=== PATIENT | male | born 1980 | race Caucasian/White ===

== ENCOUNTER 2019-07-07 17:37 | Emergency (ER) | payer MEDICARE, SELFPAY ==
[2019-07-07 17:45] VITALS: BP 155/102; PULSE 125; RESP 14; TEMP 37; O2SAT 95; BMI 23.0
--- NOTE | 2019-07-07 17:56 | W.ED.GENADLT ---
HPI - General Adult General: Chief complaint: General Medical Stated complaint: tastes pepper/thinks he has hepatitis Time Seen by Provider: 07/07/19 17:53 Source: patient Mode of arrival: ambulatory Limitations: no limitations History of Present Illness: HPI narrative: 39-year-old male states he is concerned he has hepatitis because his brother had hepatitis roughly a month ago. He states he has been drinking heavily as well and is obviously intoxicated. His main complaint is he states that he smells pepper and just does not feel right. Associated symptoms: Deny chest pain, dyspnea, headache(s), nausea, rash or vomiting Review of Systems Const: Denies: fever(s), chills, body aches or change in appetite Eyes: Denies: blurry vision or eye discomfort ENMT: Denies: throat pain or dental pain Card: Denies: chest pain Resp: Denies: dyspnea GI: Denies: abdominal pain, nausea, vomiting or diarrhea : Denies: dysuria Musc: Denies: neck pain or back pain Skin/Breast: Denies: rash Neuro: Denies: headache(s) Psych: Denies: depression Yury/Lymph: Denies: easy bruising All/Imm: Denies: urticaria PFSH ED PFSH: Social History Smoking and tobacco status: current every day smoker Physical Exam Const: COMMON NORMALS: no acute distress, patient oriented x3 and healthy appearing HENMT: COMMON NORMALS: normocephalic and atraumatic HEAD & SCALP: normocephalic and atraumatic Eye: COMMON NORMALS: Equal, round and reactive pupils present and EOMs intact bilaterally PUPIL: Yes Equal, round and reactive pupils present Neck/C-Spine: COMMON NORMALS: full ROM and supple Chest: COMMONS NORMALS: normal inspection of the chest and normal palpation of entire chest wall Resp: COMMON NORMALS: normal respiratory effort, No retractions, No use of accessory muscles and clear to auscultation bilaterally AUSCULTATION: clear to auscultation bilaterally Cardio: COMMON NORMALS: regular rate, regular rhythm and No murmurs present (Cardio) RATE: regular rate and tachycardic RHYTHM: regular rhythm GI: COMMON NORMALS: Normal to inspection, nondistended, normoactive bowel sounds present, Soft to palpation, non-tender and no masses PALPATION: Yes Soft to palpation Extremity: COMMON NORMALS: normal to inspection and full ROM Neuro: COMMON NORMALS: patient oriented x3, moves all extremities and no focal motor deficits Psych: COMMON NORMALS: mental status grossly normal, Normal thought process present and cooperative THOUGHT PROCESS: Normal thought process present OTHER: Intoxicated Skin: COMMON NORMALS: no rashes or lesions noted and no wounds GENERAL SKIN EXAM: no rashes or lesions noted Course Vital Signs: Vital signs: Vital Signs Temperature 98.6 F 07/07/19 17:45 Pulse Rate 125 H 07/07/19 17:45 Respiratory Rate 14 07/07/19 17:45 Blood Pressure 155/102 07/07/19 17:45 Pulse Oximetry 95 07/07/19 17:45 MDM - General Adult MDM Narrative: Medical decision making narrative: Patient presents here with alcohol intoxication. He is concerned that he had hepatitis hepatitis panel here is negative. Patient is well-appearing here and will discharge with his sister. Patient is to follow-up with primary care doctor in 3 to 5 days return if worsening. Lab Data: Labs: Lab Results 07/07/19 07/07/19 07/07/19 Range/Units 17:52 17:52 17:52 WBC 7.8 (4.0-10.0) 10^3/ uL RBC 4.82 (4.1-5.3) 10^6/u L Hgb 15.5 (11.7-16.6) g/dL Hct 46.5 (42.0-52.0) % MCV 96.5 H (80-94) fL MCH 32.2 (28.0-34.0) pg MCHC 33.3 (30.0-36.0) g/dL RDW 14.1 (12.1-15.1) % Plt Count 231 (130-400) 10^3/c mm MPV 8.8 (7.4-10.4) fL Neut % (Auto) 50.8 % Lymph % (Auto) 38.9 % [place] % (Auto) 9.0 % Eos % (Auto) 0.6 % Baso % (Auto) 0.4 % Neut # (Auto) 4.0 (1.8-7.7) 10^3/u L Lymph # (Auto) 3.0 (0.8-4.8) 10^3/u L [place] # (Auto) 0.7 (0.2-0.9) 10^3/u L Eos # (Auto) 0.1 (0.0-0.8) 10^3/u L Baso # (Auto) 0.0 (0.0-0.1) 10^3/u L Nucleated RBC % (a uto) 0 % Nucleated RBCs # 0.0 /100WBC Sodium 142 (136-145) mmol/L Potassium 3.8 (3.5-5.1) mmol/L Chloride 101 (98-107) mmol/L Carbon Dioxide 27 (22-29) mmol/L Anion Gap 17.8 (5-19) BUN 9 (6-20) mg/dL Creatinine 1.0 (0.7-1.2) mg/dL GFR Calculation 82.8 L (90-130) mL/min Glucose 114 (65-115) mg/dL Calculated Osmolal ity 291 (285-295) mOsm/k g Calcium 9.1 (8.5-10.5) mg/dL Total Bilirubin 0.2 (0.15-1.2) mg/dL AST 46 H (0-40) U/L ALT 28 (0-41) U/L Alkaline Phosphata se 77 (40-130) IU/L Total Protein 8.0 (6.6-8.7) g/dL Albumin 4.3 (3.5-5.2) g/dL Globulin 3.7 (1.3-4.6) g/dL Lipase 60 (13-60) U/L Ethyl Alcohol 396 H* (0-10) mg/dL Hepatitis A IgM Ab Non-reactive (Nonreactive) Hep Bs Antigen Non-reactive (Nonreactive) Hep Bs Antibody 3.5 (0-8.5) Hep B Core Total A b Non-reactive (Nonreactive) Discharge Plan Discharge Patient Disposition: Home, Self-Care Clinical Impression: Alcoholic intoxication Qualifiers: Complication of substance-induced condition: uncomplicated Qualified Code(s): F10.920 - Alcohol use, unspecified with intoxication, uncomplicated Condition: Stable Prescriptions: No Action No Known Home Medications RF: 0 Discharge Orders: Discharge Order (Routine); Ordered 07/07/19 Ordered By: Chel Berry Discharge Diet: Advance as tolerated Discharge Activity: Resume usual activity Patient Instructions: Alcohol Intoxication (ED) Coding Level of Care Code ED Prosthetic Lab Technician for Chg Fwd Exam Comprehensive
[2019-07-07 18:09] LABS: Basophils % 0.4 %; Eosinophils # 0.1 10^3/uL (0.0-0.8); Eosinophils % 0.6 %; Hematocrit 46.5 % (42.0-52.0); Hemoglobin 15.5 g/dL (11.7-16.6); Lymphocytes % 38.9 %; Mean Corpuscular HGB Conc 33.3 g/dL (30.0-36.0); Mean Corpuscular Hemoglobin 32.2 pg (28.0-34.0); Mean Corpuscular Volume 96.5 fL (80-94); Mean Platelet Volume 8.8 fL (7.4-10.4); Monocytes # 0.7 10^3/uL (0.2-0.9); Neutrophils % 50.8 %; Nucleated Red Blood Cells % 0 %; Platelet Count 231 10^3/cmm (130-400); Red Blood Count 4.82 10^6/uL (4.1-5.3); Red Cell Distribution Width 14.1 % (12.1-15.1); White Blood Count 7.8 10^3/uL (4.0-10.0)
[2019-07-07 18:25] LABS: Alanine Aminotransferase 28 U/L (0-41); Albumin Level 4.3 g/dL (3.5-5.2); Alkaline Phosphatase 77 IU/L (40-130); Anion Gap 17.8 (5-19); Aspartate Amino Transferase 46 U/L (0-40); Blood Urea Nitrogen 9 mg/dL (6-20); Calcium 9.1 mg/dL (8.5-10.5); Carbon Dioxide 27 mmol/L (22-29); Chloride 101 mmol/L (98-107); Globulin 3.7 g/dL (1.3-4.6); Glomerular Filtration Rate 82.8 mL/min (90-130); Glucose 114 mg/dL (65-115); Lipase 60 U/L (13-60); Osmolality Calculated 291 mOsm/kg (285-295); Potassium 3.8 mmol/L (3.5-5.1); Sodium 142 mmol/L (136-145); Total Bilirubin 0.2 mg/dL (0.15-1.2)
[2019-07-07] MEDS: sodium chloride 0.9% 1,000 ML 999 ML IV (18:28)
[2019-07-07 18:33] LABS: Alcohol Level 396 mg/dL (0-10)
[2019-07-07 18:57] LABS: Hepatitis A Antibody IgM Non-Reactive (Nonreactive); Hepatitis B Core AB, Total Non-Reactive (Nonreactive); Hepatitis B Surface AB 3.5 (0-8.5); Hepatitis B Surface Antigen Non-Reactive (Nonreactive); Hepatitis C Virus Antibody Reactive (Nonreactive)
[2019-07-07 19:25] VITALS: PULSE 110; RESP 16; O2SAT 95
== END 2019-07-07 19:26 | disposition home or self-care (01) ==
PROVIDERS: Emergency Provider Emergency Medicine
DX: F10.120 Alcohol abuse with intoxication, uncomplicated (principal); Y90.9 Presence of alcohol in blood, level not specified; F17.210 Nicotine dependence, cigarettes, uncomplicated
CPT/HCPCS: 12345; 80053; 80307; 83690; 85025; 86705; 86706; 86709; 86803; 87340; 96360; 99282; 99283; J7030

== ENCOUNTER 2020-08-20 18:38 | Inpatient (IN) | payer MEDICARE, SELFPAY ==
[2020-08-20 19:05] VITALS: BP 133/92; PULSE 132; RESP 17; TEMP 36.7; O2SAT 95; BMI 17.4
--- NOTE | 2020-08-20 19:23 | ED_ITS ---
HPI - Psych General: Chief Complaint: Psychiatric Symptoms Stated Complaint: Statements of Harming Himself Time Seen by Provider: 08/20/20 19:17 Source: patient Mode of arrival: ambulatory Limitations: no limitations History of Present Illness: HPI Narrative: 40-year-old male who is brought here by police for suicidal homicidal ideations. Patient has been drinking heavily today and he states that him and his girlfriend recently split up. States they have been arguing over her dog and that she had taken his dog vomiting. He had called the police because he had been having thoughts of killing himself or harming his girlfriend. He told me that he has had suicidal thoughts as well. He is quite intoxicated at this point. Associated symptoms: Reports depression, homicidal ideation and suicidal ideation Review of Systems Const: Denies: fever(s), chills, body aches or change in appetite Eyes: Denies: blurry vision or eye discomfort ENMT: Denies: throat pain or dental pain Card: Denies: chest pain Resp: Denies: dyspnea GI: Denies: abdominal pain, nausea, vomiting or diarrhea : Denies: dysuria Musc: Denies: neck pain or back pain Skin/Breast: Denies: rash Neuro: Denies: headache(s) Psych: Reports: depression, suicidal ideation and homicidal ideation Yury/Lymph: Denies: easy bruising All/Imm: Denies: urticaria PFSH ED PFSH: Social History Smoking and tobacco status: current every day smoker Physical Exam Const: COMMON NORMALS: patient oriented x3 GENERAL APPEARANCE: disheveled and odor of alcohol detected HENMT: COMMON NORMALS: normocephalic and atraumatic HEAD & SCALP: normocephalic and atraumatic Eye: COMMON NORMALS: Equal, round and reactive pupils present and EOMs intact bilaterally PUPIL: Yes Equal, round and reactive pupils present Neck/C-Spine: COMMON NORMALS: full ROM and supple Chest: COMMONS NORMALS: normal inspection of the chest and normal palpation of entire chest wall Resp: COMMON NORMALS: normal respiratory effort, No retractions, No use of accessory muscles and clear to auscultation bilaterally AUSCULTATION: clear to auscultation bilaterally Cardio: COMMON NORMALS: regular rate, regular rhythm and No murmurs present (Cardio) RATE: regular rate RHYTHM: regular rhythm GI: COMMON NORMALS: Normal to inspection, nondistended, normoactive bowel sounds present, Soft to palpation, non-tender and no masses PALPATION: Yes Soft to palpation Extremity: COMMON NORMALS: normal to inspection and full ROM Neuro: COMMON NORMALS: patient oriented x3, moves all extremities and no focal motor deficits Psych: COMMON NORMALS: mental status grossly normal and cooperative THOUGHT CONTENT: Yes Suicidality present and Yes Homicidality present Skin: COMMON NORMALS: no rashes or lesions noted and no wounds GENERAL SKIN EXAM: no rashes or lesions noted Course Vital Signs: Vital signs: Vital Signs Temperature 98.1 F 08/20/20 19:05 Pulse Rate 118 H 08/20/20 23:35 Respiratory Rate 18 08/20/20 23:35 Blood Pressure 131/90 08/20/20 23:35 Pulse Oximetry 96 08/20/20 23:35 MDM - Psych MDM Narrative: Medical decision making narrative: Patient presents here with alcohol tox [place] along with suicidal ideation. Patient was placed under 96- hour hold. Patient did have a slightly elevated BNP and he is complained of some dyspnea. I spoke to hospitalist will admit to be cleared medically under observation. Also spoke to the psychiatrist who is consulted. Lab Data: Labs: Lab Results 08/20/20 08/20/20 08/20/20 Range/Units 19:15 19:15 19:15 WBC 7.3 (4.0-10.0) 10^3/ uL RBC 5.17 (4.1-5.3) 10^6/u L Hgb 16.6 (11.7-16.6) g/dL Hct 49.7 (42.0-52.0) % MCV 96.1 H (80-94) fL MCH 32.1 (28.0-34.0) pg MCHC 33.4 (30.0-36.0) g/dL RDW 13.5 (12.1-15.1) % Plt Count 242 (130-400) 10^3/c mm MPV 9.3 (7.4-10.4) fL Neut % (Auto) 52.6 % Lymph % (Auto) 40.2 % [place] % (Auto) 6.3 % Eos % (Auto) 0.4 % Baso % (Auto) 0.4 % Neut # (Auto) 3.82 (1.8-7.7) 10^3/u L Lymph # (Auto) 2.9 (0.8-4.8) 10^3/u L [place] # (Auto) 0.5 (0.2-0.9) 10^3/u L Eos # (Auto) 0.0 (0.0-0.8) 10^3/u L Baso # (Auto) 0.0 (0.0-0.1) 10^3/u L Nucleated RBC % (a uto) 0 % Nucleated RBCs # 0.0 /100WBC D-Dimer (0-0.59) ug/mIFE U Sodium 144 (136-145) mmol/L Potassium 4.0 (3.5-5.1) mmol/L Chloride 106 (98-107) mmol/L Carbon Dioxide 24 (22-29) mmol/L Anion Gap 18.0 (5-19) BUN 7 (6-20) mg/dL Creatinine 0.9 (0.7-1.2) mg/dL GFR Calculation 93.0 (90-130) mL/min Glucose 147 H (65-115) mg/dL Calculated Osmolal ity 299 H (285-295) mOsm/k g Calcium 8.3 L (8.5-10.5) mg/dL Total Bilirubin 0.3 (0.15-1.2) mg/dL AST 33 (0-40) U/L ALT 20 (0-41) U/L Alkaline Phosphata se 99 (40-130) IU/L Troponin T Baselin e 40 H (0-15) ng/L Troponin T 120 Min sav (0-15) ng/L Delta Troponin T (0-10) ABS# NT-Pro-B Natriuret Pep (0-125) pg/mL Total Protein 7.2 (6.6-8.7) g/dL Albumin 3.7 (3.5-5.2) g/dL Globulin 3.5 (1.3-4.6) g/dL Urine Color (Yellow) Urine Appearance (CLEAR) Urine pH (5-7) Ur Specific Gravit y (1.005-1.030) Urine Protein (Negative) Urine Glucose (UA) (Normal) Urine Ketones (Negative) Urine Blood (Negative) Urine Nitrate (Negative) Urine Bilirubin (Negative) Urine Urobilinogen (Negative) mg/dL Ur Leukocyte Felicia ase (Negative) Salicylates < 0.3 L (3-10) mg/dL Urine Opiates Scre en (Negative) ng/mL Acetaminophen < 5.0 L (10-30) ug/mL Ur Barbiturates Sc reen (Negative) ng/mL Ur Phencyclidine S crn (Negative) ng/mL Ur Amphetamines Sc reen (Negative) ng/mL U Benzodiazepines Scrn (Negative) ng/mL Urine Cocaine Scre en (Negative) ng/mL U Marijuana (THC) Screen (Negative) ng/mL Ethyl Alcohol 426 H* (0-10) mg/dL SARS-CoV-2 Ag (Rap id) (Negative) 08/20/20 08/20/20 08/20/20 Range/Units 19:15 20:24 20:24 WBC (4.0-10.0) 10^3/ uL RBC (4.1-5.3) 10^6/u L Hgb (11.7-16.6) g/dL Hct (42.0-52.0) % MCV (80-94) fL MCH (28.0-34.0) pg MCHC (30.0-36.0) g/dL RDW (12.1-15.1) % Plt Count (130-400) 10^3/c mm MPV (7.4-10.4) fL Neut % (Auto) % Lymph % (Auto) % [place] % (Auto) % Eos % (Auto) % Baso % (Auto) % Neut # (Auto) (1.8-7.7) 10^3/u L Lymph # (Auto) (0.8-4.8) 10^3/u L [place] # (Auto) (0.2-0.9) 10^3/u L Eos # (Auto) (0.0-0.8) 10^3/u L Baso # (Auto) (0.0-0.1) 10^3/u L Nucleated RBC % (a uto) % Nucleated RBCs # /100WBC D-Dimer (0-0.59) ug/mIFE U Sodium (136-145) mmol/L Potassium (3.5-5.1) mmol/L Chloride (98-107) mmol/L Carbon Dioxide (22-29) mmol/L Anion Gap (5-19) BUN (6-20) mg/dL Creatinine (0.7-1.2) mg/dL GFR Calculation (90-130) mL/min Glucose (65-115) mg/dL Calculated Osmolal ity (285-295) mOsm/k g Calcium (8.5-10.5) mg/dL Total Bilirubin (0.15-1.2) mg/dL AST (0-40) U/L ALT (0-41) U/L Alkaline Phosphata se (40-130) IU/L Troponin T Baselin e (0-15) ng/L Troponin T 120 Min sav (0-15) ng/L Delta Troponin T (0-10) ABS# NT-Pro-B Natriuret Pep 1323 H (0-125) pg/mL Total Protein (6.6-8.7) g/dL Albumin (3.5-5.2) g/dL Globulin (1.3-4.6) g/dL Urine Color Yellow (Yellow) Urine Appearance Clear (CLEAR) Urine pH 5 (5-7) Ur Specific Gravit y 1.010 (1.005-1.030) Urine Protein Neg (Negative) Urine Glucose (UA) Norm (Normal) Urine Ketones Negative (Negative) Urine Blood Neg (Negative) Urine Nitrate Negative (Negative) Urine Bilirubin Neg (Negative) Urine Urobilinogen Norm (Negative) mg/dL Ur Leukocyte Felicia ase Negative (Negative) Salicylates (3-10) mg/dL Urine Opiates Scre en Negative (Negative) ng/mL Acetaminophen (10-30) ug/mL Ur Barbiturates Sc reen Negative (Negative) ng/mL Ur Phencyclidine S crn Negative (Negative) ng/mL Ur Amphetamines Sc reen Positive H (Negative) ng/mL U Benzodiazepines Scrn Negative (Negative) ng/mL Urine Cocaine Scre en Negative (Negative) ng/mL U Marijuana (THC) Screen Negative (Negative) ng/mL Ethyl Alcohol (0-10) mg/dL SARS-CoV-2 Ag (Rap id) (Negative) 08/20/20 08/20/20 08/20/20 Range/Units 20:40 21:03 21:08 WBC (4.0-10.0) 10^3/ uL RBC (4.1-5.3) 10^6/u L Hgb (11.7-16.6) g/dL Hct (42.0-52.0) % MCV (80-94) fL MCH (28.0-34.0) pg MCHC (30.0-36.0) g/dL RDW (12.1-15.1) % Plt Count (130-400) 10^3/c mm MPV (7.4-10.4) fL Neut % (Auto) % Lymph % (Auto) % [place] % (Auto) % Eos % (Auto) % Baso % (Auto) % Neut # (Auto) (1.8-7.7) 10^3/u L Lymph # (Auto) (0.8-4.8) 10^3/u L [place] # (Auto) (0.2-0.9) 10^3/u L Eos # (Auto) (0.0-0.8) 10^3/u L Baso # (Auto) (0.0-0.1) 10^3/u L Nucleated RBC % (a uto) % Nucleated RBCs # /100WBC D-Dimer 2.85 H (0-0.59) ug/mIFE U Sodium (136-145) mmol/L Potassium (3.5-5.1) mmol/L Chloride (98-107) mmol/L Carbon Dioxide (22-29) mmol/L Anion Gap (5-19) BUN (6-20) mg/dL Creatinine (0.7-1.2) mg/dL GFR Calculation (90-130) mL/min Glucose (65-115) mg/dL Calculated Osmolal ity (285-295) mOsm/k g Calcium (8.5-10.5) mg/dL Total Bilirubin (0.15-1.2) mg/dL AST (0-40) U/L ALT (0-41) U/L Alkaline Phosphata se (40-130) IU/L Troponin T Baselin e (0-15) ng/L Troponin T 120 Min sav 38.68 H (0-15) ng/L Delta Troponin T -1.32 L (0-10) ABS# NT-Pro-B Natriuret Pep (0-125) pg/mL Total Protein (6.6-8.7) g/dL Albumin (3.5-5.2) g/dL Globulin (1.3-4.6) g/dL Urine Color (Yellow) Urine Appearance (CLEAR) Urine pH (5-7) Ur Specific Gravit y (1.005-1.030) Urine Protein (Negative) Urine Glucose (UA) (Normal) Urine Ketones (Negative) Urine Blood (Negative) Urine Nitrate (Negative) Urine Bilirubin (Negative) Urine Urobilinogen (Negative) mg/dL Ur Leukocyte Felicia ase (Negative) Salicylates (3-10) mg/dL Urine Opiates Scre en (Negative) ng/mL Acetaminophen (10-30) ug/mL Ur Barbiturates Sc reen (Negative) ng/mL Ur Phencyclidine S crn (Negative) ng/mL Ur Amphetamines Sc reen (Negative) ng/mL U Benzodiazepines Scrn (Negative) ng/mL Urine Cocaine Scre en (Negative) ng/mL U Marijuana (THC) Screen (Negative) ng/mL Ethyl Alcohol (0-10) mg/dL SARS-CoV-2 Ag (Rap id) Negative (Negative) Imaging Data^: CT Chest: Attestation: I personally reviewed and interpreted this imaging study as follows: Radiologist's impression: [address] [address] [address] Scan Report Signed Patient: Edwin Cuevas Unit #: [id number] : 1980 Age/Sex: 40 / M ADM Date: 08/20/20 Loc: ER Room/Bed: Attending Dr: Ordering Provider/Ordering MD: Chel Berry MD Date of Service: 08/20/20 Procedure(s): CT angio chest PE protcl [id number] Accession Number(s): [id number] Report Number: [id number] PROCEDURE INFORMATION: Exam: CTA Chest With Contrast Exam date and time: 08/20/2020 9:06 PM Age: 40 years old Clinical indication: Shortness of breath; Additional info: SOB TECHNIQUE: Imaging protocol: Computed tomographic angiography of the chest with contrast. 3D rendering (Not supervised by radiologist): MIP and/or 3D reconstructed images were created by the technologist. Radiation optimization: All CT scans at this facility use at least one of these dose optimization techniques: automated exposure control; mA and/or kV adjustment per patient size (includes targeted exams where dose is matched to clinical indication); or iterative reconstruction. Contrast material: OMNI 350; Contrast volume: 75 ml; Contrast route: INTRAVENOUS (IV); COMPARISON: CR (CHEST, ) 08/20/2020 7:55 PM RADIATION DOSE METRICS: Total DLP (mGy-cm): 595.97 FINDINGS: Pulmonary arteries: Evaluation of peripheral pulmonary arteries is limited secondary to the phase of contrast enhancement. No filling defects in the central pulmonary arteries to suggest a large pulmonary embolism. Aorta: No evidence for aortic aneurysm. Evaluation for aortic dissection is limited due to the phase of contrast-enhancement. Mild atherosclerotic changes in the visualized arteries. Lungs: Mild parabronchial cuffing. Mild cephalization of vessels and smooth interlobular septal thickening, findings suggest mild pulmonary edema. Multiple calcified granulomas in both lungs. Pleural spaces: Small right pleural effusion. No pneumothorax. Heart: Marked enlargement of the heart. Mediastinal space: No mediastinal hematoma. No pneumomediastinum. Lymph nodes: Calcified mediastinal and hilar lymph nodes. No lymphadenopathy. Liver: The visualized liver is unremarkable. Gallbladder and bile ducts: The visualized gallbladder is unremarkable. Pancreas: The visualized pancreas is unremarkable. No pancreatic ductal dilatation. Spleen: Multiple calcified granulomas in the spleen. Adrenal glands: The right and left adrenal glands are unremarkable. Kidneys and ureters: The visualized right and left kidneys are unremarkable. 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 Multilevel degenerative changes of varying severity in the visualized spine. Soft tissues: No acute abnormality in the extrathoracic soft tissues. Large sebaceous cyst in the right anterior chest wall measuring 2.5 x 4.2 cm (series 2, image 197). No acute abnormality in the extrathoracic soft tissues. CT/CT angio chest PE protcl [id number] IMPRESSION: 1. Mild interstitial pulmonary edema. 2. Evaluation of peripheral pulmonary arteries is limited secondary to the phase of contrast enhancement. No filling defects in the central pulmonary arteries to suggest a large pulmonary embolism. 3. Small right pleural effusion. 4. Severe cardiomegaly. 5. Incidental/nonacute findings are listed in the report. Radiation Dose CTDIVOL = (mGy): DLP = 595.97 (mGy-cm) EKG Data^: EKG 1: Attestation: I personally reviewed and interpreted this EKG as follows: EKG interpretation date: 08/20/20 EKG interpretation time: 19:59 Interpretation: sinus tach hr [address] or t wave abnormalities qrs 96 qtc 391 Discharge Plan Discharge Patient Disposition: Admitted As Inpatient Admit Provider: Jia Marin Clinical Impression: Suicidal ideation, Dyspnea, Alcohol intoxication Condition: Stable Coding Level of Care Code ED Instrument And Electrical Technician for Chg Fwd Exam Comprehensive
--- NOTE | 2020-08-20 19:37 | XRR_ITS ---
PROCEDURE INFORMATION: Exam: XR Chest Exam date and time: 08/20/2020 7:37 PM Age: 40 years old Clinical indication: Chest wall pain; Patient HX: AMS; Additional info: Cp TECHNIQUE: Imaging protocol: XR of the chest. Views: 1 view. COMPARISON: CR Ribs Bilateral w PA CXR [id number] 04/04/2015 1:25 PM FINDINGS: Lungs: Interval development of mild interstitial pulmonary edema. Pleural spaces: No pleural effusion. No pneumothorax. Heart/Mediastinum: Cardiac silhouette is moderately enlarged. Size of the cardiac silhouette has increased. Mediastinal contours are unremarkable. Vasculature: Vascular calcifications in the aorta. Bones/joints: Unremarkable for age. XR/XR chest 1V portable [id number] IMPRESSION: 1. Interval development of mild interstitial pulmonary edema. 2. Cardiac silhouette is moderately enlarged. Size of the cardiac silhouette has increased.
--- NOTE | 2020-08-20 19:37 | ECG_ITS ---
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 Measurements Intervals [place] Rate: 122 P: -4 MD: 141 QRS: 87 QRSD: 96 T: 24 QT: 319 QTc: 455 Interpretive Statements SINUS TACHYCARDIA INDETERMINATE AXIS NONSPECIFIC T-WAVE ABNORMALITY ABNORMAL RHYTHM ECG No previous ECG available for comparison Electronically Signed On 08-20-2020 21:34:18 CDT by Keke Benítez M.D. [id number]
[2020-08-20 19:40] LABS: Basophils % 0.4 %; Eosinophils % 0.4 %; Hematocrit 49.7 % (42.0-52.0); Hemoglobin 16.6 g/dL (11.7-16.6); Lymphocytes # 2.9 10^3/uL (0.8-4.8); Lymphocytes % 40.2 %; Mean Corpuscular HGB Conc 33.4 g/dL (30.0-36.0); Mean Corpuscular Hemoglobin 32.1 pg (28.0-34.0); Mean Corpuscular Volume 96.1 fL (80-94); Mean Platelet Volume 9.3 fL (7.4-10.4); Monocytes # 0.5 10^3/uL (0.2-0.9); Monocytes % 6.3 %; Neutrophils # 3.82 10^3/uL (1.8-7.7); Neutrophils % 52.6 %; Nucleated Red Blood Cells % 0 %; Platelet Count 242 10^3/cmm (130-400); Red Blood Count 5.17 10^6/uL (4.1-5.3); Red Cell Distribution Width 13.5 % (12.1-15.1); White Blood Count 7.3 10^3/uL (4.0-10.0)
[2020-08-20 20:10] LABS: Alanine Aminotransferase 20 U/L (0-41); Albumin Level 3.7 g/dL (3.5-5.2); Alkaline Phosphatase 99 IU/L (40-130); Aspartate Amino Transferase 33 U/L (0-40); Blood Urea Nitrogen 7 mg/dL (6-20); Calcium 8.3 mg/dL (8.5-10.5); Carbon Dioxide 24 mmol/L (22-29); Chloride 106 mmol/L (98-107); Globulin 3.5 g/dL (1.3-4.6); Glucose 147 mg/dL (65-115); Osmolality Calculated 299 mOsm/kg (285-295); Sodium 144 mmol/L (136-145); Total Bilirubin 0.3 mg/dL (0.15-1.2); Total Protein 7.2 g/dL (6.6-8.7)
[2020-08-20 20:17] LABS: Acetaminophen < 5.0 ug/mL (10-30); Salicylate < 0.3 mg/dL (3-10)
[2020-08-20 20:19] LABS: Alcohol Level 426 mg/dL (0-10)
[2020-08-20 20:31] LABS: Add Urine Microscopic? NO; Bilirubin Urine Neg (Negative); Blood Urine Neg (Negative); Glucose Urine UA Norm (Normal); Ketones Urine Negative (Negative); Leukocyte Esterase Urine Negative (Negative); Nitrate Urine Negative (Negative); Protein Urine Neg (Negative); Urine Appearance Clear (CLEAR); Urine Color Yellow (Yellow); Urobilinogen Urine Norm (Negative); pH Urine 5 (5-7)
[2020-08-20 20:33] LABS: Charge for UA Resulting for Rev
[2020-08-20 20:41] LABS: Amphetamines Screen Urine Positive (Negative); Barbiturates Screen Urine Negative (Negative); Benzodiazepines Screen Urine Negative (Negative); Cocaine Screen Urine Negative (Negative); Opiate Screen Urine Negative (Negative); PCP Screen Urine Negative (Negative); THC Screen Urine Negative (Negative)
[2020-08-20 21:04] LABS: D Dimer 2.85 ug/mIFEU (0-0.59)
--- NOTE | 2020-08-20 21:06 | CTR_ITS ---
PROCEDURE INFORMATION: Exam: CTA Chest With Contrast Exam date and time: 08/20/2020 9:06 PM Age: 40 years old Clinical indication: Shortness of breath; Additional info: SOB TECHNIQUE: Imaging protocol: Computed tomographic angiography of the chest with contrast. 3D rendering (Not supervised by radiologist): MIP and/or 3D reconstructed images were created by the technologist. Radiation optimization: All CT scans at this facility use at least one of these dose optimization techniques: automated exposure control; mA and/or kV adjustment per patient size (includes targeted exams where dose is matched to clinical indication); or iterative reconstruction. Contrast material: OMNI 350; Contrast volume: 75 ml; Contrast route: INTRAVENOUS (IV); COMPARISON: CR (CHEST, ) 08/20/2020 7:55 PM RADIATION DOSE METRICS: Total DLP (mGy-cm): 595.97 FINDINGS: Pulmonary arteries: Evaluation of peripheral pulmonary arteries is limited secondary to the phase of contrast enhancement. No filling defects in the central pulmonary arteries to suggest a large pulmonary embolism. Aorta: No evidence for aortic aneurysm. Evaluation for aortic dissection is limited due to the phase of contrast-enhancement. Mild atherosclerotic changes in the visualized arteries. Lungs: Mild parabronchial cuffing. Mild cephalization of vessels and smooth interlobular septal thickening, findings suggest mild pulmonary edema. Multiple calcified granulomas in both lungs. Pleural spaces: Small right pleural effusion. No pneumothorax. Heart: Marked enlargement of the heart. Mediastinal space: No mediastinal hematoma. No pneumomediastinum. Lymph nodes: Calcified mediastinal and hilar lymph nodes. No lymphadenopathy. Liver: The visualized liver is unremarkable. Gallbladder and bile ducts: The visualized gallbladder is unremarkable. Pancreas: The visualized pancreas is unremarkable. No pancreatic ductal dilatation. Spleen: Multiple calcified granulomas in the spleen. Adrenal glands: The right and left adrenal glands are unremarkable. Kidneys and ureters: The visualized right and left kidneys are unremarkable. 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 Multilevel degenerative changes of varying severity in the visualized spine. Soft tissues: No acute abnormality in the extrathoracic soft tissues. Large sebaceous cyst in the right anterior chest wall measuring 2.5 x 4.2 cm (series 2, image 197). No acute abnormality in the extrathoracic soft tissues. CT/CT angio chest PE protcl [id number] IMPRESSION: 1. Mild interstitial pulmonary edema. 2. Evaluation of peripheral pulmonary arteries is limited secondary to the phase of contrast enhancement. No filling defects in the central pulmonary arteries to suggest a large pulmonary embolism. 3. Small right pleural effusion. 4. Severe cardiomegaly. 5. Incidental/nonacute findings are listed in the report. Radiation Dose CTDIVOL = (mGy): DLP = 595.97 (mGy-cm)
[2020-08-20] MEDS: iohexol 350 mg/mL 100 mL Btl IV (21:23)
[2020-08-20 21:31] LABS: NT Pro B Type Natriuretic Pept 1323 pg/mL (0-125)
[2020-08-20 21:36] LABS: Troponin(5th) Baseline 40 ng/L (0-15)
[2020-08-20 21:37] LABS: Troponin 5 2HR 38.68 ng/L (0-15); Troponin 5 2HR Delta -1.32 ABS# (0-10)
[2020-08-20 21:57] LABS: SARS Covid-2 Antigen Negative (Negative)
--- NOTE | 2020-08-20 22:00 | ECG_ITS ---
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 Measurements Intervals [place] Rate: 122 P: 71 NE: 145 QRS: -46 QRSD: 90 T: 63 QT: 310 QTc: 443 Interpretive Statements SINUS TACHYCARDIA INDETERMINATE AXIS LEFT VENTRICULAR HYPERTROPHY AND ST-T CHANGE [VOLTAGE CRITERIA PLUS ST/T ABNORMALITY] Compared to ECG 08/20/2020 19:59:17 Left ventricular hypertrophy now present ST (T wave) deviation now present T-wave abnormality no longer present Electronically Signed On 08-20-2020 21:52:33 CDT by Keke Benítez M.D. [id number]
[2020-08-20] MEDS: FUROsemide 10 mg/mL SDV 4mL 40 MG IVP (23:19)
--- NOTE | 2020-08-20 23:27 | PC.NURSE ---
Pt calm and cooperative, sitter outside room.
[2020-08-20 23:35] VITALS: BP 131/90; PULSE 118; RESP 18; O2SAT 96
--- NOTE | 2020-08-20 23:37 | PC.NURSE ---
Hospitalist in room
[2020-08-21] VITALS (7 sets, daily range): BP systolic 121–141; BP diastolic 81–97; PULSE 98–122; RESP 16–20; TEMP 36.8–37; O2SAT 95–97
--- NOTE | 2020-08-21 00:33 | P.HP_ITS ---
Providers/Chief Complaint Admitting Physician: Jia Marin MD Chief Complaint: Statements of Harming Himself History of Present Illness Edwin Cuevas is a 40 year old male who has been brought to the ER today after he called the police for reported suicidal ideation. States he also had thoughts of hurting his girlfriend who he had a fight with earlier today. States he is quite depressed because he broke up with his girlfriend today and they had an argument about who gets the dog. He has been drinking excessively since last night. Alcohol level is greater than 400. On review of systems he reported shortness of breath which has been progressing over the last 3 to 4 weeks. His D-dimer was noted to be elevated at 2.85, CTA of the chest was obtained which did not show any PE.Mild interstitial pulmonary edema was noted a s well as a small right pleural effusion. There was severe cardiomegaly, patient states he does not have any history of cardiac disease except broken heart but I am not certain if he is referring to Takotsubo cardiomyopathy or if he is referring to his recent break-up. EKG shows sinus tachycardia. He is saturating 96% on room air. Rapid COVID Ag test is negative, he is unable to tell me if he recently had COVID or if he is vaccinated. incidental note made of hep C Screen +. He is currently on a 96 hr hold. Review of Systems General: Reports: ROS unobtainable due to medical condition Medications/Allergies Home Medications Medication Instructions Recorded Confirmed Last Taken Type No Known Home Medications 07/07/19 08/20/20 Unknown History Allergies Allergy/AdvReac Type Severity Reaction Status Date / Time No Known Allergies Allergy Verified 08/20/20 19:11 PFSH Acute PFSH: Social History Smoking and tobacco status: current every day smoker Vitals/I&O/Wt Last Vital Signs Temp 98.1 F 08/20/20 19:05 Pulse 118 H 08/20/20 23:35 Resp 18 08/20/20 23:35 BP 131/90 08/20/20 23:35 Pulse Ox 96 08/20/20 23:35 Weight last 48 hrs Weight 56.699 kg Physical Exam Narrative: EXAM NARRATIVE: General: No acute distress, AO x1 HEENT: PERRLA, pupils bilaterally equal and reactive, pallors not present Chest: Normal vesicular breath sounds, no added sounds, equal good air entry bilaterally CVS: S1-S2 regular, no murmurs, no tachycardia, no gallops, no rubs Abdomen: Soft, nontender, no organomegaly, bowel sounds present Neuro: No focal deficits, no facial deformity, AO x3, power 5/5 in all limbs Extremities: Healthy surgical dressing present on the right hip, mild tenderness, soft no erythema. Data : 08/20/20 19:15 08/20/20 19:15 A&P Assessment and plan (1) Alcohol intoxication: Alcohol level >400 Amphetamine + on drug screen Monitor for signs of withdrawal CINY protocol Status: Acute Qualifiers: Complication of substance-induced condition: with unspecified complic ation Qualified Code(s): F10.929 - Alcohol use, unspecified with intoxication, unspecified (2) Cardiomegaly: Incidentally noted on CTA chest Elevated BNP, mild interstitial edema, reported SOB over past few weeks check 2 d echo denies h/o IVDU but utox + Check blood cx to r/o endocarditis check COVID PCR Status: Acute (3) Suicidal ideation: Psych consult placed from ER currently on a 96 hr hold 1:1 sitter at all times Status: Acute (4) Hepatitis C antibody positive in blood: LFT within range check HCV PCR , HIV screen F/up outpatient Status: Acute (5) Dyspnea: Cause under evaluation, may have underlying CHF Status: Acute Qualifiers: Dyspnea type: shortness of breath Qualified Code(s): R06.02 - Shortness of breath (6) CHF (congestive heart failure): This is a possible diagnosis currently 2D echo s/p Lasix 40mg iv daily Status: Acute Qualifiers: Heart failure type: unspecified Heart failure chronicity: unspecified Qualified Code(s): I50.9 - Heart failure, unspecified Additional A&P Information DVT ppx: lovenox Full code 96 hr hold Attestations Medical Necessity Statement*: anticipate >2midnight admission for above defined care Coding Level of Care Code Acute Compliance Administrator for [facility] Fwd Diagnoses Alcohol intoxication F10.929 Complication of substance-induced condition: with unspecified complication Cardiomegaly I51.7 Suicidal ideation R45.851 Hepatitis C antibody positive in blood R76.8 Dyspnea R06.02 Dyspnea type: shortness of breath CHF (congestive heart failure) I50.9 Heart failure type: unspecified Heart failure chronicity: unspecified
--- NOTE | 2020-08-21 01:15 | USCV_ITS ---
Edwin Cuevas Age: 40 Gender: M : 1980 Exam Date: 08/21/2020 13:37 Ordering Phys: Jia Marin MD Technologist: Exam Location: [facility] [place] Indication: CARDIOMEGALY BP: 135 / 74 HR: 103 Rhythm: Sinus Technical Quality: Good MEASUREMENTS (Male / Female) Normal Values 2D ECHO LV Diastolic Diameter PLAX 6.1 cm 4.2 - 5.9 / 3.9 - 5.3 cm LV Systolic Diameter PLAX 5.8 cm IVS Diastolic Thickness 1.1 cm 0.6 - 1.0 / 0.6 - 0.9 cm IVS Systolic Thickness 1.4 cm LVPW Diastolic Thickness 1.1 cm 0.6 - 1.0 / 0.6 - 0.9 cm LVPW Systolic Thickness 1.1 cm LVOT Diameter 2.0 cm LV Ejection Fraction 2D Teich 12.9 % LV Ejection Fraction MOD 2C 19.7 % LV Ejection Fraction 2C AL 20.2 % LA Diameter 4.0 cm LA Width 4.2 cm LA Height 5.0 cm RA Width 4.4 cm RA Height 5.1 cm Aorta at Sinotubular Diameter 3.6 cm DOPPLER AV Peak Velocity 80.0 cm/s LVOT Peak Velocity 81.0 cm/s AV Area Cont Eq vti 2.9 cm squared AV Area Cont Eq pk 3.2 cm squared MV Area PHT 5.0 cm squared Mitral E to A Ratio 1.3 MV E' Velocity 36.0 cm/s Mitral E to MV E' Ratio 18.1 Mitral E to LV E' Lateral Ratio 25.5 Mitral E to LV E' Septal Ratio 14.1 TR Peak Velocity 241.3 cm/s TR Peak Gradient 23.3 mmHg TV Peak E Velocity 87.0 cm/s Right Atrial Pressure 3.0 mmHg Pulmonary Artery Systolic Pressu 26.3 mmHg PV Peak Velocity 46.0 cm/s FINDINGS Left Ventricle Severe diffuse hypokinesia of the left ventricle with an ejection fraction of 15%. Mildly dilated left ventricle Right Ventricle Normal RV size with a slightly diminished ejection fraction. Right Atrium Mildly increased right atrial size. Left Atrium Mildly increased left atrial size. Mitral Valve Thickened mitral valve. Mild mitral valve regurgitation. Aortic Valve Tricuspid valve with no significant stenosis Tricuspid Valve Mild tricuspid valve regurgitation. Pulmonic Valve Structurally normal pulmonic valve without significant stenosis. There is no pulmonic regurgitation. Pericardium Normal pericardium without effusion. Aorta Normal ascending aorta dimension. CONCLUSIONS Severe diffuse hypokinesia of the left ventricle with an ejection fraction of 15%. Mildly dilated left ventricle. Mild biatrial enlargement. Normal RV size with a slightly diminished ejection fraction. Thickened mitral valve. Mild mitral valve regurgitation. Mild tricuspid valve regurgitation. Estimated pulmonary artery peak systolic pressure 26 mmHg There is no pericardial effusion. There are no intracardiac masses. No previous study is available for comparison. Dr Emelyn Mcbride MD [facility] (Electronically Signed) Final Date: 22 August 2020 18:18 S
[2020-08-21 01:51] LABS: HIV 1 & 2 Antibody Non-Reactive (Non-Reactiv); HIV 1 & 2 Antigen Non-Reactive (Non-Reactiv)
--- NOTE | 2020-08-21 02:00 | ECG_ITS ---
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 Measurements Intervals [place] Rate: 117 P: 72 WV: 129 QRS: 10 QRSD: 94 T: 56 QT: 322 QTc: 450 Interpretive Statements SINUS TACHYCARDIA POSSIBLE RIGHT ATRIAL ENLARGEMENT [0.25mV P WAVE] LEFT ATRIAL ENLARGEMENT [-0.15mV P WAVE IN V1/V2] INDETERMINATE AXIS POSSIBLE LEFT VENTRICULAR HYPERTROPHY [VOLTAGE CRITERIA PLUS LAE OR QRS WIDENING] MODERATE T-WAVE ABNORMALITY, CONSIDER LATERAL ISCHEMIA [-0.1+ mV T WAVE IN I/aVL/V5/V6] Compared to ECG 08/20/2020 21:34:33 Atrial abnormality now present T-wave abnormality now present Possible ischemia now present ST (T wave) deviation no longer present Electronically Signed On 08-26-2020 16:52:49 CDT by Keke Benítez M.D. [id number]
[2020-08-21] MEDS: enoxaparin 40 mg/0.4 mL Syringe SUBCUT (02:55)
[2020-08-21 03:46] LABS: Troponin 5 6HR 40.95 ng/L (0-15); Troponin 5 6HR Delta 0.95 ng/L (0-12)
[2020-08-21] MEDS: folic acid 1 mg Tablet PO (09:13)
[2020-08-21] MEDS: pantoprazole DR 40 mg Tablet PO (09:13)
[2020-08-21] MEDS: multivitamin therapeutic Tablet 1 TAB PO (09:13)
[2020-08-21] MEDS: thiamine 100 mg Tablet PO (09:13)
--- NOTE | 2020-08-21 11:10 | PC.CHAP ---
Pastoral Care Encounter/Spiritual Assessment Type of Contact [] Declined developing machine tender visit [] Patient/Family/Request visit [] Outpatient visit [] Follow-up visit [] Physician referral [] Code/Alert [] Routine visit [] Staff referral [] Actively dying [] Patient sleeping [] Family support [] [] Out of room [] Palliative care [] [] Receiving care in room [] Pre-surgical visit [] Trauma [] Long length of stay [] ICU visit [X] Other: nursesais aid with him confused about his health Relational/Emotional Strength [] Patient feels connected with others/family/visitors/staff [] Distress [] Loneliness/isolation [] Abandonment Spirituality of Patient [] Person of [] Attends Orthodoxy of their [] Believes in Prayer [] Reads Bible or Caodaism materials [] There are Spiritual issues to be addressed Steamship Agent Interventions [] Prayer [] Active listening [] Non-anxious presence [] Spiritual/emotional support [] Crisis/trauma care [] Spiritual counseling [] Bereavement support [] Provided bereavement packet [] Provided Bible/devotional materials [] Provided toy/stuffed animal, coloring book to patient or family member [] Provided Communion [] Anointing/[place] [] Salvation [] Completed spiritual assessment [] Other: Impact on Illness or Injury [] Angry [] Fearful [] Anxious [] Often cries [] Exhaustion [] Unable to work [] Unable to attend scientology [] Unable to walk/stand [] Unable to read [] Unable to drive [] Unable to eat/drink [] Unable to sleep [] Unable to be with family [] Patient intubated [] Other: Summary nursesais aid with him confused about his health Time spent with patient 5 mins
[2020-08-21] MEDS: FUROsemide 20 mg Tablet PO (11:41)
[2020-08-21] MEDS: carvedilol 3.125 mg Tablet PO ×2 (11:42→17:57)
[2020-08-21] MEDS: lisinopril 5 mg Tablet PO (11:42)
--- NOTE | 2020-08-21 14:08 | PM.PN ---
Subjective Subjective: Interval history: Admitted overnight, H&P labs appreciated. On examination sitter at bedside, patient lying comfortably in bed on room air. Drowsy but a AOx3. Denies homicidal ideation at present. Does state of suicidal ideation. Denies any chest pain, nausea, vomiting, headache. Vitals/I&O/Wt Last Vital Signs Temp 98.2 F 08/21/20 11:59 Pulse 111 H 08/21/20 11:59 Resp 17 08/21/20 11:59 BP 141/97 08/21/20 11:59 Pulse Ox 97 08/21/20 11:59 08/20/20 08/21/20 08/21/20 22:59 06:59 14:59 Intake Total 840 / 840 Balance 840 / 840 Weight last 48 hrs Weight 56.699 kg Physical Exam Narrative: EXAM NARRATIVE: General: No acute distress, AO x3, drowsy, sleepy HEENT: PERRLA, pupils bilaterally equal and reactive Chest: Normal vesicular breath sounds, no added sounds, equal good air entry bilaterally CVS: S1-S2 regular, pansystolic murmur soft at apex no tachycardia, no gallops, no rubs Abdomen: Soft, nontender, no organomegaly, bowel sounds present Neuro: No focal deficits, no facial deformity, AO x3, power 5/5 in all limbs Data : 08/20/20 19:15 08/20/20 19:15 Micro: Microbiology 08/21/20 03:10 Blood Culture - Preliminary Blood SPECIMEN COLLECTED 08/21/20 03:10 Blood Culture - Preliminary Blood SPECIMEN COLLECTED A&P Assessment and plan (1) Dyspnea: Status: Acute Qualifiers: Dyspnea type: shortness of breath Qualified Code(s): R06.02 - Shortness of breath (2) CHF (congestive heart failure): Status: Acute Qualifiers: Heart failure type: unspecified Heart failure chronicity: unspecified Qualified Code(s): I50.9 - Heart failure, unspecified (3) Alcohol intoxication: Status: Acute Qualifiers: Complication of substance-induced condition: with unspecified complication Qualified Code(s): F10.929 - Alcohol use, unspecified with intoxication, unspecified (4) Cardiomegaly: Status: Acute (5) Suicidal ideation: Status: Acute (6) Hepatitis C antibody positive in blood: Status: Acute Additional A&P Information Dyspnea most likely secondary to congestive heart failure: Patient does not have any past medical history. CTA consistent with dilated cardiomyopathy. Echocardiogram results awaited. Start patient on Lasix 20 mg oral, Coreg 3.125 mg twice daily, lisinopril 5 mg daily. Will uptitrate medications as per kidney functions and blood pressures. Currently patient doing well on room air. COVID-19 PCR sent out overnight. Isolation precautions. Once ruled out can plan to do stress test to rule out ischemia as etiology. Most likely patient has nonischemic etiology given chronic alcohol abuse and amphetamine abuse. Check HbA1c, lipid panel. Strict input output charting, daily weights. Alcohol abuse/amphetamine intoxication: [facility] protocol. Sitter at bedside. LFTs are within range. Start patient on Librium 25 every 8 hourly. Suicidal ideation: Psychiatry consulted. One-to-one sitter. 96-hour hold. Hep C antibody positive: LFT in range. Check liver ultrasound. Check HCV PCR, HIV screen. Patient would need outpatient follow-up. Cardiac diet. Full code. Lovenox for DVT prophylaxis. CIWA protocol. One-to-one sitter. Attestations Medical Necessity Statement*: Requires further hospitalization for management of suicidal ideation/96-hour hold, new congestive heart failure Time Spent in Patient Care: Greater than 35 minutes (>than 50% of time spent in counselling and/or direct pt care on unit). Coding Level of Care Code Acute Senior Software Analyst for Susanna Yoder Diagnoses Dyspnea R06.02 Dyspnea type: shortness of breath CHF (congestive heart failure) I50.9 Heart failure type: unspecified Heart failure chronicity: unspecified Alcohol intoxication F10.929 Complication of substance-induced condition: with unspecified complication Cardiomegaly I51.7 Suicidal ideation R45.851 Hepatitis C antibody positive in blood R76.8
[2020-08-21 14:23] LABS: Coronavirus Test Green County Not Detected
[2020-08-21] MEDS: chlordiazePOXIDE 25 mg Capsule PO ×2 (15:15→22:29)
[2020-08-22] MEDS: enoxaparin 40 mg/0.4 mL Syringe SUBCUT (01:22)
[2020-08-22 03:37] VITALS: BP 118/77; PULSE 104; RESP 16; TEMP 36.8; O2SAT 96
[2020-08-22] MEDS: chlordiazePOXIDE 25 mg Capsule PO (05:38)
[2020-08-22 06:49] LABS: Basophils % 0.2 %; Eosinophils # 0.1 10^3/uL (0.0-0.8); Eosinophils % 1.2 %; Hematocrit 52.5 % (42.0-52.0); Hemoglobin 17.8 g/dL (11.7-16.6); Lymphocytes # 1.9 10^3/uL (0.8-4.8); Lymphocytes % 22.8 %; Mean Corpuscular HGB Conc 33.9 g/dL (30.0-36.0); Mean Corpuscular Hemoglobin 32.1 pg (28.0-34.0); Mean Corpuscular Volume 94.8 fL (80-94); Mean Platelet Volume 10.1 fL (7.4-10.4); Monocytes # 0.7 10^3/uL (0.2-0.9); Neutrophils # 5.51 10^3/uL (1.8-7.7); Neutrophils % 67.6 %; Nucleated Red Blood Cells % 0 %; Platelet Count 180 10^3/cmm (130-400); Red Blood Count 5.54 10^6/uL (4.1-5.3); Red Cell Distribution Width 12.6 % (12.1-15.1); White Blood Count 8.2 10^3/uL (4.0-10.0)
--- NOTE | 2020-08-22 07:00 | NMCV_ITS ---
NM jonatan perf SPECT r/s* [id number] Edwin Cuevas Age: 40 Gender: M : 1980 Exam Date: 08/22/2020 06:52 Ordering Phys: Matt Augustine MD Technologist: RUSTY Pineda Exam Location: [facility] Indications: CARDIOMEGALY STRESS TEST Please see separate stress test report in [facility] for full findings IMAGE PROTOCOL Rest/Stress 1 Lexiscan Day Radiopharmaceutical Dose (mCi) Administration Site Administered by Rest: Tc-99m 10.7 IV RUSTY Hinson Sestamibi Stress:Tc-99m 32.8 IV RUSTY Pineda Sestamiyannick Rest: 22-Aug-2020 60 Discovery 630 Stress: 22-Aug-2020 30 Discovery 630 0.4mg Lexiscan. Images obtained in supine and prone position. SPECT RESULTS Technical Quality: Excellent Raw Data Analysis: Normal Image Corrections: No attenuation or motion correction applied Summed Stress Score: 3 Summed Rest Score: 4 Summed Difference Score: 0 PERFUSION FINDINGS Small sized perfusion abnormality of mild severity of mid to apical inferior wall with somewhat improved tracer uptake in stress images. This is likely suggestive of attenuation artifact. FUNCTIONAL RESULTS (calculated via Gated SPECT) Stress Image LV EF (%): 11 Stress EDV (mL):247 TID: 1.05 Stress ESV (mL):220 FUNCTIONAL FINDINGS: The left ventricle is dilated. Transient Ischemia Dilatation of 1.1. There is severely reduced left ventricular global systolic function. The left ventricular ejection fraction is severely reduced with a value of 11%. There is severe global hypokinesis. Markedly increased end-diastolic and end-systolic volumes. IMPRESSIONS 1. Myocardial perfusion imaging is normal. Attenuation artifact noted in mid to inferior chavez. 2. There is severely reduced left ventricular global systolic function with severe global hypokinesis. 3. The left ventricular ejection fraction is severely reduced with a value of 11%. 4. The perfusion pattern is consistent with a non-ischemic cardiomyopathy. Keke Benítez MD (Electronically Signed) Final Date: 22 August 2020 11:27 S
[2020-08-22 07:05] VITALS: BP 124/85; PULSE 97; RESP 17; TEMP 36.9; O2SAT 98
[2020-08-22 07:10] LABS: Alanine Aminotransferase 31 U/L (0-41); Albumin Level 3.8 g/dL (3.5-5.2); Alkaline Phosphatase 167 IU/L (40-130); Anion Gap 16.8 (5-19); Aspartate Amino Transferase 65 U/L (0-40); Blood Urea Nitrogen 21 mg/dL (6-20); Calcium 9.4 mg/dL (8.5-10.5); Carbon Dioxide 29 mmol/L (22-29); Chloride 96 mmol/L (98-107); Creatinine Clr Calc Pharmacy 70.8738; Globulin 3.6 g/dL (1.3-4.6); Glomerular Filtration Rate 73.8 mL/min (90-130); Glucose 107 mg/dL (65-115); Osmolality Calculated 289 mOsm/kg (285-295); Potassium 3.8 mmol/L (3.5-5.1); Sodium 138 mmol/L (136-145); Total Bilirubin 1.4 mg/dL (0.15-1.2); Total Protein 7.4 g/dL (6.6-8.7)
--- NOTE | 2020-08-22 07:20 | PC.NURSE ---
Patient and 1:1 sitter to stress test this time.
--- NOTE | 2020-08-22 07:45 | ECG_ITS ---
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 Interpretive Statements NAME OF STUDY: LEXISCAN SESTAMIBI STRESS TEST INDICATION: Cardiomyopathy, PROCEDURE: At the baseline, the blood pressure was 95/68 mmHg with a heart rate of 101 bpm and oxygen saturation 97%. The electrocardiogram showed normal sinus rhythm, rightward axis. Left ventricular hypertrophy with ST-T wave changes in inferolateral leads. The Lexiscan was infused over a period of 20 seconds. A total of 0.4 milligrams of Lexiscan was infused. The stress phase was continued for a total of 5 minutes. Heart rate at the end of the stress phase was 94 bpm, oxygen saturation 97% with a blood pressure of 153/90 mmHg. The EKG at the peak infusion revealed no significant ST-T wave changes. The study was terminated due to protocol completion. Sestamibi was injected 20 seconds after the Lexiscan infusion. Blood pressure at the end of the recovery phase was 95/65 mmHg, oxygen saturation 98% with a heart rate of 87 beats per minute. CONCLUSION: 1. No significant EKG changes with the LexiScan infusion. 2. No LexiScan induced chest pain or cardiac arrhythmia. 3. Normal blood pressure and heart rate response. 4. Sestamibi/sestamibi perfusion scan pending; see separate report. Electronically Signed On 08-22-2020 11:21:45 CDT by Keke Benítez M.D. [id number]
[2020-08-22] MEDS: regadenoson 0.4 Mg/5 ml Syringe IVP (07:50)
[2020-08-22] MEDS: ondansetron 2 mg/ML SDV 2 mL 4 MG IVP (07:55)
[2020-08-22 08:14] VITALS: BP 95/65; PULSE 87
[2020-08-22] MEDS: FUROsemide 20 mg Tablet PO (10:32)
[2020-08-22] MEDS: pantoprazole DR 40 mg Tablet PO (10:32)
[2020-08-22] MEDS: lisinopril 5 mg Tablet PO (10:32)
[2020-08-22] MEDS: thiamine 100 mg Tablet PO (10:32)
[2020-08-22] MEDS: folic acid 1 mg Tablet PO (10:32)
[2020-08-22] MEDS: multivitamin therapeutic Tablet 1 TAB PO (10:32)
[2020-08-22] MEDS: carvedilol 3.125 mg Tablet PO (10:33)
[2020-08-22 10:50] VITALS: BP 127/89; PULSE 107; RESP 17; TEMP 36.6; O2SAT 97
--- NOTE | 2020-08-22 12:23 | PC.NURSE ---
Dr. Castro at bedside.
--- NOTE | 2020-08-22 12:37 | P.HP_ITS ---
Providers/Chief Complaint Admitting Physician: Jia Marin MD Chief Complaint: Statements of Harming Himself HPI NPU History of Present Illness Edwin Cuevas is a 40 year old male who presented to the emergency department with the following report: Chief Complaint: Psychiatric Symptoms Stated Complaint: Statements of Harming Himself Time Seen by Provider: 08/20/20 19:17 Source: patient Mode of arrival: ambulatory Limitations: no limitations History of Present Illness: HPI Narrative: 40-year-old male who is brought here by police for suicidal homicidal ideations. Patient has been drinking heavily today and he states that him and his girlfriend recently split up. States they have been arguing over her dog and that she had taken his dog vomiting. He had called the police because he had been having thoughts of killing himself or harming his girlfriend. He told me that he has had suicidal thoughts as well. He is quite intoxicated at this point. Associated symptoms: Reports depression, homicidal ideation and suicidal ideation. He was admitted to [facility] department for definitive treatment of those issues. A psychiatric consult was requested to identify what should happen after he is medically cleared and he was placed on a 96-hour hold. He presents today reporting that things have been tough recently. He reports that he and his mother have been split up and trying to manage that reality. He reports that she called him and asked him to come over and he came over and brought his dog as well and he spent time together the next day some drama was started and he had to leave but next he knew he was in a situation where his dog of 10 years but now with his ex and she was saying she was not going to let him have a dog. This he reports goes against the backdrop of her causing him to reportedly lose custody of his children or lives not be able to see them. He reports that that along with drinking and a recent relapse on methamphetamine led to an untenable situation. He ultimately made some comments that led to him being put on a 96- hour hold. We discussed the possibility of him starting medication however at this time he reported that he feels most of this has to do with his poor choices with drug use and the trauma around the conflict with his significant other or X. We also discussed him coming to the neuropsychiatric unit likely later today to continue to evaluate his safety/lethality and continue to consider appropriate interventions and he understood and agreed proceed as documented in this note. He denies history of suicide attempt in the past. Psychiatric history: He denies any recent inpatient or outpatient care but reports he may have been in a inpatient setting once in the past. Substance abuse history: Endorses smoking cigarettes, drinking alcohol heavily, but denies marijuana use. He reports methamphetamine use that has been an issue in the past but does endorse a recent relapse. He does endorse having at least 1 drug treatment stent before. His UDS was positive for methamphetamine and his blood alcohol was 426. Family history: He denies significant mental health issues around the family but does report there has been some other people to struggle with drinking. Developmental history: There were no problems with the , or delivery, learned to walk and talk and met developmental milestones on time, and denies need for speech therapy, learning support, emotional support or special education classes. Psychosocial history: Reports he is 1 time and has 2 children. He denies any major financial issues. Endorses being a heterosexual with a long relationship being about 10 years. He denies major trauma or issues in his childhood. Meds NPU Home Medications Medication Instructions Recorded Confirmed Last Taken Type carvedilol 6.25 mg PO BID@0900,2100 30 Days 08/23/20 Unknown Rx #60 tab furosemide 20 mg PO DAILY@0800 30 Days #30 tab 08/23/20 Unknown Rx losartan 25 mg PO DAILY 30 Days #30 tab 08/23/20 Unknown Rx hjqnujat-wnci-NU-calcium-mins 1 tab PO DAILY #30 tab 08/23/20 Unknown Rx [Thera-M] pantoprazole 40 mg PO DAILY 14 Days #14 tab 08/23/20 Unknown Rx spironolactone 25 mg PO DAILY 30 Days #30 tab 08/23/20 Unknown Rx Allergies Allergy/AdvReac Type Severity Reaction Status Date / Time No Known Allergies Allergy Verified 08/20/20 19:11 PFSH NPU PFSH: Social History Smoking and tobacco status: current every day smoker Mental Status Exam MSE Comments: This is a slender white male in hospital gown with limited grooming but adequate eye contact. No abnormal movements except for mild psychomotor retardation. Cooperative with exam in no acute distress. Speech was slightly decreased rate and volume. Mood described as okay, affect slightly frustrated. Thought process organized. Thought content: Patient denied suicidal or homicidal ideations, there are no delusions reported noted, he denied any auditory visualizations. Attention and concentration appear intact and memory appeared reliable but none were formally tested. Alert and oriented x3. Insight and judgment appear fair, impulse control is limited. Vitals/I&O/Wt Last Vital Signs Temp 97.8 F 08/22/20 10:50 Pulse 107 H 08/22/20 10:50 Resp 17 08/22/20 10:50 BP 127/89 08/22/20 10:50 Pulse Ox 97 08/22/20 10:50 08/21/20 08/22/20 08/22/20 22:59 06:59 14:59 Intake Total 480 / 1320 600 / 1920 0 / 0 Balance 480 / 1320 600 / 1920 0 / 0 Weight last 48 hrs Weight 56.699 kg Data NPU : 08/22/20 05:24 08/23/20 06:19 Micro: Microbiology 08/21/20 03:10 Blood Culture - Preliminary Blood NEGATIVE TO DATE 08/21/20 03:10 Blood Culture - Preliminary Blood NEGATIVE TO DATE Microbiology 08/21/20 03:10 Blood Blood Culture - Preliminary NEGATIVE TO DATE 08/21/20 03:10 Blood Blood Culture - Preliminary NEGATIVE TO DATE A&P Assessment and plan (1) Chronic kidney disease: Status: Acute (2) Benign essential hypertension with target blood pressure below 140/90: Status: Acute (3) Non-ischemic cardiomyopathy: Status: Acute (4) CHF (congestive heart failure): Status: Acute Qualifiers: Heart failure type: unspecified Heart failure chronicity: unspecified Qualified Code(s): I50.9 - Heart failure, unspecified (5) Cardiomegaly: Status: Acute (6) Hepatitis C antibody positive in blood: Status: Acute (7) Suicidal ideation: Status: Acute (8) Dyspnea: Status: Acute Qualifiers: Dyspnea type: shortness of breath Qualified Code(s): R06.02 - Shortness of breath (9) Alcohol intoxication: Status: Acute Qualifiers: Complication of substance-induced condition: with unspecified complication Qualified Code(s): F10.929 - Alcohol use, unspecified with intoxication, unspecified (10) Partner relationship problem: Status: Acute (11) Adjustment disorder with mixed disturbance of emotions and conduct: Status: Acute Additional A&P Information This is a 40-year-old white male with a reported long history of addiction issues most recently alcohol and partner relational problems who presents reporting that he made some comments that he did not mean which ended up with esperanza alicia on his 96-hour hold. 1. Continue current medication. 2. Continue every 15 minute checks for safety. 3. Encourage individual, group and milieu therapies. 4. Encourage sober living treatment after discharge at the highest level of care to which he is willing to commit. 5. Transfer down to MPU when medically clear Attestations NPU Medical Necessity Statement*: Inpatient hospitalization is medically necessary and the clinically appropriate intervention at this time. We will monitor medications and make changes as indicated. Patient will be in the hospital for over two midnights. Likely length of stay 2-3 days. Coding Level of Care Code Acute Cad Librarian for Susanna Yoder Diagnoses Chronic kidney disease N18.9 Benign essential hypertension with target blood pressure below 140/90 I10 Non-ischemic cardiomyopathy I42.8 CHF (congestive heart failure) I50.9 Heart failure type: unspecified Heart failure chronicity: unspecified Cardiomegaly I51.7 Hepatitis C antibody positive in blood R76.8 Suicidal ideation R45.851 Dyspnea R06.02 Dyspnea type: shortness of breath Alcohol intoxication F10.929 Complication of substance-induced condition: with unspecified complication Partner relationship problem Z63.0 Adjustment disorder with mixed disturbance of emotions and conduct F43.25
[2020-08-22 13:47] LABS: HEP C RNA Viral Load Quant 6.97 Log IU/mL (NOT DETECTED)
--- NOTE | 2020-08-22 14:20 | PC.NURSE ---
Patient is refusing to wear telemetry
--- NOTE | 2020-08-22 14:36 | P.PN_ITS ---
Subjective Subjective: Interval history: Admitted overnight, H&P labs appreciated. On examination sitter at bedside, patient lying comfortably in bed on room air. Drowsy but a AOx3. Denies homicidal ideation at present. Does state of suicidal ideation. Denies any chest pain, nausea, vomiting, headache. Vitals/I&O/Wt Last Vital Signs Temp 97.8 F 08/22/20 10:50 Pulse 107 H 08/22/20 10:50 Resp 17 08/22/20 10:50 BP 127/89 08/22/20 10:50 Pulse Ox 97 08/22/20 10:50 08/21/20 08/22/20 08/22/20 22:59 06:59 14:59 Intake Total 480 / 1320 600 / 1920 440 / 440 Balance 480 / 1320 600 / 1920 440 / 440 Weight last 48 hrs Weight 56.699 kg Physical Exam Narrative: EXAM NARRATIVE: General: No acute distress, AO x3, drowsy, sleepy HEENT: PERRLA, pupils bilaterally equal and reactive Chest: Normal vesicular breath sounds, no added sounds, equal good air entry b ilaterally CVS: S1-S2 regular, pansystolic murmur soft at apex no tachycardia, no gallops, no rubs Abdomen: Soft, nontender, no organomegaly, bowel sounds present Neuro: No focal deficits, no facial deformity, AO x3, power 5/5 in all limbs Data : 08/22/20 05:24 08/22/20 05:24 Other Labs: Laboratory Results WBC 8.2 10^3/uL (4.0-10.0) 08/22/20 05:24 RBC 5.54 10^6/uL (4.1-5.3) H 08/22/20 05:24 Hgb 17.8 g/dL (11.7-16.6) H 08/22/20 05:24 Hct 52.5 % (42.0-52.0) H 08/22/20 05:24 MCV 94.8 fL (80-94) H 08/22/20 05:24 MCH 32.1 pg (28.0-34.0) 08/22/20 05:24 MCHC 33.9 g/dL (30.0-36.0) 08/22/20 05:24 RDW 12.6 % (12.1-15.1) 08/22/20 05:24 Plt Count 180 10^3/cmm (130-400) 08/22/20 05:24 MPV 10.1 fL (7.4-10.4) 08/22/20 05:24 Neut % (Auto) 67.6 % 08/22/20 05:24 Lymph % (Auto) 22.8 % 08/22/20 05:24 Graham % (Auto) 8.0 % 08/22/20 05:24 Eos % (Auto) 1.2 % 08/22/20 05:24 Baso % (Auto) 0.2 % 08/22/20 05:24 Neut # (Auto) 5.51 10^3/uL (1.8-7.7) 08/22/20 05:24 Lymph # (Auto) 1.9 10^3/uL (0.8-4.8) 08/22/20 05:24 Graham # (Auto) 0.7 10^3/uL (0.2-0.9) 08/22/20 05:24 Eos # (Auto) 0.1 10^3/uL (0.0-0.8) 08/22/20 05:24 Baso # (Auto) 0.0 10^3/uL (0.0-0.1) 08/22/20 05:24 Nucleated RBC % (auto) 0 % 08/22/20 05:24 Nucleated RBCs # 0.0 /100WBC 08/22/20 05:24 D-Dimer 2.85 ug/mIFEU (0-0.59) H 08/20/20 20:40 Sodium 138 mmol/L (136-145) 08/22/20 05:24 Potassium 3.8 mmol/L (3.5-5.1) 08/22/20 05:24 Chloride 96 mmol/L (98-107) L 08/22/20 05:24 Carbon Dioxide 29 mmol/L (22-29) 08/22/20 05:24 Anion Gap 16.8 (5-19) 08/22/20 05:24 BUN 21 mg/dL (6-20) H 08/22/20 05:24 Creatinine 1.1 mg/dL (0.7-1.2) 08/22/20 05:24 GFR Calculation 73.8 mL/min (90-130) L 08/22/20 05:24 Glucose 107 mg/dL (65-115) 08/22/20 05:24 Calculated Osmolality 289 mOsm/kg (285-295) 08/22/20 05:24 Calcium 9.4 mg/dL (8.5-10.5) 08/22/20 05:24 Total Bilirubin 1.4 mg/dL (0.15-1.2) H 08/22/20 05:24 AST 65 U/L (0-40) H 08/22/20 05:24 ALT 31 U/L (0-41) 08/22/20 05:24 Alkaline Phosphatase 167 IU/L (40-130) H 08/22/20 05:24 Troponin T Baseline 40 ng/L (0-15) H 08/20/20 19:15 Troponin T 120 Minute 38.68 ng/L (0-15) H 08/20/20 21:03 Delta Troponin T -1.32 ABS# (0-10) L 08/20/20 21:03 Troponin T Hi Sens 6Hr 40.95 ng/L (0-15) H 08/21/20 03:10 Troponin T Hi Sens 6Hr Delta 0.95 ng/L (0-12) 08/21/20 03:10 NT-Pro-B Natriuret Pep 1323 pg/mL (0-125) H 08/20/20 19:15 Total Protein 7.4 g/dL (6.6-8.7) 08/22/20 05:24 Albumin 3.8 g/dL (3.5-5.2) 08/22/20 05:24 Globulin 3.6 g/dL (1.3-4.6) 08/22/20 05:24 Urine Color Yellow (Yellow) 08/20/20 20:24 Urine Appearance Clear (CLEAR) 08/20/20 20:24 Urine pH 5 (5-7) 08/20/20 20:24 Ur Specific [place] 1.010 (1.005-1.030) 08/20/20 20:24 Urine Protein Neg (Negative) 08/20/20 20:24 Urine Glucose (UA) Norm (Normal) 08/20/20 20:24 Urine Ketones Negative (Negative) 08/20/20 20:24 Urine Blood Neg (Negative) 08/20/20 20:24 Urine Nitrate Negative (Negative) 08/20/20 20:24 Urine Bilirubin Neg (Negative) 08/20/20 20:24 Urine Urobilinogen Norm mg/dL (Negative) 08/20/20 20:24 Ur Leukocyte Esterase Negative (Negative) 08/20/20 20:24 Salicylates < 0.3 mg/dL (3-10) L 08/20/20 19:15 Urine Opiates Screen Negative ng/mL (Negative) 08/20/20 20:24 Acetaminophen < 5.0 ug/mL (10-30) L 08/20/20 19:15 Ur Barbiturates Screen Negative ng/mL (Negative) 08/20/20 20:24 Ur Phencyclidine Scrn Negative ng/mL (Negative) 08/20/20 20:24 Ur Amphetamines Screen Positive ng/mL (Negative) H 08/20/20 20:24 U Benzodiazepines Scrn Negative ng/mL (Negative) 08/20/20 20:24 Urine Cocaine Screen Negative ng/mL (Negative) 08/20/20 20:24 U Marijuana (THC) Screen Negative ng/mL (Negative) 08/20/20 20:24 Ethyl Alcohol 426 mg/dL (0-10) H* 08/20/20 19:15 Nasal/Oral COVID-19 PCR Not detected 08/21/20 03:10 HCV RNA (PCR) IUs/ml 6.97 Log IU/mL (NOT DETECTED) H 08/21/20 03:10 HCV RNA (PCR) IU log10 [id number] IU/mL (NOT DETECTED) H 08/21/20 03:10 HIV 1&2 Ab & HIV 1 Ag Non-reactive (Non-Reactiv) 08/20/20 19:15 HIV 1&2 Antibody Non-reactive (Non-Reactiv) 08/20/20 19:15 SARS-CoV-2 Ag (Rapid) Negative (Negative) 08/20/20 21:08 Impressions Chest X-Ray 08/20/20 19:37 IMPRESSION: 1. Interval development of mild interstitial pulmonary edema. 2. Cardiac silhouette is moderately enlarged. Size of the cardiac silhouette has increased. Chest CTA 08/20/20 21:06 IMPRESSION: 1. Mild interstitial pulmonary edema. 2. Evaluation of peripheral pulmonary arteries is limited secondary to the phase of contrast enhancement. No filling defects in the central pulmonary arteries to suggest a large pulmonary embolism. 3. Small right pleural effusion. 4. Severe cardiomegaly. 5. Incidental/nonacute findings are listed in the report. Radiation Dose CTDIVOL = (mGy): DLP = 595.97 (mGy-cm) Lexiscan July 23, 2020: The left ventricle is dilated. Transient Ischemia Dilatation of 1.1. There is severely reduced left ventricular global systolic function. The left ventricular ejection fraction is severely reduced with a value of 11%. There is severe global hypokinesis. Markedly increased end-diastolic and end-systolic volumes. IMPRESSIONS 1. Myocardial perfusion imaging is normal. Attenuation artifact noted in mid to inferior chavez. 2. There is severely reduced left ventricular global systolic function with severe global hypokinesis. 3. The left ventricular ejection fraction is severely reduced with a value of 11%. 4. The perfusion pattern is consistent with a non-ischemic cardiomyopathy. Keke Benítez MD (Electronically Signed) Final Date: 22 August 2020 11:27 Micro: Microbiology 08/21/20 03:10 Blood Culture - Preliminary Blood NEGATIVE TO DATE 08/21/20 03:10 Blood Culture - Preliminary Blood NEGATIVE TO DATE A&P Assessment and plan (1) Non-ischemic cardiomyopathy: Status: Acute (2) Dyspnea: Status: Acute Qualifiers: Dyspnea type: shortness of breath Qualified Code(s): R06.02 - Shortness of breath (3) CHF (congestive heart failure): Status: Acute Qualifiers: Heart failure type: unspecified Heart failure chronicity: unspecified Qualified Code(s): I50.9 - Heart failure, unspecified (4) Suicidal ideation: Status: Acute (5) Hepatitis C antibody positive in blood: LFT within range check HCV PCR , HIV screen F/up outpatient Status: Acute (6) Cardiomegaly: Status: Acute (7) Alcohol intoxication: Alcohol level >400 Amphetamine + on drug screen Monitor for signs of withdrawal [facility] protocol Status: Acute Qualifiers: Complication of substance-induced condition: with unspecified complication Qualified Code(s): F10.929 - Alcohol use, unspecified with intoxication, unspecified Additional A&P Information Dyspnea most likely secondary to congestive heart failure: Patient does not have any past medical history. CTA consistent with dilated cardiomyopathy. Echocardiogram consistent with dilated cardiomyopathy. Lexiscan done today shows no ischemia. Consistent with severe nonischemic cardi omyopathy: Continue with Lasix 20 mg oral daily, Coreg 6.25 mg twice daily, lisinopril 5 mg daily. Will uptitrate medications as per blood pressure and kidney functions. Will consult cardiology for further work-up and possible LifeVest prior to discharge. Patient is agreeable for LifeVest. Check HbA1c, lipid panel, TSH. Strict input output charting, daily weights. Alcohol abuse/amphetamine intoxication: [facility] protocol. Sitter at bedside. Librium 25 daily. Monitor LFTs. Suicidal ideation: Appreciate psychiatry recommendations.. One-to-one sitter. 96-hour hold. Hep C antibody positive: LFT in range. Check liver ultrasound. Check HCV PCR, HIV screen. Patient would need outpatient follow-up. Cardiac diet. Full code. Lovenox for DVT prophylaxis. [facility] protocol. One-to-one sitter. Patient is medically stable to be transferred to neuro [facility] [place]. Patient should continue Lasix, Coreg 6.25 twice daily, lisinopril. Patient to have CMP daily for monitoring of renal functions. Patient to have liver ultrasound. Patient to be seen by cardiology for further management and possible LifeVest on discharge. We will continue to follow. Attestations Medical Necessity Statement*: Requires further hospitalization for management suicidal ideation, 96 hours old, severe nonischemic cardiomyopathy. Time Spent in Patient Care: Greater than 35 minutes (>than 50% of time spent in counselling and/or direct pt care on unit) . Coding Level of Care Code Acute Manager Of Software Development for [facility] Danie Diagnoses Non-ischemic cardiomyopathy I42.8 Dyspnea R06.02 Dyspnea type: shortness of breath CHF (congestive heart failure) I50.9 Heart failure type: unspecified Heart failure chronicity: unspecified Suicidal ideation R45.851 Hepatitis C antibody positive in blood R76.8 Cardiomegaly I51.7 Alcohol intoxication F10.929 Complication of substance-induced condition: with unspecified complication
--- NOTE | 2020-08-22 14:48 | PC.NURSE ---
Received a call from [place] with Ultrasound requesting patient be made NPO after midnight for an abdomen scan in the morning. Spoke with Dr. Augustine and obtained verbal order for NPO at midnight. Informed Luciana Oneil RN to pass along in report to NPU after transfer.
--- NOTE | 2020-08-22 14:55 | PC.NURSE ---
Attempted to call report 3 times and I am unable to get anyone to answer.
--- NOTE | 2020-08-22 15:50 | PC.NUTR ---
Nutrition assessment triggered due to low BMI. Recommend to encourage po intakes of meals/fluids to optimize nutrition, and to obtain current weight when possible as pt seemed surprised by wt in EMR of 125 lbs. Pt would benefit from limited or discontinued alcohol intake to prioritize intake of healthy diet and promote healthy weight maintenance. See RD assessment for further details.
[2020-08-22 16:00] VITALS: BP 106/69; PULSE 93; RESP 16; TEMP 36.8; O2SAT 97
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
--- NOTE | 2020-08-22 17:20 | PC.NURSE ---
PT ARRIVED TO UNIT WITH [facility] NURSE AT 1657. DR. BOBBY ON UNIT TO SEE PT SHORTLY AFTER ARRIVAL. PT CHANGED INTO NPU SCRUBS AT 1720, CYST NOTED TO R CHEST, MULTIPLE TATTOOS, NO CONTRABAND OBTAINED.
--- NOTE | 2020-08-22 18:51 | PC.NURSE ---
DR. RENE SPOKE WITH DR. BOBBY, AND DR. BERNAL AND DECISION WAS MADE FOR PT TO BE TRANSFERRED BACK TO [facility]. [facility] INFORMED TO TRANSFER PT AT 1930 PER ANTONIO DAILEYSECURITY BUSINESS ANALYST. PT HAS BEEN CALM AND COOPERATIVE WHILE ON UNIT.
[2020-08-22 19:00] LABS: Folate Level 6.2 ng/mL (4.5-32.2)
[2020-08-22 19:01] LABS: Vitamin B12 247 pg/mL (232-1245)
[2020-08-22 20:26] VITALS: BP 107/70; PULSE 83; RESP 16; TEMP 36.5; O2SAT 97
[2020-08-22] MEDS: carvedilol 6.25 mg Tablet PO (22:15)
[2020-08-23] VITALS (7 sets, daily range): BP systolic 82–107; BP diastolic 60–73; PULSE 83–92; RESP 16–18; TEMP 36.3–37; O2SAT 94–99
[2020-08-23] MEDS: enoxaparin 40 mg/0.4 mL Syringe SUBCUT (02:11)
--- NOTE | 2020-08-23 05:00 | USR_ITS ---
PROCEDURE INFORMATION: Exam: US Abdomen, Limited; Right Upper Quadrant Exam date and time: 08/23/2020 5:00 AM Age: 40 years old Clinical indication: Condition or disease; Other: Hepatitis c; Additional info: Hepatitis c, spoke with nurse, will keep PT npo after midnight 08/23/20 TECHNIQUE: Imaging protocol: US abdomen. Real time ultrasound with image documentation. Limited exam focused on the right upper quadrant. COMPARISON: CT angio chest PE protcl [id number] 08/20/2020 9:20 PM FINDINGS: Liver: Normal. No masses. Gallbladder: The gallbladder is contracted. There is mild thickening of the gallbladder wall. Apparently the patient has been NPO for several hours. This could indicate a chronic cholecystitis. No gallstones are seen. There is no pericholecystic fluid. Common bile duct: The bile ducts are normal. The common duct measures 4 mm in diameter. Pancreas: Visualized pancreas is unremarkable. Right kidney: Normal. No mass. No hydronephrosis. US/US liver [id number] IMPRESSION: 1. The gallbladder is contracted with mild thickening of the gallbladder wall. No gallstones are seen. This could be due to incomplete fasting but chronic cholecystitis cannot be excluded. 2. Normal bile ducts. 3. The liver is unremarkable.
[2020-08-23 08:10] LABS: Alanine Aminotransferase 28 U/L (0-41); Albumin Level 3.5 g/dL (3.5-5.2); Alkaline Phosphatase 130 IU/L (40-130); Aspartate Amino Transferase 49 U/L (0-40); Blood Urea Nitrogen 34 mg/dL (6-20); Calcium 8.8 mg/dL (8.5-10.5); Carbon Dioxide 29 mmol/L (22-29); Chloride 96 mmol/L (98-107); Chol HDL Ratio 3.35 mg/dL (1.0-5.00); Cholesterol 181 mg/dL (0-200); Globulin 3.2 g/dL (1.3-4.6); Glomerular Filtration Rate 60.8 mL/min (90-130); Glucose 91 mg/dL (65-115); HDL Cholesterol 54 mg/dL (60-100); LDL Cholesterol Calculated 112 mg/dL (50-129); Osmolality Calculated 283 mOsm/kg (285-295); Sodium 133 mmol/L (136-145); Thyroid Stimulating Hormone 5.92 uIU/mL (0.27-4.20); Total Bilirubin 0.8 mg/dL (0.15-1.2); Total Protein 6.7 g/dL (6.6-8.7); Triglycerides 76 mg/dL (0-150); VLDL Cholestrol Calculation 15 mg/dL (0-30)
--- NOTE | 2020-08-23 08:33 | PC.SOCIAL ---
IMM updated Pg 2 of IMM updated and reviewed with pt. He verbalized an understanding. No questions, copy provided.
[2020-08-23 08:37] LABS: Estmated Average Glucose 111; Hemoglobin A1C 5.5 % (4.0-6.0)
[2020-08-23] MEDS: carvedilol 6.25 mg Tablet PO (09:39)
[2020-08-23] MEDS: pantoprazole DR 40 mg Tablet PO (09:39)
[2020-08-23] MEDS: thiamine 100 mg Tablet PO (09:39)
[2020-08-23] MEDS: losartan 50 mg Tablet 25 MG PO (09:39)
[2020-08-23] MEDS: FUROsemide 20 mg Tablet PO (09:39)
[2020-08-23] MEDS: multivitamin therapeutic Tablet 1 TAB PO (09:39)
[2020-08-23] MEDS: folic acid 1 mg Tablet PO (09:39)
[2020-08-23] MEDS: chlordiazePOXIDE 25 mg Capsule PO (09:55)
[2020-08-23] MEDS: nicotine 21 mg Patch 1 PATCH TRANSDERMA (09:56)
[2020-08-23 11:49] LABS: Free T4 Free Thyroxine 0.93 ng/dL (0.82-1.77); T3 Free 2.8 PG/ML (2.0-4.4)
--- NOTE | 2020-08-23 12:03 | P.PN_ITS ---
Subjective Subjective: Interval history: Patient has not had any chest pain or unusual shortness of breath. He is tolerating medication so far well. Denies any fever or chills. No cough. Has not gotten the LifeVest yet. Medications: Reviewed: Yes Medication Review Details: Current Medications Acetaminophen (Acetaminophen 325 Mg Tablet) 650 mg PO Q6H PRN PRN Reason: Mild/Mod Pain Or Temp >/= 101 Carvedilol (Carvedilol 6.25 Mg Tablet) 6.25 mg PO BID@0900,2100 [facility] Last Admin: 08/23/20 09:39 Dose: 6.25 mg Documented by: Chlordiazepoxide (Chlordiazepoxide 25 Mg Capsule) 25 mg PO DAILY [facility] Last Admin: 08/23/20 09:55 Dose: 25 mg Documented by: Enoxaparin Sodium (Enoxaparin 40 Mg/0.4 Ml Syringe) 40 mg SUBCUT Q24H [facility] Last Admin: 08/23/20 02:11 Dose: 40 mg Documented by: Folic Acid (Folic Acid 1 Mg Tablet) 1 mg PO DAILY [facility] Last Admin: 08/23/20 09:39 Dose: 1 mg Documented by: Furosemide (Furosemide 20 Mg Tablet) 20 mg PO DAILY@0800 [facility] Last Admin: 08/23/20 09:39 Dose: 20 mg Documented by: Lorazepam (Lorazepam 2 Mg/Ml Inj 1 Ml) 2 mg IM Q4H PRN; Protocol PRN Reason: ALCOWD Lorazepam (Lorazepam 2 Mg Tablet) 2 mg PO Q4H PRN; Protocol PRN Reason: WITHDRAWAL Losartan Potassium (Losartan 50 Mg Tablet) 25 mg PO DAILY [facility] Last Admin: 08/23/20 09:39 Dose: 25 mg Documented by: Multivitamins Therapeutic (Multivitamin Therapeutic Tablet) 1 tab PO DAILY [facility] Last Admin: 08/23/20 09:39 Dose: 1 tab Documented by: Nicotine (Nicotine 21 Mg Patch) 1 patch TRANSDERMA DAILY [facility] Last Admin: 08/23/20 09:56 Dose: 1 patch Documented by: Ondansetron HCl (Ondansetron 2 Mg/Ml Sdv 2 Ml) 4 mg IVP Q8H PRN PRN Reason: vomiting, or N/V if npo Ondansetron HCl (Ondansetron 2 Mg/Ml Sdv 2 Ml) 4 mg IVP Q2M PRN PRN Reason: NAUSEA Last Admin: 08/22/20 07:55 Dose: 4 mg Documented by: Pantoprazole Sodium (Pantoprazole Dr 40 Mg Tablet) 40 mg PO DAILY [facility] Last Admin: 08/23/20 09:39 Dose: 40 mg Documented by: Thiamine Mononitrate (Thiamine 100 Mg Tablet) 100 mg PO DAILY [facility] Last Admin: 08/23/20 09:39 Dose: 100 mg Documented by: Vitals/I&O/Wt Last Vital Signs Temp 97.5 F L 08/23/20 11:19 Pulse 92 08/23/20 11:19 Resp 17 08/23/20 11:19 BP 98/71 08/23/20 11:19 Pulse Ox 98 08/23/20 11:19 Weight last 48 hrs Weight 144 lb 0.8 oz Physical Exam Narrative: EXAM NARRATIVE: GENERAL: The patient somewhat drowsy. Not in any acute distress. HEENT: No significant pallor, icterus or lymphadenopathy. The pupils are reactant to light. Oral cavity: There are no mucous membrane lesions. NECK: Trachea appears to be central. No masses noted. No JVD or thyromegaly ruchi reciated. No carotid bruit. RESPIRATORY: Chest is symmetrical. No intercostals muscle retraction or any accessory muscle activation. There is no chest wall tenderness. Breath sounds are heard bilaterally. No rales or rhonchi heard. No evidence of any consolidation. BREASTS: Deferred. HEART: The PMI is in the 5th left intercostals space just outside the midclavicular line. No palpable precordial events. S1 and S2 are normal. No S3 or S4 heard. No pericardial rub or any click heard. Short systolic murmur in the left sternal border. No diastolic murmurs. ABDOMEN: No vessel pulsations or distention. No tenderness. No organomegaly appreciated. No abdominal bruit. Bowel sounds are normally heard. : Deferred. RECTAL: Deferred. LYMPHATIC: No lymphadenopathy noted in the neck or groin. EXTREMITIES: No edema or cyanosis. No clubbing. Peripheral pulses are palpable but weak bilaterally MUSCULOSKELETAL: No acute joint deformities or swelling SKIN: There are no significant scars or skin rash noted. NEUROPSYCHIATRIC: The patient is somewhat drowsy .The higher functions are grossly within normal limits. No tremors or rigidity noted. Data : 08/22/20 05:24 08/23/20 06:19 Other Labs: Laboratory Last Values WBC 8.2 10^3/uL (4.0-10.0) 08/22/20 05:24 RBC 5.54 10^6/uL (4.1-5.3) H 08/22/20 05:24 Hgb 17.8 g/dL (11.7-16.6) H 08/22/20 05:24 Hct 52.5 % (42.0-52.0) H 08/22/20 05:24 MCV 94.8 fL (80-94) H 08/22/20 05:24 MCH 32.1 pg (28.0-34.0) 08/22/20 05:24 MCHC 33.9 g/dL (30.0-36.0) 08/22/20 05:24 RDW 12.6 % (12.1-15.1) 08/22/20 05:24 Plt Count 180 10^3/cmm (130-400) 08/22/20 05:24 MPV 10.1 fL (7.4-10.4) 08/22/20 05:24 Neut % (Auto) 67.6 % 08/22/20 05:24 Lymph % (Auto) 22.8 % 08/22/20 05:24 Josephine % (Auto) 8.0 % 08/22/20 05:24 Eos % (Auto) 1.2 % 08/22/20 05:24 Baso % (Auto) 0.2 % 08/22/20 05:24 Neut # (Auto) 5.51 10^3/uL (1.8-7.7) 08/22/20 05:24 Lymph # (Auto) 1.9 10^3/uL (0.8-4.8) 08/22/20 05:24 Josephine # (Auto) 0.7 10^3/uL (0.2-0.9) 08/22/20 05:24 Eos # (Auto) 0.1 10^3/uL (0.0-0.8) 08/22/20 05:24 Baso # (Auto) 0.0 10^3/uL (0.0-0.1) 08/22/20 05:24 Nucleated RBC % (auto) 0 % 08/22/20 05:24 Nucleated RBCs # 0.0 /100WBC 08/22/20 05:24 D-Dimer 2.85 ug/mIFEU (0-0.59) H 08/20/20 20:40 Sodium 133 mmol/L (136-145) L 08/23/20 06:19 Potassium 4.0 mmol/L (3.5-5.1) 08/23/20 06:19 Chloride 96 mmol/L (98-107) L 08/23/20 06:19 Carbon Dioxide 29 mmol/L (22-29) 08/23/20 06:19 Anion Gap 12.0 (5-19) 08/23/20 06:19 BUN 34 mg/dL (6-20) H 08/23/20 06:19 Creatinine 1.3 mg/dL (0.7-1.2) H 08/23/20 06:19 GFR Calculation 60.8 mL/min (90-130) L 08/23/20 06:19 Glucose 91 mg/dL (65-115) 08/23/20 06:19 Estimat Average Glucose 111 08/23/20 06:19 Hemoglobin A1c 5.5 % (4.0-6.0) 08/23/20 06:19 Calculated Osmolality 283 mOsm/kg (285-295) L 08/23/20 06:19 Calcium 8.8 mg/dL (8.5-10.5) 08/23/20 06:19 Total Bilirubin 0.8 mg/dL (0.15-1.2) 08/23/20 06:19 AST 49 U/L (0-40) H 08/23/20 06:19 ALT 28 U/L (0-41) 08/23/20 06:19 Alkaline Phosphatase 130 IU/L (40-130) 08/23/20 06:19 Troponin T Baseline 40 ng/L (0-15) H 08/20/20 19:15 Troponin T 120 Minute 38.68 ng/L (0-15) H 08/20/20 21:03 Delta Troponin T -1.32 ABS# (0-10) L 08/20/20 21:03 Troponin T Hi Sens 6Hr 40.95 ng/L (0-15) H 08/21/20 03:10 Troponin T Hi Sens 6Hr Delta 0.95 ng/L (0-12) 08/21/20 03:10 NT-Pro-B Natriuret Pep 1323 pg/mL (0-125) H 08/20/20 19:15 Total Protein 6.7 g/dL (6.6-8.7) 08/23/20 06:19 Albumin 3.5 g/dL (3.5-5.2) 08/23/20 06:19 Globulin 3.2 g/dL (1.3-4.6) 08/23/20 06:19 Triglycerides 76 mg/dL (0-150) 08/23/20 06:19 Cholesterol 181 mg/dL (0-200) 08/23/20 06:19 LDL Cholesterol, Calc 112 mg/dL (50-129) 08/23/20 06:19 Total VLDL Cholesterol 15 mg/dL (0-30) 08/23/20 06:19 HDL Cholesterol 54 mg/dL (60-100) L 08/23/20 06:19 Cholesterol/HDL Ratio 3.35 mg/dL (1.0-5.00) 08/23/20 06:19 Vitamin B12 247 pg/mL (232-1245) 08/22/20 05:24 Folate 6.2 ng/mL (4.5-32.2) 08/22/20 05:24 TSH 5.92 uIU/mL (0.27-4.20) H 08/23/20 06:19 Free T4 0.93 ng/dL (0.82-1.77) 08/23/20 06:19 Free T3 2.8 PG/ML (2.0-4.4) 08/23/20 06:19 Urine Color Yellow (Yellow) 08/20/20 20:24 Urine Appearance Clear (CLEAR) 08/20/20 20:24 Urine pH 5 (5-7) 08/20/20 20:24 Ur Specific [place] 1.010 (1.005-1.030) 08/20/20 20:24 Urine Protein Neg (Negative) 08/20/20 20:24 Urine Glucose (UA) Norm (Normal) 08/20/20 20:24 Urine Ketones Negative (Negative) 08/20/20 20:24 Urine Blood Neg (Negative) 08/20/20 20:24 Urine Nitrate Negative (Negative) 08/20/20 20:24 Urine Bilirubin Neg (Negative) 08/20/20 20:24 Urine Urobilinogen Norm mg/dL (Negative) 08/20/20 20:24 Ur Leukocyte Esterase Negative (Negative) 08/20/20 20:24 Salicylates < 0.3 mg/dL (3-10) L 08/20/20 19:15 Urine Opiates Screen Negative ng/mL (Negative) 08/20/20 20:24 Acetaminophen < 5.0 ug/mL (10-30) L 08/20/20 19:15 Ur Barbiturates Screen Negative ng/mL (Negative) 08/20/20 20:24 Ur Phencyclidine Scrn Negative ng/mL (Negative) 08/20/20 20:24 Ur Amphetamines Screen Positive ng/mL (Negative) H 08/20/20 20:24 U Benzodiazepines Scrn Negative ng/mL (Negative) 08/20/20 20:24 Urine Cocaine Screen Negative ng/mL (Negative) 08/20/20 20:24 U Marijuana (THC) Screen Negative ng/mL (Negative) 08/20/20 20:24 Ethyl Alcohol 426 mg/dL (0-10) H* 08/20/20 19:15 Nasal/Oral COVID-19 PCR Not detected 08/21/20 03:10 HCV RNA (PCR) IUs/ml 6.97 Log IU/mL (NOT DETECTED) H 08/21/20 03:10 HCV RNA (PCR) IU log10 [id number] IU/mL (NOT DETECTED) H 08/21/20 03:10 HIV 1&2 Ab & HIV 1 Ag Non-reactive (Non-Reactiv) 08/20/20 19:15 HIV 1&2 Antibody Non-reactive (Non-Reactiv) 08/20/20 19:15 SARS-CoV-2 Ag (Rapid) Negative (Negative) 08/20/20 21:08 A&P Assessment and plan (1) Non-ischemic cardiomyopathy: Most likely this patient has nonischemic cardiomyopathy. His LV ejection fraction around 15%. Patient carries a high risk for malignant ventricular arrhythmia. He may benefit from a prophylactic external cardiac defibrillator. Discussed with the patient detail which is understood well and consented to proceed. We ordered for the LifeVest. It is still pending. Status: Acute (2) CHF (congestive heart failure): The patient was started on losartan, spironolactone and diuretic in addition to the other medications. Seems to be tolerating medication so far well Status: Acute Qualifiers: Heart failure type: unspecified Heart failure chronicity: unspecified Qualified Code(s): I50.9 - Heart failure, unspecified (3) Benign essential hypertension with target blood pressure below 140/90: Patient has a history of essential benign hypertension. Currently is normotensive. Status: Acute (4) Suicidal ideation: Management as per the psych service Status: Acute (5) Chronic kidney disease: Is a kidney function needs to be closely monitored. Status: Acute Additional A&P Information The problems are Hepatitis C antibody present Heavy smoking abuse Alcohol abuse Chronic kidney disease. Mild hyponatremia Elevated white cell count, could be multifactorial Cardiac status seems to be stable. If he continues remain stable, may be discharged home from a cardiac standpoint. The LifeVest as ordered yesterday a nd is still pending. Is make an appointment to see [facility], to be s een by a nurse practitioner. May be continue on the current medications. Appoint with me in the office in 1 month. Attestations Medical Necessity Statement*: Patient continues remain stable, he may be discharged home on a LifeVest. Coding Level of Care Code Acute Diving Supervisor for Susanna Fwd Diagnoses Non-ischemic cardiomyopathy I42.8 CHF (congestive heart failure) I50.9 Heart failure type: unspecified Heart failure chronicity: unspecified Benign essential hypertension with target blood pressure below 140/90 I10 Suicidal ideation R45.851 Chronic kidney disease N18.9
--- NOTE | 2020-08-23 13:18 | PC.NURSE ---
opened chart to help WINSTON Torres find an order for lifevest. Could find any order for Lifevest. Informed Med surg Charge nurse.
--- NOTE | 2020-08-23 13:37 | PC.NURSE ---
Opened up chart again, I thought of another place to look for lifevest order, there was still none there either
--- NOTE | 2020-08-23 14:14 | P.DS_ITS ---
Discharge Providers Date of Admission: 08/20/20 22:38 Date of Discharge: August 23, 2020 Attending Provider at Admission: Jia Marin MD Attending Provider at Discharge: Matt Augustine MD Consults: Psychiatric: Dr. Castro Cardiology: Dr. Mcbride Diagnoses at Discharge Discharge Diagnosis (1) Chronic kidney disease: Status: Acute (2) Benign essential hypertension with target blood pressure below 140/90: Status: Acute (3) Non-ischemic cardiomyopathy: Status: Acute (4) CHF (congestive heart failure): Status: Acute Qualifiers: Heart failure type: unspecified Heart failure chronicity: unspecified Qualified Code(s): I50.9 - Heart failure, unspecified (5) Cardiomegaly: Status: Acute (6) Hepatitis C antibody positive in blood: Status: Acute (7) Suicidal ideation: Status: Acute (8) Dyspnea: Status: Acute Qualifiers: Dyspnea type: shortness of breath Qualified Code(s): R06.02 - Shortness of breath (9) Alcohol intoxication: Status: Acute Qualifiers: Complication of substance-induced condition: with unspecified complication Qualified Code(s): F10.929 - Alcohol use, unspecified with intoxication, unspecified (10) Partner relationship problem: Status: Acute (11) Adjustment disorder with mixed disturbance of emotions and conduct: Status: Acute Reason for Visit Reason for Visit: Statements of Harming Himself Hospital Course Hospital Course Edwin Cuevas is a 40 year old male who has been brought to the ER today after he called the police for reported suicidal ideation. States he also had thoughts of hurting his girlfriend who he had a fight with earlier today. States he is quite depressed because he broke up with his girlfriend today and they had an argument about who gets the dog. He has been drinking excessively since last night. Alcohol level is greater than 400. On review of systems he reported shortness of breath which has been progressing over the last 3 to 4 weeks. His D-dimer was noted to be elevated at 2.85, CTA of the chest was obtained which did not show any PE.Mild interstitial pulmonary edema was noted as well as a small right pleural effusion. There was severe cardiomegaly, patient states he does not have any history of cardiac disease except broken heart but I am not certain if he is referring to Takotsubo cardiomyopathy or if he is referring to his recent break-up. EKG shows sinus tachycardia. He is saturating 96% on room air. Rapid COVID Ag test is negative, he is unable to tell me if he recently had COVID or if he is vaccinated. incidental note made of hep C Screen +. Patient to the hospital for further management of suicidal ideation, possible mild heart failure. He underwent echocardiogram which showed severe diffuse hypokinesia of left ventricle with ejection fraction 15%, mildly dilated LV, biatrial enlargement, normal RV size with slightly diminished ejection fraction, mild MR, mild TR, PASP of 26. Patient underwent Lexiscan on August 22 which was consistent with severe nonischemic cardiomyopathy. Cardiology was consulted. Patient was started on oral heart failure therapy which will be further optimized on follow-up with cardiology. Patient was also found to be hepatitis C positive for which she was counseled to follow-up with his primary care provider. For suicidal ideation patient was placed on 96-hour hold which was later receded as per psychiatry. Patient is been discharged in hemodynamic stable condition after clearance from psychiatry with advised to follow-up with neuropsych as an outpatient, cardiology as an outpatient. Patient verbalized understanding. Patient is to follow-up with his primary care provider within next 1 week for further treatment of hepatitis C. Patient verbalized understanding. Prior to discharge LifeVest was arranged for patient. Physical Exam Narrative: EXAM NARRATIVE: General: No acute distress, AO x3, drowsy, sleepy HEENT: PERRLA, pupils bilaterally equal and reactive Chest: Normal vesicular breath sounds, no added sounds, equal good air entry bilaterally CVS: S1-S2 regular, pansystolic murmur soft at apex no tachycardia, no gallops, no rubs Abdomen: Soft, nontender, no organomegaly, bowel sounds present Neuro: No focal deficits, no facial deformity, AO x3, power 5/5 in all limbs Discharge Data Data Completed and Pending: Completed Studies During Hospitalization Category Date Time Status CT angio chest PE protcl [id number] Urge nt Cat Scan 08/20/20 21:06 Completed Sestamibi Stress Test Request Routi ne Exams 08/22/20 07:45 Completed XR chest 1V marek ble [id number] Stat Exams 08/20/20 19:37 Completed NM jonatan perf SPECT r/s* [id number] Routin e Nuc Med 08/22/20 07:00 Completed CV. echo complete * [id number] Routine Ultrasound 08/21/20 01:15 Completed US liver [id number] Ro utine Ultrasound 08/23/20 05:00 Completed Pending at discharge Category Date Time Status Sestamibi Stress Test Request Anne ne Exams 08/21/20 10:32 Stop Req Blood Culture Sta t Lab 08/21/20 03:10 Results Comprehensive Met abolic Panel AM LA BS Lab 08/24/20 04:00 Ordered Comprehensive Met abolic Panel AM LA BS Lab 08/25/20 04:00 Ordered Labs from last 24 hours 08/23/20 08/23/20 08/23/20 06:19 06:19 06:19 Sodium 133 L Potassium 4.0 Chloride 96 L Carbon Dioxide 29 Anion Gap 12.0 BUN 34 H Creatinine 1.3 H GFR Calculation 60.8 L Glucose 91 Estimat Average Gl ucose 111 Hemoglobin A1c 5.5 Calculated Osmolal ity 283 L Calcium 8.8 Total Bilirubin 0.8 AST 49 H ALT 28 Alkaline Phosphata se 130 Total Protein 6.7 Albumin 3.5 Globulin 3.2 Triglycerides 76 Cholesterol 181 LDL Cholesterol, C alc 112 Total VLDL Cholest alfredo 15 HDL Cholesterol 54 L Cholesterol/HDL Ra dmitry 3.35 Vitamin B12 Folate TSH 5.92 H Free T4 0.93 Free T3 2.8 08/22/20 08/22/20 05:24 05:24 Sodium Potassium Chloride Carbon Dioxide Anion Gap BUN Creatinine GFR Calculation Glucose Estimat Average Gl ucose Hemoglobin A1c Calculated Osmolal ity Calcium Total Bilirubin AST ALT Alkaline Phosphata se Total Protein Albumin Globulin Triglycerides Cholesterol LDL Cholesterol, C alc Total VLDL Cholest alfredo HDL Cholesterol Cholesterol/HDL Ra dmitry Vitamin B12 247 Folate 6.2 TSH Free T4 Free T3 Addt'l Data from Hospital Stay: Laboratory Results WBC 8.2 10^3/uL (4.0- 10.0) 08/22/20 05:24 RBC 5.54 10^6/uL (4.1 -5.3) H 08/22/20 05:24 Hgb 17.8 g/dL (11.7-1 6.6) H 08/22/20 05:24 Hct 52.5 % (42.0-52.0 ) H 08/22/20 05:24 MCV 94.8 fL (80-94) H 08/22/20 05:24 MCH 32.1 pg (28.0-34. 0) 08/22/20 05:24 MCHC 33.9 g/dL (30.0-3 6.0) 08/22/20 05:24 RDW 12.6 % (12.1-15.1 ) 08/22/20 05:24 Plt Count 180 10^3/cmm (130 -400) 08/22/20 05:24 MPV 10.1 fL (7.4-10.4 ) 08/22/20 05:24 Neut % (Auto) 67.6 % 08/22/20 05:24 Lymph % (Auto) 22.8 % 08/22/20 05:24 Dickenson % (Auto) 8.0 % 08/22/20 05:24 Eos % (Auto) 1.2 % 08/22/20 05:24 Baso % (Auto) 0.2 % 08/22/20 05:24 Neut # (Auto) 5.51 10^3/uL (1.8 -7.7) 08/22/20 05:24 Lymph # (Auto) 1.9 10^3/uL (0.8- 4.8) 08/22/20 05:24 Dickenson # (Auto) 0.7 10^3/uL (0.2- 0.9) 08/22/20 05:24 Eos # (Auto) 0.1 10^3/uL (0.0- 0.8) 08/22/20 05:24 Baso # (Auto) 0.0 10^3/uL (0.0- 0.1) 08/22/20 05:24 Nucleated RBC % (a uto) 0 % 08/22/20 05:24 Nucleated RBCs # 0.0 /100WBC 08/22/20 05:24 D-Dimer 2.85 ug/mIFEU (0- 0.59) H 08/20/20 20:40 Sodium 133 mmol/L (136-1 45) L 08/23/20 06:19 Potassium 4.0 mmol/L (3.5-5 .1) 08/23/20 06:19 Chloride 96 mmol/L (98-107 ) L 08/23/20 06:19 Carbon Dioxide 29 mmol/L (22-29) 08/23/20 06:19 Anion Gap 12.0 (5-19) 08/23/20 06:19 BUN 34 mg/dL (6-20) H 08/23/20 06:19 Creatinine 1.3 mg/dL (0.7-1. 2) H 08/23/20 06:19 GFR Calculation 60.8 mL/min (90-1 30) L 08/23/20 06:19 Glucose 91 mg/dL (65-115) 08/23/20 06:19 Estimat Average Gl ucose 111 08/23/20 06:19 Hemoglobin A1c 5.5 % (4.0-6.0) 08/23/20 06:19 Calculated Osmolal ity 283 mOsm/kg (285- 295) L 08/23/20 06:19 Calcium 8.8 mg/dL (8.5-10 .5) 08/23/20 06:19 Total Bilirubin 0.8 mg/dL (0.15-1 .2) 08/23/20 06:19 AST 49 U/L (0-40) H 08/23/20 06:19 ALT 28 U/L (0-41) 08/23/20 06:19 Alkaline Phosphata se 130 IU/L (40-130) 08/23/20 06:19 Troponin T Baselin e 40 ng/L (0-15) H 08/20/20 19:15 Troponin T 120 Min sav 38.68 ng/L (0-15) H 08/20/20 21:03 Delta Troponin T -1.32 ABS# (0-10) L 08/20/20 21:03 Troponin T Hi Sens 6Hr 40.95 ng/L (0-15) H 08/21/20 03:10 Troponin T Hi Sens 6Hr Delta 0.95 ng/L (0-12) 08/21/20 03:10 NT-Pro-B Natriuret Pep 1323 pg/mL (0-125 ) H 08/20/20 19:15 Total Protein 6.7 g/dL (6.6-8.7 ) 08/23/20 06:19 Albumin 3.5 g/dL (3.5-5.2 ) 08/23/20 06:19 Globulin 3.2 g/dL (1.3-4.6 ) 08/23/20 06:19 Triglycerides 76 mg/dL (0-150) 08/23/20 06:19 Cholesterol 181 mg/dL (0-200) 08/23/20 06:19 LDL Cholesterol, C alc 112 mg/dL (50-129 ) 08/23/20 06:19 Total VLDL Cholest alfredo 15 mg/dL (0-30) 08/23/20 06:19 HDL Cholesterol 54 mg/dL (60-100) L 08/23/20 06:19 Cholesterol/HDL Ra dmitry 3.35 mg/dL (1.0-5 .00) 08/23/20 06:19 Vitamin B12 247 pg/mL (232-12 45) 08/22/20 05:24 Folate 6.2 ng/mL (4.5-32 .2) 08/22/20 05:24 TSH 5.92 uIU/mL (0.27 -4.20) H 08/23/20 06:19 Free T4 0.93 ng/dL (0.82- 1.77) 08/23/20 06:19 Free T3 2.8 PG/ML (2.0-4. 4) 08/23/20 06:19 Urine Color Yellow (Yellow) 08/20/20 20:24 Urine Appearance Clear (CLEAR) 08/20/20 20:24 Urine pH 5 (5-7) 08/20/20 20:24 Ur Specific Gravit y 1.010 (1.005-1.0 30) 08/20/20 20:24 Urine Protein Neg (Negative) 08/20/20 20:24 Urine Glucose (UA) Norm (Normal) 08/20/20 20:24 Urine Ketones Negative (Negati ve) 08/20/20 20:24 Urine Blood Neg (Negative) 08/20/20 20:24 Urine Nitrate Negative (Negati ve) 08/20/20 20:24 Urine Bilirubin Neg (Negative) 08/20/20 20:24 Urine Urobilinogen Norm mg/dL (Negat antoine) 08/20/20 20:24 Ur Leukocyte Felicia ase Negative (Negati ve) 08/20/20 20:24 Salicylates < 0.3 mg/dL (3-10 ) L 08/20/20 19:15 Urine Opiates Scre en Negative ng/mL (N egative) 08/20/20 20:24 Acetaminophen < 5.0 ug/mL (10-3 0) L 08/20/20 19:15 Ur Barbiturates Sc reen Negative ng/mL (N egative) 08/20/20 20:24 Ur Phencyclidine S crn Negative ng/mL (N egative) 08/20/20 20:24 Ur Amphetamines Sc reen Positive ng/mL (N egative) H 08/20/20 20:24 U Benzodiazepines Scrn Negative ng/mL (N egative) 08/20/20 20:24 Urine Cocaine Scre en Negative ng/mL (N egative) 08/20/20 20:24 U Marijuana (THC) Screen Negative ng/mL (N egative) 08/20/20 20:24 Ethyl Alcohol 426 mg/dL (0-10) H* 08/20/20 19:15 Nasal/Oral COVID-1 9 PCR Not detected 08/21/20 03:10 HCV RNA (PCR) IUs/ ml 6.97 Log IU/mL (N OT DETECTED) H 08/21/20 03:10 HCV RNA (PCR) IU l og10 [id number] IU/mL (NO T DETECTED) H 08/21/20 03:10 HIV 1&2 Ab & HIV 1 Ag Non-reactive (No n-Reactiv) 08/20/20 19:15 HIV 1&2 Antibody Non-reactive (No n-Reactiv) 08/20/20 19:15 SARS-CoV-2 Ag (Rap id) Negative (Negati ve) 08/20/20 21:08 Impressions Chest X-Ray 08/20/20 19:37 IMPRESSION: 1. Interval development of mild interstitial pulmonary edema. 2. Cardiac silhouette is moderately enlarged. Size of the cardiac silhouette has increased. Chest CTA 08/20/20 21:06 IMPRESSION: 1. Mild interstitial pulmonary edema. 2. Evaluation of peripheral pulmonary arteries is limited secondary to the phase of contrast enhancement. No filling defects in the central pulmonary arteries to suggest a large pulmonary embolism. 3. Small right pleural effusion. 4. Severe cardiomegaly. 5. Incidental/nonacute findings are listed in the report. Radiation Dose CTDIVOL = (mGy): DLP = 595.97 (mGy-cm) Liver Ultrasound 08/23/20 05:00 IMPRESSION: 1. The gallbladder is contracted with mild thickening of the gallbladder wall. No gallstones are seen. This could be due to incomplete fasting but chronic cholecystitis cannot be excluded. 2. Normal bile ducts. 3. The liver is unremarkable. Echocardiogram: CONCLUSIONS Severe diffuse hypokinesia of the left ventricle with an ejection fraction of 15%. Mildly dilated left ventricle. Mild biatrial enlargement. Normal RV size with a slightly diminished ejection fraction. Thickened mitral valve. Mild mitral valve regurgitation. Mild tricuspid valve regurgitation. Estimated pulmonary artery peak systolic pressure 26 mmHg There is no pericardial effusion. There are no intracardiac masses. No previous study is available for comparison. Lexiscan August 22: The left ventricle is dilated. Transient Ischemia Dilatation of 1.1. There is severely reduced left ventricular global systolic function. The left ventricular ejection fraction is severely reduced with a value of 11%. There is severe global hypokinesis. Markedly increased end-diastolic and end-systolic volumes. IMPRESSIONS 1. Myocardial perfusion imaging is normal. Attenuation artifact noted in mid to inferior chavez. 2. There is severely reduced left ventricular global systolic function with severe global hypokinesis. 3. The left ventricular ejection fraction is severely reduced with a value of 11%. 4. The perfusion pattern is consistent with a non-ischemic cardiomyopathy. Vitals: Last Vital Signs Temp 97.5 F L 08/23/20 11:19 Pulse 92 08/23/20 11:19 Resp 17 08/23/20 11:19 BP 98/71 08/23/20 11:19 Pulse Ox 98 08/23/20 11:19 Discharge Plan Discharge Patient Disposition: Home Condition: Stable Prescriptions: New losartan 50 mg Tablet 25 mg PO DAILY 30 Days Qty: 30 RF: 0 carvedilol 6.25 mg Tablet 6.25 mg PO BID@0900,2100 30 Days Qty: 60 RF: 0 pantoprazole 40 mg Tablet,Delayed Release (Dr/Ec) 40 mg PO DAILY 14 Days Qty: 14 RF: 0 furosemide 20 mg Tablet 20 mg PO DAILY@0800 30 Days Qty: 30 RF: 0 Thera-M 9 mg iron-400 mcg tablet 1 tab PO DAILY Qty: 30 RF: 0 spironolactone 25 mg tablet 25 mg PO DAILY 30 Days Qty: 30 RF: 0 Discharge Orders: Discharge Order (Routine); Ordered 08/23/20 Ordered By: Matt Augustine Referrals: [facility], [Staff Physician] - 7-10 days Arron Miller MD [Referring] - 1 week (Please set up new pasha appointment. Called and left a message for [facility] to call back on next .) Emelyn Mcbride MD [Physician] - 1 month Rosy Aragon FNP [Nurse Practitioner] - 7-10 days Discharge Diet: Cardiac Discharge Activity: Resume usual activity Patient Instructions: Opioid Safety Activity Restrictions/Additional Instructions: Appointment at the [facility] to be seen by the nurse practitioner in 1 week. Appointment with me in the office in 1 month BMP in the office next week at the time of his appointment with the nurse practitioner. Please follow-up with your primary care provider within 1 week for further treatment of hepatitis C. Please follow-up with behavioral health clinic. Please continue take your medications as prescribed to in detail. Discharge Attestations Time Spent in Discharge Care*: greater than 30 min Specific Discharge Activities: educating patient, discussing with pcp/other providers, discussing with adult protective caseworker/social workers/dc planners, do cumenting/other paperwork and evaluating patient/reviewing data Status at Discharge: Cognitive status at discharge: cognitively intact , Behavioral status at discharge: cooperative , Functional status at discharge: independent ambulation Overall status at discharge: patient is back to baseline Quality Metrics Clinical Quality Measures During this hospital stay, did patient experience: None Coding Level of Care Code Acute [facility] note Diagnoses Chronic kidney disease N18.9 Benign essential hypertension with target blood pressure below 140/90 I10 Non-ischemic cardiomyopathy I42.8 CHF (congestive heart failure) I50.9 Heart failure type: unspecified Heart failure chronicity: unspecified Cardiomegaly I51.7 Hepatitis C antibody positive in blood R76.8 Suicidal ideation R45.851 Dyspnea R06.02 Dyspnea type: shortness of breath Alcohol intoxication F10.929 Complication of substance-induced condition: with unspecified complication Partner relationship problem Z63.0 Adjustment disorder with mixed disturbance of emotions and conduct F43.25
--- NOTE | 2020-08-23 14:23 | PM.NPN ---
Mental Status Exam MSE Comments: This is a slender white male in hospital gown with limited grooming but adequate eye contact. No abnormal movements except for resolving mild psychomotor retardation. Cooperative with exam in no acute distress. Speech was slightly decreased rate and volume. Mood described as better, affect congruent. Thought process organized. Thought content: Patient denied suicidal or homicidal ideations, there are no delusions reported noted, he denied any auditory visualizations. Attention and concentration appear intact and memory appeared reliable but none were formally tested. Alert and oriented x3. Insight and judgment appear fair, impulse control is limited. Vitals/I&O/Wt Last Vital Signs Temp 97.5 F L 08/23/20 11:19 Pulse 92 08/23/20 11:19 Resp 17 08/23/20 11:19 BP 98/71 08/23/20 11:19 Pulse Ox 98 08/23/20 11:19 08/22/20 08/23/20 08/23/20 22:59 06:59 14:59 Intake Total 360 / 360 Balance 360 / 360 Weight last 48 hrs Weight 65.34 kg Data NPU : 08/22/20 05:24 08/23/20 06:19 A&P Additional A&P Information (1) Chronic kidney disease: (2) Benign essential hypertension with target blood pressure below 140/90: (3) Non-ischemic cardiomyopathy: (4) CHF (congestive heart failure): (5) Cardiomegaly: (6) Hepatitis C antibody positive in blood: (7) Suicidal ideation: (8) Dyspnea: (9) Alcohol intoxication: (10) Partner relationship problem: (11) Adjustment disorder with mixed disturbance of emotions and conduct: Additional A&P Information This is a 40-year-old white male with a reported long history of addiction issues most recently alcohol and partner relational problems who presents reporting that he made some comments that he did not mean which ended up with him on his 96-hour hold. 1. Continue current medication. 2. Encourage sober living treatment after discharge at the highest level of care to which he is willing to commit. He will continue at [facility] he reports. 3. Discontinue Hold. Ok for discharge to home when medically cleared. Attestations NPU Medical Necessity Statement*: N/A. Please see primary team note for medical necessity. However, no need for inpatient acute psychiatric services. Will refer to [facility] and back to [facility] for the intensive addiction services. Coding Level of Care Code Acute Polysty[facility] [employer] for Susanna Yoder
--- NOTE | 2020-08-23 14:48 | PC.NURSE ---
Received telephone order from Dr. Mcbride to sign printed DME Life Vest order. NIMISHA
--- NOTE | 2020-08-23 17:22 | PC.NURSE ---
Pt refused to wait for lifevest to be fitted, this nurse informed Dr Augustine and Dr Mcbride. Both were ok with pt being fitted at home since he refused to stay and wait for lifevest to be fitted here despite informing of risks. This nurse has called Minna with [facility] and left a message as the pt is no longer here and was discharged, awaiting a call back at this time. pt stated he was ok with them fitting him and applying lifevest at home.
--- NOTE | 2020-08-25 18:51 | PC.RESP ---
SMOKING CESSATION INFORMATION SENT TO PATIENT.
== END 2020-08-23 17:19 | disposition home or self-care (01) | DRG 897 ==
LOC: ER 22:43 → MEDSURG 23:10 → NP 08-22 17:06 → MEDSURG 08-22 19:57
PROVIDERS: Admitting Provider Student in an Organized Health Care Education/Training Program; Emergency Provider Emergency Medicine; Visit Provider Student in an Organized Health Care Education/Training Program
DX: F10.229 Alcohol dependence with intoxication, unspecified (principal); I42.6 Alcoholic cardiomyopathy; R45.851 Suicidal ideations; I13.0 Hypertensive heart and chronic kidney disease with heart failure and stage 1 through stage 4 chronic kidney disease, or unspecified chronic kidney disease; I50.20 Unspecified systolic (congestive) heart failure; E87.1 Hypo-osmolality and hyponatremia; K70.10 Alcoholic hepatitis without ascites; F15.129 Other stimulant abuse with intoxication, unspecified; Y90.8 Blood alcohol level of 240 mg/100 ml or more; F32.9 Major depressive disorder, single episode, unspecified; F10.24 Alcohol dependence with alcohol-induced mood disorder; R45.850 Homicidal ideations; F17.210 Nicotine dependence, cigarettes, uncomplicated; N18.9 Chronic kidney disease, unspecified; Z63.9 Problem related to primary support group, unspecified; F43.25 Adjustment disorder with mixed disturbance of emotions and conduct
CPT/HCPCS: 36415; 71045; 71275; 76705; 78452; 80053; 80061; 80306; 80307; 81003; 82607; 82746; 83036; 83880; 84439; 84443; 84481; 84484; 85025; 85378; 87040; 87426; 87522; 87635; 87806; 93005; 93017; 93306; 96372; 96374; 99285; A9500; J1650; J1940; J2405; J2785; J3411; Q9967

== ENCOUNTER 2020-12-12 10:07 | Observation (INO) | payer MEDICARE, SELFPAY ==
[2020-12-12] VITALS (20 sets, daily range): BP systolic 130–154; BP diastolic 79–104; PULSE 87–114; RESP 9–30; TEMP 36.8–37.7; O2SAT 96–99; BMI 20.9
--- NOTE | 2020-12-12 10:15 | ECG_ITS ---
[facility] Test Date: 2020-12-12 Pat Name: Edwin Cuevas Department: Room: Gender: Male Floors Buffer: : 1980 Requested By: Luciano Lopez Order Number: [id number] Reading MD: LATOYA WEEKS Measurements Intervals [place] Rate: 109 P: 65 PA: 128 QRS: 77 QRSD: 95 T: 45 QT: 328 QTc: 442 Interpretive Statements SINUS TACHYCARDIA POSSIBLE LEFT ATRIAL ENLARGEMENT [-0.1mV P-WAVE IN V1/V2] ST DEVIATION AND MODERATE T-WAVE ABNORMALITY, CONSIDER LATERAL ISCHEMIA [-0.1+ mV T-WAVE IN I/aVL/V5/V6] Compared to ECG 08/21/2020 02:07:37 Indeterminate axis no longer present T-wave abnormality still present Possible ischemia still present Electronically Signed On 12-13-2020 0:01:05 CDT by LATOYA WEEKS [id number]
--- NOTE | 2020-12-12 10:15 | XR_ITS ---
WS: [id number] Portable AP upright chest, 12/12/2020 Clinical Data: dyspnea/cough Comparison: Portable chest, 08/20/2020. Findings: No nodules, masses or effusions are seen. The heart is enlarged. The pulmonary vascularity is not increased. No pneumonia or pneumothorax is seen. The patient has had a posterior cervical fusi on. There are monitor leads on the chest wall. XR/XR chest 1V portable [id number] Impression: Cardiomegaly.
[2020-12-12] MEDS: aspirin 81 mg Chew Tablet 324 MG PO (10:36)
--- NOTE | 2020-12-12 10:37 | ED_ITS ---
HPI - Chest Pain General: Chief Complaint: Shortness of Breath/Dyspnea Stated Complaint: CHEST PAIN Time Seen by Provider: 12/12/20 10:09 History of Present Illness: HPI narrative: 40-year-old male presented to the emergency room with complaint of cough shortness of breath chest pains worse with inspiration present for the last couple of days. He said a temp of 101 yesterday took Tylenol. He is feeling worse today patient does have a known cardiac history and has a recent echo done August 21, 2020 that showed an ejection fraction of 15%. MD complaint: chest pain Pertinent past history: other (Cardiomyopathy) Onset (ago): hour(s) Timing of current episode: constant Prior episodes: No Onset: during rest Pain location: left chest Pain radiation: none Severity: moderate Quality: tightness and heaviness Relieving factors: nitroglycerin and rest Exacerbating factors: nothing Associated symptoms: Reports dyspnea; Deny abdominal pain, diaphoresis, fever(s), leg edema, nausea, palpitations, sense of impending doom, syncope or vomiting Treatment prior to arrival: none Review of Systems Const: Denies: fever(s) or diaphoresis ENMT: Denies: throat pain, ear or mastoid pain, nasal discharge or nasal congestion Card: Denies: palpitations or syncope Resp: Reports: dyspnea GI: Denies: abdominal pain, nausea or vomiting : Denies: flank pain, dysuria, urinary frequency or urinary urgency Skin/Breast: Denies: rash or pruritus [facility] PFSH: Medical History Alcohol intoxication Benign essential hypertension with target blood pressure below 140/90 Cardiomegaly CHF (congestive heart failure) Chronic kidney disease Dyspnea Hepatitis C antibody positive in blood Partner relationship problem Social History Smoking and tobacco status: current every day smoker Physical Exam Const: COMMON NORMALS: no acute distress GENERAL APPEARANCE: cooperative and comfortable ORIENTATION/CONSCIOUSNESS: Yes awake, Yes oriented to person, Yes oriented to place and Yes oriented to time HENMT: COMMON NORMALS: normocephalic, atraumatic and hearing grossly normal bilaterally HEAD & SCALP: normocephalic and atraumatic Neck/C-Spine: COMMON NORMALS: no JVD Resp: COMMON NORMALS: normal respiratory effort, No retractions and No use of accessory muscles AUSCULTATION: rales and wheezes Cardio: COMMON NORMALS: no JVD, regular rate, regular rhythm and No murmurs present (Cardio) RATE: regular rate RHYTHM: regular rhythm GI: COMMON NORMALS: Soft to palpation and No hepatosplenomegaly present AUSCULTATION: Yes normoactive bowel sounds PALPATION: Yes Soft to palpation, No Tenderness to palpation present (GI), No Guarding due to palpation present (GI) and Yes No hepatosplenomegaly present Extremity: COMMON NORMALS: normal to inspection, capillary refill normal, no clubbing, cyanosis or edema, no calf tenderness and no pedal edema Neuro: SENSORIUM/ORIENTATION: Yes oriented to person, Yes oriented to place and Yes oriented to time Skin: COMMON NORMALS: no rashes or lesions noted GENERAL SKIN EXAM: no rashes or lesions noted Course Vital Signs: Vital signs: Vital Signs Temperature 98.3 F 12/12/20 10:43 Pulse Rate 107 H 12/12/20 10:43 Respiratory Rate 30 H 12/12/20 11:13 Blood Pressure 154/104 12/12/20 10:43 Pulse Oximetry 97 12/12/20 11:13 MDM - Chest Pain MDM Narrative: Medical decision making narrative: Patient continues have chest discomfort troponins negative EKG is unremarkable does not have any significant pulmonary edema at this time does have a significant cardiomyopathy. Also concerned with elevated blood pressure. Otilio go ahead and place patient on admission discussed with Dr. Solares. Orders written. Lab Data: Labs: Lab Results 12/12/20 12/12/20 12/12/20 10:40 10:40 10:40 WBC 13.7 10^3/uL H 10 ^3/uL (4.0-10.0) RBC 4.61 10^6/uL 10^6 /uL (4.1-5.3) Hgb 14.7 g/dL g/dL (11.7-16.6) Hct 44.0 % % (42.0-52.0) MCV 95.4 fl H fl (80-94) MCH 31.9 pg pg (28.0-34.0) MCHC 33.4 g/dL g/dL (30.0-36.0) RDW 12.8 % % (12.1-15.1) Plt Count 278 10^3/cmm 10^3 /cmm (130-400) MPV 9.8 fL fL (7.4-10.4) Neut % (Auto) 76.4 % % Lymph % (Auto) 13.5 % % [place] % (Auto) 9.5 % % Eos % (Auto) 0.1 % % Baso % (Auto) 0.2 % % Neut # (Auto) 10.49 10^3/uL H 1 0^3/uL (1.8-7.7) Lymph # (Auto) 1.9 10^3/uL 10^3/ uL (0.8-4.8) [place] # (Auto) 1.3 10^3/uL H 10^ 3/uL (0.2-0.9) Eos # (Auto) 0.0 10^3/uL 10^3/ uL (0.0-0.8) Baso # (Auto) 0.0 10^3/uL 10^3/ uL (0.0-0.1) Nucleated RBC % (a uto) 0 % % Nucleated RBCs # 0.0 /100WBC /100W BC Sodium 134 mmol/L L mmol /L (136-145) Potassium 4.1 mmol/L mmol/L (3.5-5.1) Chloride 96 mmol/L L mmol/ L (98-107) Carbon Dioxide 27 mmol/L mmol/L (22-29) Anion Gap 15.1 (5-19) BUN 8 mg/dL mg/dL (6-20) Creatinine 0.7 mg/dL mg/dL (0.7-1.2) GFR Calculation 124.3 mL/min mL/m in (90-130) Glucose 106 mg/dL mg/dL (65-115) Calculated Osmolal ity 277 mOsm/kg L mOs m/kg (285-295) Calcium 9.1 mg/dL mg/dL (8.5-10.5) Total Bilirubin 0.5 mg/dL mg/dL (0.15-1.2) AST 12 U/L U/L (0-40) ALT 10 U/L U/L (0-41) Alkaline Phosphata se 82 IU/L IU/L (40-130) Creatine Kinase 72 U/L U/L (39-308) Troponin T Baselin e 14 ng/L ng/L (0-15) Troponin T 120 Min [place] Delta Troponin T NT-Pro-B Natriuret Pep 757 pg/mL H pg/mL (0-125) Total Protein 7.2 g/dL g/dL (6.6-8.7) Albumin 3.9 g/dL g/dL (3.5-5.2) Globulin 3.3 g/dL g/dL (1.3-4.6) Urine Color Urine Appearance Urine pH Ur Specific Gravit y Urine Protein Urine Glucose (UA) Urine Ketones Urine Blood Urine Nitrate Urine Bilirubin Urine Urobilinogen Ur Leukocyte Felicia ase Nasal/Oral COVID-1 9 PCR SARS-CoV-2 Ag (Rap id) 12/12/20 12/12/20 12/12/20 10:45 11:15 11:15 WBC RBC Hgb Hct MCV MCH MCHC RDW Plt Count MPV Neut % (Auto) Lymph % (Auto) [place] % (Auto) Eos % (Auto) Baso % (Auto) Neut # (Auto) Lymph # (Auto) [place] # (Auto) Eos # (Auto) Baso # (Auto) Nucleated RBC % (a uto) Nucleated RBCs # Sodium Potassium Chloride Carbon Dioxide Anion Gap BUN Creatinine GFR Calculation Glucose Calculated Osmolal ity Calcium Total Bilirubin AST ALT Alkaline Phosphata se Creatine Kinase Troponin T Baselin e Troponin T 120 Min [place] Troponin T NT-Pro-B Natriuret Pep Total Protein Albumin Globulin Urine Color Straw (Yellow) Urine Appearance Clear (CLEAR) Urine pH 6.5 (5-7) Ur Specific Gravit y 1.010 (1.005-1.030) Urine Protein Neg (Negative) Urine Glucose (UA) Norm (Normal) Urine Ketones Negative (Negative) Urine Blood Neg (Negative) Urine Nitrate Negative (Negative) Urine Bilirubin Neg (Negative) Urine Urobilinogen 1 mg/dL H mg/dL (Negative) Ur Leukocyte Felicia ase Negative (Negative) Nasal/Oral COVID-1 9 PCR Cancelled SARS-CoV-2 Ag (Rap id) Negative (Negative) 12/12/20 13:07 WBC RBC Hgb Hct MCV MCH MCHC RDW Plt Count MPV Neut % (Auto) Lymph % (Auto) [place] % (Auto) Eos % (Auto) Baso % (Auto) Neut # (Auto) Lymph # (Auto) [place] # (Auto) Eos # (Auto) Baso # (Auto) Nucleated RBC % (a uto) Nucleated RBCs # Sodium Potassium Chloride Carbon Dioxide Anion Gap BUN Creatinine GFR Calculation Glucose Calculated Osmolal ity Calcium Total Bilirubin AST ALT Alkaline Phosphata se Creatine Kinase Troponin T Baselin e Troponin T 120 Min [place] 15.16 ng/L H ng/L (0-15) Delta Troponin T 1.16 ABS# ABS# (0-10) NT-Pro-B Natriuret Pep Total Protein Albumin Globulin Urine Color Urine Appearance Urine pH Ur Specific Gravit y Urine Protein Urine Glucose (UA) Urine Ketones Urine Blood Urine Nitrate Urine Bilirubin Urine Urobilinogen Ur Leukocyte Felicia ase Nasal/Oral COVID-1 9 PCR SARS-CoV-2 Ag (Rap id) Discharge Plan Discharge Patient Disposition: Admitted As Inpatient Clinical Impression: Chest pain, Non-ischemic cardiomyopathy, Hypertension Condition: Stable Prescriptions: No Action carvedilol 6.25 mg tablet 6.25 mg PO BID RF: 0 Tylenol Ex Str Rapid Release 500 mg Tablet 1,000 mg PO Q4H PRN (Reason: Pain) RF: 0 losartan 25 mg tablet 25 mg PO DAILY RF: 0 Coding Level of Care Code ED [place] 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
[2020-12-12] MEDS: nitroglycerin 1 gm/inch oint Pkt 1 INCH TOPICAL (10:42)
[2020-12-12 11:01] LABS: Basophils % 0.2 %; Eosinophils % 0.1 %; Hemoglobin 14.7 g/dL (11.7-16.6); Lymphocytes # 1.9 10^3/uL (0.8-4.8); Lymphocytes % 13.5 %; Mean Corpuscular HGB Conc 33.4 g/dL (30.0-36.0); Mean Corpuscular Hemoglobin 31.9 pg (28.0-34.0); Mean Corpuscular Volume 95.4 fl (80-94); Mean Platelet Volume 9.8 fL (7.4-10.4); Monocytes # 1.3 10^3/uL (0.2-0.9); Monocytes % 9.5 %; Neutrophils # 10.49 10^3/uL (1.8-7.7); Neutrophils % 76.4 %; Nucleated Red Blood Cells % 0 %; Platelet Count 278 10^3/cmm (130-400); Red Blood Count 4.61 10^6/uL (4.1-5.3); Red Cell Distribution Width 12.8 % (12.1-15.1); White Blood Count 13.7 10^3/uL (4.0-10.0)
[2020-12-12 11:05] LABS: Add Urine Microscopic? NO; Bilirubin Urine Neg (Negative); Blood Urine Neg (Negative); Charge for UA Resulting for Rev; Glucose Urine UA Norm (Normal); Ketones Urine Negative (Negative); Leukocyte Esterase Urine Negative (Negative); Nitrate Urine Negative (Negative); Protein Urine Neg (Negative); Urine Appearance Clear (CLEAR); Urine Color Straw (Yellow); Urobilinogen Urine 1 mg/dL (Negative); pH Urine 6.5 (5-7)
[2020-12-12] MEDS: morphine 4 mg/mL SDV 1 mL IVP (11:13)
[2020-12-12 11:29] LABS: Troponin(5th) Baseline 14 ng/L (0-15)
[2020-12-12 11:39] LABS: Alanine Aminotransferase 10 U/L (0-41); Albumin Level 3.9 g/dL (3.5-5.2); Alkaline Phosphatase 82 IU/L (40-130); Anion Gap 15.1 (5-19); Aspartate Amino Transferase 12 U/L (0-40); Blood Urea Nitrogen 8 mg/dL (6-20); Calcium 9.1 mg/dL (8.5-10.5); Carbon Dioxide 27 mmol/L (22-29); Chloride 96 mmol/L (98-107); Creatine Phosphokinase 72 U/L (39-308); Globulin 3.3 g/dL (1.3-4.6); Glomerular Filtration Rate 124.3 mL/min (90-130); Glucose 106 mg/dL (65-115); NT Pro B Type Natriuretic Pept 757 pg/mL (0-125); Osmolality Calculated 277 mOsm/kg (285-295); Potassium 4.1 mmol/L (3.5-5.1); Sodium 134 mmol/L (136-145); Total Bilirubin 0.5 mg/dL (0.15-1.2); Total Protein 7.2 g/dL (6.6-8.7)
--- NOTE | 2020-12-12 11:46 | PC.PHAR ---
Addendum entered by Leonor Bradley 12/12/20 11:51: EXT MED HISTORY SHOWS CARVEDILOL 6.25MG BID,PANTOPRAZOLE 40MG DAILY X14 DAYS,LOSARTAN 25MG DAILY,LASIX 20MG DAILY, AND TAB A YEN DAILY ALL FILLED ON 08/23/20 Original Note: PT STATES HE TAKES CARE OF HIS OWN MEDICATIONS-PT STATES HE WAS TAKING LOSARTAN AND CARVEDILOL RX LAST FILLED 08/23/20 30D/S-PT STATES HE JUST RAN OUT 2-3 WEEKS AGO-NOTES ARE MADE IN THE PHARMACY COMMENTS
[2020-12-12 12:14] LABS: SARS Covid-2 Antigen Negative (Negative)
--- NOTE | 2020-12-12 12:15 | ECG_ITS ---
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1980 Requested By: Luciano Lopez Order Number: [id number] Reading MD: LATOYA WEEKS Measurements Intervals [place] Rate: 97 P: 62 LA: 150 QRS: 66 QRSD: 85 T: 62 QT: 337 QTc: 430 Interpretive Statements SINUS RHYTHM WITH SINUS ARRHYTHMIA POSSIBLE LEFT ATRIAL ENLARGEMENT [-0.1mV P-WAVE IN V1/V2] POSSIBLE LEFT VENTRICULAR HYPERTROPHY [VOLTAGE CRITERIA PLUS LAE OR QRS WIDENING] ST DEVIATION AND MODERATE T-WAVE ABNORMALITY, CONSIDER LATERAL ISCHEMIA [-0.1+ mV T-WAVE IN I/aVL/V5/V6] Compared to ECG 12/12/2020 12:12:28 Sinus tachycardia no longer present T-wave abnormality still present Possible ischemia still present Electronically Signed On 12-13-2020 0:02:17 CDT by LATOYA WEEKS [id number]
--- NOTE | 2020-12-12 12:21 | PC.NURSE ---
pt reports no improvement with the pain medication
[2020-12-12 13:30] LABS: Troponin 5 2HR 15.16 ng/L (0-15); Troponin 5 2HR Delta 1.16 ABS# (0-10)
--- NOTE | 2020-12-12 15:02 | USCV_ITS ---
Edwin Cuevas Age: 40 Gender: M : 1980 Exam Date: 12/12/2020 15:15 Ordering Phys: Luciano Adams DO Technologist: Alycia Romo Exam Location: [facility] [place] Indication: cardiomyopathy BP: 130 / 82 HR: 98 Rhythm: Sinus Technical Quality: Good MEASUREMENTS (Male / Female) Normal Values 2D ECHO LV Diastolic Diameter PLAX 5.9 cm 4.2 - 5.9 / 3.9 - 5.3 cm LV Systolic Diameter PLAX 5.5 cm IVS Diastolic Thickness 1.1 cm 0.6 - 1.0 / 0.6 - 0.9 cm IVS Systolic Thickness 1.3 cm LVPW Diastolic Thickness 1.4 cm 0.6 - 1.0 / 0.6 - 0.9 cm LVPW Systolic Thickness 1.4 cm LVOT Diameter 2.1 cm LV Ejection Fraction 2D Teich 17.3 % LV Ejection Fraction MOD 2C 37.1 % LV Ejection Fraction 2C AL 37.3 % LA Diameter 3.7 cm LA Width 4.5 cm LA Height 5.5 cm RA Width 3.9 cm RA Height 4.6 cm Aorta at Sinotubular Diameter 2.8 cm FINDINGS Left Ventricle LV is mildly dilated. LV systolic function is severely reduced with EF of 15 to 20%. Severe global hypokinesis is seen. Right Ventricle Grossly RV function is severely reduced Right Atrium Dilated Left Atrium Severely dilated Mitral Valve Grossly normal. Has mild mitral regurgitation Aortic Valve Normal Tricuspid Valve Grossly normal Pulmonic Valve Not well visualized Pericardium Normal Aorta Normal CONCLUSIONS This is limited echocardiogram performed to assess LV systolic function. LV systolic function is severely reduced with EF of 15 to 20%. Severe global hypokinesis is noted. Grossly LV function is severely reduced. Biatrial enlargement. Mild mitral regurgitation is seen. Compared to prior echocardiogram from 08/21/2020, no significant changes are seen. Joe Byrnes MD (Electronically Signed) Final Date: 13 December 2020 19:30 S
--- NOTE | 2020-12-12 16:15 | ECG_ITS ---
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1980 Requested By: Luciano Lopez Order Number: [id number] Carlene MD: LATOYA EWEKS Measurements Intervals [place] Rate: 100 P: -10 TX: 150 QRS: -15 QRSD: 86 T: -12 QT: 338 QTc: 438 Interpretive Statements SINUS TACHYCARDIA POSSIBLE LEFT ATRIAL ENLARGEMENT [-0.1mV P-WAVE IN V1/V2] POSSIBLE LEFT VENTRICULAR HYPERTROPHY [VOLTAGE CRITERIA PLUS LAE OR QRS WIDENING] ST DEVIATION AND MODERATE T-WAVE ABNORMALITY, CONSIDER LATERAL ISCHEMIA [-0.1+ mV T-WAVE IN I/aVL/V5/V6] Compared to ECG 12/12/2020 10:20:45 No significant changes Electronically Signed On 12-13-2020 0:03:27 CDT by LATOYA WEEKS [id number]
--- NOTE | 2020-12-12 17:12 | P.HP_ITS ---
Providers/Chief Complaint Admitting Physician: Wilfredo Dumont MD Chief Complaint: CHEST PAIN History of Present Illness Edwin Cuevas is a 40 year old male with a past medical history of nonischemic cardiomyopathy, EF of 15%, history of alcohol abuse, history of suicidal ideation, history of hypertension, CKD, hypertension, cardiomegaly, hepatitis C, who presents [facility] due to chest pain shortness of breath. Patient was recently discharged back in August for nonischemic cardiomyopathy, had a negative stress test, was supposed to follow-up with cardiology, was supposed to get a LifeVest, however patient failed to follow-up, he tells me that his medications ran out. Is progressively becoming more short of breath, he developed chest pain starting today, substernal, pressure-like pain, lasting few minutes, nonradiating, associate with shortness of breath, no lightheadedness, no dizziness, no nausea, no vomiting. He does report fatigue and malaise since yesterday, had a temp of 101.4 yesterday, has not received Covid vaccination, no known Covid exposure, denies any cough, is a smoker, denies any wheezing. In the emergency room he continues to complain of chest pain, substernal, has a nitro patch in place, has received 325 mg of aspirin, his initial troponin is 14, 120-minute 15.16, delta 1.16, EKG does show T wave inversions in anterior chest leads, and lateral chest leads, BNP 757, chest x-ray shows cardiomegaly, no focal pneumonia, white blood cell count 13.7, inflammatory markers pending, UA no evidence of UTI, chest x-ray no focal evidence of pneumonia, rapid Covid negative. Does report his last alcohol drink was a few days ago, does not remember how much, does report a history of alcohol withdrawal, no ICU admission for alcohol withdrawal, no history of delirium tremens Review of Systems Const: Reports: fever(s), fatigue and malaise Eyes: Denies: change in vision or blurry vision ENMT: Denies: throat pain or nasal congestion Card: Reports: chest pain and orthopnea; Denies: palpitations, irregular heart rhythm, edema, lightheadedness, syncope or leg pain with exertion Resp: Reports: dyspnea and non-productive cough; Denies: productive cough or wheezing GI: Denies: abdominal pain, nausea, vomiting, hematemesis, diarrhea, constipation, hematochezia or melena : Denies: flank pain, difficulty urinating, dysuria or urinary frequency Musc: Denies: neck pain or back pain Skin/Breast: Denies: rash Neuro: Denies: headache(s), numbness in extremities, dizziness or vertigo Psych: Denies: anxiety, depression, visual hallucinations, auditory hallucinations, tactile hallucinations, suicidal ideation or homicidal ideation Endo: Denies: polyuria or polydipsia Medications/Allergies Home Medications Medication Instructions Recorded Confirmed Last Taken Type acetaminophen [Tylenol Ex Str 1,000 mg PO Q4H PRN 12/12/20 12/12/20 Unknown History Rapid Release] carvedilol 6.25 mg PO BID 12/12/20 12/12/20 Unknown History losartan 25 mg PO DAILY 12/12/20 12/12/20 Unknown History Allergies Allergy/AdvReac Type Severity Reaction Status Date / Time No Known Allergies Allergy Verified 12/12/20 11:49 PFSH Acute PFSH: Medical History Alcohol intoxication Benign essential hypertension with target blood pressure below 140/90 Cardiomegaly CHF (congestive heart failure) Chronic kidney disease Dyspnea Hepatitis C antibody positive in blood Partner relationship problem Surgical History (Updated 12/12/20 @ 17:39 by Wilfredo Dumont MD) No pertinent past surgical history Social History (Updated 12/12/20 @ 17:38 by Wilfredo Dumont MD) Smoking and tobacco status: current every day smoker Alcohol intake: current Alcohol intake frequency: 3 or more drinks per day Substance/Drug Use: former Vitals/I&O/Wt Last Vital Signs Temp 98.3 F 12/12/20 10:43 Pulse 90 12/12/20 15:43 Resp 19 H 12/12/20 15:43 BP 139/87 12/12/20 15:43 Pulse Ox 96 12/12/20 15:43 Weight last 48 hrs Weight 68.039 kg Physical Exam Const: COMMON NORMALS: no acute distress and patient oriented x3 HENMT: COMMON NORMALS: normocephalic HEAD & SCALP: normocephalic Eye: COMMON NORMALS: Equal, round and reactive pupils present and EOMs intact bilaterally GENERAL EYE: appearance normal, both eyes and all related structures PUPIL: Yes Equal, round and reactive pupils present Neck/C-Spine: COMMON NORMALS: full ROM and no lymphadenopathy THYROID: Thyroid normal Lymph: LYMPHATIC: no lymphadenopathy noted Resp: COMMON NORMALS: normal respiratory effort, No retractions and No use of accessory muscles AUSCULTATION: crackles Cardio: COMMON NORMALS: regular rate, regular rhythm, S1 normal heart sound present, S2 normal heart sound present, No gallops present (Cardio), No clicks present (Cardio) and No murmurs present (Cardio) RATE: regular rate RHYTHM: regular rhythm HEART SOUNDS: S1 normal heart sound present and S2 normal heart sound present GI: COMMON NORMALS: Normal to inspection, nondistended, normoactive bowel sounds present, Soft to palpation and non-tender PALPATION: Yes Soft to palpation Extremity: COMMON NORMALS: normal to inspection, full ROM and no pedal edema Neuro: COMMON NORMALS: patient oriented x3, CN's II-XII intact bilaterally, moves all extremities and no focal motor deficits Psych: COMMON NORMALS: mental status grossly normal, Normal thought process present and cooperative THOUGHT PROCESS: Normal thought process present Data : 12/12/20 10:40 12/12/20 10:40 A&P Assessment and plan (1) Chest pain: -Continues to have chest pain in the ER, nitro patch in place -Baseline troponin 14, 120-minute 19, no significant delta troponin -EKG does show T wave inversions in in anterior and lateral chest leads -BNP 757 -CT angiogram of last admission showed severe cardiomegaly -Nuclear stress test August 22, 2020 1. Myocardial perfusion imaging is normal. Attenuation artifact noted in mid to inferior chavez. 2. There is severely reduced left ventricular global systolic function with severe global hypokinesis. 3. The left ventricular ejection fraction is severely reduced with a value of 11%. 4. The perfusion pattern is consistent with a non-ischemic cardiomyopathy. -Cardiac echocardiogram August 2020 Severe diffuse hypokinesia of the left ventricle with an ejection fraction of 15%. Mildly dilated left ventricle. Mild biatrial enlargement. Normal RV size with a slightly diminished ejection fraction. Thickened mitral valve. Mild mitral valve regurgitation. Mild tricuspid valve regurgitation. Estimated pulmonary artery peak systolic pressure 26 mmHg There is no pericardial effusion. There are no intracardiac masses. -Has a history of alcoholism, has a history of methamphetamine abuse, stress- induced cardiomyopathy -History of nonischemic cardiomyopathy, noncompliant with medical therapy, not compliant with LifeVest Plan: -Admit to cardiac stepdown unit -Aspirin, statin, Coreg -We will start a nitroglycerin drip -Serial EKGs, serial troponins, TSH, mag, telemetry monitoring -Monitor for chest pain -Start therapeutic Lovenox -Cardiac echocardiogram ordered -Cardiology consulted for the need for possible coronary angiogram -Full code -Lovenox for DVT prophylaxis History of fevers, cough, WBC 13.7 -UA unremarkable -Rapid Covid negative -Covid PCR ordered -No focal pneumonia on chest x-ray -Pro-Rian, CRP, rapid flu ordered -We will continue to monitor History of alcoholism -Blood alcohol level pending -[facility] protocol History of methamphetamine abuse, urine toxicology screen pending History of suicidal ideation, denies any suicidal ideation, no homicidal ideation, denying feeling down depressed or sad Hypertension as above Status: Acute (2) Hypertension: Status: Acute (3) Non-ischemic cardiomyopathy: Status: Acute Attestations Medical Necessity Statement*: Patient requires hospitalization, inpatient, greater than 2 midnights, for chest pain Coding Level of Care Code 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
[2020-12-12 17:38] LABS: Troponin 5 6HR 17.66 ng/L (0-15); Troponin 5 6HR Delta 3.66 ng/L (0-12)
--- NOTE | 2020-12-12 17:41 | PC.NURSE ---
Attempted to call report to foor, no answer
--- NOTE | 2020-12-12 17:42 | PC.NURSE ---
Report called to floor, given to WINSTON Armstrong
[2020-12-12 18:04] LABS: Lactic Sepsis W/Reflex 1.3 mmol/L (0.5-2.2)
[2020-12-12 18:08] LABS: Procalcitonin 0.11 ng/mL (0-0.5)
--- NOTE | 2020-12-12 18:53 | P.CONIM_ITS ---
Providers/Reason For Consult Consulting Physician/Specialty*: Joe Byrnes MD/Cardiology Reason for Consult*: Chest pain Requesting Physician: Dr Dumont Attending Physician: Wilfredo Dumont MD History of Present Illness History of Present Illness Edwin Cuevas is a 40 year old male with past medical history of HFrEF with EF of 15%, history of alcohol abuse, hypertension, hepatitis C who presented to the hospital with complaints of chest pain and shortness of breath. He had negative stress test in the past. He describes chest pain as substernal, pressure-like and lasts a few minutes. On and off. No radiation. He had a recent temperature as well. His troponins are negative. EKG shows T wave inversions in lateral leads. proBNP is elevated. Review of Systems Const: Reports: fever(s), fatigue and malaise Eyes: Denies: change in vision or blurry vision ENMT: Denies: throat pain or nasal congestion Card: Reports: chest pain and orthopnea; Denies: palpitations, irregular heart rhythm, edema, lightheadedness, syncope or leg pain with exertion Resp: Reports: dyspnea and non-productive cough; Denies: productive cough or wheezing GI: Denies: abdominal pain, nausea, vomiting, hematemesis, diarrhea, constipation, hematochezia or melena : Denies: flank pain, difficulty urinating, dysuria or urinary frequency Musc: Denies: neck pain or back pain Skin/Breast: Denies: rash Neuro: Denies: headache(s), numbness in extremities, dizziness or vertigo Psych: Denies: anxiety, depression, visual hallucinations, auditory hallucinations, tactile hallucinations, suicidal ideation or homicidal ideation Endo: Denies: polyuria or polydipsia Meds/Allergies Home Medications and Allergies Home Medications Medication Instructions Recorded Confirmed Last Taken Type acetaminophen [Tylenol Ex Str 1,000 mg PO Q4H PRN 12/12/20 12/12/20 Unknown History Rapid Release] carvedilol 6.25 mg PO BID 12/12/20 12/12/20 Unknown History losartan 25 mg PO DAILY 12/12/20 12/12/20 Unknown History Allergies Allergy/AdvReac Type Severity Reaction Status Date / Time No Known Allergies Allergy Verified 12/12/20 11:49 PFSH Acute PFSH: Medical History Alcohol intoxication Benign essential hypertension with target blood pressure below 140/90 Cardiomegaly CHF (congestive heart failure) Chronic kidney disease Dyspnea Hepatitis C antibody positive in blood Partner relationship problem Surgical History No pertinent past surgical history Social History Smoking and tobacco status: current every day smoker Alcohol intake: current Alcohol intake frequency: 3 or more drinks per day Substance/Drug Use: former Vitals/I&O/Wt Last Vital Signs Temp 98.3 F 12/12/20 10:43 Pulse 114 H 12/12/20 18:24 Resp 18 12/12/20 18:24 BP 143/97 12/12/20 18:22 Pulse Ox 97 12/12/20 18:25 Weight last 48 hrs Weight 150 lb Physical Exam Narrative: EXAM NARRATIVE: GENERAL: Patient is alert, awake and oriented x3. [] NECK: No jugular vein distension. [] HEENT: No cyanosis. No icterus. No pallor. [] HEART: Regular S1 and S2. No murmur, rub or gallop. [] LUNGS: Clear to auscultate bilaterally. [] ABDOMEN: Soft, nontender and nondistended. Positive bowel sounds. No guarding, rebound or tenderness. [] CENTRAL NERVOUS SYSTEM: Grossly nonfocal. [] EXTREMITIES: Lower extremities with 1+ edema bilaterally. Pulses palpable in the lower extremities, both dorsalis pedis and posterior tibial. [] A&P Assessment and plan (1) Chest pain: Status: Acute (2) Hypertension: Status: Acute (3) HFrEF (heart failure with reduced ejection fraction): Status: Acute Patient has been describing chest pain with both typical and atypical symptoms. He has heart failure with reduced ejection fraction. Stress test in the past had not shown ischemia. However given his chest pain symptoms and recent onset heart failure, he will benefit from right and left heart cath. Can try nitro drip. Telemetry monitoring. N.p.o. past midnight. Thank you for involving us of the care of this patient. We will continue to follow. Please call with questions. Coding Level of Care Code Acute Civil Cad Designer for Chg [facility] Diagnoses Chest pain R07.9 Hypertension I10 HFrEF (heart failure with reduced ejection fraction) I50.20
[2020-12-12] MEDS: famotidine 20 mg Tablet PO (18:55)
[2020-12-12] MEDS: FUROsemide 10 mg/mL SDV 4mL 40 MG IVP (18:55)
[2020-12-12] MEDS: enoxaparin 80 mg/0.8 mL Syringe 70 MG SUBCUT (18:55)
[2020-12-12] MEDS: aspirin 81 mg EC Tablet PO (18:56)
[2020-12-12] MEDS: carvedilol 6.25 mg Tablet PO (18:56)
[2020-12-12 19:03] LABS: D Dimer 1.71 ug/mIFEU (0-0.59)
[2020-12-12 19:09] LABS: Chol HDL Ratio 2.25 mg/dL (1.0-5.00); Cholesterol 153 mg/dL (0-200); HDL Cholesterol 68 mg/dL (60-100); LDL Cholesterol Calculated 76 mg/dL (50-129); LDL HDL Ratio 1.12 RATIO (0.00-3.22); Triglycerides 46 mg/dL (0-150)
[2020-12-12 19:11] LABS: Alcohol Level < 10 mg/dL (0-10)
[2020-12-12 19:13] LABS: Estmated Average Glucose 108; Hemoglobin A1C 5.4 % (4.0-6.0)
[2020-12-12] MEDS: nitroglycerin drip 50 MG/250 ML PREMIX IV (20:57)
[2020-12-12] MEDS: atorvastatin 40 mg Tablet PO (20:57)
--- NOTE | 2020-12-12 21:07 | PC.NURSE ---
Received report from WINSTON Garcia. Patient c/o chest pain 11/16. Patient opens eyes responds appropriately however goes right back to sleep with snoring noted. Nitro drip started as ordered. Discussed nitro and lipitor with patient. Patient verbailzed understanding however will need reinforcement. No other distresses observed.
[2020-12-13] VITALS (18 sets, daily range): BP systolic 104–155; BP diastolic 74–108; PULSE 84–104; RESP 14–28; TEMP 36.5–37.2; O2SAT 95–99
--- NOTE | 2020-12-13 02:37 | PC.NURSE ---
Patient has been resting with eyes closed. Opens eyes spontaneously and responds appropriately when asked to. No pain per flacc. No other distress observed. Patient has urinal and collection device at bedside for urine collection. Patient has not had urine output at this time.
[2020-12-13] MEDS: enoxaparin 80 mg/0.8 mL Syringe 70 MG SUBCUT ×2 (05:48→18:03)
--- NOTE | 2020-12-13 05:51 | PC.NURSE ---
Shift Note Frequent safety and comfort rounds continue. Orders and/or nursing care completed as indicated. Patient monitored for response to intervention and treatment(s). Education provided includes Lovenox. Patient verbalized complete understanding. Patient continues to c/o mild pain to chest. Nitro drip at 1.5ml/hr. VS WNL throught night. Patient slept. Arouses easily and responds appropriately. Patient forgot to use urinal. Unable to collect needed urine sample. Reminded patient that this was needed and patient stated, he will use urinal next time. Speciman cup remains in window pending sample. No other distresses observed. Will continue to monitor.
[2020-12-13 06:20] LABS: Basophils % 0.3 %; Eosinophils # 0.1 10^3/uL (0.0-0.8); Eosinophils % 0.6 %; Hematocrit 45.7 % (42.0-52.0); Hemoglobin 15.6 g/dL (11.7-16.6); Lymphocytes # 2.5 10^3/uL (0.8-4.8); Lymphocytes % 22.5 %; Mean Corpuscular HGB Conc 34.1 g/dL (30.0-36.0); Mean Corpuscular Hemoglobin 32.2 pg (28.0-34.0); Mean Corpuscular Volume 94.4 fl (80-94); Mean Platelet Volume 10.2 fL (7.4-10.4); Monocytes % 8.8 %; Neutrophils # 7.56 10^3/uL (1.8-7.7); Neutrophils % 67.5 %; Nucleated Red Blood Cells % 0 %; Platelet Count 325 10^3/cmm (130-400); Red Blood Count 4.84 10^6/uL (4.1-5.3); Red Cell Distribution Width 12.7 % (12.1-15.1); White Blood Count 11.2 10^3/uL (4.0-10.0)
[2020-12-13 06:44] LABS: Influenza A by IFA Negative (Negative); Influenza B by IFA Negative (Negative)
[2020-12-13 06:52] LABS: INR 1.03 (0.8-1.2)
[2020-12-13 06:54] LABS: Alanine Aminotransferase 8 U/L (0-41); Albumin Level 3.5 g/dL (3.5-5.2); Alkaline Phosphatase 95 IU/L (40-130); Anion Gap 16.9 (5-19); Aspartate Amino Transferase 14 U/L (0-40); Blood Urea Nitrogen 12 mg/dL (6-20); Calcium 9.7 mg/dL (8.5-10.5); Carbon Dioxide 27 mmol/L (22-29); Chloride 94 mmol/L (98-107); Globulin 4.1 g/dL (1.3-4.6); Glomerular Filtration Rate 106.5 mL/min (90-130); Glucose 103 mg/dL (65-115); NT Pro B Type Natriuretic Pept 1711 pg/mL (0-125); Osmolality Calculated 278 mOsm/kg (285-295); Phosphorus 3.4 mg/dL (2.5-4.5); Potassium 3.9 mmol/L (3.5-5.1); Sodium 134 mmol/L (136-145); Total Bilirubin 0.6 mg/dL (0.15-1.2); Total Protein 7.6 g/dL (6.6-8.7)
[2020-12-13] MEDS: multivitamin therapeutic Tablet 1 TAB PO (08:12)
[2020-12-13] MEDS: folic acid 1 mg Tablet PO (08:12)
[2020-12-13] MEDS: carvedilol 6.25 mg Tablet PO ×2 (08:12→18:03)
[2020-12-13] MEDS: famotidine 20 mg Tablet PO ×2 (08:12→18:04)
[2020-12-13] MEDS: thiamine 100 mg Tablet PO (08:12)
[2020-12-13 09:37] LABS: Amphetamines Screen Urine Positive (Negative); Barbiturates Screen Urine Negative (Negative); Benzodiazepines Screen Urine Negative (Negative); Cocaine Screen Urine Negative (Negative); Opiate Screen Urine Positive (Negative); PCP Screen Urine Negative (Negative); THC Screen Urine Negative (Negative)
[2020-12-13] MEDS: FUROsemide 10 mg/mL SDV 4mL 40 MG IVP (10:30)
--- NOTE | 2020-12-13 12:08 | PM.PN ---
Subjective Subjective: Interval history: Patient is doing better. Started on nitro drip yesterday, chest pain is improved but still there. Troponins have not trended up. He had breakfast this a.m., will plan right and left heart catheter tomorrow. Vitals/I&O/Wt Last Vital Signs Temp 97.7 F 12/13/20 08:00 Pulse 97 12/13/20 08:03 Resp 18 12/13/20 08:03 BP 123/91 12/13/20 08:00 Pulse Ox 97 12/13/20 08:03 12/12/20 12/13/20 12/13/20 22:59 06:59 14:59 Intake Total 360 / 360 9.8 / 369.8 472 / 472 Output Total 900 / 900 Balance 360 / 360 9.8 / 369.8 -428 / -428 Weight last 48 hrs Weight 150 lb Physical Exam Narrative: EXAM NARRATIVE: GENERAL: Patient is alert, awake and oriented x3. [] NECK: No jugular vein distension. [] HEENT: No cyanosis. No icterus. No pallor. [] HEART: Regular S1 and S2. No murmur, rub or gallop. [] LUNGS: Clear to auscultate bilaterally. [] ABDOMEN: Soft, nontender and nondistended. Positive bowel sounds. No guarding, rebound or tenderness. [] CENTRAL NERVOUS SYSTEM: Grossly nonfocal. [] EXTREMITIES: Lower extremities with 1+ edema bilaterally. Pulses palpable in the lower extremities, both dorsalis pedis and posterior tibial. [] Data : 12/13/20 05:18 12/13/20 05:18 Micro: Microbiology 12/12/20 19:30 Blood Culture - Preliminary Blood SPECIMEN COLLECTED 12/12/20 19:27 Blood Culture - Preliminary Blood SPECIMEN COLLECTED A&P Assessment and plan (1) Chest pain: Status: Acute (2) Hypertension: Status: Acute (3) HFrEF (heart failure with reduced ejection fraction): Status: Acute Patient has been describing chest pain that is improving with nitro drip. He does not have troponin elevation. He has heart failure with reduced ejection fraction. Stress test in the past had not shown ischemia. However given his chest pain symptoms and recent onset heart failure, he will benefit from right and left heart cath. He was not n.p.o. past midnight today, will make him n.p.o. tomorrow and will perform cardiac catheterization in the morning. Continue nitro drip. Telemetry monitoring. Thank you for involving us of the care of this patient. We will continue to follow. Please call with questions. Attestations Medical Necessity Statement*: Care expected to cross 2 midnights. Coding Level of Care Code Acute Mower Sharpener for Susanna Fwd Diagnoses Chest pain R07.9 Hypertension I10 HFrEF (heart failure with reduced ejection fraction) I50.20
--- NOTE | 2020-12-13 12:52 | PM.PN ---
Subjective Subjective: Interval history: Patient was seen this morning, he tells me he has had mild chest pain overnight, improving with a nitro drip, no nausea, no vomiting, no lightheadedness, dizziness, still feels a bit short of breath, his urine toxicology screen was positive for methamphetamines, he denies any methamphetamine use, was using medication for his cough Vitals/I&O/Wt Last Vital Signs Temp 97.7 F 12/13/20 08:00 Pulse 97 12/13/20 08:03 Resp 18 12/13/20 08:03 BP 123/91 12/13/20 08:00 Pulse Ox 97 12/13/20 08:03 12/12/20 12/13/20 12/13/20 22:59 06:59 14:59 Intake Total 360 / 360 9.8 / 369.8 472 / 472 Output Total 900 / 900 Balance 360 / 360 9.8 / 369.8 -428 / -428 Weight last 48 hrs Weight 68.039 kg Physical Exam Const: COMMON NORMALS: no acute distress and patient oriented x3 Resp: COMMON NORMALS: normal respiratory effort, No retractions, No use of accessory muscles and clear to auscultation bilaterally AUSCULTATION: clear to auscultation bilaterally Cardio: COMMON NORMALS: regular rate, regular rhythm, S1 normal heart sound present and S2 normal heart sound present RATE: regular rate RHYTHM: regular rhythm HEART SOUNDS: S1 normal heart sound present and S2 normal heart sound present GI: COMMON NORMALS: Normal to inspection, nondistended, normoactive bowel sounds present, Soft to palpation and non-tender PALPATION: Yes Soft to palpation Extremity: COMMON NORMALS: no pedal edema Neuro: COMMON NORMALS: patient oriented x3 Psych: COMMON NORMALS: mental status grossly normal Data : 12/13/20 05:18 12/13/20 05:18 Micro: Microbiology 12/12/20 19:30 Blood Culture - Preliminary Blood SPECIMEN COLLECTED 12/12/20 19:27 Blood Culture - Preliminary Blood SPECIMEN COLLECTED A&P Assessment and plan (1) Chest pain: -Currently minimal chest pain on nitro drip -Baseline troponin 14, 120-minute 19, no significant delta troponin, 6-hour troponin 17.6, delta 3.6 -EKG does show T wave inversions in in anterior and lateral chest leads -BNP 757 -CT angiogram of last admission showed severe cardiomegaly -Nuclear stress test August 22, 2020 1. Myocardial perfusion imaging is normal. Attenuation artifact noted in mid to inferior chavez. 2. There is severely reduced left ventricular global systolic function with severe global hypokinesis. 3. The left ventricular ejection fraction is severely reduced with a value of 11%. 4. The perfusion pattern is consistent with a non-ischemic cardiomyopathy. -Cardiac echocardiogram August 2020 Severe diffuse hypokinesia of the left ventricle with an ejection fraction of 15%. Mildly dilated left ventricle. Mild biatrial enlargement. Normal RV size with a slightly diminished ejection fraction. Thickened mitral valve. Mild mitral valve regurgitation. Mild tricuspid valve regurgitation. Estimated pulmonary artery peak systolic pressure 26 mmHg There is no pericardial effusion. There are no intracardiac masses. -Has a history of alcoholism, has a history of methamphetamine abuse, stress-induced cardiomyopathy -History of nonischemic cardiomyopathy, noncompliant with medical therapy, not compliant with LifeVest Plan: -Admit to cardiac stepdown unit -Aspirin, statin, Coreg -On nitroglycerin drip -Serial EKGs, serial troponins, telemetry monitoring -Monitor for chest pain -On therapeutic Lovenox -Cardiac echocardiogram ordered -Cardiology consulted for the need for possible coronary angiogram -Lasix 40 mg IV push once daily -Full code -Lovenox for DVT prophylaxis History of fevers, cough, WBC 13.7 -UA unremarkable -Rapid Covid negative -Covid PCR ordered -No focal pneumonia on chest x-ray -Pro-Rian negative -We will continue to monitor History of alcoholism -Blood alcohol level pending -[facility] protocol History of methamphetamine abuse, urine toxicology positive, denies use History of suicidal ideation, denies any suicidal ideation, no homicidal ideation, denying feeling down depressed or sad Hypertension as above Status: Acute (2) Hypertension: Status: Acute (3) Non-ischemic cardiomyopathy: Status: Acute Attestations Medical Necessity Statement*: Patient requires hospitalization for chest pain, inpatient, greater than 2 midnights Coding Level of Care Code Acute Lead Ramp Service Man for [facility] Diagnoses Chest pain R07.9 Hypertension I10 Non-ischemic cardiomyopathy I42.8
[2020-12-13 13:23] LABS: Quest SARS-CoV-2 RNA NOT DETECTED (NOT DETECTED)
[2020-12-13] MEDS: aspirin 81 mg EC Tablet PO (18:03)
--- NOTE | 2020-12-13 19:43 | PC.NURSE ---
Shift Note Frequent safety and comfort rounds continue. Orders and/or nursing care completed as indicated. Patient monitored for response to intervention and treatment(s). Education provided includes angiogram and npo after midnight. Patient and/or sales representative printing supplies verbalizes understanding. Will continue to monitor.
[2020-12-13] MEDS: atorvastatin 40 mg Tablet PO (22:29)
[2020-12-14] VITALS (109 sets, daily range): BP systolic 88–147; BP diastolic 61–102; PULSE 70–111; RESP 10–29; TEMP 36.9–37.1; O2SAT 94–100
[2020-12-14 04:50] LABS: Basophils % 0.3 %; Eosinophils # 0.2 10^3/uL (0.0-0.8); Hematocrit 48.9 % (42.0-52.0); Hemoglobin 16.3 g/dL (11.7-16.6); Lymphocytes # 2.8 10^3/uL (0.8-4.8); Lymphocytes % 28.1 %; Mean Corpuscular HGB Conc 33.3 g/dL (30.0-36.0); Mean Corpuscular Hemoglobin 31.7 pg (28.0-34.0); Mean Platelet Volume 9.8 fL (7.4-10.4); Monocytes # 0.8 10^3/uL (0.2-0.9); Monocytes % 8.3 %; Neutrophils # 6.18 10^3/uL (1.8-7.7); Nucleated Red Blood Cells % 0 %; Platelet Count 340 10^3/cmm (130-400); Red Blood Count 5.15 10^6/uL (4.1-5.3); Red Cell Distribution Width 12.7 % (12.1-15.1); White Blood Count 10.1 10^3/uL (4.0-10.0)
[2020-12-14 05:24] LABS: INR 0.96 (0.8-1.2)
[2020-12-14 05:34] LABS: Alanine Aminotransferase 9 U/L (0-41); Albumin Level 3.4 g/dL (3.5-5.2); Alkaline Phosphatase 82 IU/L (40-130); Anion Gap 16.1 (5-19); Aspartate Amino Transferase 17 U/L (0-40); Blood Urea Nitrogen 17 mg/dL (6-20); Calcium 9.6 mg/dL (8.5-10.5); Carbon Dioxide 26 mmol/L (22-29); Chloride 97 mmol/L (98-107); Globulin 4.5 g/dL (1.3-4.6); Glomerular Filtration Rate 106.5 mL/min (90-130); Glucose 95 mg/dL (65-115); Magnesium 1.9 mg/dL (1.7-2.3); NT Pro B Type Natriuretic Pept 1074 pg/mL (0-125); Osmolality Calculated 281 mOsm/kg (285-295); Phosphorus 4.3 mg/dL (2.5-4.5); Potassium 4.1 mmol/L (3.5-5.1); Sodium 135 mmol/L (136-145); Total Bilirubin 0.4 mg/dL (0.15-1.2); Total Protein 7.9 g/dL (6.6-8.7)
[2020-12-14] MEDS: diphenhydrAMINE 50 mg Capsule PO (08:53)
[2020-12-14] MEDS: sodium chloride 0.9% 1,000 ML 50 ML IV (08:53)
[2020-12-14] MEDS: folic acid 1 mg Tablet PO (08:54)
[2020-12-14] MEDS: multivitamin therapeutic Tablet 1 TAB PO (08:54)
[2020-12-14] MEDS: carvedilol 6.25 mg Tablet PO ×2 (08:54→17:32)
[2020-12-14] MEDS: famotidine 20 mg Tablet PO (08:54)
[2020-12-14] MEDS: thiamine 100 mg Tablet PO (08:54)
--- NOTE | 2020-12-14 09:53 | XACV_ITS ---
Exam Room: [facility] Ht: 180 cm Wt: 68 kg BSA: 1.84 m2 Gender: Male : 1980 Any Known Allergies: No known allergies Exam Priority: Routine Procedure(s): Procedure Description: Diagnostic procedure Procedure Description: Left Heart Catheterization Procedure Description: Right Heart Catheterization Procedure Description: O2 saturation Procedure Description: Coronary Angiography Diagnostic Cath Status: Urgent Diagnostic Findings * Right heart cath: RA pressure: . RV: 33 PA: 33/ PCW: 01/17/10 AO saturation 94% PA saturation: 57% Cardiac output: 3.9 Cardiac index: 2.1. * No disease noted in the Left Main, Left Anterior Descending, Right, or Circumflex coronary arteries. * Coronary angiography shows right dominance. Conclusions 1. Nonischemic cardiomyopathy. 2. Normal right and left-sided cardiac pressures. 3. No disease noted in the Left Main, Left Anterior Descending, Right, or Circumflex coronary arteries. Recommendations * Guideline directed heart failure therapy. * Outpatient cardiology follow-up. * Beta-catherine and lisinopril therapy. Interventional RX Recommendation: medical therapy and/or counseling Diagnostic RX Recommendation: medical therapy and/or counseling Anticoagulation: Heparin Pressures Phase:Rest AO : 133 / 65 ( 82 ) @ 9:00:00 AM 88 / 70 ( 72 ) @ 9:04:00 AM 94 / 54 ( 68 ) @ 9:04:00 AM LV : 95 / -6 / 2 @ 9:04:00 AM 141 / 3 / 14 @ 9:04:00 AM RV : 33 / 1 / 8 @ 8:53:00 AM PA : 33 / 13 ( 21 ) @ 8:52:00 AM RA : a wave = 11 v wave = 8 mean = 8 @ 8:54:00 AM PCW : a wave = 12 v wave = 11 mean = 10 @ 8:50:00 AM O2 Content Phase:Rest PA : O2 Content O2: 56.8 @ 9:04:00 AM Saturations Phase:Rest AO : 84 @ 9:00:00 AM PA : 57 @ 9:04:00 AM Cardiac Output Phase:Rest Ronit : 4 @ 11:11:19 AM Ronit Cardiac Index: 2 @ 11:11:19 AM Flow Phase:Rest Qp : 4 @ 11:11:19 AM Qs : 4 @ 11:11:19 AM Valves Phase:DefaultPhase AV : 21.0 @ 11:11:18 AM 21.0 @ 11:11:19 AM AV Mean Gradient: 18.0 @ 11:11:18 AM 18.0 @ 11:11:19 AM AV Flow: 204 @ 11::19 AM AV Area: 1.1 @ 11:11:19 AM AV Area Index: 0.58 @ 11:11:19 AM Clinical Evaluation EBL: 5mL-10mL Procedural Details Procedure Consent Obtained. Admit Source: In Patient. Pre-Procedure Time Out. Identified patient by full name and date of as verbalized by the patient/guarantor. Does the consent match the physician's order: Yes. Accurate & Complete Informed Consent: Yes. Inpatient/Outpatient History & Physical on Chart: Yes. Visualize and Verify Site with Patient/Guarantor: N/A. Relevant Radiology Images available: N/A. Pre-op teaching completed and patient verbalized understanding. The risks, benefits, and alternatives of sedation and/or procedure were discussed by physician. The patient agrees to continue. Procedure started. [facility] Clinical Fraility Score: 3: Managing Well. Net Technical Architect Indications: Cardiomyopathy. Chest Pain Symptom Assessment: Atypical Angina. Correct patient, site and procedure confirmed by cath team. Current diagnosis: Chest Pain. PERRLA. Strong, equal hand clearance rep bilaterally. Lungs clear x 5 lobes. IV Site on Arrival: 20 gauge in the right anticubital. A 20 gauge IV was started in the left forearm using aseptic technique. IV Fluids: 0.9% NaCl at KVO. 100 mL infused prior to powerhouse laborer. Pre Procedural Pulses: bilateral dorsalis pedis was 3+. Pre Procedural Pulses: bilateral radial was 3+. right radial was prepped with chloroprep then draped in the usual sterile fashion. right brachial was prepped with chloroprep then draped in the usual sterile fashion. Physician notified. Baseline sample Acquired. HR: 77 BPM. Physician arrived. Physician scrubbed in. Immediate Pre-Procedure Time Out. Correct Patient: Yes; Correct Procedure: Yes; Correct Site: Yes; Correct Patient Position: Yes; Correct Supplies: YesDried Flammable Prep: Yes; Blood Products Available:N/a. Wire inserted into 20 gauge IV in R brachial vein. 20 g IV catheter removed. Lidocaine 1% infiltrated to the right brachial. Golden-Kady MON catheter inserted. Golden wire inserted. Golden wire removed. Golden-Kady out. Lidocaine 1% infiltrated to the right radial. Arterial access obtained. A 5 mohawk TIG catheter in over wire. Multiple views taken of left coronary artery. Catheter redirected to the RCA. Multiple views taken of right coronary artery. EDP Sample taken: LV 95/-6,2; HR: 85 BPM; SpO2: 91%. Pullback taken: LV 141/3,14; AO 88/70(72); Mean: 18mmHg, Peak to Peak: 21mmHg, SEP: 19sec/min; HR: 78 BPM; SpO2: 91%. A TR Band was successful obtaining hemostatsis at the Right Radial artery insertion site. A Manual Compression was successful obtaining hemostatsis at the Right Brachial Vein insertion site. Post-op diagnosis: non ischemic cardiomyopathy, normal R and L sided cardiac pressures. PERRLA. Strong, equal hand clearance rep bilaterally. No VTE prophylaxis required. Medication's Wasted: Lidocaine 1% = 14 mL. Medication's Wasted: Nitro = 49.8 mg. Medication's Wasted: Heparin = 2000u. Total IV fluids: 43 mL. Complications: none. Estimated blood loss: 5mL-10mL. Procedure completed. Patient transferred by wheelchair to 1st floor. Vital chart was stopped. Access Site Site: Right Brachial Vein Sheath Size: 6 Fr Hemostasis Method: Manual Compression Hemostasis Success: Successful Site: Right Radial artery Sheath Size: 6 Fr Hemostasis Method: TR Band Hemostasis Success: Successful Procedure Medications Start: 10:41 AM Stop: 10:41 AM Medication: Versed Amount: 1 mg Route: I.V. Start: 10:41 AM Stop: 10:41 AM Medication: Fentanyl Amount: 25 mcg Route: I.V. Start: 10:42 AM Stop: 10:42 AM Medication: Versed Amount: 1 mg Route: I.V. Start: 10:42 AM Stop: 10:42 AM Medication: Fentanyl Amount: 25 mcg Route: I.V. Start: 10:44 AM Stop: 10:44 AM Medication: Versed Amount: 1 mg Route: I.V. Start: 11:00 AM Stop: 11:00 AM Medication: Heparin Amount: 4000 units Route: I.V. Start: 10:58 AM Stop: 10:58 AM Medication: Nitrogylcerin Amount: 200 mcg Route: I.A. I, the attending physician, have reviewed and verified all procedure medications. Yes, all medications given per verbal order History/Risk Factors Hypertension: Yes Dyslipidemia: No Peripheral Arterial Disease (PAD): No Myocardial Infarction (AR): No Obesity: No Renal Disease: No Tobacco Use: Current/Recent(w/in 1 year) Prior Interventions PCI: No CABG: No Valve Surgery: No Report Signatures Finalized by Joe Byrnes MD on 12/17/2020 12:17 PM
--- NOTE | 2020-12-14 10:36 | PC.NURSE ---
off unit to culture media laboratory assistant
--- NOTE | 2020-12-14 10:38 | W.PM.OPSUD ---
Surgery/Procedure H&P Update DATE OF PROCEDURE: December 14, 2020 DATE H&P PERFORMED: 12/12/20 H&P UPDATE INFORMATION: I have reviewed H&P completed within last 30 days, I have examined patient prior to procedure and No changes to prior documentation PREOP DIAGNOSIS: Heart failure with reduced ejection fraction/ worsening chest pain PRIMARY INDICATION FOR PROCEDURE: Heart failure with reduced ejection fraction/ worsening chest pain PLANNED PROCEDURE: Operation Date: 12/14/20 09:15 Proposed Procedures p Cardiac Catheterization(Left) - Joe Byrnes M.D Right heart cath Possible percutaneous coronary intervention PATIENT REASSESSED PRIOR TO SEDATION, WITH NO CHANGE NOTED: Yes PHYSICAL EXAM: alert, oriented x 3 and clear to auscultation bilaterally AIRWAY EVAL/ANESTHESIA PLAN: ASA III, Monitored Anesthesia, Local Anesthesia, Risks, benefits & alternatives of sedation and/or procedure discussed and Patient agrees to continue as planned
[2020-12-14 11:05] LABS: Arterial Blood Gas Hematocrit 50.1 % (42-52); Blood Gas Operator Identificat PULM ARTERY; Blood Gas Sample Type Not specified; Carboxyhemoglobin 1.1 %THgb (0.4-20.1); HGB O2 Sat 55.7 % (95-100); Methemoglobin 0.8 % (0.4-1.5); Total Hemoglobin 16.4 g/dL (14-18)
--- NOTE | 2020-12-14 11:21 | P.PN_ITS ---
Subjective Subjective: Interval history: Patient is doing well. He underwent a right and left heart catheter today that showed normal obstructive coronary artery disease. His right and left-sided cardiac pressures were normal. Vitals/I&O/Wt Last Vital Signs Temp 98.8 F 12/14/20 04:25 Pulse 90 12/14/20 07:59 Resp 16 12/14/20 07:59 BP 126/96 12/14/20 07:35 Pulse Ox 97 12/14/20 07:59 12/13/20 12/14/20 12/14/20 23:59 06:59 14:59 Intake Total Output Total Balance Physical Exam Narrative: EXAM NARRATIVE: GENERAL: Patient is alert, awake and oriented x3. [] NECK: No jugular vein distension. [] HEENT: No cyanosis. No icterus. No pallor. [] HEART: Regular S1 and S2. No murmur, rub or gallop. [] LUNGS: Clear to auscultate bilaterally. [] ABDOMEN: Soft, nontender and nondistended. Positive bowel sounds. No guarding, rebound or tenderness. [] CENTRAL NERVOUS SYSTEM: Grossly nonfocal. [] EXTREMITIES: Lower extremities with 1+ edema bilaterally. Pulses palpable in the lower extremities, both dorsalis pedis and posterior tibial. [] Data : 12/14/20 04:28 12/14/20 04:28 Micro: Microbiology 12/12/20 19:30 Blood Culture - Preliminary Blood NEGATIVE TO DATE 12/12/20 19:27 Blood Culture - Preliminary Blood NEGATIVE TO DATE 12/13/20 08:18 Bacterial Antigens - Final Urine,Voided A&P Assessment and plan (1) Chest pain: Status: Acute (2) Hypertension: Status: Acute (3) HFrEF (heart failure with reduced ejection fraction): Status: Acute Patient underwent coronary angiogram today that showed no obstructive co ronary artery disease. Chest pain is noncardiac in nature. He has nonischemic cardiomyopathy Uptitrate carvedilol and losartan as blood pressure tolerates. Low-sodium diet and fluid restriction advised. Can be switched to p.o. Lasix. Thank you for involving us of the care of this patient. Patient is stable to be discharged from cardiology standpoint. Please call with questions. Attestations Medical Necessity Statement*: Care expected to cross 2 midnights. Coding Level of Care Code Acute Recreation Counselor for Susanna Yoder Diagnoses Chest pain R07.9 Hypertension I10 HFrEF (heart failure with reduced ejection fraction) I50.20
[2020-12-14 13:16] LABS: Blood Gas Sample Site PULM ARTERY
--- NOTE | 2020-12-14 13:19 | PM.DCS ---
Discharge Providers Date of Admission: 12/12/20 14:58 Date of Discharge: December 14, 2020 Attending Provider at Admission: Wilfredo Dumont MD Attending Provider at Discharge: Wilfredo Dumont MD Diagnoses at Discharge Discharge Diagnosis (1) Chest pain: Status: Acute (2) Hypertension: Status: Acute (3) HFrEF (heart failure with reduced ejection fraction): Status: Acute Reason for Visit Reason for Visit: CHEST PAIN Hospital Course Hospital Course Edwin Cuevas is a 40 year old male with a past medical history of nonischemic cardiomyopathy, EF of 15%, history of alcohol abuse, history of suicidal ideation, history of hypertension, CKD, hypertension, cardiomegaly, hepatitis C, who presents [facility] due to chest pain shortness of breath. Chest pain: -Currently minimal chest pain on nitro drip -Baseline troponin 14, 120-minute 19, no significant delta troponin, 6-hour troponin 17.6, delta 3.6 -EKG does show T wave inversions in in anterior and lateral chest leads -BNP 757 -CT angiogram of last admission showed severe cardiomegaly -Nuclear stress test August 22, 2020 1. Myocardial perfusion imaging is normal. Attenuation artifact noted in mid to inferior chavez. 2. There is severely reduced left ventricular global systolic function with severe global hypokinesis. 3. The left ventricular ejection fraction is severely reduced with a value of 11%. 4. The perfusion pattern is consistent with a non-ischemic cardiomyopathy. -Cardiac echocardiogram August 2020 Severe diffuse hypokinesia of the left ventricle with an ejection fraction of 15%. Mildly dilated left ventricle. Mild biatrial enlargement. Normal RV size with a slightly diminished ejection fraction. Thickened mitral valve. Mild mitral valve regurgitation. Mild tricuspid valve regurgitation. Estimated pulmonary artery peak systolic pressure 26 mmHg There is no pericardial effusion. There are no intracardiac masses. -Has a history of alcoholism, has a history of methamphetamine abuse, stress-induced cardiomyopathy -History of nonischemic cardiomyopathy, noncompliant with medical therapy, not compliant with LifeVest -Cardiac echocardiogram showed This is limited echocardiogram performed to assess LV systolic function. LV systolic function is severely reduced with EF of 15 to 20%. Severe global hypokinesis is noted. Grossly LV function is severely reduced. Biatrial enlargement. Mild mitral regurgitation is seen. Compared to prior echocardiogram from 08/21/2020, no significant changes are seen. -Patient received inpatient diuresis, clinically improved, shortness of breath improved, chest pain improved -Underwent a cardiac catheterization, found to have nonobstructive CAD -Likely nonischemic cardiomyopathy, nonobstructive CAD, secondary to alcoholism, methamphetamine use, noncompliance, hypertension, -Needs to follow-up with primary care provider for sleep study -Will be discharged on aspirin, statin, Coreg, lisinopril -Lasix 20 mg daily with potassium placement -Follow-up with primary care provider in 1 week -If you are to have recurrent chest pain go to the emergency room -Patient was hepatitis C positive, high viral load during his last hospitalization, advised to follow-up with Dr. Anaya for treatment for hepatitis C Physical Exam Const: COMMON NORMALS: no acute distress and patient oriented x3 Resp: COMMON NORMALS: normal respiratory effort, No retractions, No use of accessory muscles and clear to auscultation bilaterally AUSCULTATION: clear to auscultation bilaterally Cardio: COMMON NORMALS: regular rate, regular rhythm, S1 normal heart sound present and S2 normal heart sound present RATE: regular rate RHYTHM: regular rhythm HEART SOUNDS: S1 normal heart sound present and S2 normal heart sound present GI: COMMON NORMALS: Normal to inspection, nondistended, normoactive bowel sounds present, Soft to palpation and non-tender PALPATION: Yes Soft to palpation Extremity: COMMON NORMALS: no pedal edema Neuro: COMMON NORMALS: patient oriented x3 Psych: COMMON NORMALS: mental status grossly normal Discharge Data Data Completed and Pending: Completed Studies During Hospitalization Category Date Time Status XR chest 1V marek ble [id number] Stat Exams 12/12/20 10:15 Completed CV. echo limited [id number] Routine Ultrasound 12/12/20 15:02 Completed Pending at discharge Category Date Time Status CARE ASSOCIATE request for service Routin e Exams 12/14/20 09:53 Ordered Blood Culture Sta t Lab 12/12/20 19:30 Results Complete Blood Co unt w/Auto AM LABS Lab 12/15/20 04:00 Ordered Complete Blood Co unt w/Auto AM LABS Lab 12/16/20 04:00 Ordered Comprehensive Met abolic Panel AM LA BS Lab 12/15/20 04:00 Ordered Comprehensive Met abolic Panel AM LA BS Lab 12/16/20 04:00 Ordered Magnesium AM LABS Lab 12/15/20 04:00 Ordered NT Pro B Type Maida riuretic Pept QAM Lab 12/15/20 06:00 Ordered NT Pro B Type Maida riuretic Pept QAM Lab 12/16/20 06:00 Ordered Phosphorus AM LAB S Lab 12/15/20 04:00 Ordered Prothrombin Time INR AM LABS Lab 12/15/20 04:00 Ordered Sputum Culture an d Gram Stain Stat Lab 12/12/20 17:15 Uncollected Labs from last 24 hours 12/14/20 12/14/20 12/14/20 10:55 04:28 04:28 WBC RBC Hgb Hct MCV MCH MCHC RDW Plt Count MPV Neut % (Auto) Lymph % (Auto) [place] % (Auto) Eos % (Auto) Baso % (Auto) Neut # (Auto) Lymph # (Auto) [place] # (Auto) Eos # (Auto) Baso # (Auto) Nucleated RBC % (a uto) Nucleated RBCs # PT 13.10 INR 0.96 Specimen Type Not specified Sample Site Pulm artery Marcus Test N/a A-a O2 Gradient Not Reportable Hematocrit 50.1 Hgb O2 Saturation 55.7 L Carboxyhemoglobin 1.1 Methemoglobin 0.8 Total Hemoglobin 16.4 O2 Delivery Device n/food and beverage service manager ID Pulm artery Sodium 135 L Potassium 4.1 Chloride 97 L Carbon Dioxide 26 Anion Gap 16.1 BUN 17 Creatinine 0.8 GFR Calculation 106.5 Glucose 95 Calculated Osmolal ity 281 L Calcium 9.6 Phosphorus 4.3 Magnesium 1.9 Total Bilirubin 0.4 AST 17 ALT 9 Alkaline Phosphata se 82 NT-Pro-B Natriuret Pep 1074 H Total Protein 7.9 Albumin 3.4 L Globulin 4.5 12/14/20 04:28 WBC 10.1 H RBC 5.15 Hgb 16.3 Hct 48.9 MCV 95.0 H MCH 31.7 MCHC 33.3 RDW 12.7 Plt Count 340 MPV 9.8 Neut % (Auto) 61.0 Lymph % (Auto) 28.1 [place] % (Auto) 8.3 Eos % (Auto) 2.0 Baso % (Auto) 0.3 Neut # (Auto) 6.18 Lymph # (Auto) 2.8 [place] # (Auto) 0.8 Eos # (Auto) 0.2 Baso # (Auto) 0.0 Nucleated RBC % (a uto) 0 Nucleated RBCs # 0.0 PT INR Specimen Type Sample Site Marcus Test A-a O2 Gradient Hematocrit Hgb O2 Saturation Carboxyhemoglobin Methemoglobin Total Hemoglobin O2 Delivery Device Fishing Rod Trimmer ID Sodium Potassium Chloride Carbon Dioxide Anion Gap BUN Creatinine GFR Calculation Glucose Calculated Osmolal ity Calcium Phosphorus Magnesium Total Bilirubin AST ALT Alkaline Phosphata se NT-Pro-B Natriuret Pep Total Protein Albumin Globulin Vitals: Last Vital Signs Temp 98.8 F 12/14/20 04:25 Pulse 90 12/14/20 07:59 Resp 16 12/14/20 07:59 BP 126/96 12/14/20 07:35 Pulse Ox 97 12/14/20 07:59 Discharge Plan Discharge Patient Disposition: Home Condition: Stable Prescriptions: New aspirin 81 mg Tablet,Delayed Release (Dr/Ec) 81 mg PO DAILY@1800 30 Days Qty: 30 RF: 0 thiamine mononitrate (vit B1) [Vitamin B-1 (mononitrate)] 100 mg Tablet 100 mg PO DAILY 30 Days Qty: 30 RF: 0 potassium chloride [Klor-Con 10] 10 mEq tablet extended release 10 meq PO DAILY 30 Days Qty: 30 RF: 0 atorvastatin 40 mg Tablet 40 mg PO BEDTIME 30 Days Qty: 30 RF: 0 carvedilol 6.25 mg Tablet 6.25 mg PO BID 30 Days Qty: 60 RF: 0 folic acid 1 mg Tablet 1 mg PO DAILY 30 Days Qty: 30 RF: 0 multivitamin with folic acid [Thera] 400 mcg Tablet 1 tab PO DAILY 30 Days Qty: 30 RF: 0 furosemide [Lasix] 20 mg tablet 20 mg PO DAILY 30 Days Qty: 30 RF: 0 lisinopril 20 mg tablet 10 mg PO DAILY 30 Days Qty: 30 RF: 0 Discontinued carvedilol 6.25 mg tablet 6.25 mg PO BID RF: 0 Tylenol Ex Str Rapid Release 500 mg Tablet 1,000 mg PO Q4H PRN (Reason: Pain) RF: 0 losartan 25 mg tablet 25 mg PO DAILY RF: 0 Discharge Orders: Discharge Order (Routine); Ordered 12/14/20 Ordered By: Wilfredo Dumont Referrals: Jose Maria Plata DO [Physician] - 1-3 days Ananth Anaya MD [Physician] - 1 week (hep c) Joe Byrnes M.D [Physician] - 1 month Discharge Diet: Cardiac Discharge Activity: Resume usual activity Patient Instructions: Lisinopril (By mouth), Furosemide (By mouth), Potassium Chloride (By mouth), Aspirin (By mouth), Thiamine (By mouth), Folic Acid (By mouth), Multivitamins with Minerals (By mouth), Atorvastatin (By mouth), Carvedilol (By mouth), Opioid Safety Activity Restrictions/Additional Instructions: -Please take medications as prescribed -Please follow-up with primary care provider in 1 to 3 days for blood pressure check, blood work -Follow-up with Dr. Anaya in 1 to 2 weeks for hepatitis C -Follow-up with cardiology in 2 to 4 weeks -Please abstain from alcohol, please abstain from drug use, please abstain from smoking -If you have recurrent chest pain please go to the emergency room Discharge Attestations Time Spent in Discharge Care*: less than 30 min Status at Discharge: Cognitive status at discharge: cognitively intact, Behavioral status at discharge: cooperative, Quality Metrics Clinical Quality Measures During this hospital stay, did patient experience: None Coding Level of Care Code Acute [facility] note Diagnoses Chest pain R07.9 Hypertension I10 HFrEF (heart failure with reduced ejection fraction) I50.20
--- NOTE | 2020-12-14 14:46 | P.PN_ITS ---
Subjective Subjective: Interval history: This morning patient was seen before his cardiac catheterization procedure, no chest pain overnight, is feeling better Patient underwent his cardiac catheterization procedure, no significant obstructive CAD, patient wanted to go home, I discussed the discharge process, discussed my concerns for his ejection fraction and his noncompliance as outpatient, I advised that we need to set up a LifeVest, the last time he was discharged, he failed to follow-up, patient tells me that he did receive a call back from the LifeVest company so he was unable to follow through Patient was quite upset about staying here in the hospital for his LifeVest, I advised that he has a significant risk of morbidity and mortality and arrhythmias if he were to leave the hospital with a LifeVest, he voiced understanding, all questions answered, agreed to for continued hospitalization until he can get his LifeVest set up for a safe discharge Vitals/I&O/Wt Last Vital Signs Temp 98.8 F 12/14/20 04:25 Pulse 90 12/14/20 07:59 Resp 16 12/14/20 07:59 BP 126/96 12/14/20 07:35 Pulse Ox 97 12/14/20 07:59 12/13/20 12/14/20 12/14/20 23:59 06:59 14:59 Intake Total 360 / 360 Output Total Balance 360 / 360 Physical Exam Const: COMMON NORMALS: no acute distress and patient oriented x3 Resp: COMMON NORMALS: normal respiratory effort, No retractions, No use of accessory muscles and clear to auscultation bilaterally AUSCULTATION: clear t o auscultation bilaterally Cardio: COMMON NORMALS: regular rate, regular rhythm, S1 normal heart sound present and S2 normal heart sound present RATE: regular rate RHYTHM: regular rhythm HEART SOUNDS: S1 normal heart sound present and S2 normal heart sound present GI: COMMON NORMALS: Normal to inspection, nondistended, normoactive bowel sounds present, Soft to palpation and non-tender PALPATION: Yes Soft to palpation Extremity: COMMON NORMALS: no pedal edema Neuro: COMMON NORMALS: patient oriented x3 Psych: COMMON NORMALS: mental status grossly normal Data : 12/14/20 04:28 12/14/20 04:28 Micro: Microbiology 12/12/20 19:30 Blood Culture - Preliminary Blood NEGATIVE TO DATE 12/12/20 19:27 Blood Culture - Preliminary Blood NEGATIVE TO DATE 12/13/20 08:18 Bacterial Antigens - Final Urine,Voided A&P Assessment and plan (1) Chest pain: -Currently minimal chest pain on nitro drip -Baseline troponin 14, 120-minute 19, no significant delta troponin, 6-hour troponin 17.6, delta 3.6 -EKG does show T wave inversions in in anterior and lateral chest leads -BNP 757 -CT angiogram of last admission showed severe cardiomegaly -Nuclear stress test August 22, 2020 1. Myocardial perfusion imaging is normal. Attenuation artifact noted in mid to inferior chavez. 2. There is severely reduced left ventricular global systolic function with severe global hypokinesis. 3. The left ventricular ejection fraction is severely reduced with a value of 11%. 4. The perfusion pattern is consistent with a non-ischemic cardiomyopathy. -Cardiac echocardiogram August 2020 Severe diffuse hypokinesia of the left ventricle with an ejection fraction of 15%. Mildly dilated left ventricle. Mild biatrial enlargement. Normal RV size with a slightly diminished ejection fraction. Thickened mitral valve. Mild mitral valve regurgitation. Mild tricuspid valve regurgitation. Estimated pulmonary artery peak systolic pressure 26 mmHg There is no pericardial effusion. There are no intracardiac masses. -Has a history of alcoholism, has a history of methamphetamine abuse, stress- induced cardiomyopathy -History of nonischemic cardiomyopathy, noncompliant with medical therapy, not compliant with LifeVest -Underwent coronary angiogram, no significant obstructive CAD -Cardiac echocardiogram shows -This is limited echocardiogram performed to assess LV systolic function. LV systolic function is severely reduced with EF of 15 to 20%. Severe global hypokinesis is noted. Grossly LV function is severely reduced. Biatrial enlargement. Mild mitral regurgitation is seen. Compared to prior echocardiogram from 08/21/2020, no significant changes are seen. -Likely nonischemic cardiomyopathy related to amphetamine use, alcoholism, noncompliance with hypertensive medication -Shortness of breath likely secondary to acute CHF exacerbation Plan: -Admit to cardiac stepdown unit -Aspirin, statin, Coreg -Lasix 20 mg daily -Full code -Lovenox for DVT prophylaxis -LifeVest ordered Acute CHF exacerbation, systolic, improved with diuresis, hold diuresis for today History of fevers, cough, WBC 13.7 -UA unremarkable -Rapid Covid negative -Covid PCR ordered -No focal pneumonia on chest x-ray -Pro-Rian negative -We will continue to monitor History of alcoholism -Blood alcohol level pending -[facility] protocol History of methamphetamine abuse, urine toxicology positive, denies use History of suicidal ideation, denies any suicidal ideation, no homicidal ideation, denying feeling down depressed or sad Hypertension as above Status: Acute (2) Hypertension: Status: Acute (3) HFrEF (heart failure with reduced ejection fraction): Status: Acute (4) Acute exacerbation of CHF (congestive heart failure): Status: Acute (5) Systolic and diastolic CHF w/reduced LV function, NYHA class 4: Status: Acute Attestations Medical Necessity Statement*: Patient requires hospitalization for chest pain, acute systolic CHF, Coding Level of Care Code Acute [employer] [facility] Diagnoses Chest pain R07.9 Hypertension I10 HFrEF (heart failure with reduced ejection fraction) I50.20 Acute exacerbation of CHF (congestive heart failure) I50.9 Systolic and diastolic CHF w/reduced LV function, NYHA class 4 I50.40
--- NOTE | 2020-12-14 15:22 | PC.NURSE ---
Discharge on hold/Discussion regarding Life Vest Pt mentioned to me if he needs to get fitted w/ life vest. He stated he was suppose to get one last August when he was hospitalized but he has not heard from anyone so he stated he stopped following through due to no answers. Explained to the pt and with Dr. Dumont at bedside if he wants to stay to get the life vest ordered. Explained to pt the benefit of it as protection for sudden abnormal rhythm or cardiac arrest while pt is on chf medication optimization as discussed with Dr. Dumont and Dr. Byrnes. Explained to pt that we have to wait for the company and his insurance to get answers if he will get the life vest. There is no guarantee if he will get it. Educated pt regarding the importance of adherence and compliance to medications as prescribed,to quit smoking and do lifestyle changes such as stopping substance abuse use since these are the preventative measures for chf exacerbation and rehospitalization. Pt verbalizes w/ understanding and said, since i have been here long enough, i might as well stay and get answers if i will get the life vest approved by the company insurance.
[2020-12-14] MEDS: aspirin 81 mg EC Tablet PO (17:32)
--- NOTE | 2020-12-14 17:44 | PC.NURSE ---
Pt signed AMA for his life vest Pt stated he does not want to stay to wait for life vest. notified about his decision.
[2020-12-14] MEDS: atorvastatin 40 mg Tablet PO (18:25)
--- NOTE | 2020-12-14 19:36 | PC.NURSE ---
Verified pt contact # His phone # is [phone] per patient. notified racing secretary Gwen to update his contact for his ff-up appointments.
--- NOTE | 2020-12-17 14:05 | PC.SOCIAL ---
pt didn't wait to have life vest placed at discharge. journalists and other writers will try to get life vest placed.
== END 2020-12-14 18:00 | disposition left against medical advice (07) ==
LOC: ER 15:43 → CSU 17:47 → MEDSURG 12-16 13:47
PROVIDERS: Internal Medicine; Admitting Provider Family Medicine; Emergency Provider Family Medicine; PCP Family Medicine; Visit Provider Family Medicine
DX: R07.9 Chest pain, unspecified (principal); I42.8 Other cardiomyopathies; I11.0 Hypertensive heart disease with heart failure; I50.40 Unspecified combined systolic (congestive) and diastolic (congestive) heart failure; B19.20 Unspecified viral hepatitis C without hepatic coma; F17.200 Nicotine dependence, unspecified, uncomplicated; Z79.82 Long term (current) use of aspirin; Z79.899 Other long term (current) drug therapy
CPT/HCPCS: 36415; 71045; 80053; 80061; 80306; 80307; 81003; 82550; 82810; 83036; 83605; 83735; 83880; 84100; 84145; 84443; 84484; 85025; 85378; 85610; 86403; 87040; 87426; 87635; 87804; 93005; 93308; 93453; 94664; 96372; 96374; 96375; 99291; C1751; C1769; C1887; C1894; G0378; J1644; J1650; J1940; J2250; J2270; J3010; J3411; J3490; J7030; Q0163; Q9967

== ENCOUNTER → 2020-12-22 15:39 | Outpatient (BNVA) | payer MEDICARE, SELFPAY | PROVIDERS: PCP Family Medicine; Visit Provider Internal Medicine | DX: I10 Essential (primary) hypertension (principal); B18.2 Chronic viral hepatitis C | CPT/HCPCS: 82105; 87902 ==

== ENCOUNTER 2021-05-05 07:49 | Outpatient (CLI) | payer MEDICARE, SELFPAY ==
--- NOTE | 2021-05-05 08:00 | USCV_ITS ---
Edwin Cuevas Age: 41 Gender: M : 1980 Exam Date: 05/05/2021 08:19 Ordering Phys: Joe Byrnes M.D ([email or web address]) Technologist: Jack Banda Exam Location: [facility] [place] Indication: chf with unknown lvef BP: 108 / 64 HR: 67 Rhythm: Sinus Technical Quality: Adequate MEASUREMENTS (Male / Female) Normal Values 2D ECHO LV Diastolic Diameter PLAX 5.2 cm 4.2 - 5.9 / 3.9 - 5.3 cm LV Systolic Diameter PLAX 4.0 cm IVS Diastolic Thickness 1.1 cm 0.6 - 1.0 / 0.6 - 0.9 cm IVS Systolic Thickness 1.2 cm LVPW Diastolic Thickness 1.1 cm 0.6 - 1.0 / 0.6 - 0.9 cm LVPW Systolic Thickness 1.1 cm LVOT Diameter 2.0 cm LV Ejection Fraction 2D Teich 43.9 % LV Ejection Fraction MOD 2C 35.2 % LV Ejection Fraction 2C AL 38.7 % LA Diameter 3.1 cm LA Width 3.9 cm LA Height 4.6 cm RA Width 3.7 cm RA Height 4.4 cm Aorta at Sinotubular Diameter 2.0 cm M-MODE Aortic Annulus Diameter 3.2 cm LA Ao Ratio MM 1.0 MV E Point Septal Separation 0.6 cm DOPPLER Right Atrial Pressure 3.0 mmHg FINDINGS Left Ventricle Right Ventricle Right Atrium Left Atrium Mitral Valve Aortic Valve Tricuspid Valve Pulmonic Valve Pericardium Aorta CONCLUSIONS This is limited echocardiogram performed to assess LV systolic function. LV systolic function is mildly reduced with EF of 45 to 50%. Mild global hypokinesis. Compared to prior echocardiogram from 12/12/2020, LV systolic function is significantly improved and is 45 to 50% now. Joe Byrnes MD (Electronically Signed) Final Date: 08 May 2021 14:27 S
== END 2021-05-05 07:50 | disposition home or self-care (01) ==
LOC: RAD 07:52
PROVIDERS: PCP Family Medicine; Visit Provider Internal Medicine
DX: I50.9 Heart failure, unspecified (principal)
CPT/HCPCS: 93308

== ENCOUNTER 2021-08-12 02:38 | Emergency (ER) | payer MEDICARE, SELFPAY ==
[2021-08-12 02:43] VITALS: BP 130/79; PULSE 126; RESP 18; TEMP 36.3; O2SAT 97; BMI 18.1
--- NOTE | 2021-08-12 02:51 | ED_ITS ---
HPI - Back Pain/Injury General: Chief Complaint: Back Pain/Injury Stated Complaint: Lower Back Pain Down his Leg Time Seen by Provider: 08/12/21 02:40 Source: patient Mode of arrival: ambulatory Limitations: no limitations History of Present Illness: 41-year-old male states that he had a history of neck and back pain chronically. He states that he has been having pain in the left lower back over the last month with some pain shooting down his leg. He states that sharp in nature rates an 8 out of 10 worse with movement. He denies any fever denies any IV drug use denies any bowel or bladder incontinence. Associated symptoms: Deny abdominal pain, chills, dysuria, fever(s), nausea or vomiting Review of Systems Const: Denies: fever(s), chills, body aches or change in appetite Eyes: Denies: blurry vision or eye discomfort ENMT: Denies: throat pain or dental pain Card: Denies: chest pain Resp: Denies: dyspnea GI: Denies: abdominal pain, nausea, vomiting or diarrhea : Denies: dysuria Musc: Reports: back pain Skin/Breast: Denies: rash Neuro: Denies: headache(s) Psych: Denies: depression Yury/Lymph: Denies: easy bruising All/Imm: Denies: urticaria PFSH ED PFSH: Medical History Alcohol intoxication Benign essential hypertension with target blood pressure below 140/90 Cardiomegaly CHF (congestive heart failure) Chronic kidney disease Dyspnea Hepatitis C antibody positive in blood Partner relationship problem Surgical History No pertinent past surgical history Social History Smoking and tobacco status: current every day smoker Alcohol intake: current Alcohol intake frequency: few times a week Physical Exam Const: COMMON NORMALS: no acute distress, patient oriented x3 and healthy appearing HENMT: COMMON NORMALS: normocephalic and atraumatic HEAD & SCALP: normocephalic and atraumatic Eye: COMMON NORMALS: Equal, round and reactive pupils present and EOMs intact bilaterally PUPIL: Yes Equal, round and reactive pupils present Neck/C-Spine: COMMON NORMALS: full ROM and supple Chest: COMMONS NORMALS: normal inspection of the chest and normal palpation of entire chest wall Resp: COMMON NORMALS: normal respiratory effort, No retractions, No use of accessory muscles and clear to auscultation bilaterally AUSCULTATION: clear to auscultation bilaterally Cardio: COMMON NORMALS: regular rate, regular rhythm and No murmurs present (Cardio) RATE: regular rate RHYTHM: regular rhythm GI: COMMON NORMALS: Normal to inspection, nondistended, normoactive bowel sounds present, Soft to palpation, non-tender and no masses PALPATION: Yes Soft to palpation Back/Pelvis: OTHER: Tenderness to left lower back no saddle anesthesia patient is able ambulate Extremity: COMMON NORMALS: normal to inspection and full ROM Neuro: COMMON NORMALS: patient oriented x3, moves all extremities and no focal motor deficits Psych: COMMON NORMALS: mental status grossly normal, Normal thought process present and cooperative THOUGHT PROCESS: Normal thought process present Skin: COMMON NORMALS: no rashes or lesions noted and no wounds GENERAL SKIN EXAM: no rashes or lesions noted Course Vital Signs: Vital signs: Vital Signs Temperature 97.3 F L 08/12/21 02:43 Pulse Rate 126 H 08/12/21 02:43 Respiratory Rate 18 08/12/21 02:43 Blood Pressure 130/79 08/12/21 02:43 Pulse Oximetry 97 08/12/21 02:43 MDM - Back Pain/Injury Medical Decision Making Patient presents here with low back pain with sciatica he has no signs of cord compression or epidural abscess. Patient given morphine along with Decadron and he is to follow-up with his PCP and return if worsening will prescribe a muscle relaxants and Naprosyn for home. Discharge Plan Discharge Patient Disposition: Home Clinical Impression: Low back pain Qualifiers: Chronicity: chronic Back pain laterality: left Sciatica presence: with sciatica Sciatica laterality: sciatica of left side Qualified Code(s): M54.42 - Lumbago with sciatica, left side Condition: Stable Prescriptions: New methocarbamol 750 mg tablet 750 mg PO Q6H PRN (Reason: spasms) Qty: 20 0RF naproxen [Naprosyn] 500 mg tablet 500 mg PO BID PRN (Reason: pain) Qty: 20 0RF No Action aspirin [Adult Low Dose Aspirin] 81 mg tablet,delayed release (DR/EC) 81 mg PO DAILY Qty: 90 2RF atorvastatin 40 mg tablet 40 mg PO DAILY Qty: 90 2RF carvedilol 6.25 mg tablet 6.25 mg PO BID Qty: 180 2RF Rx Instructions: must administer with a meal/food furosemide [Lasix] 20 mg tablet 20 mg PO DAILY Qty: 90 2RF lisinopril 20 mg tablet 20 mg PO DAILY Qty: 90 2RF potassium chloride 10 mEq capsule, extended release 10 meq PO DAILY Qty: 90 2RF Discharge Orders: Discharge ED (Routine); Ordered 08/12/21 Ordered By: Chel Berry Referrals: Jose Maria Plata DO [Primary Care Provider] - 1-3 days Discharge Diet: Advance as tolerated Discharge Activity: Resume usual activity Patient Instructions: Sciatica (ED), Lower Back Exercises (ED) Coding Level of Care Code ED [employer] for [facility]
[2021-08-12 03:01] VITALS: RESP 18
[2021-08-12] MEDS: dexamethasone 10 mg/mL INJ IM (03:01)
[2021-08-12] MEDS: morphine 4 mg/mL SDV 1 mL IM (03:01)
[2021-08-12 03:19] VITALS: BP 108/71; PULSE 109; RESP 20; O2SAT 95
--- NOTE | 2021-08-12 15:56 | DCPLANNER ---
Addendum entered by Desirae Carey 08/31/21 09:55: Patient had a follow up appointment scheduled with ortho - patient did not attend appointment. Original Note: manager interventional had message to schedule a follow up appointment for patient with ortho. manager interventional sent patients information to the front office staff at ortho. Patients information will be printed and reviewed. Clinic will call patient with appointment information.
== END 2021-08-12 03:21 | disposition home or self-care (01) ==
LOC: ER 02:56
PROVIDERS: Emergency Provider Emergency Medicine; PCP Family Medicine
DX: M54.42 Lumbago with sciatica, left side (principal)
CPT/HCPCS: 96372; 99284; J1100; J2270

== ENCOUNTER 2022-04-10 07:13 | Emergency (ER) | payer MEDICARE, MEDICAID, SELFPAY ==
[2022-04-10 07:14] VITALS: BP 165/107; PULSE 80; RESP 27; TEMP 36.6; O2SAT 97; BMI 20.9
--- NOTE | 2022-04-10 07:15 | W.ED.CHESTPA ---
HPI - Chest Pain General: Chief Complaint: Chest Pain Stated Complaint: CHEST PAIN Time Seen by Provider: 04/10/22 07:15 History of Present Illness: Mr. Cuevas is a 42-year-old gentleman with complex past medical history including hypertension, nonischemic cardiomyopathy, heart failure with reduced ejection fraction, chronic hepatitis C presenting to the emergency department for chest pain. He reports onset of symptoms last night subacutely at rest, sharp left anterior pain associated with nausea. The pain is worse with inspiration and movement. Intensity symptoms is moderate to severe. Patient endorses compliance with medication regimen. No other specific changes in health, exacerbating, or alleviating factors identified. EMS administered aspirin Onset (ago): hour(s) Timing of current episode: constant Prior episodes: Yes Onset: during rest Pain location: left chest Severity: severe Quality: sharp Relieving factors: nothing Exacerbating factors: inspiration and movement Associated symptoms: Reports nausea Review of Systems General: Reports: 10 or more systems reviewed and unremarkable except in HPI and below GI: Reports: nausea PFSH ED PFSH: Medical History Acute exacerbation of CHF (congestive heart failure) Alcohol intoxication Amphetamine abuse Benign essential hypertension with target blood pressure below 140/90 Cardiomegaly CHF (congestive heart failure) Chronic hepatitis C Chronic kidney disease Chronic lumbar pain Chronic neck pain Dyspnea Hepatitis C antibody positive in blood Nicotine dependence, cigarettes, with other nicotine-induced disorders Partner relationship problem Suicidal ideation Systolic and diastolic CHF w/reduced LV function, NYHA class 4 Surgical History No pertinent past surgical history Social History Smoking and tobacco status: current every day smoker Alcohol intake: current Alcohol intake frequency: few times a week Physical Exam Const: COMMON NORMALS: alert GENERAL APPEARANCE: cooperative and well developed HENMT: COMMON NORMALS: normocephalic and atraumatic HEAD & SCALP: normocephalic and atraumatic Eye: COMMON NORMALS: conjunctivae normal CONJUNCTIVA: Yes conjunctivae normal SCLERA: sclerae normal Neck/C-Spine: COMMON NORMALS: supple GENERAL: Yes trachea midline Chest: OTHER: Right anterior chest wall mass approximately 4 x 3 cm, soft, no evidence of cellulitis Resp: COMMON NORMALS: normal respiratory effort and clear to auscultation bilaterally EFFORT & INSPECTION: Yes able to speak in complete sentences and Yes tachypneic AUSCULTATION: clear to auscultation bilaterally Cardio: COMMON NORMALS: regular rate and regular rhythm RATE: regular rate RHYTHM: regular rhythm GI: COMMON NORMALS: Soft to palpation PALPATION: Yes Soft to palpation and No Tenderness to palpation present (GI) Extremity: GENERAL: Yes normal exam except as noted and No edema Neuro: COMMON NORMALS: moves all extremities SENSORIUM/ORIENTATION: Yes alert and No Orientation impaired Psych: COMMON NORMALS: mental status grossly normal and Normal thought process present THOUGHT PROCESS: Normal thought process present Course Vital Signs: Vital signs: Vital Signs Temperature 97.8 F 04/10/22 07:14 Pulse Rate 83 04/10/22 07:32 Respiratory Rate 27 H 04/10/22 07:14 Blood Pressure 127/86 04/10/22 11:40 Pulse Oximetry 98 04/10/22 09:31 Oxygen Delivery Me thod 04/10/22 09:31 MDM - Chest Pain Medical Decision Making Mr. Jimenez is a 42-year-old gentleman with history of substance abuse and nonischemic cardiomyopathy presenting to the emergency department for chest pain. Exam as above. Prior records reviewed and reveal limited echo 05/05/2021 EF is improved to 45 to 50% compared to 12/12/2020 when EF is 15 to 20%. Cardiac cath 12/14/2020 reveals no significant coronary artery disease. Per pharmacy delivery driver review and contacting patient's pharmacy he has not filled his meds since September. EKG demonstrates sinus rhythm with ST segment abnormalities, normal axis and intervals, no STEMI. This appears generally similar to prior though LVH criteria is perhaps worsened. Labs notable for mild leukocytosis, normal hemoglobin and platelet count. Metabolic panel with evidence of intravascular dehydration with hyponatremia. Negative range 2-hour delta troponin. BNP is only minimally elevated. UDS positive for amphetamines and opioids. Viral panel is negative. I had ordered a D-dimer however our analyzer is apparently down with unknown return to service time, given pleuritic nature of pain and severity as well as tachypnea we will proceed with CTA. Chest x-ray with no lobar consolidation or pneumothorax. Given alteration in mental status CT obtained and negative for acute pathology. Clinical suspicion is not high enough for further advanced imaging. CTA demonstrates no acute pathology. Patient treated with antiemetic, analgesia, GI cocktail with resolution of pain. Most likely etiology of overall symptoms is multifactorial including substance abuse, I believe that mental status is secondary to coming down from methamphetamine use. Case was discussed with cardiology. Given [employer] procedure on 12/14/2020 with findings of nonischemic disease and likely etiology of patient's symptoms being related to noncardiac causes patient is satisfactory for outpatient management at this time. Strict return precautions given. He may require further inpatient evaluation if symptoms return. I reviewed will refill his medications as he has not been taking them. The results of ED evaluation were discussed with the patient including prescriptions and/or symptomatic cares (if applicable) including appropriate and responsible use, followup plan, and return precautions. The patient verbalized understanding and felt safe for discharge. Medical Records I reviewed the patient's medical records. Lab Data I reviewed the patient's lab results. 04/10/22 07:25 04/10/22 07:25 Radiology Impressions Chest X-Ray 04/10/22 07:22 IMPRESSION: No acute cardiopulmonary abnormality. Chest CTA 04/10/22 08:53 IMPRESSION: No pulmonary emboli or other acute cardiopulmonary pathology identified. Head CT 04/10/22 08:53 IMPRESSION: No acute intracranial abnormality. Please note that MRI is more sensitive for early changes of acute ischemia. Laboratory Results WBC 12.9 10^3/uL (4.0-10.0) H 04/10/22 07:25 RBC 4.82 10^6/uL (4.1-5.3) 04/10/22 07:25 Hgb 14.8 g/dL (11.7-16.6) 04/10/22 07:25 Hct 45.9 % (42.0-52.0) 04/10/22 07:25 MCV 95.2 fl (80-94) H 04/10/22 07:25 MCH 30.7 pg (28.0-34.0) 04/10/22 07:25 MCHC 32.2 g/dL (30.0-36.0) 04/10/22 07:25 RDW 12.9 % (12.1-15.1) 04/10/22 07:25 Plt Count 249 10^3/cmm (130-400) 04/10/22 07:25 MPV 10.2 fL (7.4-10.4) 04/10/22 07:25 Neut % (Auto) 79.5 % 04/10/22 07:25 Lymph % (Auto) 11.2 % 04/10/22 07:25 Navarro % (Auto) 8.5 % 04/10/22 07:25 Eos % (Auto) 0.3 % 04/10/22 07:25 Baso % (Auto) 0.2 % 04/10/22 07:25 Neut # (Auto) 10.25 10^3/uL (1.8-7.7) H 04/10/22 07:25 Lymph # (Auto) 1.5 10^3/uL (0.8-4.8) 04/10/22 07:25 [place]arro # (Auto) 1.1 10^3/uL (0.2-0.9) H 04/10/22 07:25 Eos # (Auto) 0.0 10^3/uL (0.0-0.8) 04/10/22 07:25 Baso # (Auto) 0.0 10^3/uL (0.0-0.1) 04/10/22 07:25 Nucleated RBC % (auto) 0 % 04/10/22 07:25 Nucleated RBCs # 0.0 /100WBC 04/10/22 07:25 PT 12.80 SECONDS (12.1-14.9) 04/10/22 07:25 INR 0.93 (0.8-1.2) 04/10/22 07:25 APTT 22.5 SECONDS (23.9-36.7) L 04/10/22 07:25 D-Dimer > 20.00 ug/mIFEU (0-0.59) H 04/10/22 07:25 Sodium 131 mmol/L (136-145) L 04/10/22 07:25 Potassium 4.4 mmol/L (3.5-5.1) 04/10/22 07:25 Chloride 93 mmol/L (98-107) L 04/10/22 07:25 Carbon Dioxide 27 mmol/L (22-29) 04/10/22 07:25 Anion Gap 15.4 (5-19) 04/10/22 07:25 BUN 7 mg/dL (6-20) 04/10/22 07:25 Creatinine 1.0 mg/dL (0.7-1.2) 04/10/22 07:25 GFR Calculation 81.6 mL/min (90-130) L 04/10/22 07:25 Glucose 128 mg/dL (65-115) H 04/10/22 07:25 Calculated Osmolality 272 mOsm/kg (285-295) L 04/10/22 07:25 Calcium 9.3 mg/dL (8.5-10.5) 04/10/22 07:25 Total Bilirubin 0.5 mg/dL (0.15-1.2) 04/10/22 07:25 AST 19 U/L (0-40) 04/10/22 07:25 ALT 12 U/L (0-41) 04/10/22 07:25 Alkaline Phosphatase 102 U/L (40-130) 04/10/22 07:25 Troponin T Baseline 13 ng/L (0-15) 04/10/22 07:25 Troponin T 120 Minute 11.28 ng/L (0-15) 04/10/22 09:18 Delta Troponin T -1.72 ABS# (0-10) L 04/10/22 09:18 NT-Pro-B Natriuret Pep 725 pg/mL (0-125) H 04/10/22 07:25 Total Protein 7.4 g/dL (6.6-8.7) 04/10/22 07:25 Albumin 4.2 g/dL (3.5-5.2) 04/10/22 07:25 Globulin 3.2 g/dL (1.3-4.6) 04/10/22 07:25 Lipase 30 U/L (13-60) 04/10/22 07:25 Urine Opiates Screen Positive ng/mL (Negative) H 04/10/22 10:30 Ur Barbiturates Screen Negative ng/mL (Negative) 04/10/22 10:30 Ur Phencyclidine Scrn Negative ng/mL (Negative) 04/10/22 10:30 Ur Amphetamines Screen Positive ng/mL (Negative) H 04/10/22 10:30 U Benzodiazepines Scrn Negative ng/mL (Negative) 04/10/22 10:30 Urine Cocaine Screen Negative ng/mL (Negative) 04/10/22 10:30 U Marijuana (THC) Screen Negative ng/mL (Negative) 04/10/22 10:30 Ethyl Alcohol < 10 mg/dL (0-10) 04/10/22 07:25 Coronavirus 229E (PCR) Not detected (NOT DETECT) 04/10/22 07:45 SARS-CoV-2 (PCR) Not detected (NOT DETECT) 04/10/22 07:45 Discharge Plan Discharge Patient Disposition: Home Clinical Impression: Chest pain Condition: Stable Prescriptions: Continued atorvastatin 40 mg tablet 40 mg PO DAILY Qty: 90 2RF potassium chloride 10 mEq capsule, extended release 10 meq PO DAILY Qty: 90 2RF furosemide [Lasix] 20 mg tablet 20 mg PO DAILY Qty: 90 2RF Discontinued aspirin [Adult Low Dose Aspirin] 81 mg tablet,delayed release (DR/EC) 81 mg PO DAILY Qty: 90 2RF lisinopril 20 mg tablet 20 mg PO DAILY Qty: 90 2RF No Action methocarbamol 750 mg tablet 750 mg PO Q6H PRN (Reason: spasms) Qty: 20 0RF aspirin 325 mg Tablet 650 mg PO TID 30 Days Qty: 180 0RF pantoprazole 40 mg Tablet,Delayed Release (Dr/Ec) 40 mg PO BID Qty: 60 0RF colchicine 0.6 mg Tablet 0.6 mg PO DAILY Qty: 30 0RF lisinopril 5 mg tablet 5 mg PO DAILY Qty: 30 0RF metoprolol succinate 25 mg tablet extended release 24 hr 12.5 mg PO Q12H Qty: 30 0RF Discharge Orders: Discharge ED (Routine); Ordered 04/10/22 Ordered By: Marbin Escamilla Referrals: Jose Maria Plata DO [Primary Care Provider] - Discharge Diet: Usual diet Discharge Activity: Resume usual activity Patient Instructions: Chest Pain (ED), Methamphetamine Use Disorder (ED), Opioid Safety Activity Restrictions/Additional Instructions: Thank you for visiting the emergency department. You were seen and evaluated for chest pain. The exact cause of your symptoms is unclear though does not appear to need hospitalization at this time. I will message case management for cardiology follow-up. Please take your medications as prescribed. Please do not abuse drugs, failure to stop abusing drugs will likely lead to or worse. Return to the emergency department for anything that you are concerned about and feel needs emergency department evaluation. Coding Level of Care Code ED Respiratory Care Program Director for Susanna Yoder
--- NOTE | 2022-04-10 07:19 | ECG_ITS ---
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 Measurements Intervals [place] Rate: 88 P: 41 [place]: 141 QRS: 65 QRSD: 98 T: 51 QT: 380 QTc: 462 Interpretive Statements SINUS RHYTHM POSSIBLE LEFT VENTRICULAR HYPERTROPHY [VOLTAGE CRITERIA PLUS LAE OR QRS WIDENING] NONSPECIFIC ST & T-WAVE ABNORMALITY Compared to ECG 12/12/2020 17:51:14 Sinus arrhythmia no longer present Possible ischemia no longer present T-wave abnormality still present Electronically Signed On 04-10-2022 16:08:13 CAPACITY PLANNING MANAGER by Joe Byrnes M.D. [id number]
--- NOTE | 2022-04-10 07:22 | XRR_ITS ---
PROCEDURE INFORMATION: Exam: XR Chest Exam date and time: 04/10/2022 7:46 AM Age: 42 years old Clinical indication: Pain; Angina pectoris; Additional info: Cp TECHNIQUE: Imaging protocol: Radiologic exam of the chest. Views: 1 view. COMPARISON: CR XR chest 1V portable [id number] 12/12/2020 10:23 AM FINDINGS: Lungs: Tiny calcified granulomas in the lungs bilaterally. No focal airspace consolidation. Pleural spaces: Unremarkable. No pleural effusion. No pneumothorax. Heart/Mediastinum: Cardiomegaly. Bones/joints: Partially imaged hardware in the cervical spine. XR/XR chest 1V portable [id number] IMPRESSION: No acute cardiopulmonary abnormality.
[2022-04-10 07:32] VITALS: BP 165/107; PULSE 83; O2SAT 96
[2022-04-10] MEDS: ondansetron 2 mg/ML SDV 2 mL 4 MG IVP (07:40)
[2022-04-10] MEDS: morphine 4 mg/mL SDV 1 mL IVP (07:41)
[2022-04-10 07:50] LABS: Basophils % 0.2 %; Eosinophils % 0.3 %; Hematocrit 45.9 % (42.0-52.0); Hemoglobin 14.8 g/dL (11.7-16.6); Lymphocytes # 1.5 10^3/uL (0.8-4.8); Lymphocytes % 11.2 %; Mean Corpuscular HGB Conc 32.2 g/dL (30.0-36.0); Mean Corpuscular Hemoglobin 30.7 pg (28.0-34.0); Mean Corpuscular Volume 95.2 fl (80-94); Mean Platelet Volume 10.2 fL (7.4-10.4); Monocytes # 1.1 10^3/uL (0.2-0.9); Monocytes % 8.5 %; Neutrophils # 10.25 10^3/uL (1.8-7.7); Neutrophils % 79.5 %; Nucleated Red Blood Cells % 0 %; Platelet Count 249 10^3/cmm (130-400); Red Blood Count 4.82 10^6/uL (4.1-5.3); Red Cell Distribution Width 12.9 % (12.1-15.1); White Blood Count 12.9 10^3/uL (4.0-10.0)
[2022-04-10 08:06] LABS: INR 0.93 (0.8-1.2); Troponin(5th) Baseline 13 ng/L (0-15)
[2022-04-10 08:07] LABS: Partial Thromboplastin Time 22.5 SECONDS (23.9-36.7)
[2022-04-10 08:13] LABS: Alanine Aminotransferase 12 U/L (0-41); Albumin Level 4.2 g/dL (3.5-5.2); Alkaline Phosphatase 102 U/L (40-130); Aspartate Amino Transferase 19 U/L (0-40); Blood Urea Nitrogen 7 mg/dL (6-20); Calcium 9.3 mg/dL (8.5-10.5); Carbon Dioxide 27 mmol/L (22-29); Chloride 93 mmol/L (98-107); Globulin 3.2 g/dL (1.3-4.6); Glomerular Filtration Rate 81.6 mL/min (90-130); Glucose 128 mg/dL (65-115); Lipase 30 U/L (13-60); NT Pro B Type Natriuretic Pept 725 pg/mL (0-125); Osmolality Calculated 272 mOsm/kg (285-295); Sodium 131 mmol/L (136-145); Total Bilirubin 0.5 mg/dL (0.15-1.2); Total Protein 7.4 g/dL (6.6-8.7)
[2022-04-10 08:23] LABS: Anion Gap 15.4 (5-19); Potassium 4.4 mmol/L (3.5-5.1)
--- NOTE | 2022-04-10 08:53 | CTR_ITS ---
PROCEDURE INFORMATION: Exam: CT Head Without Contrast Exam date and time: 04/10/2022 9:30 AM Age: 42 years old Clinical indication: Altered mental status/memory loss; Additional info: AMS TECHNIQUE: Imaging protocol: Computed tomography of the head without contrast. Radiation optimization: All CT scans at this facility use at least one of these dose optimization techniques: automated exposure control; mA and/or kV adjustment per patient size (includes targeted exams where dose is matched to clinical indication); or iterative reconstruction. REPORTING DATA: Count of CT and Cardiac NM exams in prior 12 months: This patient has received [address] and 0 known cardiac nuclear medicine studies in the 12 months prior to the current study. COMPARISON: CT head wo con* [id number] 05/10/2018 7:12 PM RADIATION DOSE METRICS: Total DLP (mGy-cm): 1124.98 FINDINGS: Tubes, catheters and devices: Glaucoma treatment device is seen about the left globe. Brain: Patchy hypoattenuation in the periventricular and subcortical white matter, consistent with chronic small vessel ischemia. No CT evidence of acute ischemia. No acute hemorrhage. No mass effect. Cerebral ventricles: No ventriculomegaly. Paranasal sinuses: Visualized sinuses are unremarkable. No fluid levels. Mastoid air cells: Visualized mastoid air cells are well aerated. Bones/joints: Unremarkable. No acute fracture. Soft tissues: Unremarkable. CT/CT head wo con* [id number] IMPRESSION: No acute intracranial abnormality. Please note that MRI is more sensitive for early changes of acute ischemia.
--- NOTE | 2022-04-10 08:53 | CTR_ITS ---
PROCEDURE INFORMATION: Exam: CTA Chest With Contrast Exam date and time: 04/10/2022 9:34 AM Age: 42 years old Clinical indication: Pain; Chest pressure; Additional info: Chest pain, tachypnea TECHNIQUE: Imaging protocol: Computed tomographic angiography of the chest with contrast. 3D rendering (Not supervised by radiologist): MIP and/or 3D reconstructed images were created by the technologist. Radiation optimization: All CT scans at this facility use at least one of these dose optimization techniques: automated exposure control; mA and/or kV adjustment per patient size (includes targeted exams where dose is matched to clinical indication); or iterative reconstruction. Contrast material: OMNI 350; Contrast volume: 83 ml; Contrast route: INTRAVENOUS (IV); REPORTING DATA: Count of CT and Cardiac NM exams in prior 12 months: This patient has received [address] and 0 known cardiac nuclear medicine studies in the 12 months prior to the current study. COMPARISON: CT angio chest PE prot [id number] 08/20/2020 9:20 PM RADIATION DOSE METRICS: Total DLP (mGy-cm): 404.51 FINDINGS: Pulmonary arteries: Normal. No pulmonary emboli. Aorta: Unremarkable. No aortic aneurysm. No aortic dissection. Trachea: There is some debris within the trachea. Lungs: Numerous calcified granulomas are seen in the lungs bilaterally. No focal airspace consolidation. Pleural spaces: Unremarkable. No pneumothorax. No pleural effusion. Heart: Cardiomegaly. Small pericardial effusion. Lymph nodes: Calcified mediastinal and hilar lymph nodes. Spleen: Calcified splenic granulomas. Bones/joints: Unremarkable. No acute fracture. Soft tissues: Large sebaceous cyst within the right anterior chest wall, similar to 08/20/2020. CT/CT angio chest PE protcl [id number] IMPRESSION: No pulmonary emboli or other acute cardiopulmonary pathology identified.
[2022-04-10] MEDS: aluminum-mag hydrox-simethicon 30 ML, sucralfate oral liq 1 GM PO (08:54)
[2022-04-10] MEDS: ketorolac 60 mg/2 mL INJ 15 MG IVP (08:54)
--- NOTE | 2022-04-10 08:54 | PC.PHAR ---
PT HAS NOT FILLED ANY OF HIS MEDICATIONS SINCE 09/2021 MOST WERE 90 DS
[2022-04-10 09:07] LABS: Alcohol Level < 10 mg/dL (0-10)
--- NOTE | 2022-04-10 09:22 | ECG_ITS ---
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 Measurements Intervals [place] Rate: 94 P: 74 [place]: 145 QRS: 78 QRSD: 98 T: -6 QT: 389 QTc: 487 Interpretive Statements SINUS RHYTHM LEFT VENTRICULAR HYPERTROPHY AND ST-T CHANGE [VOLTAGE CRITERIA PLUS ST/T ABNORMALITY] INFERIOR MYOCARDIAL INFARCTION ,AGE INDETERMINATE Compared to ECG 04/10/2022 07:19:55 ST (T wave) deviation now present Myocardial infarct finding now present T-wave abnormality no longer present Electronically Signed On 04-10-2022 16:09:29 TECHNICAL PLANNER by Joe Byrnes M.D. [id number]
[2022-04-10 09:31] VITALS: O2SAT 98
[2022-04-10 09:44] LABS: Troponin 5 2HR 11.28 ng/L (0-15)
[2022-04-10 10:12] LABS: Troponin 5 2HR Delta -1.72 ABS# (0-10)
[2022-04-10 10:17] LABS: Adenovirus Not Detected (NOT DETECT); Chlamydia Pneumoniae Not Detected (NOT DETECT); Coronavirus 229E,HKU1,NL63,OC4 Not Detected (NOT DETECT); Human Metapneumovirus Not Detected (NOT DETECT); Human Rhinovirus/Enterovirus Not Detected (NOT DETECT); Influenza A Not Detected (NOT DETECT); Influenza A H1 Not Detected (NOT DETECT); Influenza A H1-2009 Not Detected (NOT DETECT); Influenza A H3 Not Detected (NOT DETECT); Influenza B Not Detected (NOT DETECT); Mycoplasma Pneumoniae Not Detected (NOT DETECT); Parainfluenza Virus Type 1 Not Detected (NOT DETECT); Parainfluenza Virus Type 2 Not Detected (NOT DETECT); Parainfluenza Virus Type 3 Not Detected (NOT DETECT); Parainfluenza Virus Type 4 Not Detected (NOT DETECT); Respiratory Syncytial Virus A Not Detected (NOT DETECT); Respiratory Syncytial Virus B Not Detected (NOT DETECT); SARS-COV-2 Not Detected (NOT DETECT)
[2022-04-10 11:00] LABS: Amphetamines Screen Urine Positive (Negative); Barbiturates Screen Urine Negative (Negative); Benzodiazepines Screen Urine Negative (Negative); Cocaine Screen Urine Negative (Negative); Opiate Screen Urine Positive (Negative); PCP Screen Urine Negative (Negative); THC Screen Urine Negative (Negative)
[2022-04-10 11:40] VITALS: BP 127/86
[2022-04-10 12:08] LABS: D Dimer > 20.00 ug/mIFEU (0-0.59)
== END 2022-04-10 12:30 | disposition home or self-care (01) ==
PROVIDERS: Emergency Provider Emergency Medicine; PCP Family Medicine
DX: R07.9 Chest pain, unspecified (principal); I10 Essential (primary) hypertension
CPT/HCPCS: 36415; 70450; 71045; 71275; 80053; 80306; 80307; 83690; 83880; 84484; 85025; 85378; 85610; 85730; 87635; 93005; 96374; 96375; 99285; J1885; J2270; J2405

== ENCOUNTER 2022-04-11 08:00 | Observation (INO) | payer MEDICARE, MEDICAID, SELFPAY ==
[2022-04-11] VITALS (23 sets, daily range): BP systolic 87–131; BP diastolic 51–92; PULSE 91–109; RESP 16–29; TEMP 36.8–37.2; O2SAT 93–98; BMI 20.9
--- NOTE | 2022-04-11 08:09 | ED_ITS ---
HPI - Chest Pain General: Chief Complaint: Chest Pain Stated Complaint: CHEST PAIN Time Seen by Provider: 04/11/22 08:09 History of Present Illness: Mr. Cuevas is a 42-year-old gentleman with history of hypertension, nonischemic cardiomyopathy, heart failure with reduced ejection fraction, chronic hepatitis presenting due to chest pain. He was seen and evaluated yesterday and improved upon discharge however symptoms returned around 10 PM. Sharp left substernal chest pain with moderation of the neck. Worse with lying flat and slightly better when leaning forward. Intensity symptoms is moderate to severe. Course has persisted since returned. No other specific changes in health, exacerbating, or alleviating factors identified. Onset (ago): hour(s) Timing of current episode: constant Prior episodes: Yes Pain location: substernal Severity: severe Quality: aching, heaviness and sharp Relieving factors: leaning forward Exacerbating factors: supine Associated symptoms: Reports other Review of Systems General: Reports: 10 or more systems reviewed and unremarkable except in HPI and below PFSH ED PFSH: Medical History Acute exacerbation of CHF (congestive heart failure) Alcohol intoxication Amphetamine abuse Benign essential hypertension with target blood pressure below 140/90 Cardiomegaly CHF (congestive heart failure) Chronic hepatitis C Chronic kidney disease Chronic lumbar pain Chronic neck pain Dyspnea Hepatitis C antibody positive in blood Nicotine dependence, cigarettes, with other nicotine-induced disorders Partner relationship problem Suicidal ideation Systolic and diastolic CHF w/reduced LV function, NYHA class 4 Surgical History No pertinent past surgical history Social History Smoking and tobacco status: current every day smoker Alcohol intake: current Alcohol intake frequency: few times a week Physical Exam Const: COMMON NORMALS: alert GENERAL APPEARANCE: cooperative and well developed HENMT: COMMON NORMALS: normocephalic and atraumatic HEAD & SCALP: normocephalic and atraumatic THROAT: posterior oropharynx normal Eye: COMMON NORMALS: conjunctivae normal CONJUNCTIVA: Yes conjunctivae normal SCLERA: sclerae normal Neck/C-Spine: COMMON NORMALS: supple GENERAL: Yes trachea midline Resp: COMMON NORMALS: normal respiratory effort EFFORT & INSPECTION: Yes able to speak in complete sentences Cardio: COMMON NORMALS: regular rate and regular rhythm RATE: regular rate RHYTHM: regular rhythm GI: COMMON NORMALS: Soft to palpation PALPATION: Yes Soft to palpation and No Tenderness to palpation present (GI) PERCUSSION: normal to percussion Extremity: GENERAL: Yes normal exam except as noted and No edema Neuro: COMMON NORMALS: moves all extremities SENSORIUM/ORIENTATION: Yes alert and No Orientation impaired Psych: COMMON NORMALS: mental status grossly normal and Normal thought process present THOUGHT PROCESS: Normal thought process present Course Vital Signs: Vital signs: Vital Signs Temperature 97.7 F 04/12/22 12:00 Pulse Rate 98 04/12/22 12:00 Respiratory Rate 16 04/12/22 12:00 Blood Pressure 109/73 04/12/22 12:00 Pulse Oximetry 95 04/12/22 12:00 Oxygen Delivery Me thod 04/12/22 12:00 MDM - Chest Pain Medical Decision Making 42-year-old gentleman with complex history presenting to the emergency department for continued/recurrent episodes of chest pain. Clinical history at this point and is more specific and symptoms may be related to conditions such as pericarditis. EKG demonstrates sinus rhythm with generalized ST segment abnormalities, normal axis and intervals, no STEMI. Labs notable for leukocytosis, normal hemoglobin. Metabolic panel with mild evidence of dehydration and elevated creatinine compared to prior. Negative range 2-hour delta troponin. CRP and ESR are pending. Negative viral panel. Chest x-ray reviewed, no lobar consolidation or pneumothorax. Patient treated with aspirin, Toradol, GI cocktail, small fluid bolus. He is only mildly improved. Clinical history and description of symptoms concerning for pericarditis. Patient is not low risk for other cardiac etiologies given extensive history. The results of ED evaluation were discussed with the patient including plan for admission due to requirement for level of care not available if discharged to prevent significant worsening/deterioration. Patient agreeable with plan. Discussed with hospitalist service who was agreeable to admit patient. Medical Records I reviewed the patient's medical records. Lab Data I reviewed the patient's lab results. 04/11/22 08:26 04/11/22 08:26 Radiology Impressions Chest X-Ray 04/11/22 08:10 IMPRESSION: Left medial basilar partial/subsegmental atelectasis. Chest CTA 04/11/22 13:48 IMPRESSION: 1. No pulmonary artery embolism identified. 2. Nonspecific, subcutaneous possibly cystic mass right upper pectoral region. 3. Coronary atherosclerosis. 4. Moderate-large pericardial effusion. Laboratory Results WBC 16.6 10^3/uL (4.0-10.0) H 04/11/22 08:26 RBC 4.99 10^6/uL (4.1-5.3) 04/11/22 08:26 Hgb 15.5 g/dL (11.7-16.6) 04/11/22 08:26 Hct 48.0 % (42.0-52.0) 04/11/22 08:26 MCV 96.2 fl (80-94) H 04/11/22 08:26 MCH 31.1 pg (28.0-34.0) 04/11/22 08: MCHC 32.3 g/dL (30.0-36.0) 04/11/22 08: RDW 13.2 % (12.1-15.1) 04/11/22 08:26 Plt Count 316 10^3/cmm (130-400) 04/11/22 08:26 MPV 10.8 fL (7.4-10.4) H 04/11/22 08:26 Neut % (Auto) 82.2 % 04/11/22 08:26 Lymph % (Auto) 7.5 % 04/11/22 08:26 [place] % (Auto) 8.7 % 04/11/22 08:26 Eos % (Auto) 1.0 % 04/11/22 08:26 Baso % (Auto) 0.2 % 04/11/22 08:26 Neut # (Auto) 13.66 10^3/uL (1.8-7.7) H 04/11/22 08:26 Lymph # (Auto) 1.3 10^3/uL (0.8-4.8) 04/11/22 08:26 [place] # (Auto) 1.5 10^3/uL (0.2-0.9) H 04/11/22 08:26 Eos # (Auto) 0.2 10^3/uL (0.0-0.8) 04/11/22 08:26 Baso # (Auto) 0.0 10^3/uL (0.0-0.1) 04/11/22 08:26 Nucleated RBC % (auto) 0 % 04/11/22 08:26 Nucleated RBCs # 0.0 /100WBC 04/11/22 08:26 ESR 18 mm/hr (0-10) H 04/11/22 08:20 Sodium 135 mmol/L (136-145) L 04/11/22 08:26 Potassium 3.8 mmol/L (3.5-5.1) 04/11/22 08:26 Chloride 95 mmol/L (98-107) L 04/11/22 08:26 Carbon Dioxide 27 mmol/L (22-29) 04/11/22 08:26 Anion Gap 16.8 (5-19) 04/11/22 08:26 BUN 15 mg/dL (6-20) 04/11/22 08:26 Creatinine 1.3 mg/dL (0.7-1.2) H 04/11/22 08:26 GFR Calculation 60.2 mL/min (90-130) L 04/11/22 08:26 Glucose 109 mg/dL (65-115) 04/11/22 08:26 Calculated Osmolality 281 mOsm/kg (285-295) L 04/11/22 08:26 Calcium 9.3 mg/dL (8.5-10.5) 04/11/22 08:26 Total Bilirubin 0.2 mg/dL (0.15-1.2) 04/11/22 08:26 AST 33 U/L (0-40) 04/11/22 08:26 ALT 16 U/L (0-41) 04/11/22 08:26 Alkaline Phosphatase 104 U/L (40-130) 04/11/22 08:26 Troponin T Baseline 17 ng/L (0-15) H 04/11/22 08:26 Troponin T 120 Minute 16.00 ng/L (0-15) H 04/11/22 10:20 Delta Troponin T -1.00 ABS# (0-10) L 04/11/22 10:20 Troponin T Hi Sens 6Hr 14.75 ng/L (0-15) 04/11/22 14:35 Troponin T Hi Sens 6Hr Delta -2.25 ng/L (0-12) L 04/11/22 14:35 C-Reactive Protein 201.8 mg/L (0.0-4.9) H 04/11/22 14:35 Total Protein 7.5 g/dL (6.6-8.7) 04/11/22 08:26 Albumin 3.7 g/dL (3.5-5.2) 04/11/22 08:26 Globulin 3.8 g/dL (1.3-4.6) 04/11/22 08:26 TSH 1.15 uIU/mL (0.27-4.20) 04/11/22 14:35 HIV 1&2 Ab & HIV 1 Ag Non-reactive (Non-Reactiv) 04/11/22 08:20 HIV 1&2 Antibody Non-reactive (Non-Reactiv) 04/11/22 08:20 Discharge Plan Discharge Patient Disposition: Placed in Observation Admit Provider: Jia Marin Clinical Impression: Chest pain Discharge Diet: Cardiac Discharge Activity: Resume usual activity and Increase activity as tolerated Coding Level of Care Code ED Software Team Leader for Bongg Beba
--- NOTE | 2022-04-11 08:10 | ECG_ITS ---
[facility] Test Date: 2022-04-11 Pat Name: Edwin Cuevas Department: Room: Gender: Male Neon Pumper: : 1980 Requested By: Marbin Escamilla Order Number: [id number] Concepcion MD: Joe Byrnes M.D. Measurements Intervals [place] Rate: 106 P: 13 [place]: 128 QRS: 55 QRSD: 83 T: -12 QT: 329 QTc: 437 Interpretive Statements SINUS TACHYCARDIA ST ELEVATION CONSISTENT WITH INJURY, PERICARDITIS, OR EARLY REPOLARIZATION [ST ELEVATION W/O NORMALLY INFLECTED T-WAVE] ST DEVIATION AND MODERATE T-WAVE ABNORMALITY, CONSIDER LATERAL ISCHEMIA [-0.1+ mV T-WAVE IN I/aVL/V5/V6] Compared to ECG 04/10/2022 09:46:35 Early repolarization now present T-wave abnormality now present Possible ischemia now present Sinus rhythm no longer present Left ventricular hypertrophy no longer present Myocardial infarct finding no longer present ST (T wave) deviation still present Electronically Signed On 04-11-2022 11:38:20 PIPE BOWL PAINT TRIMMER by Joe Byrnes M.D. [id number]
--- NOTE | 2022-04-11 08:10 | XRR_ITS ---
PROCEDURE INFORMATION: Exam: XR Chest Exam date and time: 04/11/2022 8:39 AM Age: 42 years old Clinical indication: Pain; Angina pectoris; Additional info: Chest pain TECHNIQUE: Imaging protocol: Radiologic exam of the chest. Views: 1 view. Other technique: Frontal portable upright view of the chest. COMPARISON: CR (CHEST, ) 04/10/2022 7:46 AM FINDINGS: Tubes, catheters and devices: EKG leads are present overlying the chest. EKG leads are present overlying the chest. Lungs: Interval left medial basilar partial/subsegmental atelectasis. The lungs are otherwise peripherally clear bilaterally. The pulmonary vasculature is stable. Pleural spaces: No pleural effusion. No pneumothorax. Heart/Mediastinum: Stable mild cardiomegaly. Mediastinum: Stable. Bones/joints: Stable. XR/XR chest 1V portable [id number] IMPRESSION: Left medial basilar partial/subsegmental atelectasis.
--- NOTE | 2022-04-11 08:32 | PC.NURSE ---
PT IS ON CONTINUOUS SPO2, NIBP, AND CM.
[2022-04-11 08:50] LABS: Basophils % 0.2 %; Eosinophils # 0.2 10^3/uL (0.0-0.8); Hemoglobin 15.5 g/dL (11.7-16.6); Lymphocytes # 1.3 10^3/uL (0.8-4.8); Lymphocytes % 7.5 %; Mean Corpuscular HGB Conc 32.3 g/dL (30.0-36.0); Mean Corpuscular Hemoglobin 31.1 pg (28.0-34.0); Mean Corpuscular Volume 96.2 fl (80-94); Mean Platelet Volume 10.8 fL (7.4-10.4); Monocytes # 1.5 10^3/uL (0.2-0.9); Monocytes % 8.7 %; Neutrophils # 13.66 10^3/uL (1.8-7.7); Neutrophils % 82.2 %; Nucleated Red Blood Cells % 0 %; Platelet Count 316 10^3/cmm (130-400); Red Blood Count 4.99 10^6/uL (4.1-5.3); Red Cell Distribution Width 13.2 % (12.1-15.1); White Blood Count 16.6 10^3/uL (4.0-10.0)
[2022-04-11 09:17] LABS: Alanine Aminotransferase 16 U/L (0-41); Albumin Level 3.7 g/dL (3.5-5.2); Alkaline Phosphatase 104 U/L (40-130); Anion Gap 16.8 (5-19); Aspartate Amino Transferase 33 U/L (0-40); Blood Urea Nitrogen 15 mg/dL (6-20); Calcium 9.3 mg/dL (8.5-10.5); Carbon Dioxide 27 mmol/L (22-29); Chloride 95 mmol/L (98-107); Globulin 3.8 g/dL (1.3-4.6); Glomerular Filtration Rate 60.2 mL/min (90-130); Glucose 109 mg/dL (65-115); Osmolality Calculated 281 mOsm/kg (285-295); Potassium 3.8 mmol/L (3.5-5.1); Sodium 135 mmol/L (136-145); Total Bilirubin 0.2 mg/dL (0.15-1.2); Total Protein 7.5 g/dL (6.6-8.7)
[2022-04-11 09:18] LABS: Troponin(5th) Baseline 17 ng/L (0-15)
[2022-04-11] MEDS: lidocaine 2% viscous 15 ML, aluminum-mag hydrox-simethicon 30 ML, sucralfate oral liq 1 GM PO (09:35)
[2022-04-11] MEDS: ketorolac 30 mg/mL INJ 15 MG IVP (09:35)
--- NOTE | 2022-04-11 10:22 | ECG_ITS ---
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 Measurements Intervals [place] Rate: 101 P: 56 OR: 132 QRS: 55 QRSD: 90 T: 30 QT: 343 QTc: 446 Interpretive Statements SINUS TACHYCARDIA ST ELEVATION CONSISTENT WITH INJURY, PERICARDITIS, OR EARLY REPOLARIZATION [ST ELEVATION W/O NORMALLY INFLECTED T-WAVE] NONSPECIFIC ST & T-WAVE ABNORMALITY Compared to ECG 04/11/2022 08:17:10 Possible ischemia no longer present ST (T wave) deviation still present T-wave abnormality still present Electronically Signed On 04-11-2022 11:39:13 WAXER TENDER by Joe Byrnes M.D. [id number]
--- NOTE | 2022-04-11 13:48 | CTR_ITS ---
PROCEDURE INFORMATION: Exam: CTA Chest With Contrast Exam date and time: 04/11/2022 2:02 PM Age: 42 years old Clinical indication: Sternal or substernal pain; Additional info: D dimer > 20, chest pain, evauate for pe TECHNIQUE: Imaging protocol: Computed tomographic angiography of the chest with contrast. 3D rendering (Not supervised by radiologist): MIP reconstructed images were created by the technologist. Radiation optimization: All CT scans at this facility use at least one of these dose optimization techniques: automated exposure control; mA and/or kV adjustment per patient size (includes targeted exams where dose is matched to clinical indication); or iterative reconstruction. Contrast material: OMNI 350; Contrast volume: 75 ml; Contrast route: INTRAVENOUS (IV); REPORTING DATA: Count of CT and Cardiac NM exams in prior 12 months: This patient has received 2 known CTs and 0 known cardiac nuclear medicine studies in the 12 months prior to the current study. COMPARISON: CT angio chest PE protcl [id number] 04/10/2022 9:34 AM RADIATION DOSE METRICS: Total DLP (mGy-cm): 345.5 FINDINGS: Pulmonary arteries: No pulmonary artery embolism identified. Aorta: Mild aortic arch atherosclerotic calcification without ectasia. Thyroid: The partially imaged bilateral thyroid lobes are unremarkable. Lungs: Multiple bilateral calcified pulmonary parenchymal granulomas. Lingular and bilateral lower lobe pulmonary subsegmental atelectasis. Pleural spaces: No pneumothorax. No pleural effusion. Heart: Moderate-large pericardial effusion. Coronary arteries: Mild proximal LAD coronary artery calcifications. Lymph nodes: Bilateral hilar, right paratracheal, aorticopulmonary window and subcarinal granulomatous abbie calcifications are present. Spleen: A small anterior splenule is present. Bones/joints: Mild midthoracic spine spondylosis. Lower thoracic spine chronic vertebral body endplate herniations. Soft tissues: Well-circumscribed right upper pectoral subcutaneous ovoid well-defined lesion measuring 4.8 x 5.3 x 2.7 cm (28 Houn[address] units). CT/CT angio chest PE protcl [id number] IMPRESSION: 1. No pulmonary artery embolism identified. 2. Nonspecific, subcutaneous possibly cystic mass right upper pectoral region. 3. Coronary atherosclerosis. 4. Moderate-large pericardial effusion.
[2022-04-11] MEDS: morphine 4 mg/mL SDV 1 mL 2 MG IVP ×2 (13:54→21:08)
[2022-04-11] MEDS: iohexol 350 mg/mL 500 mL Btl (per mL) IV (14:03)
--- NOTE | 2022-04-11 14:10 | ECG_ITS ---
[facility] Test Date: 2022-04-11 Pat Name: Edwin Cuevas Department: Room: 250 Gender: Male Floorman: : 1980 Requested By: Marbin Escamilla Order Number: [id number] Carlene MD: Joe Byrnes M.D. Measurements Intervals [place] Rate: 97 P: 18 [place]: 130 QRS: 48 QRSD: 93 T: 33 QT: 345 QTc: 439 Interpretive Statements SINUS RHYTHM ST ELEVATION CONSISTENT WITH INJURY, PERICARDITIS, OR EARLY REPOLARIZATION [ST ELEVATION W/O NORMALLY INFLECTED T-WAVE] NONSPECIFIC ST & T-WAVE ABNORMALITY Compared to ECG 04/11/2022 10:22:01 Sinus tachycardia no longer present ST (T wave) deviation still present T-wave abnormality still present Electronically Signed On 04-11-2022 21:24:31 BACK FILLER OPERATOR by Joe Byrnes M.D. [id number]
[2022-04-11 15:15] LABS: Troponin 5 6HR 14.75 ng/L (0-15)
--- NOTE | 2022-04-11 15:20 | USCV_ITS ---
Edwin Cuveas Age: 42 Gender: M : 1980 Exam Date: 04/11/2022 15:45 Ordering Phys: Jia Marin MD Technologist: MERRY Exam Location: [facility] [place] Indication: tampanod BP: / HR: 94 Rhythm: Sinus Technical Quality: Adequate MEASUREMENTS (Male / Female) Normal Values 2D ECHO LV Diastolic Diameter PLAX 5.1 cm 4.2 - 5.9 / 3.9 - 5.3 cm LV Systolic Diameter PLAX 4.7 cm IVS Diastolic Thickness 1.0 cm 0.6 - 1.0 / 0.6 - 0.9 cm IVS Systolic Thickness 1.2 cm LVPW Diastolic Thickness 0.9 cm 0.6 - 1.0 / 0.6 - 0.9 cm LVPW Systolic Thickness 1.3 cm LV Ejection Fraction 2D Teich 17.9 % FINDINGS Left Ventricle Right Ventricle Right Atrium Left Atrium Mitral Valve Aortic Valve Tricuspid Valve Pulmonic Valve Pericardium Aorta IVC CONCLUSIONS Left ventricle is normal in size. LV systolic function is severely reduced with EF of 20 to 25%. Severe global hypokinesis. Small sized pericardial effusion is seen. No echo features of cardiac tamponade. Compared to prior echocardiogram from 03/2021, LV systolic function has decreased further and has small sized pericardial effusion. Joe Byrnes MD (Electronically Signed) Final Date: 11 April 2022 17:39 S
[2022-04-11 15:24] LABS: Troponin 5 6HR Delta -2.25 ng/L (0-12)
--- NOTE | 2022-04-11 15:43 | PM.HP ---
Providers/Chief Complaint Admitting Physician: Jia Marin MD Primary Care Provider: Jose Maria Plata DO Chief Complaint: CHEST PAIN History of Present Illness Edwin Cuevas is a 42 year old male with a past medical history of nonischemic cardiomyopathy, EF of 15%, history of alcohol abuse, history of hypertension, last known EF improved from 10% to 45% by 04/2021. He is presenting to the emergency room today due to chief complaints of chest pain. States that his pain started first about 3 weeks ago, is sharp stabbing in nature, located in the center of his chest and radiating into the left side. Deep breathing makes it worse. He is unable to lie in bed as the pain becomes worse. At the time of my examination patient does not want to sit in bed, he is sitting upright in a chair stating that this is the best way pain is controlled. He does not recall any trauma to the chest wall. Denies lifting any heavy weights. No recent history of prolonged immobilization. Blood pressure initially upon admission at 87/56 with a heart rate of 104. EKG today shows mild ST elevation, baseline troponin at 17, 2-hour at 16, negative delta at 2 hours. D-dimer noted to be greater than 20, CTA obtained today is negative for PE. No recent history of URI or respiratory tract infection that patient can recall. No other sick contacts. COVID PCR is negative. Has a past history of treated hepatitis C Review of Systems General: Reports: 10 or more systems reviewed and unremarkable except in HPI and below Const: Denies: fever(s), chills or body aches Eyes: Denies: change in vision, blurry vision or photophobia ENMT: Reports: hoarseness; Denies: throat pain, enlarged tonsils, odynophagia or nasal congestion Card: Denies: chest pain, palpitations, irregular heart rhythm, edema, swelling of feet/ankles, lightheadedness, pre-syncope, dyspnea on exertion or orthopnea Resp: Denies: dyspnea, productive cough, non-productive cough, wheezing, stridor, pain on inspiration, change in phlegm color, hemoptysis or chest congestion GI: Denies: abdominal pain, nausea, vomiting, hematemesis, coffee ground emesis, dysphagia, heartburn, diarrhea, constipation, GI cramping, change in stool character, hematochezia or melena : Denies: flank pain, dysuria, urinary frequency, urinary urgency, urinary hesitancy or hematuria Musc: Denies: neck pain, back pain, extremity pain, joint swelling, joint warmth or deformity Neuro: Denies: headache(s), numbness in extremities, weakness in extremities, sensory changes, difficulty walking, frequent falls, dizziness, vertigo, behavioral changes, Slurred speech present or seizure-like activity Psych: Denies: anxiety, depression, suicidal ideation or homicidal ideation Endo: Denies: polyuria, polydipsia, tired all the time, cold intolerance or hot flashes Yury/Lymph: Denies: easy bruising or easy bleeding Medications/Allergies Home Medications Medication Instructions Recorded Confirmed Last Taken Type carvedilol 6.25 mg tablet 6.25 mg PO BID #180 tabs 01/26/21 04/11/22 04/10/22 Rx methocarbamol 750 mg tablet 750 mg PO Q6H PRN spasms #20 tabs 08/12/21 04/11/22 Unknown Rx naproxen 500 mg tablet (Naprosyn) 500 mg PO BID PRN pain #20 tabs 08/12/21 04/11/22 Unknown Rx aspirin 81 mg tablet,delayed 81 mg PO DAILY #90 tabs 04/10/22 04/11/22 04/10/22 Rx release (Adult Low Dose Aspirin) atorvastatin 40 mg tablet 40 mg PO DAILY #90 tabs 04/10/22 04/11/22 04/10/22 Rx furosemide 20 mg tablet (Lasix) 20 mg PO DAILY #90 tabs 04/10/22 04/11/22 04/10/22 Rx lisinopril 20 mg tablet 20 mg PO DAILY #90 tabs 04/10/22 04/11/22 04/10/22 Rx potassium chloride 10 mEq 10 meq PO DAILY #90 caps 04/10/22 04/11/22 04/10/22 Rx capsule,extended release Allergies Allergy/AdvReac Type Severity Reaction Status Date / Time No Known Allergies Allergy Verified 04/10/22 08:54 PFSH Acute PFSH: Medical History Alcohol intoxication Benign essential hypertension with target blood pressure below 140/90 Cardiomegaly CHF (congestive heart failure) Chronic kidney disease Dyspnea Hepatitis C antibody positive in blood Partner relationship problem Surgical History No pertinent past surgical history Social History Smoking and tobacco status: current every day smoker Alcohol intake: current Alcohol intake frequency: few times a week Vitals/I&O/Wt Last Vital Signs Temp 98.3 F 04/11/22 12:00 Pulse 92 04/11/22 12:00 Resp 18 04/11/22 13:54 BP 108/72 04/11/22 12:00 Pulse Ox 97 04/11/22 12:00 O2 Del Method 04/11/22 11:56 Weight last 48 hrs Weight 65.091 kg Weight 68.039 kg Physical Exam Narrative: General: Mild distress secondary to pain, sitting up in chair, refuses to lie back in bed HEENT: PERRLA, pupils bilaterally equal and reactive, pallors not present Chest: Normal vesicular breath sounds, no added sounds, equal good air entry bilaterally CVS: S1-S2 distant Abdomen: Soft, nontender, no organomegaly, bowel sounds present Neuro: No focal deficits, no facial deformity, AO x3, power 5/5 in all limbs Extremities: Cystic swelling present over right upper chest wall below the clavicle, patient states this has been present for years, currently unchanged Data 04/11/22 08:26 04/11/22 08:26 Micro: Microbiology 04/11/22 09:40 Blood Culture - Preliminary Blood SPECIMEN COLLECTED 04/11/22 09:37 Blood Culture - Preliminary Blood SPECIMEN COLLECTED Other data: Radiology Impressions Chest X-Ray 04/11/22 08:10 IMPRESSION: Left medial basilar partial/subsegmental atelectasis. Chest CTA 04/11/22 13:48 IMPRESSION: 1. No pulmonary artery embolism identified. 2. Nonspecific, subcutaneous possibly cystic mass right upper pectoral region. 3. Coronary atherosclerosis. 4. Moderate-large pericardial effusion. Laboratory Results WBC 16.6 10^3/uL (4.0-10.0) H 04/11/22 08:26 RBC 4.99 10^6/uL (4.1-5.3) 04/11/22 08:26 Hgb 15.5 g/dL (11.7-16.6) 04/11/22 08:26 Hct 48.0 % (42.0-52.0) 04/11/22 08: MCV 96.2 fl (80-94) H 04/11/22 08:26 MCH 31.1 pg (28.0-34.0) 04/11/22 08: MCHC 32.3 g/dL (30.0-36.0) 04/11/22 08: RDW 13.2 % (12.1-15.1) 04/11/22 08:26 Plt Count 316 10^3/cmm (130-400) 04/11/22 08:26 MPV 10.8 fL (7.4-10.4) H 04/11/22 08:26 Neut % (Auto) 82.2 % 04/11/22 08:26 Lymph % (Auto) 7.5 % 04/11/22 08:26 [place] % (Auto) 8.7 % 04/11/22 08:26 Eos % (Auto) 1.0 % 04/11/22 08:26 Baso % (Auto) 0.2 % 04/11/22 08:26 Neut # (Auto) 13.66 10^3/uL (1.8-7.7) H 04/11/22 08:26 Lymph # (Auto) 1.3 10^3/uL (0.8-4.8) 04/11/22 08:26 [place] # (Auto) 1.5 10^3/uL (0.2-0.9) H 04/11/22 08:26 Eos # (Auto) 0.2 10^3/uL (0.0-0.8) 04/11/22 08:26 Baso # (Auto) 0.0 10^3/uL (0.0-0.1) 04/11/22 08:26 Nucleated RBC % (auto) 0 % 04/11/22 08: Nucleated RBCs # 0.0 /100WBC 04/11/22 08:26 Sodium 135 mmol/L (136-145) L 04/11/22 08:26 Potassium 3.8 mmol/L (3.5-5.1) 04/11/22 08:26 Chloride 95 mmol/L (98-107) L 04/11/22 08:26 Carbon Dioxide 27 mmol/L (22-29) 04/11/22 08:26 Anion Gap 16.8 (5-19) 04/11/22 08:26 BUN 15 mg/dL (6-20) 04/11/22 08:26 Creatinine 1.3 mg/dL (0.7-1.2) H 04/11/22 08:26 GFR Calculation 60.2 mL/min (90-130) L 04/11/22 08:26 Glucose 109 mg/dL (65-115) 04/11/22 08:26 Calculated Osmolality 281 mOsm/kg (285-295) L 04/11/22 08:26 Calcium 9.3 mg/dL (8.5-10.5) 04/11/22 08:26 Total Bilirubin 0.2 mg/dL (0.15-1.2) 04/11/22 08:26 AST 33 U/L (0-40) 04/11/22 08:26 ALT 16 U/L (0-41) 04/11/22 08:26 Alkaline Phosphatase 104 U/L (40-130) 04/11/22 08:26 Troponin T Baseline 17 ng/L (0-15) H 04/11/22 08:26 Troponin T 120 Minute 16.00 ng/L (0-15) H 04/11/22 10:20 Delta Troponin T -1.00 ABS# (0-10) L 04/11/22 10:20 Troponin T Hi Sens 6Hr 14.75 ng/L (0-15) 04/11/22 14:35 Troponin T Hi Sens 6Hr Delta -2.25 ng/L (0-12) L 04/11/22 14:35 Total Protein 7.5 g/dL (6.6-8.7) 04/11/22 08:26 Albumin 3.7 g/dL (3.5-5.2) 04/11/22 08:26 Globulin 3.8 g/dL (1.3-4.6) 04/11/22 08:26 A&P Assessment and plan (1) Acute pericarditis: 42-year-old male with a past medical history of nonischemic cardiomyopathy, last known EF at 45%, presenting to the hospital today with around 3 weeks of chest pain, found to have signs and symptoms concerning for acute pericarditis with evidence of moderate to large pericardial effusion on CTA. EKG showing non speicific St elevation lead II, trop series less concerning for ACS with baseline 17, trending down at 2 hrs , pending 6 hr results Initial blood pressure upon admission 87/56 with tachycardia heart rate 104. Urgent echocardiogram has been ordered to evaluate for any underlying cardiac tamponade. He did receive a fluid bolus in the emergency room after which his blood pressure is currently improved at 108/72, heart rate of 96. Start treatment with colchicine 0.6 mg daily and aspirin 650 mg 3 times daily. Choosing aspirin over ibuprofen due to history of CKD and creatinine currently at 1.3. Check CRP, ESR, TSH, QuantiFERON screen, hepatitis C quant PCR, HIV 1/2 antigen-antibody, NOE panel cardiology consult (2) Pericardial effusion: echocardiogram ordered as above (3) Alcohol dependence: Monitor for alcohol withdrawal CIWA monitoring prn ativan per CIWA scores Attestations Medical Necessity Statement*: Greater than 2 midnight admission is anticipated for evaluation and management of acute pericarditis. Coding Level of Care Code Acute Code for Chg Fwd High MDM includes number and complexity of problems actively addressed during encounter, amount and/or complexity of data reviewed/ordered and described risk of complication, morbidity or mortality of management as documented Diagnoses Acute pericarditis I30.9 Pericardial effusion I31.39 Alcohol dependence F10.20
--- NOTE | 2022-04-11 15:46 | PC.NURSE ---
Verbal order from Dr. Marin the send out labs can be drawn with the am labs in the morning. Lab Notified
--- NOTE | 2022-04-11 16:00 | PC.NURSE ---
Verbal order per Dr. Marin that the patient does not have to be on quarantine as the Quantiferon Gold Plus is just a newer TB test and more reliable the old TB skin test.
[2022-04-11 16:14] LABS: Erythrocyte Sedimentation Rate 18 mm/hr (0-10)
[2022-04-11] MEDS: enoxaparin 40 mg/0.4 mL Syringe SUBCUT (16:24)
[2022-04-11] MEDS: aspirin 325 mg Tablet 650 MG PO ×2 (16:24→20:18)
[2022-04-11 16:25] LABS: C Reactive Protein 201.8 mg/L (0.0-4.9); Thyroid Stimulating Hormone 1.15 uIU/mL (0.27-4.20)
[2022-04-11 16:26] LABS: HIV 1 & 2 Antibody Non-Reactive (Non-Reactiv); HIV 1 & 2 Antigen Non-Reactive (Non-Reactiv)
[2022-04-11] MEDS: colchicine 0.6 mg Tablet PO (16:41)
[2022-04-11] MEDS: pantoprazole DR 40 mg Tablet PO (17:18)
--- NOTE | 2022-04-11 17:33 | PM.CONSULT ---
Providers/Reason For Consult Consulting Physician/Specialty*: Joe Byrnes MD/ Cardiology Reason for Consult*: Chest pain Requesting Physician: Dr Marin Attending Physician: Jia Marin MD Primary Care Provider: Jose Maria Plata DO History of Present Illness History of Present Illness Edwin Cuevas is a 42 year old male with past medical history of nonischemic cardiomyopathy, alcohol abuse presented to hospital with chest pain. It is pleuritic. He breathing worsens it. It is sharp and substernal. Laying down flat makes it worse. EKG shows borderline diffuse ST elevations. Echocardiogram performed shows small sized pericardial effusion. EF is 20-25 %. CT is negative for PE. Review of Systems General: Reports: 10 or more systems reviewed and unremarkable except in HPI and below Const: Denies: fever(s), chills or body aches Eyes: Denies: change in vision, blurry vision or photophobia ENMT: Reports: hoarseness; Denies: throat pain, enlarged tonsils, odynophagia or nasal congestion Card: Reports: chest pain; Denies: palpitations, irregular heart rhythm, edema, swelling of feet/ankles, lightheadedness, pre-syncope, dyspnea on exertion or orthopnea Resp: Denies: dyspnea, productive cough, non-productive cough, wheezing, stridor, pain on inspiration, change in phlegm color, hemoptysis or chest congestion GI: Denies: abdominal pain, nausea, vomiting, hematemesis, coffee ground emesis, dysphagia, heartburn, diarrhea, constipation, GI cramping, change in stool character, hematochezia or melena : Denies: flank pain, dysuria, urinary frequency, urinary urgency, urinary hesitancy or hematuria Musc: Denies: neck pain, back pain, extremity pain, joint swelling, joint warmth or deformity Neuro: Denies: headache(s), numbness in extremities, weakness in extremities, sensory changes, difficulty walking, frequent falls, dizziness, vertigo, behavioral changes, Slurred speech present or seizure-like activity Psych: Denies: anxiety, depression, suicidal ideation or homicidal ideation Endo: Denies: polyuria, polydipsia, tired all the time, cold intolerance or hot flashes Yury/Lymph: Denies: easy bruising or easy bleeding Medications/Allergies Home Medications Medication Instructions Recorded Confirmed Last Taken Type carvedilol 6.25 mg tablet 6.25 mg PO BID #180 tabs 01/26/21 04/11/22 04/10/22 Rx methocarbamol 750 mg tablet 750 mg PO Q6H PRN spasms #20 tabs 08/12/21 04/11/22 Unknown Rx naproxen 500 mg tablet (Naprosyn) 500 mg PO BID PRN pain #20 tabs 08/12/21 04/11/22 Unknown Rx aspirin 81 mg tablet,delayed 81 mg PO DAILY #90 tabs 04/10/22 04/11/22 04/10/22 Rx release (Adult Low Dose Aspirin) atorvastatin 40 mg tablet 40 mg PO DAILY #90 tabs 04/10/22 04/11/22 04/10/22 Rx furosemide 20 mg tablet (Lasix) 20 mg PO DAILY #90 tabs 04/10/22 04/11/22 04/10/22 Rx lisinopril 20 mg tablet 20 mg PO DAILY #90 tabs 04/10/22 04/11/22 04/10/22 Rx potassium chloride 10 mEq 10 meq PO DAILY #90 caps 04/10/22 04/11/22 04/10/22 Rx capsule,extended release Allergies Allergy/AdvReac Type Severity Reaction Status Date / Time No Known Allergies Allergy Verified 04/10/22 08:54 Current Medications Generic Name Dose Route Start Last Admin Trade Name Freq PRN Reason Stop Dose Admin Aspirin 650 mg 04/11/22 16:15 04/11/22 16:24 Aspirin 325 Mg Tablet PO 650 mg TID SUSHMA Administration Colchicine 0.6 mg 04/11/22 16:00 04/11/22 16:41 Colchicine 0.6 Mg Tablet PO 0.6 mg DAILY SUSHMA Administration Enoxaparin Sodium 40 mg 04/11/22 15:30 04/11/22 16:24 Enoxaparin 40 Mg/0.4 Ml Syringe SUBCUT 40 mg Q24H SUSHMA Administration Morphine Sulfate 2 mg 04/11/22 13:48 04/11/22 13:54 Morphine 4 Mg/Ml Sdv 1 Ml IVP 2 mg Q4H PRN Administration SEVERE PAIN Pantoprazole Sodium 40 mg 04/11/22 18:00 04/11/22 17:[address] 40 Mg Tablet PO 40 mg BID SUSHMA Administration PFSH Acute PFSH: Medical History Alcohol intoxication Benign essential hypertension with target blood pressure below 140/90 Cardiomegaly CHF (congestive heart failure) Chronic kidney disease Dyspnea Hepatitis C antibody positive in blood Partner relationship problem Surgical History No pertinent past surgical history Social History Smoking and tobacco status: current every day smoker Alcohol intake: current Alcohol intake frequency: few times a week Vitals/I&O/Wt Last Vital Signs Temp 98.3 F 04/11/22 12:00 Pulse 96 04/11/22 15:51 Resp 18 04/11/22 13:54 BP 108/72 04/11/22 12:00 Pulse Ox 97 04/11/22 15:51 O2 Del Method 04/11/22 15:51 04/11/22 04/11/22 04/11/22 06:59 14:59 22:59 Intake Total 100 / 100 Output Total 950 / 950 Balance -850 / -850 Weight last 48 hrs Weight 143 lb 8 oz Weight 150 lb Physical Exam Narrative: GENERAL: Patient is alert, awake and oriented x3. [] NECK: No jugular vein distension. [] HEENT: No cyanosis. No icterus. No pallor. [] HEART: Regular S1 and S2. No murmur, rub or gallop. [] LUNGS: Clear to auscultate bilaterally. [] CENTRAL NERVOUS SYSTEM: Grossly nonfocal. [] EXTREMITIES: Lower extremities with no edema bilaterally. Data 04/11/22 08:26 04/11/22 08:26 Micro: Microbiology 04/11/22 09:40 Blood Culture - Preliminary Blood SPECIMEN COLLECTED 04/11/22 09:37 Blood Culture - Preliminary Blood SPECIMEN COLLECTED A&P Assessment and plan (1) Pericardial effusion: (2) Acute pericarditis: (3) Chest pain: (4) HFrEF (heart failure with reduced ejection fraction): (5) Hypertension: Plan Patient's symptoms are consistent with myopericarditis. LV systolic function is decreased and has small sized pericardial effusion Start the high-dose aspirin 650 mg 3 times daily. This will continue for 2 weeks. Colchicine 0.6 mg daily for 3 months. We can reassess in office in 2 weeks. Continue aspirin and Coreg. Low-dose Lasix No heavy exertion advised Thank you for involving us with care of this patient. We will continue to follow. Please call with questions. Consult Attestations Medical Necessity Statement: Care expected to cross 2 midnights Coding Level of Care Code Acute Code for Chg Fwd Diagnoses Pericardial effusion I31.39 Acute pericarditis I30.9 Chest pain R07.9 HFrEF (heart failure with reduced ejection fraction) I50.20 Hypertension I10
[2022-04-11 17:52] LABS: Amphetamines Screen Urine Positive (Negative); Barbiturates Screen Urine Negative (Negative); Benzodiazepines Screen Urine Negative (Negative); Cocaine Screen Urine Negative (Negative); Opiate Screen Urine Positive (Negative); PCP Screen Urine Negative (Negative); THC Screen Urine Negative (Negative)
[2022-04-11 18:47] LABS: Adenovirus Not Detected (NOT DETECT); Chlamydia Pneumoniae Not Detected (NOT DETECT); Coronavirus 229E,HKU1,NL63,OC4 Not Detected (NOT DETECT); Human Metapneumovirus Not Detected (NOT DETECT); Human Rhinovirus/Enterovirus Not Detected (NOT DETECT); Influenza A Not Detected (NOT DETECT); Influenza A H1 Not Detected (NOT DETECT); Influenza A H1-2009 Not Detected (NOT DETECT); Influenza A H3 Not Detected (NOT DETECT); Influenza B Not Detected (NOT DETECT); Mycoplasma Pneumoniae Not Detected (NOT DETECT); Parainfluenza Virus Type 1 Not Detected (NOT DETECT); Parainfluenza Virus Type 2 Not Detected (NOT DETECT); Parainfluenza Virus Type 3 Not Detected (NOT DETECT); Parainfluenza Virus Type 4 Not Detected (NOT DETECT); Respiratory Syncytial Virus A Not Detected (NOT DETECT); Respiratory Syncytial Virus B Not Detected (NOT DETECT); SARS-COV-2 Not Detected (NOT DETECT)
[2022-04-12] VITALS: BP 119/81; PULSE 110; RESP 16; TEMP 37.4; O2SAT 96
[2022-04-12 04:00] VITALS: BP 121/81; PULSE 98; RESP 16; TEMP 37.6; O2SAT 94
[2022-04-12 05:31] VITALS: PULSE 99
[2022-04-12 06:04] LABS: Basophils % 0.1 %; Eosinophils # 0.2 10^3/uL (0.0-0.8); Eosinophils % 1.1 %; Hematocrit 42.2 % (42.0-52.0); Hemoglobin 13.4 g/dL (11.7-16.6); Lymphocytes # 1.9 10^3/uL (0.8-4.8); Lymphocytes % 11.8 %; Mean Corpuscular HGB Conc 31.8 g/dL (30.0-36.0); Mean Corpuscular Hemoglobin 30.4 pg (28.0-34.0); Mean Corpuscular Volume 95.7 fl (80-94); Mean Platelet Volume 10.7 fL (7.4-10.4); Monocytes # 1.5 10^3/uL (0.2-0.9); Monocytes % 9.6 %; Neutrophils # 12.23 10^3/uL (1.8-7.7); Neutrophils % 76.9 %; Nucleated Red Blood Cells % 0 %; Platelet Count 245 10^3/cmm (130-400); Red Blood Count 4.41 10^6/uL (4.1-5.3); Red Cell Distribution Width 13.2 % (12.1-15.1); White Blood Count 15.9 10^3/uL (4.0-10.0)
[2022-04-12 06:19] LABS: Alanine Aminotransferase 45 U/L (0-41); Albumin Level 3.1 g/dL (3.5-5.2); Alkaline Phosphatase 119 U/L (40-130); Anion Gap 14.6 (5-19); Aspartate Amino Transferase 54 U/L (0-40); Blood Urea Nitrogen 16 mg/dL (6-20); Calcium 9.1 mg/dL (8.5-10.5); Carbon Dioxide 28 mmol/L (22-29); Chloride 93 mmol/L (98-107); Globulin 3.4 g/dL (1.3-4.6); Glomerular Filtration Rate 73.1 mL/min (90-130); Glucose 97 mg/dL (65-115); Osmolality Calculated 273 mOsm/kg (285-295); Potassium 4.6 mmol/L (3.5-5.1); Sodium 131 mmol/L (136-145); Total Bilirubin 0.4 mg/dL (0.15-1.2); Total Protein 6.5 g/dL (6.6-8.7)
[2022-04-12 07:39] VITALS: BP 125/90; PULSE 104; RESP 16; TEMP 36.5; O2SAT 93
--- NOTE | 2022-04-12 09:38 | PM.PN ---
Subjective Subjective: Patient is stable.Chest pain has improved. Vitals/I&O/Wt Last Vital Signs Temp 97.7 F 04/12/22 07:39 Pulse 104 H 04/12/22 07:39 Resp 16 04/12/22 07:39 BP 125/90 04/12/22 07:39 Pulse Ox 93 04/12/22 07:39 O2 Del Method 04/12/22 07:39 04/11/22 04/12/22 04/12/22 22:59 06:59 14:59 Intake Total 340 / 340 120 / 120 Output Total 950 / 950 Balance -610 / -610 120 / 120 Weight last 48 hrs Weight 143 lb 8 oz Weight 150 lb Physical Exam Narrative: GENERAL: Patient is alert, awake and oriented x3. [] NECK: No jugular vein distension. [] HEENT: No cyanosis. No icterus. No pallor. [] HEART: Regular S1 and S2. No murmur, rub or gallop. [] LUNGS: Clear to auscultate bilaterally. [] CENTRAL NERVOUS SYSTEM: Grossly nonfocal. [] EXTREMITIES: Lower extremities with no edema bilaterally. Data 04/12/22 05:03 04/12/22 05:03 Micro: Microbiology 04/11/22 09:40 Blood Culture - Preliminary Blood SPECIMEN COLLECTED 04/11/22 09:37 Blood Culture - Preliminary Blood SPECIMEN COLLECTED A&P Assessment and plan (1) Pericardial effusion: (2) Acute pericarditis: (3) Chest pain: (4) HFrEF (heart failure with reduced ejection fraction): (5) Hypertension: Plan Symptoms have improved today Patient's symptoms are consistent with myopericarditis. LV systolic function is decreased and has small sized pericardial effusion Continue high dose aspirin for 2 weeks and colchicine for 3 months. Duration of aspirin will be determined at outpatient visit. Continue aspirin and Coreg. Low-dose Lasix No heavy exertion advised Thank you for involving us with care of this patient. Please call with questions. Attestations Medical Necessity Statement*: Care expected to cross 2 midnights. Coding Level of Care Code Acute Code for Chg Fwd Diagnoses Pericardial effusion I31.39 Acute pericarditis I30.9 Chest pain R07.9 HFrEF (heart failure with reduced ejection fraction) I50.20 Hypertension I10
[2022-04-12] MEDS: folic acid 1 mg Tablet PO (10:36)
[2022-04-12] MEDS: pantoprazole DR 40 mg Tablet PO (10:36)
[2022-04-12] MEDS: aspirin 325 mg Tablet 650 MG PO (10:36)
[2022-04-12] MEDS: multivitamin therapeutic Tablet 1 TAB PO (10:36)
[2022-04-12] MEDS: thiamine 100 mg Tablet PO (10:37)
[2022-04-12] MEDS: colchicine 0.6 mg Tablet PO (10:38)
--- NOTE | 2022-04-12 11:55 | P.DS_ITS ---
Discharge Providers Date of Admission: 04/11/22 15:20 Date of Discharge: April 12, 2022 Attending Provider at Admission: Jia Marin MD Attending Provider at Discharge: Matt Augustine MD Consults: Cardiology: Dr. Morgan Primary Care Provider: Jose Maria Plata DO Diagnoses at Discharge Discharge Diagnosis (1) Pericardial effusion: Status: Acute (2) Acute pericarditis: Status: Acute (3) Chest pain: Status: Acute (4) HFrEF (heart failure with reduced ejection fraction): Status: Acute (5) Hypertension: Status: Acute (6) Amphetamine abuse: Status: Acute Reason for Visit Reason for Visit: CHEST PAIN Brief History: History as per HPI: Edwin Cuevas is a 42 year old male with a past medical history of nonischemic cardiomyopathy, EF of 15%, history of alcohol abuse, history of hypertension, last known EF improved from 10% to 45% by 04/2021.? He is presenting to the emergency room today due to chief complaints of chest pain.? States that his pain started first about 3 weeks ago, is sharp stabbing in nature, located in the center of his chest and radiating into the left side.? Deep breathing makes it worse.? He is unable to lie in bed as the pain becomes worse.? At the time of my examination patient does not want to sit in bed, he is sitting upright in a chair stating that this is the best way pain is controlled.? He does not recall any trauma to the chest wall.? Denies lifting any heavy weights.? No recent history of prolonged immobilization.? Blood pressure initially upon admission at 87/56 with a heart rate of 104. EKG today shows mild ST elevation, baseline troponin at 17, 2-hour at 16, negative delta at 2 hours.? D-dimer noted to be greater than 20, CTA obtained today is negative for PE. No recent history of URI or respiratory tract infection that patient can recall.? No other sick contacts.? COVID PCR is negative.? Has a past history of treated hepatitis C Hospital Course Hospital Course Patient was admitted to hospital further evaluation and management of chest pain. Which on first was thought to be secondary to acute pericarditis. His troponin cycles remain at baseline. Cardiology was consulted. He underwent echocardiogram which showed a new EF of 20-25% with global LV hypokinesia, small pericardial effusion without any features of cardiac tamponade. He was started on treatment for pericarditis with aspirin and colchicine. Multiple blood work for pericarditis has been sent out. Patient responded well to the treatment and pain has subsided. Patient had borderline soft blood pressures otherwise his hospitalization has been unremarkable. He has been discharged in hemodynamically stable condition on oral aspirin and colchicine. He is to take aspirin for next 2 weeks and colchicine for the next 3 months. His dose of lisinopril has been changed to 5 mg oral daily and Coreg has been switched to metoprolol 25 mg twice daily. He has been discharged with advised to follow-up with cardiology within next 1 to 2 weeks and his primary care provider within next 1 week. Physical Exam Narrative: General:No acute distress, AAOx3 HEENT: PERRLA, pupils bilaterally equal and reactive, pallors not present Chest: Normal vesicular breath sounds, no added sounds, equal good air entry bilaterally CVS: S1-S2 distant Abdomen: Soft, nontender, no organomegaly, bowel sounds present Neuro: No focal deficits, no facial deformity, AO x3, power 5/5 in all limbs Extremities: Cystic swelling present over right upper chest wall below the clavicle, patient states this has been present for years, currently unchanged Discharge Data Studies Completed and Pending Completed Studies During Hospitalization Category Date Time Status CTA PE [CT angio chest PE protcl [id number]] Urgent Cat Scan 04/11/22 13:48 Completed XR chest 1V portable [id number] Stat Exams 04/11/22 08:10 Completed CV. echo limited [id number] Urgent Ultrasound 04/11/22 15:20 Completed Pending at discharge Category Date Time Status NOE Profile Rheumatology Routine Lab 04/11/22 15:25 Received Blood Culture Stat Lab 04/11/22 09:40 Results HEP C RNA Viral Load Qnt [Hepatitis C RNA Viral Load Lab 04/11/22 15:25 Received Qnt] Routine Nykfgxyqmlk-AI-[id number] Plus Routine Lab 04/11/22 15:20 Received Tick Panel AM LABS Lab 04/12/22 05:03 Received Radiology Impressions Chest X-Ray 04/11/22 08:10 IMPRESSION: Left medial basilar partial/subsegmental atelectasis. Chest CTA 04/11/22 13:48 IMPRESSION: 1. No pulmonary artery embolism identified. 2. Nonspecific, subcutaneous possibly cystic mass right upper pectoral region. 3. Coronary atherosclerosis. 4. Moderate-large pericardial effusion. Echocardiogram: CONCLUSIONS ?Left ventricle is normal in size.? LV systolic function is ?severely reduced with EF of 20 to 25%.? Severe global ?hypokinesis. ?Small sized pericardial effusion is seen.? No echo features of ?cardiac tamponade. ?Compared to prior echocardiogram from 03/2021, LV systolic ?function has decreased further and has small sized pericardial ?effusion. ?Joe Byrnes MD ?(Electronically Signed) ?Final Date:? ? ? April Laboratory Results WBC 15.9 10^3/uL (4.0-10.0) H 04/12/22 05:03 RBC 4.41 10^6/uL (4.1-5.3) 04/12/22 05:03 Hgb 13.4 g/dL (11.7-16.6) 04/12/22 05:03 Hct 42.2 % (42.0-52.0) 04/12/22 05:03 MCV 95.7 fl (80-94) H 04/12/22 05:03 MCH 30.4 pg (28.0-34.0) 04/12/22 05:03 MCHC 31.8 g/dL (30.0-36.0) 04/12/22 05:03 RDW 13.2 % (12.1-15.1) 04/12/22 05:03 Plt Count 245 10^3/cmm (130-400) 04/12/22 05:03 MPV 10.7 fL (7.4-10.4) H 04/12/22 05:03 Neut % (Auto) 76.9 % 04/12/22 05:03 Lymph % (Auto) 11.8 % 04/12/22 05:03 [place] % (Auto) 9.6 % 04/12/22 05:03 Eos % (Auto) 1.1 % 04/12/22 05:03 Baso % (Auto) 0.1 % 04/12/22 05:03 Neut # (Auto) 12.23 10^3/uL (1.8-7.7) H 04/12/22 05:03 Lymph # (Auto) 1.9 10^3/uL (0.8-4.8) 04/12/22 05:03 [place] # (Auto) 1.5 10^3/uL (0.2-0.9) H 04/12/22 05:03 Eos # (Auto) 0.2 10^3/uL (0.0-0.8) 04/12/22 05:03 Baso # (Auto) 0.0 10^3/uL (0.0-0.1) 04/12/22 05:03 Nucleated RBC % (auto) 0 % 04/12/22 05:03 Nucleated RBCs # 0.0 /100WBC 04/12/22 05:03 ESR 18 mm/hr (0-10) H 04/11/22 08:20 Sodium 131 mmol/L (136-145) L 04/12/22 05:03 Potassium 4.6 mmol/L (3.5-5.1) 04/12/22 05:03 Chloride 93 mmol/L (98-107) L 04/12/22 05:03 Carbon Dioxide 28 mmol/L (22-29) 04/12/22 05:03 Anion Gap 14.6 (5-19) 04/12/22 05:03 BUN 16 mg/dL (6-20) 04/12/22 05:03 Creatinine 1.1 mg/dL (0.7-1.2) 04/12/22 05:03 GFR Calculation 73.1 mL/min (90-130) L 04/12/22 05:03 Glucose 97 mg/dL (65-115) 04/12/22 05:03 Calculated Osmolality 273 mOsm/kg (285-295) L 04/12/22 05:03 Calcium 9.1 mg/dL (8.5-10.5) 04/12/22 05:03 Total Bilirubin 0.4 mg/dL (0.15-1.2) 04/12/22 05:03 AST 54 U/L (0-40) H 04/12/22 05:03 ALT 45 U/L (0-41) H 04/12/22 05:03 Alkaline Phosphatase 119 U/L (40-130) 04/12/22 05:03 Troponin T Baseline 17 ng/L (0-15) H 04/11/22 08:26 Troponin T 120 Minute 16.00 ng/L (0-15) H 04/11/22 10:20 Delta Troponin T -1.00 ABS# (0-10) L 04/11/22 10:20 Troponin T Hi Sens 6Hr 14.75 ng/L (0-15) 04/11/22 14:35 Troponin T Hi Sens 6Hr Delta -2.25 ng/L (0-12) L 04/11/22 14:35 C-Reactive Protein 201.8 mg/L (0.0-4.9) H 04/11/22 14:35 Total Protein 6.5 g/dL (6.6-8.7) L 04/12/22 05:03 Albumin 3.1 g/dL (3.5-5.2) L 04/12/22 05:03 Globulin 3.4 g/dL (1.3-4.6) 04/12/22 05:03 TSH 1.15 uIU/mL (0.27-4.20) 04/11/22 14:35 Nasal Influ A H1 2008 PCR Not detected (NOT DETECT) 04/11/22 16:40 Urine Opiates Screen Positive ng/mL (Negative) H 04/11/22 16:48 Ur Barbiturates Screen Negative ng/mL (Negative) 04/11/22 16:48 Ur Phencyclidine Scrn Negative ng/mL (Negative) 04/11/22 16:48 Ur Amphetamines Screen Positive ng/mL (Negative) H 04/11/22 16:48 U Benzodiazepines Scrn Negative ng/mL (Negative) 04/11/22 16:48 Urine Cocaine Screen Negative ng/mL (Negative) 04/11/22 16:48 U Marijuana (THC) Screen Negative ng/mL (Negative) 04/11/22 16:48 Adenovirus (PCR) Not detected (NOT DETECT) 04/11/22 16:40 C. pneumoniae DNA (PCR) Not detected (NOT DETECT) 04/11/22 16:40 Coronavirus 229E (PCR) Not detected (NOT DETECT) 04/11/22 16:40 HIV 1&2 Ab & HIV 1 Ag Non-reactive (Non-Reactiv) 04/11/22 08:20 HIV 1&2 Antibody Non-reactive (Non-Reactiv) 04/11/22 08:20 Human Metapneumovir PCR Not detected (NOT DETECT) 04/11/22 16:40 Influenza A (H1) PCR Not detected (NOT DETECT) 04/11/22 16:40 Influenza A (H3) PCR Not detected (NOT DETECT) 04/11/22 16:40 Influenza Type A (PCR) Not detected (NOT DETECT) 04/11/22 16:40 Influenza Type B (PCR) Not detected (NOT DETECT) 04/11/22 16:40 M. pneumoniae (PCR) Not detected (NOT DETECT) 04/11/22 16:40 Parainfluenza 1 (PCR) Not detected (NOT DETECT) 04/11/22 16:40 Parainfluenza 2 (PCR) Not detected (NOT DETECT) 04/11/22 16:40 Parainfluenza 3 (PCR) Not detected (NOT DETECT) 04/11/22 16:40 Parainfluenza 4 (PCR) Not detected (NOT DETECT) 04/11/22 16:40 RSV Type A (PCR) Not detected (NOT DETECT) 04/11/22 16:40 RSV Type B (PCR) Not detected (NOT DETECT) 04/11/22 16:40 Entero/Rhino (PCR) Not detected (NOT DETECT) 04/11/22 16:40 SARS-CoV-2 (PCR) Not detected (NOT DETECT) 04/11/22 16:40 Vitals Last Vital Signs Temp 97.7 F 04/12/22 07:39 Pulse 104 H 04/12/22 07:39 Resp 16 04/12/22 07:39 BP 125/90 04/12/22 07:39 Pulse Ox 93 04/12/22 07:39 O2 Del Method 04/12/22 07:39 Discharge Plan Discharge Patient Disposition: Home Condition: Stable Prescriptions: New aspirin 325 mg Tablet 650 mg PO TID 30 Days Qty: 180 0RF pantoprazole 40 mg Tablet,Delayed Release (Dr/Ec) 40 mg PO BID Qty: 60 0RF colchicine 0.6 mg Tablet 0.6 mg PO DAILY Qty: 30 0RF lisinopril 5 mg tablet 5 mg PO DAILY Qty: 30 0RF metoprolol succinate 25 mg tablet extended release 24 hr 12.5 mg PO Q12H Qty: 30 0RF Continued methocarbamol 750 mg tablet 750 mg PO Q6H PRN (Reason: spasms) Qty: 20 0RF atorvastatin 40 mg tablet 40 mg PO DAILY Qty: 90 2RF potassium chloride 10 mEq capsule, extended release 10 meq PO DAILY Qty: 90 2RF furosemide [Lasix] 20 mg tablet 20 mg PO DAILY Qty: 90 2RF Discontinued carvedilol 6.25 mg tablet 6.25 mg PO BID Qty: 180 2RF Rx Instructions: must administer with a meal/food naproxen [Naprosyn] 500 mg tablet 500 mg PO BID PRN (Reason: pain) Qty: 20 0RF lisinopril 20 mg tablet 20 mg PO DAILY Qty: 90 2RF aspirin [Adult Low Dose Aspirin] 81 mg tablet,delayed release (DR/EC) 81 mg PO DAILY Qty: 90 2RF Discharge Orders: Discharge Order (Routine); Ordered 04/12/22 Ordered By: Matt Augustine Referrals: Jose Maria Plata DO [Primary Care Provider] - 04/14/22 10:30 am Rosy Aragon FNP [Nurse Practitioner] - 04/26/22 9:15 am Discharge Diet: Cardiac Discharge Activity: Resume usual activity and Increase activity as tolerated Patient Instructions: Alcohol Abuse, Metoprolol (By mouth), Lisinopril (By mouth), Aspirin (By mouth), Colchicine (By mouth), Pantoprazole (By mouth), Chest Pain (DC), Pericardial Effusion (ED), Chest Pain Stoplight, Opioid Safety Activity Restrictions/Additional Instructions: Continue taking aspirin at current dose for next 3 weeks. Continue taking colchicine for next 3 months. Follow-up with Rosy Aragon/nurse practitioner from cardiology within next 2 weeks and primary care provider within next 1 week. Take aspirin with food. You will be on Protonix due to antacid twice daily. Dose of lisinopril has been changed to 5 mg daily. Coreg has been changed to metoprolol twice daily. Please check your blood pressure daily at home and maintain a blood pressure diary and follow-up with your primary care provider within next 2 weeks for further adjustment of antihypertensives as needed. Please try to avoid using any further recreational drugs including methamphetamines Discharge Attestations Time Spent in Discharge Care*: greater than 30 min Specific Discharge Activities: educating patient, educating and/or supporting family/caregiver, discussing with pcp/other providers, discussing with pillowcase turner/social workers/dc planners, documenting/other paperwork and evaluating patient/reviewing data Time Spent in Smoking Cessation: more than 10 minutes Status at Discharge: Cognitive status at discharge: cognitively intact , Behavioral status at discharge: cooperative , Functional status at discharge: independent ambulation , Overall status at discharge: patient is back to baseline Quality Metrics Clinical Quality Measures [ No reported AMI, CVA or VTE this stay] Coding Level of Care Code 56843 Total time (in minutes) for Discharge: 45 Diagnoses Pericardial effusion I31.39 Acute pericarditis I30.9 Chest pain R07.9 HFrEF (heart failure with reduced ejection fraction) I50.20 Hypertension I10 Amphetamine abuse F15.10
[2022-04-12 12:00] VITALS: BP 109/73; PULSE 98; RESP 16; TEMP 36.5; O2SAT 95
[2022-04-13 13:34] LABS: CENTROMERE B ANTIBODY <1.0 NEG AI (<1.0 NEG); JO-1 ANTIBODY <1.0 NEG AI (<1.0 NEG); RNP ANTIBODY <1.0 NEG AI (<1.0 NEG); SCL-70 ANTIBODY <1.0 NEG AI (<1.0 NEG); SJOGREN'S ANTIBODY (SS-A) <1.0 NEG AI (<1.0 NEG); SM ANTIBODY <1.0 NEG AI (<1.0 NEG); SS-B <1.0 NEG AI (<1.0 NEG)
[2022-04-13 14:08] LABS: Lyme AB Screen <0.90 index
[2022-04-13 16:14] LABS: ANA SCREEN, IFA NEGATIVE (NEGATIVE)
[2022-04-13 16:26] LABS: THYROID PEROXIDASE ANTIBODIES 49 IU/mL (<9)
[2022-04-13 22:51] LABS: HEP C RNA Viral Load Quant <1.18 NOT DETECTED Log IU/mL (NOT DETECTED); HEP C RNA Viral Load Quant <15 NOT DETECTED IU/mL (NOT DETECTED)
[2022-04-14 12:05] LABS: COMPLEMENT, TOTAL (CH50) 53 U/mL (31-60)
[2022-04-14 15:44] LABS: COMPLEMENT COMPONENT C3C 138 mg/dL (82-185); COMPLEMENT COMPONENT C4C 34 mg/dL (15-53)
[2022-04-14 16:10] LABS: Quantiferon Mitogen 6.98 IU/mL; Quantiferon Nil 0.01 IU/mL; Quantiferon TB Gold NEGATIVE (NEGATIVE)
[2022-04-16 02:25] LABS: DNA AB (DS) CRITHIDIA,IFA NEGATIVE (NEGATIVE)
[2022-04-16 16:50] LABS: E. Chaffeensis AB IGG <1:64; E. Chaffeensis AB IGM <1:20
[2022-04-16 17:35] LABS: RMSF IGG NOT DETECTED; RMSF IGM NOT DETECTED
== END 2022-04-12 13:35 | disposition home or self-care (01) ==
LOC: ER 10:46 → MEDSURG 11:43
PROVIDERS: Admitting Provider Student in an Organized Health Care Education/Training Program; Emergency Provider Emergency Medicine; PCP Family Medicine; Visit Provider Student in an Organized Health Care Education/Training Program
DX: I31.9 Disease of pericardium, unspecified (principal); I42.8 Other cardiomyopathies; I13.0 Hypertensive heart and chronic kidney disease with heart failure and stage 1 through stage 4 chronic kidney disease, or unspecified chronic kidney disease; I50.22 Chronic systolic (congestive) heart failure; N18.9 Chronic kidney disease, unspecified; F10.10 Alcohol abuse, uncomplicated; Z86.19 Personal history of other infectious and parasitic diseases; F17.200 Nicotine dependence, unspecified, uncomplicated; F15.10 Other stimulant abuse, uncomplicated
CPT/HCPCS: 36415; 70450; 71045; 71275; 80053; 80306; 80307; 83690; 83880; 84443; 84484; 85025; 85378; 85610; 85651; 85730; 86140; 86160; 86162; 86235; 86255; 86376; 86480; 86618; 86666; 86757; 87040; 87486; 87522; 87581; 87633; 87635; 87806; 93005; 93308; 96372; 96374; 96375; 99285; G0378; J1650; J1885; J2270; J2405; Q9967

== ENCOUNTER 2023-03-02 | Emergency (ER) | payer MEDICARE, MEDICAID, SELFPAY ==
[2023-03-02 00:08] VITALS: BP 117/78; PULSE 106; RESP 16; TEMP 36.6; O2SAT 98
--- NOTE | 2023-03-02 00:16 | XRR_ITS ---
PROCEDURE INFORMATION: Exam: XR Lumbosacral Spine Exam date and time: 03/02/2023 1:24 AM Age: 43 years old Clinical indication: Low back pain and other: Down left leg; Prior surgery; Surgery date: 6+ months; Surgery type: To his neck; Patient HX: Patient has had low back pain for years ever since his neck surgery. Describes pain to left lower back that goes down leg; Additional info: Low back pain radiates down left leg, no trauma TECHNIQUE: Imaging protocol: Radiologic exam of the lumbosacral spine. Views: 2 or 3 views. COMPARISON: No relevant prior studies available. FINDINGS: Bones/joints: Normal. No acute fracture. Normal alignment. Soft tissues: Unremarkable. Vasculature: Atherosclerotic calcifications in the abdominal aorta. XR/XR lumbar spine 2-3V* [id number] IMPRESSION: No acute findings.
--- NOTE | 2023-03-02 00:50 | ED_ITS ---
HPI - Extremity Problem General: Chief complaint: Extremity Problem,Nontraumatic Stated complaint: back left side pain Time Seen by Provider: 03/02/23 00:16 History of Present Illness: Patient presents to the ER with left lower sided back pain that radiates down the left leg. Patient states this started about a month ago and is only gotten worse since then. Patient states he had the same thing approximately 1-1/2 to 2 years ago when he came in ER and was given a steroid shot and Toradol shot and it worked good. Patient denies any recent trauma or overuse. Patient said is just flared up and has gotten worse. Patient denies any fevers chills coughs colds nausea vomiting diarrhea urinary symptoms Review of Systems General: Reports: 10 or more systems reviewed and unremarkable except in HPI and below PFSH ED PFSH: Medical History Amphetamine abuse Nicotine dependence, cigarettes, with other nicotine-induced disorders Chronic hepatitis C Chronic neck pain Chronic lumbar pain Systolic and diastolic CHF w/reduced LV function, NYHA class 4 Acute exacerbation of CHF (congestive heart failure) Partner relationship problem Chronic kidney disease Benign essential hypertension with target blood pressure below 140/90 CHF (congestive heart failure) Cardiomegaly Hepatitis C antibody positive in blood Alcohol intoxication Dyspnea Suicidal ideation Surgical History No pertinent past surgical history Social History Smoking and tobacco/nicotine status: current every day tobacco/nicotine user Alcohol intake: current Alcohol intake frequency: few times a week Substance/Drug Use: former Physical Exam HENMT: COMMON NORMALS: normocephalic, atraumatic, hearing grossly normal bilaterally, external ears normal, EAC's normal, Normal external nose present, moist oral mucous membranes and oropharynx normal HEAD & SCALP: normocephalic and atraumatic NOSE: Normal external nose present EXTERNAL EAR: Yes external ears normal EXTERNAL AUDITORY CANAL: EAC's normal Neck/C-Spine: COMMON NORMALS: full ROM, no lymphadenopathy, supple, no meningeal signs, no JVD and Thyroid normal THYROID: Thyroid normal Chest: COMMONS NORMALS: normal inspection of the chest and normal palpation of entire chest wall Resp: COMMON NORMALS: normal respiratory effort, No retractions, No use of accessory muscles and clear to auscultation bilaterally AUSCULTATION: clear to auscultation bilaterally Cardio: COMMON NORMALS: no JVD, regular rate, regular rhythm, S1 normal heart sound present, S2 normal heart sound present, No gallops present (Cardio), No clicks present (Cardio), No murmurs present (Cardio) and No rub (Cardio) RATE: regular rate RHYTHM: regular rhythm HEART SOUNDS: S1 normal heart sound present and S2 normal heart sound present GI: COMMON NORMALS: Normal to inspection, nondistended, normoactive bowel sounds present, Soft to palpation, non-tender, No hepatosplenomegaly present and no masses PALPATION: Yes Soft to palpation and Yes No hepatosplenomegaly present Back/Pelvis: OTHER: Tender to palpation left lower lumbar paraspinal musculature. This reproduces the pain. No obvious crepitus deformity noted. Neuro: MENINGEAL SIGNS: Yes no meningeal signs Course Vital Signs: Vital signs: Vital Signs Temperature 97.8 F 03/02/23 00:08 Pulse Rate 106 H 03/02/23 00:08 Respiratory Rate 16 03/02/23 00:08 Blood Pressure 117/78 03/02/23 00:08 Pulse Oximetry 98 03/02/23 00:08 Oxygen Delivery Me thod Room Air 03/02/23 00:08 MDM - Extremity (Nontraumatic) Medical Decision Making Patient presents to the ER with worsening of his low back pain over the last month. Patient has left radiculopathy. Patient was given a shot of Toradol and Decadron this did not help his pain significantly. Patient was then given a dose of morphine and Norflex. Anticipate this will help. Patient be discharged on prednisone and Flexeril and should follow-up with his PCP for further evaluation and treatment. X-rays were read preliminarily as negative by myself anticipate radiology will agree. Differential Diagnosis Unlikely herpes zoster, gout, cellulitis, superficial thrombophlebitis, deep venous thrombosis of upper extremity, lower extremity edema or deep vein thrombosis of lower extremity Medical Records I reviewed the patient's medical records. Lab Data I reviewed the patient's lab results. All radiology interpretation(s) finalized by discharge Discharge Plan Discharge Patient Disposition: Home Clinical Impression: Lumbar back pain with radiculopathy affecting left lower extremity Condition: Stable Prescriptions: No Action pantoprazole 40 mg tablet,delayed release (DR/EC) See Rx Instructions .ROUTE .COMPLEX Qty: 60 0RF Dose Instruction: TAKE ONE TABLET BY MOUTH TWICE DAILY Rx Instructions: TAKE ONE TABLET BY MOUTH TWICE DAILY lisinopril 5 mg tablet See Rx Instructions .ROUTE .COMPLEX Qty: 30 0RF Dose Instruction: TAKE ONE TABLET BY MOUTH DAILY Rx Instructions: TAKE ONE TABLET BY MOUTH DAILY colchicine 0.6 mg tablet See Rx Instructions .ROUTE .COMPLEX Qty: 30 0RF Dose Instruction: TAKE ONE TABLET BY MOUTH DAILY Rx Instructions: TAKE ONE TABLET BY MOUTH DAILY metoprolol succinate 25 mg tablet extended release 24 hr See Rx Instructions .ROUTE .COMPLEX Qty: 30 0RF Dose Instruction: TAKE ONE-HALF TABLET BY MOUTH EVERY TWELVE HOURS Rx Instructions: TAKE ONE-HALF TABLET BY MOUTH EVERY TWELVE HOURS methocarbamol 750 mg tablet 750 mg PO Q6H PRN (Reason: spasms) Qty: 20 0RF atorvastatin 40 mg tablet 40 mg PO DAILY Qty: 90 2RF potassium chloride 10 mEq capsule, extended release 10 meq PO DAILY Qty: 90 2RF furosemide [Lasix] 20 mg tablet 20 mg PO DAILY Qty: 90 2RF Discharge Orders: Discharge ED (Routine); Ordered 03/02/23 Ordered By: Ac Huang Referrals: Jose Maria Plata DO [Primary Care Provider] - 1 week Patient Instructions: Opioid Safety, Pain Management, Lumbar Radiculopathy (ED) Activity Restrictions/Additional Instructions: Take all medicine as prescribed. Please follow-up with your family practice physician within next 7 to 10 days for further evaluation and treatment. Coding Level of Care Code ED Newspaper Inserter for Susanna Yoder
[2023-03-02] MEDS: dexamethasone 10 mg/mL INJ IM (01:08)
[2023-03-02] MEDS: ketorolac 60 mg/2 mL INJ IM (01:09)
[2023-03-02] MEDS: morphine 4 mg/mL SDV 1 mL IM (02:03)
[2023-03-02] MEDS: orphenadrine 30 mg/mL Inj 2 mL 60 MG IM (02:03)
[2023-03-02 02:24] VITALS: BP 117/78; PULSE 106; RESP 16; TEMP 36.6; O2SAT 98
== END 2023-03-02 02:28 | disposition home or self-care (01) ==
PROVIDERS: Emergency Provider Emergency Medicine; PCP Family Medicine
DX: M54.16 Radiculopathy, lumbar region (principal); M54.50 Low back pain, unspecified; Z72.0 Tobacco use; Z86.19 Personal history of other infectious and parasitic diseases; I13.0 Hypertensive heart and chronic kidney disease with heart failure and stage 1 through stage 4 chronic kidney disease, or unspecified chronic kidney disease; N18.9 Chronic kidney disease, unspecified; I50.9 Heart failure, unspecified
CPT/HCPCS: 72100; 96372; 99284; J1100; J1885; J2270; J2360

== ENCOUNTER 2023-06-23 01:03 | Emergency (ER) | payer MEDICARE, MEDICAID, SELFPAY ==
[2023-06-23] VITALS (7 sets, daily range): BP systolic 101–147; BP diastolic 78–106; PULSE 93–117; RESP 16–22; TEMP 36.7; O2SAT 91–100; BMI 20.2
--- NOTE | 2023-06-23 01:06 | ECG_ITS ---
[facility] Test Date: 2023-06-23 Pat Name: Edwin Cuevas Department: Room: Gender: Male [employer]: : 1980 Requested By: Chel Berry Order Number: [id number] Carlene MD: Emelyn Mcbride M.D. Measurements Intervals [place] Rate: 117 P: 76 [place]: 141 QRS: 16 QRSD: 98 T: 72 QT: 342 QTc: 477 Interpretive Statements SINUS TACHYCARDIA LEFT ATRIAL ENLARGEMENT [-0.15mV P-WAVE IN V1/V2] INDETERMINATE AXIS MODERATE T-WAVE ABNORMALITY, CONSIDER LATERAL ISCHEMIA [-0.1+ mV T-WAVE IN I/aVL/V5/V6] Compared to ECG 04/11/2022 15:31:59 Atrial abnormality now present Indeterminate axis now present Possible ischemia now present Sinus rhythm no longer present ST (T wave) deviation no longer present Early repolarization no longer present T-wave abnormality still present Electronically Signed On 06-23-2023 23:52:42 CDT by Emelyn Mcbride M.D. [email or web address]
--- NOTE | 2023-06-23 01:07 | XRR_ITS ---
PROCEDURE INFORMATION: Exam: XR Chest Exam date and time: 06/23/2023 1:26 AM Age: 43 years old Clinical indication: Shortness of breath; Additional info: SOB TECHNIQUE: Imaging protocol: Radiologic exam of the chest. Views: 1 view. COMPARISON: CT angio chest PE protcl [id number] 04/11/2022 2:02 PM FINDINGS: Lungs: No definite CHF/pulmonary edema. Mild right lower lung opacities may represent atelectasis, pneumonitis not excluded. Please correlate clinically. Visible lungs otherwise appear essentially clear. Pleural spaces: No visible pneumothorax. Moderate right pleural effusion, increased in the interval. Small left pleural effusion. Heart/Mediastinum: Moderate cardiomegaly, similar to the prior exam. Some of this appearance may be secondary to a pericardial effusion. Bones/joints: No significant acute finding. XR/XR chest 1V portable [id number] IMPRESSION: 1. Moderate right pleural effusion, increased in the interval. Small left pleural effusion. 2. Mild right lower lung opacities, see above discussion. 3. No definite CHF/pulmonary edema. 4. Moderate cardiomegaly, see above. 5. Other findings discussed above.
--- NOTE | 2023-06-23 01:13 | ED_ITS ---
HPI - Chest Pain 2 General: Chief Complaint: Chest Pain Stated Complaint: SOB\Feet Swelling Time Seen by Provider: 06/23/23 01:06 Source: patient Mode of arrival: ambulatory Limitations: no limitations History of Present Illness: 43-year-old male states that he has a hi story of heart failure he states he has been out of his meds for the last week to 2 weeks has not taken any of his Lasix states he had some increasing lower extremity along with some shortness of breath especially when laying flat pulse ox here is 96% on room air. He states he had some mild chest pains denies any cough or fever Associated symptoms: Reports dyspnea; Deny abdominal pain, fever(s), nausea or vomiting Review of Systems 2 Const: Denies: fever(s), chills, body aches or change in appetite ENMT: Denies: throat pain or dental pain Card: Reports: chest pain Resp: Reports: dyspnea GI: Denies: abdominal pain, nausea, vomiting or diarrhea : Denies: dysuria Musc: Reports: extremity swelling; Denies: neck pain or back pain Skin/Breast: Denies: rash Neuro: Denies: headache(s) PFSH ED 2 PFSH: Medical History Amphetamine abuse Nicotine dependence, cigarettes, with other nicotine-induced disorders Chronic hepatitis C Chronic neck pain Chronic lumbar pain Systolic and diastolic CHF w/reduced LV function, NYHA class 4 Acute exacerbation of CHF (congestive heart failure) Partner relationship problem Chronic kidney disease Benign essential hypertension with target blood pressure below 140/90 CHF (congestive heart failure) Cardiomegaly Hepatitis C antibody positive in blood Alcohol intoxication Dyspnea Suicidal ideation Surgical History No pertinent past surgical history Social History Smoking and tobacco/nicotine status: current every day tobacco/nicotine user Alcohol intake: current Alcohol intake frequency: few times a week Substance/Drug Use: former Physical Exam 2 Const: COMMON NORMALS: no acute distress, patient oriented x3 and healthy appearing HENMT: COMMON NORMALS: normocephalic and atraumatic HEAD & SCALP: n ormocephalic and atraumatic Neck/C-Spine: COMMON NORMALS: full ROM and supple Chest: COMMONS NORMALS: normal inspection of the chest and normal palpation of entire chest wall Resp: COMMON NORMALS: normal respiratory effort, No retractions, No use of accessory muscles and clear to auscultation bilaterally AUSCULTATION: clear to auscultation bilaterally Cardio: COMMON NORMALS: regular rhythm and No murmurs present (Cardio) R ATE: tachycardic RHYTHM: regular rhythm Extremity: COMMON NORMALS: full ROM NARRATIVE EXTREMITY EXAM: 2+ edema to le Neuro: COMMON NORMALS: patient oriented x3, moves all extremities and no focal motor deficits Psych: COMMON NORMALS: mental status grossly normal, Normal thought process present and cooperative THOUGHT PROCESS: Normal thought process present Skin: COMMON NORMALS: no rashes or lesions noted and no wounds GENERAL SKIN EXAM: no rashes or lesions noted Course 2 Vital Signs: Vital signs: Vital Signs Temperature 98.0 F 06/23/23 01:08 Pulse Rate 93 06/23/23 02:46 Respiratory Rate 19 H 06/23/23 02:46 Blood Pressure 101/78 06/23/23 02:46 Pulse Oximetry 93 06/23/23 02:46 Oxygen Delivery Me thod Room Air 06/23/23 02:46 MDM - Chest Pain Medical Decision Making Patient presents here with shortness of breath or lower extremity edema he does have congestive heart failure CT showed large right pleural fluid collection also with the possible pneumonia he had some borderline hypoxia here I strongly recommended admission he states that he is not able to be admitted he has animals he has to take care of I informed him that my recommendation that he be admitted with the effusion and the pneumonia. He has decision-making capacity as he understands the risks of signing out AGAINST MEDICAL ADVICE and did sign AGAINST MEDICAL ADVICE. I did refill his meds and will place him on antibiotics if he changes his mind he is to return. Medical Records I reviewed the patient's medical records. Lab Data I reviewed the patient's lab results. 06/23/23 01:21 06/23/23 01:21 Radiology Impressions Chest X-Ray 06/23/23 01:07 IMPRESSION: 1. Moderate right pleural effusion, increased in the interval. Small left pleural effusion. 2. Mild right lower lung opacities, see above discussion. 3. No definite CHF/pulmonary edema. 4. Moderate cardiomegaly, see above. 5. Other findings discussed above. Chest CTA 06/23/23 03:02 IMPRESSION: 1. Decreased size of small left pleural fluid collection. 2. Interval appearance of moderate to large right pleural fluid collection. 3. The left ventricle and aorta are not opacified, but previously there was moderate to large pericardial fluid collection which is probably still present, but not visualized. 4. 2.6 x 2.0 cm peripheral pleural-based wedge-shaped opacity in the lateral segment right middle lobe suggesting possible pulmonary infarct versus peripheral pneumonia/atelectasis. Mass is not excluded. Nonemergent CT chest with contrast may be helpful if the opacity persists. 5. Normal peripheral pulmonary arteries in the region of lateral segment right middle lobe lesion suggesting probable not pulmonary infarct. 6. No pulmonary embolus identified. Laboratory Results WBC 8.09 10^3/uL (3.29-11.43) 06/23/23 01:21 RBC 4.64 10^6/uL (3.85-5.65) 06/23/23 01:21 Hgb 14.60 g/dL (11.27-16.99) 06/23/23 01:21 Hct 44.0 % (37-53) 06/23/23 01:21 MCV 94.8 fl (82-101) 06/23/23 01:21 MCH 31.5 pg (27-33) 06/23/23 01:21 MCHC 33.2 g/dL (30-55) 06/23/23 01:21 RDW 13.7 % (12.1-15.1) 06/23/23 01:21 Plt Count 237 10^3/cmm (157-399) 06/23/23 01:21 MPV 10.3 fL (7.4-10.4) 06/23/23 01:21 Neut % (Auto) 65.7 % 06/23/23 01:21 Lymph % (Auto) 23.9 % 06/23/23 01:21 Morton % (Auto) 8.2 % 06/23/23 01:21 Eos % (Auto) 1.6 % 06/23/23 01:21 Baso % (Auto) 0.4 % 06/23/23 01:21 Neut # (Auto) 5.32 10^3/uL (1.8-7.7) 06/23/23 01:21 Lymph # (Auto) 1.9 10^3/uL (0.8-4.8) 06/23/23 01:21 Morton # (Auto) 0.7 10^3/uL (0.2-0.9) 06/23/23 01:21 Eos # (Auto) 0.1 10^3/uL (0.0-0.8) 06/23/23 01:21 Baso # (Auto) 0.0 10^3/uL (0.0-0.1) 06/23/23 01:21 Nucleated RBC % (auto) 0 % 06/23/23 01:21 Nucleated RBCs # 0.0 /100WBC 06/23/23 01:21 Sodium 136 mmol/L (136-145) 06/23/23 01:21 Potassium 4.0 mmol/L (3.5-5.1) 06/23/23 01:21 Chloride 99 mmol/L (98-107) 06/23/23 01:21 Carbon Dioxide 27 mmol/L (22-29) 06/23/23 01:21 Anion Gap 14.0 (5-19) 06/23/23 01:21 BUN 23 mg/dL (6-20) H 06/23/23 01:21 Creatinine 1.4 mg/dL (0.7-1.2) H 06/23/23 01:21 GFR Calculation 55.1 mL/min (90-130) L 06/23/23 01:21 Glucose 117 mg/dL (65-115) H 06/23/23 01:21 Calculated Osmolality 287 mOsm/kg (285-295) 06/23/23 01:21 Calcium 9.1 mg/dL (8.5-10.5) 06/23/23 01:21 Total Bilirubin 0.6 mg/dL (0.15-1.2) 06/23/23 01:21 AST 106 U/L (0-40) H 06/23/23 01:21 ALT 107 U/L (0-41) H 06/23/23 01:21 Alkaline Phosphatase 673 U/L (40-130) H 06/23/23 01:21 Troponin T Baseline 38 ng/L (0-15) H 06/23/23 01:21 Troponin T 120 Minute 39.11 ng/L (0-15) H 06/23/23 03:10 Delta Troponin T 1.11 ABS# (0-10) 06/23/23 03:10 NT-Pro-B Natriuret Pep 1955 pg/mL (0-125) H 06/23/23 01:21 Total Protein 5.9 g/dL (6.6-8.7) L 06/23/23 01:21 Albumin 3.2 g/dL (3.5-5.2) L 06/23/23 01:21 Globulin 2.7 g/dL (1.3-4.6) 06/23/23 01:21 Hepatitis A IgM Ab Non-reactive (Nonreactive) 06/23/23 03:10 Hep Bs Antigen Non-reactive (Nonreactive) 06/23/23 03:10 Hep B Core Total Ab Non-reactive (Nonreactive) 06/23/23 03:10 All radiology interpretation(s) finalized by discharge EKG Data EKG 1: I personally reviewed and interpreted this EKG as follows: EKG interpretation date: 06/23/23 EKG interpretation time: 01:11 Interpretation: sinus tach hr [address] elevation qrs 98 qtc 411 Discharge Plan Discharge Patient Disposition: Left Against Medical Advice Clinical Impression: Pleural effusion, Pneumonia, CHF (congestive heart failure) Condition: Stable Prescriptions: New doxycycline hyclate 100 mg tablet 100 mg PO BID 7 Days Qty: 14 0RF Continued atorvastatin 40 mg tablet 40 mg PO DAILY Qty: 90 2RF potassium chloride 10 mEq capsule, extended release 10 meq PO DAILY Qty: 90 2RF pantoprazole 40 mg tablet,delayed release (DR/EC) See Rx Instructions .ROUTE .COMPLEX Qty: 60 0RF Dose Instruction: TAKE ONE TABLET BY MOUTH TWICE DAILY Rx Instructions: TAKE ONE TABLET BY MOUTH TWICE DAILY lisinopril 5 mg tablet See Rx Instructions .ROUTE .COMPLEX Qty: 30 0RF Dose Instruction: TAKE ONE TABLET BY MOUTH DAILY Rx Instructions: TAKE ONE TABLET BY MOUTH DAILY furosemide 20 mg tablet 20 mg PO DAILY Qty: 90 2RF metoprolol succinate 25 mg tablet extended release 24 hr See Rx Instructions .ROUTE .COMPLEX Qty: 30 0RF Dose Instruction: TAKE ONE-HALF TABLET BY MOUTH EVERY TWELVE HOURS Rx Instructions: TAKE ONE-HALF TABLET BY MOUTH EVERY TWELVE HOURS No Action colchicine 0.6 mg tablet See Rx Instructions .ROUTE .COMPLEX Qty: 30 0RF Dose Instruction: TAKE ONE TABLET BY MOUTH DAILY Rx Instructions: TAKE ONE TABLET BY MOUTH DAILY prednisone 50 mg tablet 50 mg PO DAILY Qty: 5 0RF cyclobenzaprine 5 mg tablet 5 mg PO TID PRN (Reason: muscle spasm or low back pain) Qty: 14 0RF methocarbamol 750 mg tablet 750 mg PO Q6H PRN (Reason: spasms) Qty: 20 0RF Referrals: Jose Maria Plata DO [Primary Care Provider] - 4-7 days Discharge Diet: Advance as tolerated Discharge Activity: Resume usual activity Patient Instructions: Pleural Effusion (DC), Pneumonia (ED) Coding Level of Care Code ED Elevator Repairer Apprentice for Susanna Yoder
[2023-06-23] MEDS: FUROsemide 10 mg/mL SDV 4mL 40 MG IVP (01:19)
[2023-06-23 01:27] LABS: Basophils % 0.4 %; Eosinophils # 0.1 10^3/uL (0.0-0.8); Eosinophils % 1.6 %; Lymphocytes # 1.9 10^3/uL (0.8-4.8); Lymphocytes % 23.9 %; Mean Corpuscular HGB Conc 33.2 g/dL (30-55); Mean Corpuscular Hemoglobin 31.5 pg (27-33); Mean Corpuscular Volume 94.8 fl (82-101); Mean Platelet Volume 10.3 fL (7.4-10.4); Monocytes # 0.7 10^3/uL (0.2-0.9); Monocytes % 8.2 %; Neutrophils # 5.32 10^3/uL (1.8-7.7); Neutrophils % 65.7 %; Nucleated Red Blood Cells % 0 %; Platelet Count 237 10^3/cmm (157-399); Red Blood Count 4.64 10^6/uL (3.85-5.65); Red Cell Distribution Width 13.7 % (12.1-15.1); White Blood Count 8.09 10^3/uL (3.29-11.43)
[2023-06-23 01:46] LABS: Troponin(5th) Baseline 38 ng/L (0-15)
[2023-06-23 01:55] LABS: Alanine Aminotransferase 107 U/L (0-41); Albumin Level 3.2 g/dL (3.5-5.2); Alkaline Phosphatase 673 U/L (40-130); Blood Urea Nitrogen 23 mg/dL (6-20); Calcium 9.1 mg/dL (8.5-10.5); Carbon Dioxide 27 mmol/L (22-29); Chloride 99 mmol/L (98-107); Globulin 2.7 g/dL (1.3-4.6); Glomerular Filtration Rate 55.1 mL/min (90-130); Glucose 117 mg/dL (65-115); NT Pro B Type Natriuretic Pept 1955 pg/mL (0-125); Osmolality Calculated 287 mOsm/kg (285-295); Sodium 136 mmol/L (136-145); Total Bilirubin 0.6 mg/dL (0.15-1.2); Total Protein 5.9 g/dL (6.6-8.7)
[2023-06-23 01:57] LABS: Creatinine Clr Calc Pharmacy 68.0842
[2023-06-23 01:58] LABS: Aspartate Amino Transferase 106 U/L (0-40)
[2023-06-23] MEDS: labetalol 5 mg/mL SDV 20mL 10 MG IVP (02:19)
[2023-06-23 02:47] LABS: Hepatitis A Antibody IgM Non-Reactive (Nonreactive); Hepatitis B Core AB, Total Non-Reactive (Nonreactive)
--- NOTE | 2023-06-23 03:02 | CTR_ITS ---
PROCEDURE INFORMATION: Exam: CTA Chest With Contrast Exam date and time: 06/23/2023 3:21 AM Age: 43 years old Clinical indication: Shortness of breath; Additional info: SOB TECHNIQUE: Imaging protocol: Computed tomographic angiography of the chest with contrast. Exam focused on the arteries. 3D rendering (Not supervised by radiologist): MIP and/or 3D reconstructed images were created by the technologist. Radiation optimization: All CT scans at this facility use at least one of these dose optimization techniques: automated exposure control; mA and/or kV adjustment per patient size (includes targeted exams where dose is matched to clinical indication); or iterative reconstruction. Contrast material: OMNI 350; Contrast volume: 75 ml; Contrast route: INTRAVENOUS (IV); COMPARISON: CT angio chest PE protcl [id number] 04/11/2022 2:02 PM RADIATION DOSE METRICS: Total DLP (mGy-cm): 246 FINDINGS: Pulmonary arteries: Normal peripheral pulmonary arteries in the region of lateral segment right middle lobe lesion suggesting probable not pulmonary infarct. No pulmonary embolus identified. Aorta: See Heart finding. Lungs: 2.6 x 2.0 cm peripheral pleural-based wedge-shaped opacity in the lateral segment right middle lobe suggesting possible pulmonary infarct versus peripheral pneumonia/atelectasis. Pleural spaces: Decreased size of small left pleural fluid collection. Interval appearance of moderate to large right pleural fluid collection. Heart: The left ventricle and aorta are not opacified, but previously there was moderate to large pericardial fluid collection which is probably still present, but not visualized. Lymph nodes: Stable calcified bilateral hilar nodes and/or mediastinal nodes and/or lung granulomas consistent with old granulomatous disease. Bones/joints: Unremarkable. No acute fracture. Soft tissues: Unremarkable. CT/CT angio chest PE protcl [id number] IMPRESSION: 1. Decreased size of small left pleural fluid collection. 2. Interval appearance of moderate to large right pleural fluid collection. 3. The left ventricle and aorta are not opacified, but previously there was moderate to large pericardial fluid collection which is probably still present, but not visualized. 4. 2.6 x 2.0 cm peripheral pleural-based wedge-shaped opacity in the lateral segment right middle lobe suggesting possible pulmonary infarct versus peripheral pneumonia/atelectasis. Mass is not excluded. Nonemergent CT chest with contrast may be helpful if the opacity persists. 5. Normal peripheral pulmonary arteries in the region of lateral segment right middle lobe lesion suggesting probable not pulmonary infarct. 6. No pulmonary embolus identified.
[2023-06-23 03:07] LABS: Hepatitis B Surface Antigen Non-Reactive (Nonreactive)
--- NOTE | 2023-06-23 03:20 | ECG_ITS ---
[facility] Test Date: 2023-06-23 Pat Name: Edwin Cuevas Department: Room: Gender: Male Inside Wirer: : 1980 Requested By: Chel Berry Order Number: [id number] Carlene MD: Emelyn Mcbride M.D. Measurements Intervals [place] Rate: 91 P: 67 LA: 157 QRS: -19 QRSD: 106 T: -76 QT: 402 QTc: 495 Interpretive Statements SINUS RHYTHM LEFT ATRIAL ENLARGEMENT [-0.15mV P-WAVE IN V1/V2] MODERATE T-WAVE ABNORMALITY, CONSIDER LATERAL ISCHEMIA [-0.1+ mV T-WAVE IN I/aVL/V5/V6] MODERATE T-WAVE ABNORMALITY, CONSIDER INFERIOR ISCHEMIA [-0.1+ mV T-WAVE IN II/aVF] Compared to ECG 06/23/2023 01:11:57 Sinus tachycardia no longer present Indeterminate axis no longer present T-wave abnormality still present Possible ischemia still present Electronically Signed On 06-24-2023 0:21:31 CDT by Emelyn Mcbride M.D. [id number]
[2023-06-23] MEDS: iohexol 350 mg/mL 500 mL Btl (per mL) IV (03:29)
[2023-06-23 03:42] LABS: Troponin 5 2HR 39.11 ng/L (0-15); Troponin 5 2HR Delta 1.11 ABS# (0-10)
[2023-06-23] MEDS: doxycycline 100 mg Tablet PO (04:36)
[2023-06-23 04:43] LABS: Hepatitis C Virus Antibody Reactive (Nonreactive)
[2023-06-23 04:44] LABS: Hepatitis B Surface AB < 3.5 (11.5-1000)
[2023-06-25 15:39] LABS: HEP C RNA Viral Load Quant <1.18 NOT DETECTED Log IU/mL (NOT DETECTED); HEP C RNA Viral Load Quant <15 NOT DETECTED IU/mL (NOT DETECTED)
== END 2023-06-23 04:41 | disposition left against medical advice (07) ==
PROVIDERS: Emergency Provider Emergency Medicine; PCP Family Medicine
DX: J18.9 Pneumonia, unspecified organism (principal); I11.0 Hypertensive heart disease with heart failure; I50.9 Heart failure, unspecified; Z79.899 Other long term (current) drug therapy
CPT/HCPCS: 71045; 71275; 80053; 83880; 84484; 85025; 86705; 86706; 86709; 86803; 87340; 87522; 93005; 96374; 96375; 99285; J1940; J3490; Q9967

== ENCOUNTER 2024-02-08 22:39 | Emergency (ER) | payer MEDICARE, SELFPAY ==
[2024-02-08 22:49] VITALS: BP 111/74; PULSE 106; RESP 18; TEMP 36.8; O2SAT 96; BMI 20.9
--- NOTE | 2024-02-08 23:33 | W.ED.SKABFB ---
HPI - Skin/Abscess/Foreign Bdy General: Chief complaint: Skin/Abscess/Foreign Body Stated complaint: infected boil on hip Time Seen by Provider: 02/08/24 23:04 Source: patient Mode of arrival: ambulatory Limitations: no limitations History of Present Illness: Patient is a 43-year-old male who presents the emergency department with abscess to right buttock region that has been there for 4 days. Reporting significant pain, states it is not draining. Denying fever, nausea/vomiting, or other symptoms. Reporting severe 10/10 pain does not involve the gluteal cleft or perineal region. He is not diabetic. MD complaint: abscess/boil Onset (ago): day(s) Location: buttocks Severity: severe Quality: sharp Pain Consistency: constant Relieving factors: none Exacerbating factors: palpation Context: none Associated symptoms: Deny chills, fever(s), nausea or vomiting Treatments prior to arrival: none Related Data Previous Rx's Medication Instructions Recorded methocarbamol 750 mg tablet 750 mg PO Q6H PRN spasms #20 tabs 08/12/21 colchicine 0.6 mg tablet See Rx Instructions .Route 05/20/22 .COMPLEX #30 tabs cyclobenzaprine 5 mg tablet 5 mg PO TID PRN muscle spasm or 03/02/23 low back pain #14 tabs prednisone 50 mg tablet 50 mg PO DAILY #5 tabs 03/02/23 atorvastatin 40 mg tablet 40 mg PO DAILY #90 tabs 06/23/23 potassium chloride 10 mEq 10 meq PO DAILY #90 caps 06/23/23 capsule,extended release furosemide 20 mg tablet 20 mg PO DAILY #30 tabs 08/17/23 lisinopril 5 mg tablet See Rx Instructions .Route 08/17/23 .COMPLEX #30 tabs metoprolol succinate 25 mg See Rx Instructions .Route 08/22/23 tablet,extended release 24 hr .COMPLEX #30 tabs pantoprazole 40 mg tablet,delayed See Rx Instructions .Route 08/22/23 release .COMPLEX #60 tabs sulfamethoxazole 800 1 tab PO BID 10 days #20 tabs 02/09/24 mg-trimethoprim 160 mg tablet (Bactrim DS) Allergies Allergy/AdvReac Type Severity Reaction Status Date / Time No Known Allergies Allergy Verified 02/08/24 22:49 Review of Systems General: Reports: 10 or more systems reviewed and unremarkable except in HPI and below Const: Denies: fever(s) or chills Card: Denies: chest pain Resp: Denies: dyspnea GI: Denies: abdominal pain, nausea, vomiting or diarrhea Musc: Denies: extremity pain or joint pain Skin/Breast: Reports: erythema, skin pain, skin tenderness and new lesions; Denies: rash Neuro: Denies: headache(s) PFSH ED PFSH: Medical History Amphetamine abuse Nicotine dependence, cigarettes, with other nicotine-induced disorders Chronic hepatitis C Chronic neck pain Chronic lumbar pain Systolic and diastolic CHF w/reduced LV function, NYHA class 4 Acute exacerbation of CHF (congestive heart failure) Partner relationship problem Chronic kidney disease Benign essential hypertension with target blood pressure below 140/90 CHF (congestive heart failure) Cardiomegaly Hepatitis C antibody positive in blood Alcohol intoxication Dyspnea Suicidal ideation Surgical History No pertinent past surgical history Social History Smoking and tobacco/nicotine status: current every day tobacco/nicotine user Alcohol intake: current Alcohol intake frequency: few times a week Substance/Drug Use: former Physical Exam Const: COMMON NORMALS: patient oriented x3, no limitations, healthy appearing, alert and well nourished OTHER: Uncomfortable appearing secondary to pain HENMT: COMMON NORMALS: normocephalic and atraumatic HEAD & SCALP: normocephalic and atraumatic Neck/C-Spine: COMMON NORMALS: full ROM, no lymphadenopathy, supple and no meningeal signs Resp: COMMON NORMALS: normal respiratory effort, No use of accessory muscles and clear to auscultation bilaterally AUSCULTATION: clear to auscultation bilaterally Cardio: COMMON NORMALS: regular rate and regular rhythm RATE: regular rate RHYTHM: regular rhythm Extremity: COMMON NORMALS: full ROM and capillary refill normal Neuro: COMMON NORMALS: patient oriented x3 SENSORIUM/ORIENTATION: Yes alert MENINGEAL SIGNS: Yes no meningeal signs Skin: COMMON NORMALS: no wounds and turgor normal NARRATIVE SKIN EXAM: Very large erythematous, fluctuant abscess to right buttock region. Does not involve the gluteal cleft or perineal region. No active draining. Surrounding erythema and induration. GENERAL SKIN EXAM: turgor normal Procedures Abscess I/D Site: other (Buttocks) Side (if applicable): right Local Anesthetic: lidocaine 2% and with epi Amount of anesthesia used (mL): 8 Technique: incised with #11 blade Amount of fluid expressed (mL): 100 Irrigation: Yes Packing used?: iodoform Complications: pain Course Vital Signs: Vital signs: Vital Signs Temperature 98.3 F 02/08/24 22:49 Pulse Rate 106 H 02/08/24 22:49 Respiratory Rate 18 02/08/24 22:49 Blood Pressure 111/74 02/08/24 22:49 Pulse Oximetry 96 02/08/24 22:49 Oxygen Delivery Me thod Room Air 02/08/24 22:49 MDM - Skin/Abscess/Foreign Bdy Medicial Decision Making Patient presented with very large abscess to right buttock, did not involve the rectum or perineal region. I&D performed after local anesthesia, expressing upwards of 100 cc of purulent drainage. The abscess was flushed with normal saline, and 1/4 packing was used. Will dress appropriately started on Bactrim and wound is being cultured. Instructed him to return with any worsening signs of infection and follow-up with primary care/urgent care to have packing taken out within 48 hours. Patient agrees with this plan, discharged at this time. No radiology studies performed this visit Discharge Plan Discharge Patient Disposition: Home Clinical Impression: Abscess of buttock, right Condition: Stable Prescriptions: New sulfamethoxazole-trimethoprim [Bactrim DS] 800-160 mg tablet 1 tab PO BID 10 Days Qty: 20 0RF No Action colchicine 0.6 mg tablet See Rx Instructions .ROUTE .COMPLEX Qty: 30 0RF Dose Instruction: TAKE ONE TABLET BY MOUTH DAILY Rx Instructions: TAKE ONE TABLET BY MOUTH DAILY furosemide 20 mg tablet 20 mg PO DAILY Qty: 30 0RF lisinopril 5 mg tablet See Rx Instructions .ROUTE .COMPLEX Qty: 30 0RF Dose Instruction: TAKE ONE TABLET BY MOUTH DAILY Rx Instructions: TAKE ONE TABLET BY MOUTH DAILY metoprolol succinate 25 mg tablet extended release 24 hr See Rx Instructions .ROUTE .COMPLEX Qty: 30 0RF Dose Instruction: TAKE ONE-HALF TABLET BY MOUTH EVERY TWELVE HOURS Rx Instructions: TAKE ONE-HALF TABLET BY MOUTH EVERY TWELVE HOURS pantoprazole 40 mg tablet,delayed release (DR/EC) See Rx Instructions .ROUTE .COMPLEX Qty: 60 0RF Dose Instruction: TAKE ONE TABLET BY MOUTH TWICE DAILY Rx Instructions: TAKE ONE TABLET BY MOUTH TWICE DAILY prednisone 50 mg tablet 50 mg PO DAILY Qty: 5 0RF cyclobenzaprine 5 mg tablet 5 mg PO TID PRN (Reason: muscle spasm or low back pain) Qty: 14 0RF methocarbamol 750 mg tablet 750 mg PO Q6H PRN (Reason: spasms) Qty: 20 0RF atorvastatin 40 mg tablet 40 mg PO DAILY Qty: 90 2RF potassium chloride 10 mEq capsule, extended release 10 meq PO DAILY Qty: 90 2RF Discharge Orders: Discharge ED (Routine); Ordered 02/09/24 Ordered By: Nicholas Stephens Patient Instructions: Abscess (ED), Abscess Follow-up (ED) Activity Restrictions/Additional Instructions: Please see attached patient instructions for further education. Take your antibiotics as prescribed. Have your packing removed in the next 48 hours. Please do not keep packing longer than 3 days. Tylenol/ibuprofen for pain. Monitor for any worsening signs of infection and return if so. Otherwise follow-up as discussed. Your abscess has been cultured for sensitivity, pending at this time. Coding Level of Care Code ED Corporate Planning Manager for Susanna Yoder
[2024-02-09] MEDS: lidocaine-epi 2% 20 mL INJ INJECTION
[2024-02-09] MEDS: sulfamethoxazole-trimeth DS 160-800 mg Tablet 1 TAB PO
== END 2024-02-09 00:28 | disposition home or self-care (01) ==
PROVIDERS: Emergency Provider Physician Assistant
DX: L02.31 Cutaneous abscess of buttock (principal); Z72.0 Tobacco use; I13.0 Hypertensive heart and chronic kidney disease with heart failure and stage 1 through stage 4 chronic kidney disease, or unspecified chronic kidney disease; N18.9 Chronic kidney disease, unspecified; I50.30 Unspecified diastolic (congestive) heart failure
CPT/HCPCS: 10060; 87070; 99283

== ENCOUNTER 2024-04-15 22:31 | Emergency (ER) | payer OTHER, MEDICAID, SELFPAY ==
[2024-04-15 22:35] VITALS: BP 117/79; PULSE 126; RESP 22; TEMP 36.6; O2SAT 99; BMI 20.9
--- NOTE | 2024-04-15 22:40 | ECG_ITS ---
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1980 Requested By: Jim Leal Order Number: [id number] Carlene MD: LATOYA WEEKS Measurements Intervals [place] Rate: 130 P: 79 IA: 125 QRS: 108 QRSD: 97 T: 19 QT: 306 QTc: 450 Interpretive Statements SINUS TACHYCARDIA RIGHT AXIS DEVIATION [QRS AXIS > 100] MODERATE T-WAVE ABNORMALITY, CONSIDER LATERAL ISCHEMIA [-0.1+ mV T-WAVE IN I/aVL/V5/V6] Compared to ECG 06/23/2023 03:33:08 Right-axis deviation now present Sinus rhythm no longer present Atrial abnormality no longer present T-wave abnormality still present Possible ischemia still present Electronically Signed On 04-16-2024 22:14:31 CDT by LATOYA WEEKS [id number]
--- NOTE | 2024-04-15 23:19 | XRR_ITS ---
PROCEDURE INFORMATION: Exam: XR Chest Exam date and time: 04/15/2024 11:21 PM Age: 44 years old Clinical indication: Shortness of breath; C/O SOB. History of chf. TECHNIQUE: Imaging protocol: Radiologic exam of the chest. Views: 1 view. COMPARISON: CT angio chest PE protcl [id number] 06/23/2023 3:21 AM FINDINGS: Lungs: Suspected passive atelectasis bilaterally. Mild pulmonary vascular congestion. Pleural spaces: Mild right layering pleural effusion. Trace left pleural effusion. Heart/Mediastinum: Stable cardiomegaly. Bones/joints: Unremarkable. XR/XR chest 1V portable [id number] IMPRESSION: 1. Cardiomegaly with mild pulmonary vascular congestion. 2. Mild right and trace left pleural effusions likely associated with passive atelectasis.
--- NOTE | 2024-04-15 23:39 | W.ED.SOB ---
HPI - SOB/Dyspnea General: Chief Complaint: Shortness of Breath/Dyspnea Stated Complaint: SOB has CHF out of meds Time Seen by Provider: 04/15/24 23:17 History of Present Illness: HPI Narrative: 44-year-old male patient with a history of systolic CHF/cardiomyopathy. He states that he has been out of his medication for 2 months. He is having trouble breathing, especially at night. He has intermittent chest discomfort. Some cough, no sputum production. No fever. He says that his legs are swelling to some degree. He appears anxious on exam. Related Data Previous Rx's ?Medication ?Instructions ?Recorded methocarbamol 750 mg tablet 750 mg PO Q6H PRN spasms #20 tabs 08/12/21 colchicine 0.6 mg tablet See Rx Instructions .Route 05/20/22 .COMPLEX #30 tabs cyclobenzaprine 5 mg tablet 5 mg PO TID PRN muscle spasm or 03/02/23 low back pain #14 tabs prednisone 50 mg tablet 50 mg PO DAILY #5 tabs 03/02/23 atorvastatin 40 mg tablet 40 mg PO DAILY #90 tabs 04/16/24 furosemide 20 mg tablet 20 mg PO DAILY #90 tabs 04/16/24 lisinopril 5 mg tablet See Rx Instructions .Route 04/16/24 .COMPLEX #90 tabs metoprolol succinate 25 mg See Rx Instructions .Route 04/16/24 tablet,extended release 24 hr .COMPLEX #90 tabs pantoprazole 40 mg tablet,delayed See Rx Instructions .Route 04/16/24 release .COMPLEX #60 tabs potassium chloride 10 mEq 10 meq PO DAILY #90 caps 04/16/24 capsule,extended release Allergies Allergy/AdvReac Type Severity Reaction Status Date / Time No Known Allergies Allergy Verified 02/08/24 22:49 [facility] ED PFSH: Medical History Amphetamine abuse Nicotine dependence, cigarettes, with other nicotine-induced disorders Chronic hepatitis C Chronic neck pain Chronic lumbar pain Systolic and diastolic CHF w/reduced LV function, NYHA class 4 Acute exacerbation of CHF (congestive heart failure) Partner relationship problem Chronic kidney disease Benign essential hypertension with target blood pressure below 140/90 CHF (congestive heart failure) Cardiomegaly Hepatitis C antibody positive in blood Alcohol intoxication Dyspnea Suicidal ideation Surgical History No pertinent past surgical history Social History Smoking and tobacco/nicotine status: current every day tobacco/nicotine user Alcohol intake: current Alcohol intake frequency: few times a week Substance/Drug Use: former Course Vital Signs: Vital signs: Vital Signs Temperature 97.8 F 04/15/24 22:35 Pulse Rate 120 H 04/16/24 00:30 Respiratory Rate 16 04/16/24 00:30 Blood Pressure 134/111 04/16/24 00:30 Pulse Oximetry 99 04/16/24 00:30 Oxygen Delivery Me thod Room Air 04/16/24 00:30 MDM - SOB/Dyspnea Medical Decision Making Patient is somewhat anxious. He is little tachycardic. He is given his medications, including 40 mg of Lasix orally. Heart rate had come down. He is breathing room air. His creatinine is 1.7. Other laboratory in terms of CBC and BMP are not remarkable. He has mild pulmonary vascular congestion on chest x-ray. His BNP is elevated. He will be allowed discharge. His medications are filled. These include furosemide, lisinopril, metoprolol, potassium, and atorvastatin. Case management will be asked to make a follow-up appointment with a PCP for him. Lab Data 04/15/24 23:30 04/15/24 23:30 Labs/Radiology: Radiology Impressions Chest X-Ray 04/15/24 23:19 IMPRESSION: 1. Cardiomegaly with mild pulmonary vascular congestion. 2. Mild right and trace left pleural effusions likely associated with passive atelectasis. Laboratory Results WBC 7.21 10^3/uL (3.29-11.43) 04/15/24 23:30 RBC 4.73 10^6/uL (3.85-5.65) 04/15/24 23:30 Hgb 14.80 g/dL (11.27-16.99) 04/15/24 23:30 Hct 47.0 % (37-53) 04/15/24 23:30 MCV 99.4 fl (82-101) 04/15/24 23:30 MCH 31.3 pg (27-33) 04/15/24 23:30 MCHC 31.5 g/dL (30-55) 04/15/24 23: RDW 13.6 % (12.1-15.1) 04/15/24 23: Plt Count 180 10^3/cmm (157-399) 04/15/24 23: MPV 11.0 fL (7.4-10.4) H 04/15/24 23: Neut % (Auto) 58.5 % 04/15/24 23: Lymph % (Auto) 30.9 % 04/15/24 23: [place] % (Auto) 8.0 % 04/15/24 23: Eos % (Auto) 1.9 % 04/15/24 23: Baso % (Auto) 0.6 % 04/15/24: Neut # (Auto) 4.21 10^3/uL (1.8-7.7) 04/15/24: Lymph # (Auto) 2.2 10^3/uL (0.8-4.8) 04/15/24: [place] # (Auto) 0.6 10^3/uL (0.2-0.9) 04/15/24 23: Eos # (Auto) 0.1 10^3/uL (0.0-0.8) 04/15/24: Baso # (Auto) 0.0 10^3/uL (0.0-0.1) 04/15/24: Nucleated RBC % (auto) 0 % 04/15/24: Nucleated RBCs # 0.0 /100WBC 04/15/24 23: Sodium 136 mmol/L (136-145) 04/15/24 23: Potassium 4.1 mmol/L (3.5-5.1) 04/15/24: Chloride 100 mmol/L (98-107) 04/15/24: Carbon Dioxide 24 mmol/L (22-29) 04/15/24 23: Anion Gap 16.1 (5-19) 04/15/24 23:30 BUN 15 mg/dL (6-20) 04/15/24 23: Creatinine 1.7 mg/dL (0.7-1.2) H 04/15/24 23: GFR Calculation 43.8 mL/min (90-130) L 04/15/24 23:30 Glucose 76 mg/dL (65-115) 04/15/24 23:30 Calculated Osmolality 282 mOsm/kg (285-295) L 04/15/24 23:30 Lactic Acid 1.8 mmol/L (0.5-2.2) 04/15/24 23:30 Calcium 9.2 mg/dL (8.5-10.5) 04/15/24 23:30 Total Bilirubin 0.4 mg/dL (0.15-1.2) 04/15/24 23:30 AST 48 U/L (0-40) H 04/15/24 23:30 ALT 31 U/L (0-41) 04/15/24 23:30 Alkaline Phosphatase 244 U/L (40-130) H 04/15/24 23:30 NT-Pro-B Natriuret Pep 3476 pg/mL (0-125) H 04/15/24 23:30 Total Protein 6.6 g/dL (6.6-8.7) 04/15/24 23:30 Albumin 3.2 g/dL (3.5-5.2) L 04/15/24 23:30 Globulin 3.4 g/dL (1.3-4.6) 04/15/24 23:30 Influenza A (PCR) Negative (Negative) 04/15/24 23:26 Influenza Type B (PCR) Negative (Negative) 04/15/24 23:26 RSV (PCR) Negative (Negative) 04/15/24 23:26 SARS-CoV-2 (PCR) Negative (Negative) 04/15/24 23:26 All radiology interpretation(s) finalized by discharge Discharge Plan Discharge Patient Disposition: Home Clinical Impression: HFrEF (heart failure with reduced ejection fraction) Condition: Stable Prescriptions: Continued atorvastatin 40 mg tablet 40 mg PO DAILY Qty: 90 0RF potassium chloride 10 mEq capsule, extended release 10 meq PO DAILY Qty: 90 0RF pantoprazole 40 mg tablet,delayed release (DR/EC) See Rx Instructions .ROUTE .COMPLEX Qty: 60 0RF Dose Instruction: TAKE ONE TABLET BY MOUTH TWICE DAILY Rx Instructions: TAKE ONE TABLET BY MOUTH TWICE DAILY lisinopril 5 mg tablet See Rx Instructions .ROUTE .COMPLEX Qty: 90 0RF Dose Instruction: TAKE ONE TABLET BY MOUTH DAILY Rx Instructions: TAKE ONE TABLET BY MOUTH DAILY furosemide 20 mg tablet 20 mg PO DAILY Qty: 90 0RF metoprolol succinate 25 mg tablet extended release 24 hr See Rx Instructions .ROUTE .COMPLEX Qty: 90 0RF Dose Instruction: TAKE ONE-HALF TABLET BY MOUTH EVERY TWELVE HOURS Rx Instructions: TAKE ONE-HALF TABLET BY MOUTH EVERY TWELVE HOURS No Action colchicine 0.6 mg tablet See Rx Instructions .ROUTE .COMPLEX Qty: 30 0RF Dose Instruction: TAKE ONE TABLET BY MOUTH DAILY Rx Instructions: TAKE ONE TABLET BY MOUTH DAILY prednisone 50 mg tablet 50 mg PO DAILY Qty: 5 0RF cyclobenzaprine 5 mg tablet 5 mg PO TID PRN (Reason: muscle spasm or low back pain) Qty: 14 0RF methocarbamol 750 mg tablet 750 mg PO Q6H PRN (Reason: spasms) Qty: 20 0RF Discharge Orders: Discharge ED (Routine); Ordered 04/16/24 Ordered By: Jim Ferguson Patient Instructions: Heart Failure (ED), Opioid Safety, Pain Management Activity Restrictions/Additional Instructions: call your doctor this week for follow up. return for worsening symptoms despite treatment. Print Language: Maori Coding Level of Care Code ED Metal Spray Operator for Susanna Yoder
[2024-04-15 23:44] LABS: Basophils % 0.6 %; Eosinophils # 0.1 10^3/uL (0.0-0.8); Eosinophils % 1.9 %; Lymphocytes # 2.2 10^3/uL (0.8-4.8); Lymphocytes % 30.9 %; Mean Corpuscular HGB Conc 31.5 g/dL (30-55); Mean Corpuscular Hemoglobin 31.3 pg (27-33); Mean Corpuscular Volume 99.4 fl (82-101); Monocytes # 0.6 10^3/uL (0.2-0.9); Neutrophils # 4.21 10^3/uL (1.8-7.7); Neutrophils % 58.5 %; Nucleated Red Blood Cells % 0 %; Platelet Count 180 10^3/cmm (157-399); Red Blood Count 4.73 10^6/uL (3.85-5.65); Red Cell Distribution Width 13.6 % (12.1-15.1); White Blood Count 7.21 10^3/uL (3.29-11.43)
[2024-04-15 23:50] VITALS: BP 119/85; PULSE 128; RESP 16; O2SAT 96
[2024-04-15 23:59] LABS: Lactic Sepsis W/Reflex 1.8 mmol/L (0.5-2.2)
[2024-04-16 00:08] LABS: Alanine Aminotransferase 31 U/L (0-41); Albumin Level 3.2 g/dL (3.5-5.2); Alkaline Phosphatase 244 U/L (40-130); Anion Gap 16.1 (5-19); Aspartate Amino Transferase 48 U/L (0-40); Blood Urea Nitrogen 15 mg/dL (6-20); Calcium 9.2 mg/dL (8.5-10.5); Carbon Dioxide 24 mmol/L (22-29); Chloride 100 mmol/L (98-107); Creatinine Clr Calc Pharmacy 56.1894; Globulin 3.4 g/dL (1.3-4.6); Glomerular Filtration Rate 43.8 mL/min (90-130); Glucose 76 mg/dL (65-115); NT Pro B Type Natriuretic Pept 3476 pg/mL (0-125); Osmolality Calculated 282 mOsm/kg (285-295); Potassium 4.1 mmol/L (3.5-5.1); Sodium 136 mmol/L (136-145); Total Bilirubin 0.4 mg/dL (0.15-1.2); Total Protein 6.6 g/dL (6.6-8.7)
[2024-04-16] MEDS: lisinopril 5 mg Tablet PO (00:14)
[2024-04-16] MEDS: FUROsemide 40 mg Tablet PO (00:14)
[2024-04-16] MEDS: metoprolol tartrate 25 mg Tablet PO (00:14)
[2024-04-16] MEDS: potassium chloride ER 20 mEq Tablet PO (00:14)
[2024-04-16 00:23] LABS: Influenza A NEGATIVE (Negative); Influenza B NEGATIVE (Negative); Respiratory Syncytial Virus Ce NEGATIVE (Negative); SARS-CoV-2 PCR NEGATIVE (Negative)
[2024-04-16 00:30] VITALS: BP 134/111; PULSE 120; RESP 16; O2SAT 99
[2024-04-16] MEDS: morphine 4 mg/mL SDV 1 mL IM (01:10)
[2024-04-16] MEDS: ondansetron 4 MG Tablet PO (01:10)
== END 2024-04-16 01:29 | disposition home or self-care (01) ==
PROVIDERS: Emergency Provider Emergency Medicine
DX: I13.0 Hypertensive heart and chronic kidney disease with heart failure and stage 1 through stage 4 chronic kidney disease, or unspecified chronic kidney disease (principal); N18.9 Chronic kidney disease, unspecified; I50.20 Unspecified systolic (congestive) heart failure; Z11.52 Encounter for screening for COVID-19; Z72.0 Tobacco use
CPT/HCPCS: 36415; 71045; 80053; 83605; 83880; 85025; 87637; 93005; 96372; 99285; J2270; Q0162

== ENCOUNTER 2024-05-02 09:19 | Inpatient (IN) | payer OTHER, MEDICAID, SELFPAY ==
[2024-05-02] VITALS (10 sets, daily range): BP systolic 125–130; BP diastolic 86–98; PULSE 90–105; RESP 12–38; TEMP 36.6–36.8; O2SAT 94–100; BMI 20.9; BMI 21.9
--- NOTE | 2024-05-02 09:36 | XR_ITS ---
WS: [id number] Exam: XR chest 1V portable [id number] Date/Time of Exam: 05/02/2024 10:07 AM Reason For Exam: dyspnea/cough Comparison 04/15/2024. Increased RIGHT basal pleural effusion since the last exam. The heart is enlarged but unchanged in size. The lungs are clear. The mediastinum is normal in contour. Bony structures are intact. Hardware in the C-spine. XR/XR chest 1V portable [id number] IMPRESSION: 1. Increasing RIGHT basal pleural effusion since prior study. 2. Cardiac enlargement unchanged.
[2024-05-02 10:04] LABS: Basophils % 0.4 %; Eosinophils # 0.1 10^3/uL (0.0-0.8); Eosinophils % 1.5 %; Hematocrit 42.3 % (37-53); Lymphocytes # 1.5 10^3/uL (0.8-4.8); Lymphocytes % 18.5 %; Mean Corpuscular HGB Conc 31.7 g/dL (30-55); Mean Corpuscular Hemoglobin 30.5 pg (27-33); Mean Corpuscular Volume 96.4 fl (82-101); Mean Platelet Volume 10.8 fL (7.4-10.4); Monocytes # 0.7 10^3/uL (0.2-0.9); Monocytes % 8.9 %; Neutrophils # 5.68 10^3/uL (1.8-7.7); Neutrophils % 70.5 %; Nucleated Red Blood Cells % 0 %; Platelet Count 209 10^3/cmm (157-399); Red Blood Count 4.39 10^6/uL (3.85-5.65); Red Cell Distribution Width 14.6 % (12.1-15.1); White Blood Count 8.06 10^3/uL (3.29-11.43)
--- NOTE | 2024-05-02 10:08 | W.ED.GENADLT ---
HPI - General Adult General: Chief complaint: General Medical Stated complaint: retain fluids Time Seen by Provider: 05/02/24 09:29 History of Present Illness: 44-year-old male with a history of drug and alcohol induced cardiomyopathy presents emergency room complaining of shortness of breath. Worse with his lying down and worse with any activity. He has not been able to void very well. States he has been out of his medications for at least a month however he was seen [address] Ferguson gave him a 90-day supply of all of his cardiac medications. He is also very concerned about his chronic low back pain. He has noticed significant increase in fluid retention. He has an ejection fraction of 20 to 25% he has been prescribed a LifeVest in the past but he is not wearing it according to old notes he is not been wearing it regularly in the past either. Associated symptoms: Deny chest pain, dyspnea or rash Related Data Home Medications ?Medication ?Instructions ?Recorded ?Confirmed lisinopril 5 mg tablet 5 mg PO DAILY 05/02/24 05/02/24 metoprolol succinate 25 mg 12.5 mg PO Q12H 05/02/24 05/02/24 tablet,extended release 24 hr pantoprazole 40 mg tablet,delayed 40 mg PO BID 05/02/24 05/02/24 release Previous Rx's ?Medication ?Instructions ?Recorded atorvastatin 40 mg tablet 40 mg PO DAILY #90 tabs 04/16/24 furosemide 20 mg tablet 20 mg PO DAILY #90 tabs 04/16/24 potassium chloride 10 mEq 10 meq PO DAILY #90 caps 04/16/24 capsule,extended release Allergies Allergy/AdvReac Type Severity Reaction Status Date / Time No Known Allergies Allergy Verified 02/08/24 22:49 Review of Systems Const: Denies: fever(s) or chills Card: Reports: edema, swelling of feet/ankles, dyspnea on exertion and orthopnea; Denies: chest pain Resp: Denies: dyspnea GI: Denies: abdominal pain : Denies: dysuria, urinary frequency or urinary urgency Musc: Reports: back pain (Chronic); Denies: neck pain Skin/Breast: Denies: rash PFSH ED PFSH: Medical History Amphetamine abuse Nicotine dependence, cigarettes, with other nicotine-induced disorders Chronic hepatitis C Chronic neck pain Chronic lumbar pain Systolic and diastolic CHF w/reduced LV function, NYHA class 4 Acute exacerbation of CHF (congestive heart failure) Partner relationship problem Chronic kidney disease Benign essential hypertension with target blood pressure below 140/90 CHF (congestive heart failure) Cardiomegaly Hepatitis C antibody positive in blood Alcohol intoxication Dyspnea Suicidal ideation Surgical History No pertinent past surgical history Social History Smoking and tobacco/nicotine status: current every day tobacco/nicotine user Alcohol intake: current Alcohol intake frequency: few times a week Substance/Drug Use: former Physical Exam Const: GENERAL APPEARANCE: cooperative ORIENTATION/CONSCIOUSNESS: Yes awake, Yes oriented to person, Yes oriented to place and Yes oriented to time HENMT: COMMON NORMALS: normocephalic, atraumatic and hearing grossly normal bilaterally HEAD & SCALP: normocephalic and atraumatic Resp: COMMON NORMALS: normal respiratory effort, No retractions, No use of accessory muscles and clear to auscultation bilaterally AUSCULTATION: clear to auscultation bilaterally Cardio: COMMON NORMALS: regular rate, regular rhythm and No murmurs present (Cardio) RATE: regular rate RHYTHM: regular rhythm GI: COMMON NORMALS: Soft to palpation and No hepatosplenomegaly present AUSCULTATION: Yes normoactive bowel sounds PALPATION: Yes Soft to palpation, No Tenderness to palpation present (GI), No Guarding due to palpation present (GI) and Yes No hepatosplenomegaly present Extremity: COMMON NORMALS: normal to inspection, capillary refill normal, no clubbing, cyanosis or edema, no calf tenderness and no pedal edema Neuro: SENSORIUM/ORIENTATION: Yes oriented to person, Yes oriented to place and Yes oriented to time Skin: COMMON NORMALS: no rashes or lesions noted GENERAL SKIN EXAM: no rashes or lesions noted Course Vital Signs: Vital signs: Vital Signs Pulse Rate 95 05/02/24 15:53 Respiratory Rate 19 H 05/02/24 14:40 Blood Pressure 130/98 05/02/24 14:40 Pulse Oximetry 97 05/02/24 15:53 Oxygen Delivery Me thod Room Air 05/02/24 15:53 [facility] - General Adult Medical Decision Making He also complains of abdominal pain only for Jeovany he has urinary retention no hydronephrosis. Signs of fluid overload and abdominal wall in the pedal portal system on the CT. He is failing outpatient treatment at this time and has severe cardiomyopathy additionally he has acute kidney injury. Patient will need diuresis would best be accomplished as an inpatient or we can also make adjustments to his medication regimen to maximize his therapy. Patient was hesitant but ultimately agreed to admission. Discussed with hospitalist orders written Medical Records I reviewed the patient's medical records. Lab Data I reviewed the patient's lab results. 05/02/24 09:56 05/02/24 09:56 Radiology Impressions Chest X-Ray 05/02/24 09:36 IMPRESSION: 1. Increasing RIGHT basal pleural effusion since prior study. 2. Cardiac enlargement unchanged. Abdomen/Pelvis CT 05/02/24 10:18 IMPRESSION: 1. Moderate RIGHT pleural effusion. Trace LEFT pleural fluid. RIGHT basilar atelectasis. 2. Marked cardiomegaly. 3. Diffuse body wall anasarca with a small amount of abdominal and pelvic ascites. Trace perihepatic fluid. 4. Bai catheter. 5. Hepatomegaly. Laboratory Results WBC 8.06 10^3/uL (3.29-11.43) 05/02/24 09:56 RBC 4.39 10^6/uL (3.85-5.65) 05/02/24 09:56 Hgb 13.40 g/dL (11.27-16.99) 05/02/24 09:56 Hct 42.3 % (37-53) 05/02/24 09:56 MCV 96.4 fl (82-101) 05/02/24 09:56 MCH 30.5 pg (27-33) 05/02/24 09:56 MCHC 31.7 g/dL (30-55) 05/02/24 09:56 RDW 14.6 % (12.1-15.1) 05/02/24 09:56 Plt Count 209 10^3/cmm (157-399) 05/02/24 09:56 MPV 10.8 fL (7.4-10.4) H 05/02/24 09:56 Neut % (Auto) 70.5 % 05/02/24 09:56 Lymph % (Auto) 18.5 % 05/02/24 09:56 [place] % (Auto) 8.9 % 05/02/24 09:56 Eos % (Auto) 1.5 % 05/02/24 09:56 Baso % (Auto) 0.4 % 05/02/24 09:56 Neut # (Auto) 5.68 10^3/uL (1.8-7.7) 05/02/24 09:56 Lymph # (Auto) 1.5 10^3/uL (0.8-4.8) 05/02/24 09:56 [place] # (Auto) 0.7 10^3/uL (0.2-0.9) 05/02/24 09:56 Eos # (Auto) 0.1 10^3/uL (0.0-0.8) 05/02/24 09:56 Baso # (Auto) 0.0 10^3/uL (0.0-0.1) 05/02/24 09:56 Nucleated RBC % (auto) 0 % 05/02/24 09:56 Nucleated RBCs # 0.0 /100WBC 05/02/24 09:56 Sodium 137 mmol/L (136-145) 05/02/24 09:56 Potassium 4.8 mmol/L (3.5-5.1) 05/02/24 09:56 Chloride 101 mmol/L (98-107) 05/02/24 09:56 Carbon Dioxide 24 mmol/L (22-29) 05/02/24 09:56 Anion Gap 16.8 (5-19) 05/02/24 09:56 BUN 33 mg/dL (6-20) H 05/02/24 09:56 Creatinine 2.2 mg/dL (0.7-1.2) H 05/02/24 09:56 GFR Calculation 32.5 mL/min (90-130) L 05/02/24 09:56 Glucose 128 mg/dL (65-115) H 05/02/24 09:56 Calculated Osmolality 293 mOsm/kg (285-295) 05/02/24 09:56 Calcium 8.9 mg/dL (8.5-10.5) 05/02/24 09:56 Magnesium 2.1 mg/dL (1.7-2.3) 05/02/24 09:56 Total Bilirubin 0.6 mg/dL (0.15-1.2) 05/02/24 09:56 AST 58 U/L (0-40) H 05/02/24 09:56 ALT 65 U/L (0-41) H 05/02/24 09:56 Alkaline Phosphatase 519 U/L (40-130) H 05/02/24 09:56 NT-Pro-B Natriuret Pep 2328 pg/mL (0-125) H 05/02/24 09:56 Total Protein 7.0 g/dL (6.6-8.7) 05/02/24 09:56 Albumin 3.2 g/dL (3.5-5.2) L 05/02/24 09:56 Globulin 3.8 g/dL (1.3-4.6) 05/02/24 09:56 Urine Color Yellow (Yellow) 05/02/24 10:40 Urine Appearance Clear (CLEAR) 05/02/24 10:40 Urine pH 6.0 (5-7) 05/02/24 10:40 Ur Specific [place] 1.025 (1.005-1.030) 05/02/24 10:40 Urine Protein 2+ (Negative) A 05/02/24 10:40 Urine Glucose (UA) Negative (Normal) 05/02/24 10:40 Urine Ketones Trace (Negative) 05/02/24 10:40 Urine Blood Negative (Negative) 05/02/24 10:40 Urine Nitrate Negative (Negative) 05/02/24 10:40 Urine Bilirubin Negative (Negative) 05/02/24 10:40 Urine Urobilinogen 1.0 mg/dL (Negative) 05/02/24 10:40 Ur Leukocyte Esterase Negative (Negative) 05/02/24 10:40 Urine RBC 0-2 /hpf (0-2) 05/02/24 10:40 Urine WBC 0-5 /hpf (0-5) 05/02/24 10:40 Ur Squamous Epith Cells 0-5 /hpf (0-5) 05/02/24 10:40 Amorphous Sediment Not Reportable 05/02/24 10:40 Urine Bacteria None seen /hpf (NONE) 05/02/24 10:40 Hyaline Casts 2.87 /lpf 05/02/24 10:40 Ethyl Alcohol < 10 mg/dL (0-10) 05/02/24 09:56 All radiology interpretation(s) finalized by discharge Discharge Plan Discharge Patient Disposition: Admitted As Inpatient Admit Provider: Ash Garcia Clinical Impression: HFrEF (heart failure with reduced ejection fraction), Non-ischemic cardiomyopathy, Hx of substance abuse Condition: Stable Coding Level of Care Code ED Knitting Inspector for Susanna Yoder
--- NOTE | 2024-05-02 10:18 | CT_ITS ---
WS: [id number] CT ABDOMEN PELVIS TECHNIQUE: Noncontrast CT of the abdomen and pelvis with coronal and sagittal reformatted images. CLINICAL INFORMATION: Abdominal pain COMPARISON: None. DLP: 431.[address] scans at [facility] use at least one of these dose optimization techniques: automated exposure control; mA and/or kV adjustment per patient size (includes targeted exams where dose is matched to clinical indication); or iterative reconstruction. FINDINGS: Marked cardiomegaly. Moderate RIGHT pleural effusion. Trace LEFT pleural fluid. Diffuse body wall anasarca. Mild abdominal and pelvic ascites. Bai catheter. Mild hepatomegaly. Gallbladder is contracted. Splenic granulomas. Normal GE junction. Food products in the stomach. Noncontrast pancreas appears normal. Splenic artery calcifications. Normal caliber abdominal aorta. Aortic calcification. Adrenal glands are normal. No hydronephrosis in either kidney. Ti ny nonobstructing RIGHT calyceal tip calculus. Pelvic phleboliths. Normal sigmoid colon. Transverse colon constipation. Tiny fat-containing umbilical hernia. CT/CT abdomen pelvis wo con [id number] IMPRESSION: 1. Moderate RIGHT pleural effusion. Trace LEFT pleural fluid. RIGHT basilar at electasis. 2. Marked cardiomegaly. 3. Diffuse body wall anasarca with a small amount of abdominal and pelvic asci elliot. Trace perihepatic fluid. 4. Bai catheter. 5. Hepatomegaly.
--- NOTE | 2024-05-02 10:21 | ECG_ITS ---
[facility]: [facility]24[facility]02 Pat Name: Edwin Cuevas Department: Room: Gender: Male Quality Control Specialist: : 1980 Requested By: Luciano Lopez Order Number: [id number] Carlene MD: Emelyn Mcbride M.D. Measurements Intervals [place] Rate: 91 P: 97 TX: 156 QRS: 99 QRSD: 106 T: 4 QT: 382 QTc: 471 Interpretive Statements SINUS RHYTHM POSSIBLE LEFT ATRIAL ENLARGEMENT [-0.1mV P-WAVE IN V1/V2] BORDERLINE RIGHT AXIS DEVIATION [QRS AXIS > 90] Nonspecific ST-T changes Compared to ECG 04/15/2024 22:40:35 Sinus tachycardia no longer present T-wave abnormality no longer present Possible ischemia no longer present Electronically Signed On 05-02-2024 12:26:53 CDT by Emelyn Mcbride M.D. [email or web address]
[2024-05-02 10:23] LABS: Alanine Aminotransferase 65 U/L (0-41); Albumin Level 3.2 g/dL (3.5-5.2); Alkaline Phosphatase 519 U/L (40-130); Blood Urea Nitrogen 33 mg/dL (6-20); Calcium 8.9 mg/dL (8.5-10.5); Carbon Dioxide 24 mmol/L (22-29); Chloride 101 mmol/L (98-107); Globulin 3.8 g/dL (1.3-4.6); Glomerular Filtration Rate 32.5 mL/min (90-130); Glucose 128 mg/dL (65-115); Osmolality Calculated 293 mOsm/kg (285-295); Sodium 137 mmol/L (136-145); Total Bilirubin 0.6 mg/dL (0.15-1.2)
[2024-05-02 10:25] LABS: Anion Gap 16.8 (5-19); Aspartate Amino Transferase 58 U/L (0-40); Potassium 4.8 mmol/L (3.5-5.1)
[2024-05-02] MEDS: FUROsemide 10 mg/mL SDV 4mL 40 MG IVP ×2 (10:46→20:40)
[2024-05-02 10:52] LABS: Magnesium 2.1 mg/dL (1.7-2.3); NT Pro B Type Natriuretic Pept 2328 pg/mL (0-125)
[2024-05-02 11:00] LABS: Alcohol Level < 10 mg/dL (0-10)
[2024-05-02 11:45] LABS: Bilirubin Urine Negative (Negative); Blood Urine Negative (Negative); Glucose Urine UA Negative (Normal); Ketones Urine Trace (Negative); Leukocyte Esterase Urine Negative (Negative); Nitrate Urine Negative (Negative); Protein Urine 2+ (Negative); Specific Gravity, Urine 1.025 (1.005-1.030); Urine Appearance Clear (CLEAR); Urine Color Yellow (Yellow)
[2024-05-02 11:51] LABS: Add Urine Microscopic? YES; Bacteria Urine None Seen /hpf; Hyaline Casts Urine 2.87 /lpf; RBC Urine 0-2 /hpf (0-2); Squamous Epithelial Cell Urine 0-5 /hpf (0-5); WBC Urine 0-5 /hpf (0-5)
[2024-05-02 12:03] LABS: Add Urine Culture? No
--- NOTE | 2024-05-02 12:38 | PM.HP ---
Providers/Chief Complaint Chief Complaint: retain fluids History of Present Illness 44-year-old male with a past medical history significant for alcohol and methamphetamine abuse, hypertension, and nonischemic cardiomyopathy (with a last ejection fraction of 20-25% noted in 2022 during hospitalization for pericarditis) and medical noncompliance presents to the ER with shortness of breath. He reports trouble breathing, especially when lying flat, along with chest pain. The Patient was seen in the ER on 04/15/2024 with a similar complaint of shortness of breath, particularly at nighttime, and intermittent chest discomfort. At that time, he stated he had been out of his medications. He was prescribed atorvastatin 40 mg daily, lisinopril 5 mg daily, Lasix 20 mg daily, metoprolol 25 mg extended release daily, and potassium 10 mEq PO daily. Since 04/15/2024, the Patient reports he has been taking his medications. The Patient denies nausea, vomiting, fever, or chills but states he is feeling cold. He reports abdominal swelling, stating his belly is all swollen. He notes no urine output today. He reports having hemorrhoids and takes Preparation H for the pain. The Patient states his life vest was taken back seven months ago by the [employer]. The Patient admits to smoking one pack of cigarettes a day and drinking alcohol three times a day per week. He denies current drug use, stating his last use was close to a year and a half ago. He reports a history of eye surgery, knee surgery, and unspecified surgeries. Initial evaluation in the ER revealed: - Laboratory Findings: WBC 8.06, hemoglobin 13.4, hematocrit 42.3, platelets 209. Sodium 137, potassium 4.8, chloride 101, bicarbonate 24, BUN 33, creatinine 2.2 (up from 1.7 on 04/15/2024). Glucose 128. AST 58, ALT 65, alkaline phosphatase 519. ProBNP 2328. Urinalysis showed 2+ protein, otherwise negative. Alcohol level negative. - Imaging Studies: Chest x-ray showed increasing right basal pleural effusion and unchanged cardiac enlargement. CT abdomen/pelvis revealed moderate right-sided pleural effusion, trace left pleural effusion, marked cardiomegaly, diffuse body wall anasarca with small amounts of abdominal and pelvic ascites, trace perihepatic fluid, and hepatomegaly. The Patient was given one dose of Lasix 40 mg IV in the ER and states he feels better but remains symptomatic. Review of Systems General: Reports: 10 or more systems reviewed and unremarkable except in HPI and below Medications/Allergies Home Medications ?Medication ?Instructions ?Recorded ?Confirmed ?Last Taken ?Type atorvastatin 40 mg tablet 40 mg PO DAILY #90 tabs 04/16/24 05/02/24 05/01/24 Rx furosemide 20 mg tablet 20 mg PO DAILY #90 tabs 04/16/24 05/02/24 05/02/24 Rx potassium chloride 10 mEq 10 meq PO DAILY #90 caps 04/16/24 05/02/24 05/02/24 Rx capsule,extended release lisinopril 5 mg tablet 5 mg PO DAILY 05/02/24 05/02/24 05/02/24 History metoprolol succinate 25 mg 12.5 mg PO Q12H 05/02/24 05/02/24 05/02/24 History tablet,extended release 24 hr pantoprazole 40 mg tablet,delayed 40 mg PO BID 05/02/24 05/02/24 05/02/24 History release Allergies Allergy/AdvReac Type Severity Reaction Status Date / Time No Known Allergies Allergy Verified 02/08/24 22:49 PFSH Acute PFSH: Medical History Amphetamine abuse Nicotine dependence, cigarettes, with other nicotine-induced disorders Chronic hepatitis C Chronic neck pain Chronic lumbar pain Systolic and diastolic CHF w/reduced LV function, NYHA class 4 Acute exacerbation of CHF (congestive heart failure) Partner relationship problem Chronic kidney disease Benign essential hypertension with target blood pressure below 140/90 CHF (congestive heart failure) Cardiomegaly Hepatitis C antibody positive in blood Alcohol intoxication Dyspnea Suicidal ideation Surgical History No pertinent past surgical history Social History Smoking and tobacco/nicotine status: current every day tobacco/nicotine user Alcohol intake: current Alcohol intake frequency: few times a week Substance/Drug Use: former Vitals/I&O/Wt Last Vital Signs Pulse 95 05/02/24 09:42 Resp 20 H 05/02/24 09:42 BP 126/86 05/02/24 09:42 Pulse Ox 100 05/02/24 09:42 O2 Del Method Room Air 05/02/24 09:42 Weight last 48 hrs Weight 68.039 kg Physical Exam Narrative: General:No acute distress, AAOx3 HEENT: PERRLA, pupils bilaterally equal and reactive, pallors not present Chest: Normal vesicular breath sounds, no added sounds, equal good air entry bilaterally CVS: S1-S2 distant Abdomen: Soft, nontender, no organomegaly, bowel sounds present Neuro: No focal deficits, no facial deformity, AO x3, power 5/5 in all limbs Extremities: Cystic swelling present over right upper chest wall below the clavicle, patient states this has been present for years, currently unchanged Urinary Catheter Management: Bai: Cath Placed During This Visit: yes Urinary Catheter Date of Insertion: 05/02/24 Data 05/02/24 09:56 05/02/24 09:56 A&P Assessment and plan (1) HFrEF (heart failure with reduced ejection fraction): (2) Medical non-compliance: Plan Acute Decompensated Heart Failure - The Patient presents with worsening dyspnea, peripheral edema, and ascites, consistent with acute decompensation of known heart failure. - Last known ejection fraction 20-25% in 2022. - Moderate right-sided pleural effusion noted on imaging. Plan: 1. Continue IV diuresis with Lasix; monitor fluid balance and electrolytes. 2. Echocardiogram ordered to reassess ejection fraction and cardiac function. 3. Resume home cardiac medications with adjustment as needed. 4. Monitor urine output closely. 5. Consider cardiology consultation based on echocardiogram results. 6. Arrange follow-up with cardiology (Patient missed last two appointments with Dr. Rosy Aragon). Acute Kidney Injury - Creatinine elevated to 2.2 from 1.7 on 04/15/2024. Plan: 1. Nephrology consultation requested. 2. Renal dose medications as appropriate. 3. Hold CAYDEN inhibitor (lisinopril) for now. 4. Serial creatinine and electrolyte monitoring. Hypertension - Continue to monitor blood pressure with adjustment of medications as needed. Alcohol Use Disorder - The Patient reports drinking alcohol three times a day per week. Plan: 1. Assess for withdrawal symptoms. 2. Provide counseling on the risks of alcohol use, especially with heart failure. Tobacco Use Disorder - The Patient smokes one pack of cigarettes per day. Plan: 1. Provide smoking cessation counseling. 2. Offer nicotine replacement therapy if interested in quitting. Hemorrhoids - The Patient reports hemorrhoid pain. Plan: 1. Ordered Preparation H for symptomatic relief. Additional Plans: 1. Monitor liver function tests given elevated AST, ALT, and alkaline phosphatase. 2. Encourage medication compliance and follow-up with outpatient providers. 3. Discuss the importance of fluid and sodium restriction. PDMP PDMP Reviewed: Not Reviewed Attestations Medical Necessity Statement*: Anticipate > 2 midnight stay for IV dieresis Coding Level of Care Code Acute Code for Chg Fwd Diagnoses HFrEF (heart failure with reduced ejection fraction) I50.20 Medical non-compliance Z91.199
--- NOTE | 2024-05-02 12:48 | USCV_ITS ---
Edwin Cuevas Age: 44 Gender: M : 1980 Exam Date: 05/02/2024 15:10 Ordering Phys: Ash Garcia MD Technologist: Exam Location: [facility] – [place] Indication: cardiomyopathy BP: 132 / 74 HR: 95 Rhythm: Sinus Technical Quality: MEASUREMENTS (Male / Female) Normal Values 2D ECHO LV Diastolic Diameter PLAX 5.7 cm 4.2 - 5.9 / 3.9 - 5.3 cm IVS Diastolic Thickness 1.2 cm 0.6 - 1.0 / 0.6 - 0.9 cm IVS Systolic Thickness 1.7 cm LVPW Diastolic Thickness 1.2 cm 0.6 - 1.0 / 0.6 - 0.9 cm LVPW Systolic Thickness 1.4 cm LVOT Diameter 2.0 cm LV Ejection Fraction 2D Teich 10.8 % LV Ejection Fraction MOD 4C 15.1 % LV Ejection Fraction MOD 2C 11.9 % LV Ejection Fraction 2C AL 11.2 % LA Diameter 3.4 cm RA Systolic Volume 4C AL 80.6 ml RA Systolic Volume 4C MOD 77.1 ml LA Sys Volume AL 59.2 cm cubed LA Sys Volume Index AL 30.4 cm cubed/m squared Aorta at Sinotubular Diameter 2.7 cm IVC Diameter 2.4 cm M-MODE LA Ao Ratio MM 1.4 AV Cusp Separation MM 2.3 cm DOPPLER AV Peak Velocity 70.0 cm/s LVOT Peak Velocity 62.0 cm/s AV Area Cont Eq vti 2.3 cm squared AV Area Cont Eq pk 2.8 cm squared MV Peak Velocity 100.0 cm/s TV Peak Velocity 147.0 cm/s TR Peak Velocity 209.0 cm/s TR Peak Gradient 17.5 mmHg TV Peak E Velocity 153.0 cm/s PV Peak Velocity 63.0 cm/s FINDINGS Left Ventricle Severe diffuse hypokinesia left ventricular ejection fraction of 15%. Mildly dilated LV cavity. Right Ventricle Mildly dilated right ventricle with mild diffuse hypokinesiacatheter/pacemaker wire visualized in the right ventricle. Right Atrium Catheter/pacemaker wire in the right atrial cavity. Mildly increased right atrial size. Left Atrium Mildly increased left atrial size. Mitral Valve Mild mitral valve regurgitation. Aortic Valve Thickened aortic valve. Tricuspid Valve [id number] tricuspid valve regurgitation. Estimated pulmonary artery peak systolic pressure probably within normal limits Pulmonic Valve Pulmonic valve not well visualized. Pericardium No pericardial effusion. Aorta . Normal aortic annulus size. IVC Normal inferior vena cava. CONCLUSIONS Severe diffuse hypokinesia left ventricular ejection fraction of 15%. Mildly dilated LV cavity. Mildly dilated right ventricle with mild diffuse hypokinesia. Catheter/pacemaker wire visualized in the right ventricle. Catheter/pacemaker wire in the right atrial cavity. Mild biatrial enlargement Mild mitral valve regurgitation. Thickened aortic valve. [id number] tricuspid valve regurgitation. Estimated pulmonary artery peak systolic pressure probably within normal limits. There is no pericardial effusion. There are no intracardiac masses. Compared to the study from 04/11/2022, there is slight worsening of the LV systolic function. Dr Emelyn Mcbride MD [facility] (Electronically Signed) Final Date: 02 May 2024 17:00 S
--- NOTE | 2024-05-02 14:12 | PC.NURSE ---
admitted in to room 106 from er at 1400.pt is alert and oriented x4.sarah pain at preset.sr on monitor.oriented to room environment.instructed to notify staff for any sob,pain,or for any conerns at all.pt verb understanding of instructions
[2024-05-02] MEDS: heparin 5,000 unit/mL INJ 1 mL 5000 UNIT SUBCUT ×2 (14:22→20:40)
[2024-05-02] MEDS: phenyleph-mineral oil-petrolat Oint 28 gm 1 APPLIC PR (14:55)
[2024-05-02] MEDS: metoprolol succinate ER (24 HR) 25 mg Tablet 12.5 MG PO (20:39)
[2024-05-02] MEDS: acetaminophen 325 mg Tablet 650 MG PO (20:39)
[2024-05-02] MEDS: nicotine 14 mg Patch 1 PATCH TRANSDERMA (22:52)
[2024-05-02] MEDS: saline nasal spray 44mL Btl 1 SPRAY NASAL (22:55)
[2024-05-03] VITALS (8 sets, daily range): BP systolic 120–145; BP diastolic 95–101; PULSE 98–109; RESP 13–28; TEMP 36.6–37.1; O2SAT 90–99
[2024-05-03] MEDS: zolpidem 5 mg Tablet PO (03:05)
[2024-05-03 03:43] LABS: Basophils % 0.4 %; Eosinophils # 0.1 10^3/uL (0.0-0.8); Eosinophils % 0.8 %; Hematocrit 42.1 % (37-53); Lymphocytes % 24.5 %; Mean Corpuscular HGB Conc 31.8 g/dL (30-55); Mean Corpuscular Hemoglobin 30.6 pg (27-33); Mean Corpuscular Volume 96.1 fl (82-101); Mean Platelet Volume 10.1 fL (7.4-10.4); Monocytes # 0.8 10^3/uL (0.2-0.9); Neutrophils # 5.33 10^3/uL (1.8-7.7); Neutrophils % 64.2 %; Nucleated Red Blood Cells % 0 %; Platelet Count 207 10^3/cmm (157-399); Red Blood Count 4.38 10^6/uL (3.85-5.65); Red Cell Distribution Width 14.5 % (12.1-15.1); White Blood Count 8.31 10^3/uL (3.29-11.43)
[2024-05-03 04:05] LABS: Anion Gap 14.7 (5-19); Blood Urea Nitrogen 25 mg/dL (6-20); Carbon Dioxide 27 mmol/L (22-29); Chloride 99 mmol/L (98-107); Creatinine Clr Calc Pharmacy 53.9855; Glucose 90 mg/dL (65-115); Osmolality Calculated 288 mOsm/kg (285-295); Potassium 3.7 mmol/L (3.5-5.1); Sodium 137 mmol/L (136-145)
--- NOTE | 2024-05-03 04:52 | PC.NURSE ---
Patient took telemetry off multiple times through out shift. This nurse educated patient in the importance of the telemetry multiple times as I was hooking him back up to monitor.
[2024-05-03] MEDS: heparin 5,000 unit/mL INJ 1 mL 5000 UNIT SUBCUT ×3 (05:26→21:10)
[2024-05-03] MEDS: FUROsemide 10 mg/mL SDV 4mL 40 MG IVP ×2 (09:30→20:49)
[2024-05-03] MEDS: atorvastatin 40 mg Tablet PO (09:30)
[2024-05-03] MEDS: pantoprazole DR 40 mg Tablet PO ×2 (09:30→18:12)
[2024-05-03] MEDS: metoprolol succinate ER (24 HR) 25 mg Tablet 12.5 MG PO ×2 (09:30→20:49)
[2024-05-03] MEDS: nicotine 14 mg Patch 1 PATCH TRANSDERMA (09:32)
[2024-05-03 12:31] LABS: Amphetamines Screen Urine Positive (Negative); Barbiturates Screen Urine Negative (Negative); Benzodiazepines Screen Urine Negative (Negative); Cocaine Screen Urine Negative (Negative); Opiate Screen Urine Negative (Negative); PCP Screen Urine Negative (Negative); THC Screen Urine Positive (Negative)
--- NOTE | 2024-05-03 12:54 | P.PN_ITS ---
Subjective 2 Subjective: 44-year-old male with nonischemic cardio myopathy (EF 15%, down from 20-25% in 202), history of alcohol and methamphetamine abuse, hypertension, and medication noncompliance presenting with acute decompensated heart failure. Clinical features include orthopnea, chest discomfort, abdominal swelling, anasarca, and pleural effusions. Labs show acute kidney injury (Cr 2.2, improved to 1.8 with diuresis), elevated liver enzymes, and positive UDS for amphetamines and cannabis despite patient denial. He has responded to IV diuresis with 4.5L output since admission Medications: Reviewed: Yes Vitals/I&O/Wt Last Vital Signs Temp 97.8 F 05/03/24 07:43 Pulse 100 05/03/24 07:43 Resp 21 H 05/03/24 07:43 BP 145/95 05/03/24 07:43 Pulse Ox 96 05/03/24 07:43 O2 Del Method Room Air 05/03/24 07:43 05/02/24 05/03/24 05/03/24 22:59 06:59 14:59 Intake Total 120 / 120 540 / 540 Output Total 2400 / 2400 200 / 2600 1900 / 1900 Balance -2280 / -2280 -200 / -2480 -1360 / -1360 Weight last 48 hrs Weight 67.676 kg Weight 71.169 kg Weight 68.039 kg Physical Exam 2 Narrative: General:No acute distress, AAOx3 HEENT: PERRLA, pupils bilaterally equal and reactive, pallors not present Chest: Normal vesicular breath sounds, no added sounds, equal good air entry bilaterally CVS: S1-S2 distant Abdomen: Soft, nontender, no organomegaly, bowel sounds present Neuro: No focal deficits, no facial deformity, AO x3, power 5/5 in all limbs Extremities: Cystic swelling present over right upper chest wall below the clavicle, patient states this has been present for years, currently unchanged Urinary Catheter Management: Bai: Cath Placed During This Visit: yes Reason for Continuing Indwelling Catheter: Accurate Measurement of Urinary Output in Critically Ill Patients Urinary Catheter Date of Insertion: 05/02/24 Data 05/03/24 03:30 05/03/24 03:30 A&P Assessment and plan (1) HFrEF (heart failure with reduced ejection fraction): (2) Medical non-compliance: Plan Acute Decompensated Heart Failure Patient with severe nonischemic cardiomyopathy (EF now 15%, decreased from 20- 25% in 2022) presenting with volume overload. Significant improvement with IV diuresis (4500 mL output since admission). Cardiology consultation obtained. Plan: Continue IV furosemide 40 mg q12h with daily assessment of volume status. Monitor daily weights and strict I/O. Sodium and fluid restriction (2g Na+/day, 1.5L fluid/day). Gradually reinitiate GDMT when euvolemic: - Continue metoprolol (currently at 12.5 mg ER q12h) - Consider adding spironolactone 25 mg daily when renal function stabilizes - Will start on sacubitril/valsartan (previously on lisinopril Evaluate for ICD candidacy given EF 15%. Cardiology consulted today Acute Kidney Injury Creatinine improved from 2.2 to 1.8 with diuresis, suggesting cardiorenal syndrome. Plan: Continue to monitor renal function daily. Adjust medication doses based on renal function. Nephrology consultation as previously requested. Consider reduced ACEi dosing when restarted based on renal function.3 Substance Use Disorders UDS positive for amphetamines and cannabis despite patient denial. Alcohol use (three times daily per week) likely contributing to cardiomyopathy. Plan: Monitor for withdrawal symptoms Congestive Hepatoapathy Likely congestive hepatopathy from right heart failure, possibly compounded by alcohol use. Plan: Continue to monitor liver function tests. Optimize heart failure management to reduce congestion. Hypertension BP 145/95 mmHg despite medications. Plan: Continue meds as noted above Hemorrhoids Continue Preparation H as ordered. PDMP PDMP Reviewed: Not Reviewed Attestations 2 Medical Necessity Statement*: Anticipate > 2 midnight stay for IV dieresis Coding Level of Care Code Acute Code for Chg Fwd Diagnoses HFrEF (heart failure with reduced ejection fraction) I50.20 Medical non-compliance Z91.199
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
[2024-05-04] VITALS (8 sets, daily range): BP systolic 126–141; BP diastolic 89–102; PULSE 71–103; RESP 10–31; TEMP 36.4–37; O2SAT 92–98; BMI 20.2
[2024-05-04 04:34] LABS: Basophils # 0.1 10^3/uL (0.0-0.1); Basophils % 0.6 %; Eosinophils # 0.1 10^3/uL (0.0-0.8); Eosinophils % 1.6 %; Lymphocytes # 1.9 10^3/uL (0.8-4.8); Lymphocytes % 21.9 %; Mean Corpuscular HGB Conc 32.1 g/dL (30-55); Mean Corpuscular Hemoglobin 30.2 pg (27-33); Mean Corpuscular Volume 94.1 fl (82-101); Monocytes # 0.9 10^3/uL (0.2-0.9); Monocytes % 9.6 %; Neutrophils # 5.82 10^3/uL (1.8-7.7); Neutrophils % 66.1 %; Nucleated Red Blood Cells % 0 %; Platelet Count 219 10^3/cmm (157-399); Red Blood Count 4.57 10^6/uL (3.85-5.65); Red Cell Distribution Width 14.6 % (12.1-15.1); White Blood Count 8.81 10^3/uL (3.29-11.43)
[2024-05-04 04:53] LABS: Anion Gap 15.7 (5-19); Blood Urea Nitrogen 27 mg/dL (6-20); Calcium 8.9 mg/dL (8.5-10.5); Carbon Dioxide 27 mmol/L (22-29); Chloride 97 mmol/L (98-107); Glomerular Filtration Rate 43.8 mL/min (90-130); Glucose 104 mg/dL (65-115); Osmolality Calculated 287 mOsm/kg (285-295); Potassium 3.7 mmol/L (3.5-5.1); Sodium 136 mmol/L (136-145)
[2024-05-04] MEDS: heparin 5,000 unit/mL INJ 1 mL 5000 UNIT SUBCUT ×3 (05:53→21:50)
[2024-05-04] MEDS: FUROsemide 10 mg/mL SDV 4mL 40 MG IVP ×2 (08:17→21:49)
[2024-05-04] MEDS: atorvastatin 40 mg Tablet PO (08:24)
[2024-05-04] MEDS: metoprolol succinate ER (24 HR) 25 mg Tablet 12.5 MG PO ×2 (08:24→21:51)
[2024-05-04] MEDS: losartan 50 mg Tablet 25 MG PO (08:24)
[2024-05-04] MEDS: pantoprazole DR 40 mg Tablet PO ×2 (08:24→17:03)
[2024-05-04] MEDS: spironolactone 25 mg Tablet PO (08:25)
--- NOTE | 2024-05-04 09:31 | P.PN_ITS ---
<Statement entered by Joe Byrnes M.D - 05/05/24 09:02> Patient was evaluated and cared for in conjunction with an advanced practice practitioner.? I personally examined the patient and reviewed the chart and all pertinent data including imaging, telemetry, and laboratory results.? I discussed the patient in detail with the advanced practice practitioner.? Please see? their note for complete H&P, testing results and agreed upon plan of care for the patient. GENERAL: Patient is alert, awake and oriented x3. HEART: Regular S1 and S2 LUNGS: Diminished air entry CENTRAL NERVOUS SYSTEM: Grossly nonfocal. EXTREMITIES: Lower extremities with out edema bilaterally. Continue IV diuretics for today. Close I and Os. Monitor renal function Order lifevest. Thank you for involving us with care of this patient. Please call with questions Subjective 2 Subjective: He is sitting up in the chair this morning, breathing is much improved from yesterday. He still gets short of breath with exertion. Bai catheter in place, on Lasix 40 twice daily. Fluid balance -6 L cumulative for this admission. Creatinine 1.7 today, was 2.2 on admission. He appears euvolemic. Vitals/I&O/Wt Last Vital Signs Temp 98.6 F 05/04/24 08:08 Pulse 71 05/04/24 08:08 Resp 18 05/04/24 08:08 BP 140/97 05/04/24 08:24 Pulse Ox 96 05/04/24 08:08 O2 Del Method Room Air 05/04/24 04:00 05/03/24 05/04/24 05/04/24 22:59 06:59 14:59 Intake Total 480 / 1500 Output Total 1150 / 5050 1200 / 5050 Balance -670 / -3550 -1200 / -3550 Weight last 48 hrs Weight 145 lb 8 oz Weight 149 lb 3.2 oz Weight 156 lb 14.4 oz Weight 150 lb Physical Exam 2 Const: COMMON NORMALS: no acute distress and patient oriented x3 GENERAL APPEARANCE: cooperative and comfortable ORIENTATION/CONSCIOUSNESS: Yes awake, Yes oriented to person, Yes oriented to place and Yes oriented to time Chest: COMMONS NORMALS: normal inspection of the chest and normal palpation of entire chest wall CHEST: Yes Symmetrical chest wall rise Resp: COMMON NORMALS: normal respiratory effort, No retractions, No use of accessory muscles and clear to auscultation bilaterally EFFORT & INSPECTION: Yes symmetric chest movement AUSCULTATION: clear to auscultation bilaterally Cardio: COMMON NORMALS: regular rate, regular rhythm, S1 normal heart sound present, S2 normal heart sound present, No gallops present (Cardio), No clicks present (Cardio), No murmurs present (Cardio) and No rub (Cardio) RATE: r egular rate RHYTHM: regular rhythm HEART SOUNDS: S1 normal heart sound present and S2 normal heart sound present PERIPHERAL PULSES: radial pulses present Extremity: COMMON NORMALS: no pedal edema Neuro: COMMON NORMALS: patient oriented x3 and moves all extremities S ENSORIUM/ORIENTATION: Yes oriented to person, Yes oriented to place and Yes oriented to time Urinary Catheter Management: Bai: Cath Placed During This Visit: yes Reason for Continuing Indwelling Catheter: Accurate Measurement of Urinary Output in Critically Ill Patients Urinary Catheter Date of Insertion: 05/02/24 Data 05/04/24 04:01 05/04/24 04:01 A&P Assessment and plan (1) HFrEF (heart failure with reduced ejection fraction): (2) Non-ischemic cardiomyopathy: (3) Hypertension: (4) Amphetamine abuse: Plan He has diuresed well with Lasix. Will plan for LifeVest at discharge. Continue losartan, spironolactone, metoprolol succinate 12.5 twice daily can be switched to 25 mg daily for better compliance. PDMP PDMP Reviewed: Not Reviewed Attestations 2 Medical Necessity Statement*: GDMT for systolic heart failure, LifeVest Coding Level of Care Code Acute Code for [facility] Fwd Diagnoses HFrEF (heart failure with reduced ejection fraction) I50.20 Non-ischemic cardiomyopathy I42.8 Hypertension I10 Amphetamine abuse F15.10
--- NOTE | 2024-05-04 11:41 | P.PN_ITS ---
Subjective 2 Subjective: 44-year-old male with nonischemic cardio myopathy (EF 15%, down from 20-25% in 202), history of alcohol and methamphetamine abuse, hypertension, and medication noncompliance presenting with acute decompensated heart failure. Clinical features include orthopnea, chest discomfort, abdominal swelling, anasarca, and pleural effusions. Labs show acute kidney injury (Cr 2.2, improved to 1.7 with diuresis), elevated liver enzymes, and positive UDS for amphetamines and cannabis despite patient denial. Today noted to have improvement in abdominal ascietes.Noted to have over 5 L output. No respiratory distress. Patient did note that he had development of an abscess on his left outer thigh developing over week. No chest pain. No nausea vomiting. Did have Bai catheter which was removed today. Medications: Reviewed: Yes Vitals/I&O/Wt Last Vital Signs Temp 98.6 F 05/04/24 08:08 Pulse 71 05/04/24 08:08 Resp 18 05/04/24 08:08 BP 140/97 05/04/24 08:24 Pulse Ox 96 05/04/24 08:08 O2 Del Method Room Air 05/04/24 04:00 05/03/24 05/04/24 05/04/24 22:59 06:59 14:59 Intake Total 480 / 1500 Output Total 1150 / 3850 1200 / 5050 Balance -670 / -2350 -1200 / -3550 Weight last 48 hrs Weight 65.998 kg Weight 67.676 kg Weight 71.169 kg Physical Exam 2 Narrative: General:No acute distress, AAOx3 HEENT: PERRLA, pupils bilaterally equal and reactive, pallors not present Chest: Normal vesicular breath sounds, no added sounds, equal good air entry bilaterally CVS: S1-S2 distant Abdomen: Soft, nontender, no organomegaly, bowel sounds present Neuro: No focal deficits, no facial deformity, AO x3, power 5/5 in all limbs Skin: Left lateral thigh erythema, with area of fluid collection, no active drainage. Extremities: Cystic swelling present over right upper chest wall below the clavicle, patient states this has been present for years, currently unchanged Urinary Catheter Management: Bai: Cath Placed During This Visit: yes Reason for Continuing Indwelling Catheter: Accurate Measurement of Urinary Output in Critically Ill Patients Urinary Catheter Date of Insertion: 05/02/24 Data 05/04/24 04:01 05/04/24 04:01 A&P Assessment and plan (1) HFrEF (heart failure with reduced ejection fraction): (2) Medical non-compliance: Plan Acute Decompensated Heart Failure Patient with severe nonischemic cardiomyopathy (EF now 15%, decreased from 20- 25% in 2022) presenting with volume overload. Significant improvement with IV diuresis (4500 mL output since admission). Cardiology consultation obtained. Plan: Continue IV furosemide 40 mg q12h Monitor daily weights and strict I/O. Sodium and fluid restriction (2g Na+/day, 1.5L fluid/day). Gradually reinitiate GDMT when euvolemic: - Continue metoprolol (currently at 12.5 mg ER q12h) - - Spironolactone 25 mg daily and Losartan was added - Will start on sacubitril/valsartan once renal fucntion stablized Evaluate for ICD candidacy given EF 15%, Mj need LiFeVest at discharge Left Thigh abscess - Noted today on exam. Patient stated it has been increasing in size for the past week. Has had Possible abscesses in the past requiring I&D. Has not had any systemic signs of infection however. Has been afebrile. No leukocytosis noted on labs. Plan 1. Will start patient on oral antibiotic 2. He will likely require I&D however unfortunately no surgical services available this weekend. Acute Kidney Injury Creatinine improved from 2.2 to 1.8 with diuresis, suggesting cardiorenal syndrome. Plan: Continue to monitor renal function daily. Adjust medication doses based on renal function. Nephrology consultation as previously requested. Consider reduced ACEi dosing when restarted based on renal function.3 Substance Use Disorders UDS positive for amphetamines and cannabis despite patient denial. Alcohol use (three times daily per week) likely contributing to cardiomyopathy. Plan: Monitor for withdrawal symptoms Congestive Hepatoapathy Likely congestive hepatopathy from right heart failure, possibly compounded by alcohol use. I believe he does have a history of Hepatitic C as well that was treated? Plan: Continue to monitor liver function tests. Optimize heart failure management to reduce congestion. Hypertension Stable Plan: Continue meds as noted above Hemorrhoids Continue Preparation H PDMP PDMP Reviewed: Not Reviewed Attestations 2 Medical Necessity Statement*: GDMT for systolic heart failure, LifeVest Coding Level of Care Code Acute Code for [facility] Fwd Diagnoses HFrEF (heart failure with reduced ejection fraction) I50.20 Medical non-compliance Z91.199
--- NOTE | 2024-05-04 13:41 | PC.NURSE ---
Education on CHF Extensive discussion with the pt the importance of fluid restriction,low sodium diet,abstaining from smoking and substance abuse. Educated pt Self-care maintenance and management such as weighing himself everyday, low salt diet,checking for increased swelling and abdominal distention,taking his meds and following up with his doctors. pt stated he has trouble with financial. notified case mgt and said pt has a medicaid insurance. Pt is agreeable to have a life vest.
[2024-05-04] MEDS: doxycycline 100 mg Tablet PO (17:02)
[2024-05-05] VITALS: BP 130/87; PULSE 109; RESP 29; TEMP 36.7; O2SAT 98
[2024-05-05] MEDS: acetaminophen 325 mg Tablet 650 MG PO (01:58)
[2024-05-05 03:16] LABS: Basophils # 0.1 10^3/uL (0.0-0.1); Basophils % 0.5 %; Eosinophils # 0.1 10^3/uL (0.0-0.8); Eosinophils % 1.5 %; Hematocrit 44.1 % (37-53); Lymphocytes # 1.8 10^3/uL (0.8-4.8); Lymphocytes % 18.8 %; Mean Corpuscular HGB Conc 31.7 g/dL (30-55); Mean Corpuscular Hemoglobin 29.6 pg (27-33); Mean Corpuscular Volume 93.2 fl (82-101); Mean Platelet Volume 11.1 fL (7.4-10.4); Monocytes # 1.1 10^3/uL (0.2-0.9); Monocytes % 11.4 %; Neutrophils # 6.47 10^3/uL (1.8-7.7); Neutrophils % 67.5 %; Nucleated Red Blood Cells % 0 %; Platelet Count 281 10^3/cmm (157-399); Red Blood Count 4.73 10^6/uL (3.85-5.65); Red Cell Distribution Width 14.4 % (12.1-15.1); White Blood Count 9.58 10^3/uL (3.29-11.43)
[2024-05-05 03:39] LABS: Anion Gap 15.8 (5-19); Blood Urea Nitrogen 25 mg/dL (6-20); Calcium 9.2 mg/dL (8.5-10.5); Carbon Dioxide 28 mmol/L (22-29); Chloride 99 mmol/L (98-107); Glucose 106 mg/dL (65-115); Osmolality Calculated 293 mOsm/kg (285-295); Potassium 3.8 mmol/L (3.5-5.1); Sodium 139 mmol/L (136-145)
[2024-05-05 04:00] VITALS: BP 137/90; PULSE 105; RESP 19; TEMP 36.6; O2SAT 98
[2024-05-05] MEDS: heparin 5,000 unit/mL INJ 1 mL 5000 UNIT SUBCUT (04:58)
[2024-05-05 07:49] VITALS: BP 135/101; PULSE 98; RESP 14; TEMP 36.5; O2SAT 96
[2024-05-05 08:21] VITALS: BP 135/101
[2024-05-05] MEDS: spironolactone 25 mg Tablet PO (08:21)
[2024-05-05] MEDS: FUROsemide 10 mg/mL SDV 4mL 40 MG IVP (08:21)
[2024-05-05] MEDS: metoprolol succinate ER (24 HR) 25 mg Tablet 12.5 MG PO ×2 (08:21→10:51)
[2024-05-05] MEDS: pantoprazole DR 40 mg Tablet PO (08:21)
[2024-05-05] MEDS: losartan 50 mg Tablet 25 MG PO (08:21)
[2024-05-05] MEDS: atorvastatin 40 mg Tablet PO (08:22)
[2024-05-05] MEDS: doxycycline 100 mg Tablet PO (08:22)
--- NOTE | 2024-05-05 10:32 | P.PN_ITS ---
Subjective 2 Subjective: Patient is feeling better. Is in total 11 L negative balance. Blood pressure is controlled. Vitals/I&O/Wt Last Vital Signs Temp 97.7 F 05/05/24 07:49 Pulse 98 05/05/24 07:49 Resp 14 05/05/24 07:49 BP 135/101 05/05/24 08:21 Pulse Ox 96 05/05/24 07:49 O2 Del Method Room Air 05/05/24 07:49 05/04/24 05/05/24 05/05/24 22:59 06:59 14:59 Intake Total 810 / 1050 100 / 1150 480 / 480 Output Total 2450 / 3200 2975 / 6175 850 / 850 Balance -1640 / -2150 -2875 / -5025 -370 / -370 Weight last 48 hrs Weight 134 lb 8 oz Weight 145 lb 8 oz Physical Exam 2 Narrative: GENERAL: Patient is alert, awake and oriented x3. [] NECK: No jugular vein distension. [] HEENT: No cyanosis. No icterus. No pallor. [] HEART: Regular S1 and S2. No murmur, rub or gallop. [] LUNGS: Clear to auscultate bilaterally. [] CENTRAL NERVOUS SYSTEM: Grossly nonfocal. [] EXTREMITIES: Lower extremities with no edema bilaterally. Urinary Catheter Management: Bai: Cath Placed During This Visit: yes, but has since been removed by the nurse Reason for Continuing Indwelling Catheter: Accurate Measurement of Urinary Output in Critically Ill Patients Urinary Catheter Date of Insertion: 05/02/24 Date Urinary Catheter Removed: 05/04/24 Time Urinary Catheter Discontinued: 14:27 Data 05/05/24 02:48 05/05/24 02:48 A&P Assessment and plan (1) HFrEF (heart failure with reduced ejection fraction): (2) Non-ischemic cardiomyopathy: (3) Hypertension: Plan Patient has diuresed well and can switch to p.o. Lasix. Wants to go home today. On room air. Can be discharged home on current medications. Medicine compliance discussed. Lifevest is ordered. He does not want to wait for it and says that they can fit it at home. Thank you for involving us with care of this patient. Please call with questions. PDMP PDMP Reviewed: Not Reviewed Attestations 2 Medical Necessity Statement*: Care expected to cross 2 midnights. Coding Level of Care Code Acute Code for Chg Fwd Diagnoses HFrEF (heart failure with reduced ejection fraction) I50.20 Non-ischemic cardiomyopathy I42.8 Hypertension I10
--- NOTE | 2024-05-05 11:29 | PC.NURSE ---
Discharge meds called in to [place] pharmacy. Family instructed to cloth picker new Rx.
--- NOTE | 2024-05-05 11:45 | PC.NURSE ---
skin issues pt has a boil/cyst pop up last night. noted a 2 to 3 tiny pustules on lateral side of left foot. pt stated it itches. bottom of both feet are red. pt stated, My neice applied baby lotion at the bottom of my feet and started to get red. Dr Garcia notified on skin issues.
--- NOTE | 2024-05-05 12:49 | P.DS_ITS ---
Discharge Providers Date of Admission: 05/02/24 12:58 Date of Discharge: May 05, 2024 Attending Provider at Admission: Ash Garcia Attending Provider at Discharge: Ash Garcia Diagnoses at Discharge Discharge Diagnosis (1) HFrEF (heart failure with reduced ejection fraction): Status: Acute (2) Non-ischemic cardiomyopathy: Status: Acute (3) Hypertension: Status: Acute Reason for Visit Reason for Visit: retain fluids Hospital Course Hospital Course 44-year-old male with nonischemic cardiomyopathy (EF 15%, down from 20-25% in 2022), history of alcohol and methamphetamine abuse, hypertension, and medicat ion noncompliance presenting with acute decompensated heart failure. Clinical features include orthopnea, chest discomfort, abdominal swelling, anasarca, and pleural effusions. Labs show acute kidney injury (Cr 2.2, improved to 1.7 with dieresis), elevated liver enzymes, and positive UDS for amphetamines and cannabis despite patient denial. Today noted to have improvement in abdominal ascietes. Noted to have over 5 L output. No respiratory distress. Patient did note that he had development of an abscess on his left outer thigh developing over week. He did not have any systemic signs of infection. Was started on doxycycline. This spontaneously opened and drained purulent fluid. No available to send for culture. He was continued on doxycycline at discharge. To follow up with surgery. No chest pain. No nausea vomiting. Did have Bai catheter which was removed, after which he was able to void. LiveVest was arranged at discharge with close outpatient follow up with cardiology Acute Decompensated Heart Failure Patient with severe nonischemic cardiomyopathy (EF now 15%, decreased from 20- 25% in 2022) presenting with volume overload. Significant improvement with IV diuresis (4500 mL output since admission). Cardiology consultation obtained. Plan: Patient was diuresed with Lasix 40 mg IV twice daily. Significant improvement in overall volume status during hospitalization. Cardiology was consulted.He was gradually reinitiate on GDMT. At the time of discharge his Lasix to 40 mg oral twice daily. He was also prescribed Aldactone 25 mg daily, metoprolol succinate 25 mg twice daily and Cozaar oral daily. Left Thigh abscess - Noted today on exam. Patient stated it has been increasing in size for the past week. Has had Possible abscesses in the past requiring I&D. Has not had any systemic signs of infection however. Has been afebrile. No leukocytosis noted on labs. Plan 1. Patient started on doxycycline 100 mg twice a day 2. Abscess did spontaneously rupture with purulent discharge was noted. Unfortunately we do not have surgery on this weekend. Discussed with patient regarding surgical follow-up. Information was provided on discharge. Additional 6 days of doxycycline was prescribed. Acute Kidney Injury Creatinine improved from 2.2 to 1.6 with diuresis, suggesting cardiorenal syndrome. Plan: Outpaitient follow up with pcp and cardiology Possible referral to nephrology Substance Use Disorders UDS positive for amphetamines and cannabis despite patient denial. Alcohol use (three times daily per week) likely contributing to cardiomyopathy. Plan: No withdrawal symptoms at discharge. Congestive Hepatoapathy Likely congestive hepatopathy from right heart failure, possibly compounded by alcohol use. I believe he does have a history of Hepatitic C as well that was treated? Hypertension Stable Hemorrhoids Continue Preparation H Physical Exam Narrative: GENERAL: Patient is alert, awake and oriented x3. [] NECK: No jugular vein distension. [] HEENT: No cyanosis. No icterus. No pallor. [] HEART: Regular S1 and S2. No murmur, rub or gallop. [] LUNGS: Clear to auscultate bilaterally. [] CENTRAL NERVOUS SYSTEM: Grossly nonfocal. [] EXTREMITIES: Lower extremities with no edema bilaterally. Urinary Catheter Management: Bai: Cath Placed During This Visit: yes, but has since been removed by the nurse Reason for Continuing Indwelling Catheter: Accurate Measurement of Urinary Output in Critically Ill Patients Urinary Catheter Date of Insertion: 05/02/24 Date Urinary Catheter Removed: 05/04/24 Time Urinary Catheter Discontinued: 14:27 Discharge Data Studies Completed and Pending Completed Studies During Hospitalization Category Date Time Status CT abdomen pelvis wo con [id number] Stat Cat Scan 05/02/24 10:18 Completed XR chest 1V portable [id number] Stat Exams 05/02/24 09:36 Completed CV. echo complete* [id number] Stat Ultrasound 05/02/24 12:48 Completed Radiology Impressions Chest X-Ray 05/02/24 09:36 IMPRESSION: 1. Increasing RIGHT basal pleural effusion since prior study. 2. Cardiac enlargement unchanged. Abdomen/Pelvis CT 05/02/24 10:18 IMPRESSION: 1. Moderate RIGHT pleural effusion. Trace LEFT pleural fluid. RIGHT basilar atelectasis. 2. Marked cardiomegaly. 3. Diffuse body wall anasarca with a small amount of abdominal and pelvic ascites. Trace perihepatic fluid. 4. Bai catheter. 5. Hepatomegaly. Laboratory Results WBC 9.58 10^3/uL (3.29-11.43) 05/05/24 02:48 RBC 4.73 10^6/uL (3.85-5.65) 05/05/24 02:48 Hgb 14.00 g/dL (11.27-16.99) 05/05/24 02:48 Hct 44.1 % (37-53) 05/05/24 02:48 MCV 93.2 fl (82-101) 05/05/24 02:48 MCH 29.6 pg (27-33) 05/05/24 02:48 MCHC 31.7 g/dL (30-55) 05/05/24 02:48 RDW 14.4 % (12.1-15.1) 05/05/24 02:48 Plt Count 281 10^3/cmm (157-399) 05/05/24 02:48 MPV 11.1 fL (7.4-10.4) H 05/05/24 02:48 Neut % (Auto) 67.5 % 05/05/24 02:48 Lymph % (Auto) 18.8 % 05/05/24 02:48 Larue % (Auto) 11.4 % 05/05/24 02:48 Eos % (Auto) 1.5 % 05/05/24 02:48 Baso % (Auto) 0.5 % 05/05/24 02:48 Neut # (Auto) 6.47 10^3/uL (1.8-7.7) 05/05/24 02:48 Lymph # (Auto) 1.8 10^3/uL (0.8-4.8) 05/05/24 02:48 Larue # (Auto) 1.1 10^3/uL (0.2-0.9) H 05/05/24 02:48 Eos # (Auto) 0.1 10^3/uL (0.0-0.8) 05/05/24 02:48 Baso # (Auto) 0.1 10^3/uL (0.0-0.1) 05/05/24 02:48 Nucleated RBC % (auto) 0 % 05/05/24 02:48 Nucleated RBCs # 0.0 /100WBC 05/05/24 02:48 Sodium 139 mmol/L (136-145) 05/05/24 02:48 Potassium 3.8 mmol/L (3.5-5.1) 05/05/24 02:48 Chloride 99 mmol/L (98-107) 05/05/24 02:48 Carbon Dioxide 28 mmol/L (22-29) 05/05/24 02:48 Anion Gap 15.8 (5-19) 05/05/24 02:48 BUN 25 mg/dL (6-20) H 05/05/24 02:48 Creatinine 1.6 mg/dL (0.7-1.2) H 05/05/24 02:48 GFR Calculation 47.0 mL/min (90-130) L 05/05/24 02:48 Glucose 106 mg/dL (65-115) 05/05/24 02:48 Calculated Osmolality 293 mOsm/kg (285-295) 05/05/24 02:48 Calcium 9.2 mg/dL (8.5-10.5) 05/05/24 02:48 Magnesium 2.1 mg/dL (1.7-2.3) 05/02/24 09:56 Total Bilirubin 0.6 mg/dL (0.15-1.2) 05/02/24 09:56 AST 58 U/L (0-40) H 05/02/24 09:56 ALT 65 U/L (0-41) H 05/02/24 09:56 Alkaline Phosphatase 519 U/L (40-130) H 05/02/24 09:56 NT-Pro-B Natriuret Pep 2328 pg/mL (0-125) H 05/02/24 09:56 Total Protein 7.0 g/dL (6.6-8.7) 05/02/24 09:56 Albumin 3.2 g/dL (3.5-5.2) L 05/02/24 09:56 Globulin 3.8 g/dL (1.3-4.6) 05/02/24 09:56 Urine Color Yellow (Yellow) 05/02/24 10:40 Urine Appearance Clear (CLEAR) 05/02/24 10:40 Urine pH 6.0 (5-7) 05/02/24 10:40 Ur Specific [place] 1.025 (1.005-1.030) 05/02/24 10:40 Urine Protein 2+ (Negative) A 05/02/24 10:40 Urine Glucose (UA) Negative (Normal) 05/02/24 10:40 Urine Ketones Trace (Negative) 05/02/24 10:40 Urine Blood Negative (Negative) 05/02/24 10:40 Urine Nitrate Negative (Negative) 05/02/24 10:40 Urine Bilirubin Negative (Negative) 05/02/24 10:40 Urine Urobilinogen 1.0 mg/dL (Negative) 05/02/24 10:40 Ur Leukocyte Esterase Negative (Negative) 05/02/24 10:40 Urine RBC 0-2 /hpf (0-2) 05/02/24 10:40 Urine WBC 0-5 /hpf (0-5) 05/02/24 10:40 Ur Squamous Epith Cells 0-5 /hpf (0-5) 05/02/24 10:40 Amorphous Sediment Not Reportable 05/02/24 10:40 Urine Bacteria None seen /hpf (NONE) 05/02/24 10:40 Hyaline Casts 2.87 /lpf 05/02/24 10:40 Urine Opiates Screen Negative ng/mL (Negative) 05/02/24 10:40 Ur Barbiturates Screen Negative ng/mL (Negative) 05/02/24 10:40 Ur Phencyclidine Scrn Negative ng/mL (Negative) 05/02/24 10:40 Ur Amphetamines Screen Positive ng/mL (Negative) H 05/02/24 10:40 U Benzodiazepines Scrn Negative ng/mL (Negative) 05/02/24 10:40 Urine Cocaine Screen Negative ng/mL (Negative) 05/02/24 10:40 U Marijuana (THC) Screen Positive ng/mL (Negative) H 05/02/24 10:40 Ethyl Alcohol < 10 mg/dL (0-10) 05/02/24 09:56 Vitals Last Vital Signs Temp 97.7 F 05/05/24 07:49 Pulse 98 05/05/24 07:49 Resp 14 05/05/24 07:49 BP 135/101 05/05/24 08:21 Pulse Ox 96 05/05/24 07:49 O2 Del Method Room Air 05/05/24 07:49 Discharge Plan Discharge Patient Disposition: Home Condition: Stable Prescriptions: New spironolactone 25 mg Tablet 25 mg PO DAILY 30 Days Qty: 30 0RF losartan 50 mg Tablet 50 mg PO DAILY 30 Days Qty: 30 0RF metoprolol succinate 25 mg Tablet Extended Release 24 Hr 25 mg PO Q12H 30 Days Qty: 60 0RF furosemide [Lasix] 40 mg tablet 40 mg PO BID 30 Days Qty: 60 0RF doxycycline monohydrate 100 mg Tablet 100 mg PO BID 6 Days Qty: 12 0RF Continued pantoprazole 40 mg tablet,delayed release (DR/EC) 40 mg PO BID atorvastatin 40 mg tablet 40 mg PO DAILY Qty: 90 0RF potassium chloride 10 mEq capsule, extended release 10 meq PO DAILY Qty: 30 0RF Discontinued furosemide 20 mg tablet 20 mg PO DAILY Qty: 90 0RF lisinopril 5 mg tablet 5 mg PO DAILY metoprolol succinate 25 mg tablet extended release 24 hr 12.5 mg PO Q12H Discharge Orders: Discharge Order (Routine); Ordered 05/05/24 Ordered By: Ash Garcia Referrals: Judson Gamino MD [Physician] - 1 week (Patient will need to call Tuesday and make an appointment ) Emelyn Mcbride MD [Physician] - 2 weeks (We have notified your physician's clinic of the need for a follow-up appointment to be scheduled. If you have not heard from them within the next 2 business days, please call them directly. ) Discharge Diet: Cardiac Discharge Activity: Increase activity as tolerated Patient Instructions: Alcohol Abuse, Metoprolol (By mouth), Spironolactone (By mouth), Furosemide (By mouth), Doxycycline (By mouth), Losartan (By mouth), Acute Kidney Injury (DC), Chronic Kidney Disease (DC), Opioid Safety Discharge Attestations 2 Time Spent in Discharge Care*: greater than 30 min Status at Discharge: Cognitive status at discharge: cognitively intact , Behavioral status at discharge: cooperative , Functional status at discharge: independent ambulation , Overall status at discharge: patient is back to baseline Quality Metrics Clinical Quality Measures [ No reported AMI, CVA or VTE this stay] Coding Level of Care Code Acute Code for [facility] Fwd Diagnoses HFrEF (heart failure with reduced ejection fraction) I50.20 Non-ischemic cardiomyopathy I42.8 Hypertension I10
[2024-05-05 15:01] VITALS: BP 117/85; PULSE 92; O2SAT 93
== END 2024-05-05 15:55 | disposition home or self-care (01) | DRG 291 ==
LOC: ER 11:45 → CSU 13:01
PROVIDERS: Admitting Provider Hospitalist; Emergency Provider Family Medicine; Visit Provider Hospitalist
DX: I13.0 Hypertensive heart and chronic kidney disease with heart failure and stage 1 through stage 4 chronic kidney disease, or unspecified chronic kidney disease (principal); I50.23 Acute on chronic systolic (congestive) heart failure; N17.9 Acute kidney failure, unspecified; L02.416 Cutaneous abscess of left lower limb; N18.9 Chronic kidney disease, unspecified; I42.8 Other cardiomyopathies; K64.9 Unspecified hemorrhoids; F17.210 Nicotine dependence, cigarettes, uncomplicated; Z91.199 Patient's noncompliance with other medical treatment and regimen due to unspecified reason; F15.10 Other stimulant abuse, uncomplicated; F10.20 Alcohol dependence, uncomplicated; B19.20 Unspecified viral hepatitis C without hepatic coma; F43.25 Adjustment disorder with mixed disturbance of emotions and conduct
CPT/HCPCS: 36415; 51702; 71045; 74176; 80048; 80053; 80306; 80307; 81001; 83735; 83880; 85025; 93005; 93306; 96372; 96374; 96376; 99285; J1644; J1940; J9999

== ENCOUNTER 2024-09-05 20:18 | Emergency (ER) | payer OTHER, MEDICAID, SELFPAY ==
[2024-09-05 20:23] VITALS: BP 137/98; PULSE 127; RESP 18; TEMP 36.9; O2SAT 100; BMI 20.2
--- NOTE | 2024-09-05 21:06 | W.ED.GENADLT ---
HPI - General Adult General: Chief complaint: General Medical Stated complaint: Meds renew Time Seen by Provider: 09/05/24 20:37 History of Present Illness: Patient is a 44-year-old gentleman that reports to the emergency room with history of HFrEF, and nearly out of his medication. He has not had a primary care physician. He has not called to obtain a primary care physician. He was coming back to the ER for refill on his medications. He was at the ER in April, and had a refill of his medications at that time. Associated symptoms: Deny chest pain, dyspnea, headache(s), rash or palpitations Related Data Home Medications ?Medication ?Instructions ?Recorded ?Confirmed pantoprazole 40 mg tablet,delayed 40 mg PO BID 05/02/24 05/02/24 release Previous Rx's ?Medication ?Instructions ?Recorded atorvastatin 40 mg tablet 40 mg PO DAILY #90 tabs 05/05/24 potassium chloride 10 mEq 10 meq PO DAILY #30 caps 05/05/24 capsule,extended release atorvastatin 40 mg tablet (Lipitor) 40 mg PO QPM #30 tabs 09/05/24 furosemide 40 mg tablet (Lasix) 40 mg PO QAM #30 tabs 09/05/24 metoprolol succinate 25 mg 25 mg PO DAILY #30 tabs 09/05/24 tablet,extended release 24 hr potassium chloride 10 mEq 10 meq PO DAILY #30 caps 09/05/24 capsule,extended release Allergies Allergy/AdvReac Type Severity Reaction Status Date / Time No Known Allergies Allergy Verified 09/05/24 20:26 Review of Systems Const: Denies: fever(s) or chills Card: Denies: chest pain, palpitations, edema, swelling of feet/ankles, dyspnea on exertion or orthopnea Resp: Denies: dyspnea GI: Denies: abdominal pain : Denies: dysuria, urinary frequency or urinary urgency Musc: Reports: back pain (Chronic); Denies: neck pain Skin/Breast: Denies: rash Neuro: Denies: headache(s), numbness in extremities or weakness in extremities PFS ED PFSH: Medical History (Updated 09/05/24 @ 21:08 by LAUREN Mena) Amphetamine abuse Nicotine dependence, cigarettes, with other nicotine-induced disorders Chronic hepatitis C Chronic neck pain Chronic lumbar pain Systolic and diastolic CHF w/reduced LV function, NYHA class 4 Acute exacerbation of CHF (congestive heart failure) Partner relationship problem Chronic kidney disease Benign essential hypertension with target blood pressure below 140/90 CHF (congestive heart failure) Cardiomegaly Hepatitis C antibody positive in blood Alcohol intoxication Dyspnea Suicidal ideation Surgical History No pertinent past surgical history Social History Smoking and tobacco/nicotine status: current every day tobacco/nicotine user Alcohol intake: current Alcohol intake frequency: few times a week Substance/Drug Use: former Physical Exam Const: GENERAL APPEARANCE: cooperative ORIENTATION/CONSCIOUSNESS: Yes awake, Yes oriented to person, Yes oriented to place and Yes oriented to time HENMT: COMMON NORMALS: normocephalic, atraumatic and hearing grossly normal bilaterally HEAD & SCALP: normocephalic and atraumatic Resp: COMMON NORMALS: normal respiratory effort, No retractions, No use of accessory muscles and clear to auscultation bilaterally AUSCULTATION: clear to auscultation bilaterally Cardio: COMMON NORMALS: regular rate, regular rhythm and No murmurs present (Cardio) RATE: regular rate RHYTHM: regular rhythm GI: COMMON NORMALS: Soft to palpation and No hepatosplenomegaly present AUSCULTATION: Yes normoactive bowel sounds PALPATION: Yes Soft to palpation, No Tenderness to palpation present (GI), No Guarding due to palpation present (GI) and Yes No hepatosplenomegaly present : COMMON NORMALS: Yes no CVA tenderness BLADDER/KIDNEY EXAM: Yes no CVA tenderness Back/Pelvis: COMMON NORMALS: no CVA tenderness Extremity: COMMON NORMALS: normal to inspection, capillary refill normal, no clubbing, cyanosis or edema, no calf tenderness and no pedal edema Neuro: SENSORIUM/ORIENTATION: Yes oriented to person, Yes oriented to place and Yes oriented to time Skin: COMMON NORMALS: no rashes or lesions noted GENERAL SKIN EXAM: no rashes or lesions noted Course Vital Signs: Vital signs: Vital Signs Temperature 98.4 F 09/05/24 20:23 Pulse Rate 124 H 09/05/24 21:33 Respiratory Rate 18 09/05/24 20:23 Blood Pressure 135/104 09/05/24 21:33 Pulse Oximetry 98 09/05/24 21:33 Oxygen Delivery Me thod Room Air 09/05/24 20:23 MDM - General Adult Medical Decision Making 44-year-old gentleman that reported to the emergency room requesting a medication refill. Case management order has been made for primary care physician. Patient stated to contact his friend Phoebe if he was not available. All radiology interpretation(s) finalized by discharge Discharge Plan Discharge Patient Disposition: Home Clinical Impression: HFrEF (heart failure with reduced ejection fraction), Medication refill Condition: Stable Prescriptions: New potassium chloride 10 mEq capsule, extended release 10 meq PO DAILY Qty: 30 0RF furosemide [Lasix] 40 mg tablet 40 mg PO QAM Qty: 30 0RF atorvastatin [Lipitor] 40 mg tablet 40 mg PO QPM Qty: 30 0RF metoprolol succinate 25 mg tablet extended release 24 hr 25 mg PO DAILY Qty: 30 0RF No Action pantoprazole 40 mg tablet,delayed release (DR/EC) 40 mg PO BID atorvastatin 40 mg tablet 40 mg PO DAILY Qty: 90 0RF potassium chloride 10 mEq capsule, extended release 10 meq PO DAILY Qty: 30 0RF Discharge Orders: Discharge ED (Routine); Ordered 09/05/24 Ordered By: Brigette Vasquez Discharge Diet: Low Salt Discharge Activity: Resume usual activity Patient Instructions: Medicine Refill (ED), Patient Portal & Stephany Instructions Activity Restrictions/Additional Instructions: It is your responsibility to follow-up with your primary care physician and refill your medications through your primary care physician. The emergency department's role is not to refill your medications, as primary care continues to follow you regarding your medications as well. We will do a one-time 30-day courtesy refill out of the emergency room. You have already received a 90-day refill out of the emergency room from an emergency room physician. Case management has an order for primary care provider. Case management will call you regarding your follow-up. Please go to your doctors appointment. Return to ED for an actual emergency Print Language: Palestinian Coding Level of Care Code ED Yarn Twister for Susanna Yoder
[2024-09-05 21:33] VITALS: BP 135/104; PULSE 124; O2SAT 98
--- NOTE | 2024-09-06 16:01 | PC.NURSE ---
PCP referral sent.
--- OUTSIDE RECORDS SUMMARY | 2024-09-07 03:12 | XMS_ITS | Encounter Summary ---
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
--- OUTSIDE RECORDS SUMMARY | 2024-09-07 03:12 | XMS_ITS | Encounter Summary ---
Author Organization [employer] [facility] Address [address] [place] [address] Care Team Providers Care Public Health Inspector Name Role Phone Unavailable Primary Care Provider Unavailabl e Encounter Details Date Type Department Care Team (Late st Contact Info) Description 01/01/2008 Outpatient Historical 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
--- OUTSIDE RECORDS SUMMARY | 2024-09-07 03:12 | XMS_ITS | Encounter Summary ---
Author Organization [employer] [facility] [employer] [facility] Address [address] [place] [address] Care Team Providers Care Kelp Cutter Name Role Phone Unavailable Primary Care Provider Unavailabl e Encounter Details Date Type Department Care Team (Late st Contact Info) Description 10/19/2007 Outpatient Historical [facility] DEFAULT DEPARTMENT Fartun Baker MD [address] [phone] Social History Tobacco Use Types Packs/Day Years Used Date Smoking Tobacco: Never Assessed Sex and Gender Information Value Date Recorded Sex Assigned at Not on file 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
--- OUTSIDE RECORDS SUMMARY | 2024-09-07 03:12 | XMS_ITS | Encounter Summary ---
Author Organization [facility] Address [address] [place] [address] Care Team Providers Care Soap Worker Name Role Phone Unavailable Primary Care Provider Unavailabl e Encounter Details Date Type Department Care Team (Latest Contact Info) Description 12/29/2007 Outpatient Historical [facility] [address] [place] [address] Nesha Hilario PA [address] [place] [address] Arthrodesis Status; Cervicalgia Social History Tobacco Use Types Packs/Day Years Used Date Smoking Tobacco: Never Assessed Sex and Gender Information Value Date Recorded Sex Assigned at Not on file Legal Sex Male 7:02 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 Gender Identity Not on file Sexual Orientation Not on file documented as of this encounter Plan of Treatment Not on file documented as of this encounter Procedures Procedure Name Priority Date/Time Associated Diagnosis Comments XR CERVICAL SPINE 2 OR 3 VIEWS Routine 01/01/2008 3:03 PM RESPIRATORY TECH documented in this encounter Results * XR CERVICAL SPINE 2 OR 3 VW (01/01/2008 3:03 PM RESPIRATORY TECH) Anatomical Region Laterality Modality Spine Other 01/01/2008 3:03 PM RESPIRATORY TECH Narrative 01/02/2008 9:21 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 TECH Two views of the cervical spine were obtained and compared to exam from 11/16/2007. The posterior fusion at C6 and C7 is redemonstrated and appears stable. Mild subluxation persists. Impression: Stable exam. - Dictated By: Miller Ornelas M.D. Electronically Signed By: Miller Ornelas M.D. Date Signed: 01/02/08 LJW Procedure Note Miller Ornelas W - 01/02/2008 Two views of the cervical spine were obtained and compared to exam from11/16/2007. The posterior fusion at C6 and C7 is redemonstrated and appears stable. Mild subluxationpersists. Impression: Stable exam. - Dictated By: Miller Ornelas M.D. Electronically Signed By: Miller Ornelas M.D. Date Signed: 01/02/08 MAURA Nesha AGUILAR DIAGNOSTIC IMAGING ORDERABLES Final Result documented in this encounter Visit Diagnoses Diagnosis Arthrodesis status Cervicalgia documented in this encounter
--- OUTSIDE RECORDS SUMMARY | 2024-09-07 03:12 | XMS_ITS | Encounter Summary ---
Author Organization [facility] Address [address] [place] [address] Care Team Providers Care Molding Machine Setter Name Role Phone Unavailable Primary Care Provider Unavailabl e Encounter Details Date Type Department Care Team (Late st Contact Info) Description 09/25/2007 Outpatient Historical [facility] [address] [place] [address] Nesha Hilario PA [address] [place] [address] Social History Tobacco Use Types Packs/Day Years Used Date Smoking Tobacco: Never Assessed Sex and Gender Information Value Date Recorded Sex Assigned at Not on file 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 History: Neck pain. Findings: Frontal, lateral as well as flexion-extension views were obtained of the cervical spine. Comparison CT of the cervical spine is dated 09/07/2007. There is less than grade 1 anterolisthesis of C6 on C7 that appears grossly stable from the flexion to extension position. This may be secondary to the known C7 facet fracture. The vertebral body heights are maintained without evidence of vertebral body compression fracture. The prevertebral soft tissues appear to be within normal limits. The facet joints appear to be overlapping. There does appear to be disruption of the right-sided C7 facet seen on the frontal projection only. Summary: Less than grade 1 anterolisthesis of C6 on C7 that appears stable throughout flexion and extension. This is likely from the known C7 facet fracture. Other findings as above. - Dictated By: Marbin Gooden Jr., M.D. Electronically Signed By: Marbin Gooden Jr., M.D. Date Signed: 09/25/07 SDM Procedure Note Marbin Gooden Jr. - 09/25/2007 Date: 09/25/2007. History: Neck pain. Findings: Frontal, lateral as well as flexion-extension views wereobtained of the cervical spine. Comparison CT of the cervical spine is dated 09/07/2007. There is less than grade 1 anterolisthesis of C6 on C7 that appearsgrossly stable from the flexion to extension position. This may be secondary to the known C7 facet fracture.The vertebral body heights are maintained without evidence of vertebral body compression fracture. Theprevertebral soft tissues appear to be within normal limits. The facet joints appear to be overlapping.There does appear to be disruption of the right-sided C7 facet seen on the frontal projection only. Summary: Less than grade 1 anterolisthesis of C6 on C7 that appears stablethroughout flexion and extension. This is likely from the known C7 facet fracture. Other findingsas above. - Dictated By: Marbin Gooden Jr., M.D. Electronically Signed By: Marbin Gooden Jr., M.D. Date Signed: 09/25/07 SDM Nesha AGUILAR DIAGNOSTIC IMAGING ORDERABLES Final Result * XR CERVICAL SPINE 2 OR 3 VW (09/25/2007 1:15 PM CDT) Anatomical Region Laterality Modality Spine Other 09/25/2007 1:15 PM CDT Narrative 09/25/2007 1:15 PM CDT Date: 09/25/2007. History: Neck pain. Findings: Frontal, lateral as well as flexion-extension views were obtained of the cervical spine. Comparison CT of the cervical spine is dated 09/07/2007. There is less than grade 1 anterolisthesis of C6 on C7 that appears grossly stable from the flexion to extension position. This may be secondary to the known C7 facet fracture. The vertebral body heights are maintained without evidence of vertebral body compression fracture. The prevertebral soft tissues appear to be within normal limits. The facet joints appear to be overlapping. There does appear to be disruption of the right-sided C7 facet seen on the frontal projection only. Summary: Less than grade 1 anterolisthesis of C6 on C7 that appears stable throughout flexion and extension. This is likely from the known C7 facet fracture. Other findings as above. - Dictated By: Marbin Gooden Jr., M.D. Electronically Signed By: Marbin Gooden Jr., M.D. Date Signed: 09/25/07 SDM Procedure Note Marbin Gooden Jr. - 09/25/2007 Date: 09/25/2007. History: Neck pain. Findings: Frontal, lateral as well as flexion-extension views wereobtained of the cervical spine. Comparison CT of the cervical spine is dated 09/07/2007. There is less than grade 1 anterolisthesis of C6 on C7 that appearsgrossly stable from the flexion to extension position. This may be secondary to the known C7 facet fracture.The vertebral body heights are maintained without evidence of vertebral body compression fracture. Theprevertebral soft tissues appear to be within normal limits. The facet joints appear to be overlapping.There does appear to be disruption of the right-sided C7 facet seen on the frontal projection only. Summary: Less than grade 1 anterolisthesis of C6 on C7 that appears stablethroughout flexion and extension. This is likely from the known C7 facet fracture. Other findingsas above. - Dictated By: Marbin Gooden Jr., M.D. Electronically Signed By: Marbin Gooden Jr., M.D. Date Signed: 09/25/07 SDM Nesha AGUILAR DIAGNOSTIC IMAGING ORDERABLES Final Result documented in this encounter Visit Diagnoses Not on filedocumented in this encounter
--- OUTSIDE RECORDS SUMMARY | 2024-09-07 03:12 | XMS_ITS | Encounter Summary ---
Author Organization [facility] Address [address] [place] [address] Care Team Providers Care Vp Director Of Creative Strategy Name Role Phone Unavailable Primary Care Provider Unavailabl e Encounter Details Date Type Department Care Team (Latest Contact Info) Description 10/19/2007 Outpatient Historical [facility] [address] [place] [address] Fartun Baker MD [address] [place] [address] Arthrodesis Status Social History Tobacco Use Types Packs/Day Years Used Date Smoking Tobacco: Never Assessed Sex and Gender Information Value Date Recorded Sex Assigned at Not on file 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 Comparison: Prior study 09/25/2007. Findings: Two erect films with brace show skin suzy over the thoracocervical junction. Pedicle screws at C6 and C7 are present. The previous subluxation seen on 09/25/2007 has been reduced. Pedicle screws are intact. Bony structures are intact. Decompressive laminectomy is present from C5 to T1. There is a small amount of residual subluxation of approximately 2 mm. Impression: Intact posterior fusion at C6-C7. Decompressive laminectomy present. - Dictated By: MD Dom Moreno Electronically Signed By: MD Dom MorenoMD Date Signed: 10/20/07 JAW Procedure Note Dom Moreno A - 10/20/2007 Exam: Spine - Cervical Limited Date/Time of Exam: Oct 19, 2007 12:54:45 PM History: C6-7 FUSION. Comparison: Prior study 09/25/2007. Findings: Two erect films with brace show skin suzy over the thoracocervicaljunction. Pedicle screws at C6 and C7 are present. The previous subluxation seen on 09/25/2007 has beenreduced. Pedicle screws are intact. Bony structures are intact. Decompressive laminectomy is present from C5to T1. There is a small amount of residual subluxation of approximately 2 mm. Impression: Intact posterior fusion at C6-C7. Decompressive laminectomypresent. - Dictated By: MD Dom Moreno Electronically Signed By: MD Dom MorenoMD Date Signed: 10/20/07 JAW Fartun Baker MD DIAGNOSTIC IMAGING ORDERABLES Fi nal Result documented in this encounter Visit Diagnoses Diagnosis Arthrodesis status documented in this encounter
--- OUTSIDE RECORDS SUMMARY | 2024-09-07 03:12 | XMS_ITS | Clinical Summary ---
Author Organization [facility] Address [address] 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
--- OUTSIDE RECORDS SUMMARY | 2024-09-07 03:12 | XMS_ITS | Encounter Summary ---
Author Organization [facility] Address [address] [place] [address] Care Team Providers Care Laundry Superintendent Name Role Phone Unavailable Primary Care Provider Unavailabl e Encounter Details Date Type Department Care Team (Late st Contact Info) Description 11/16/2007 Outpatient Historical [facility] DEFAULT DEPART[facility] Fartun Baker MD [address] [id number] Social History Tobacco Use Types Packs/Day Years Used Date Smoking Tobacco: Never Assessed Sex and Gender Information Value Date Recorded Sex Assigned at Not on file 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
--- OUTSIDE RECORDS SUMMARY | 2024-09-07 03:12 | XMS_ITS | Encounter Summary ---
Author Organization [facility] Address [address] [place] [address] Care Team Providers Care Filling Operator Name Role Phone Unavailable Primary Care Provider Unavailabl e Encounter Details Date Type Department Care Team (Late st Contact Info) Description 09/21/2007 Outpatient Historical [facility] [address] [place] [address] [place] [address] Nesha Hilario PA [address] [place] [address] Fartun Baker MD [address] [place] [address] Social History Tobacco Use Types Packs/Day Years Used Date Smoking Tobacco: Never Assessed Sex and Gender Information Value Date Recorded Sex Assigned at Not on file 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
--- OUTSIDE RECORDS SUMMARY | 2024-09-07 03:12 | XMS_ITS | Encounter Summary ---
Author Organization [facility] Address [address] [place] [address] Care Team Providers Care Substation Superintendent Name Role Phone Unavailable Primary Care Provider Unavailabl e Encounter Details Date Type Department Care Team (Late st Contact Info) Description 11/16/2007 Outpatient Historical [facility] [address] [place] [address] Fartun Baker MD [address] [place] [address] Headache Social History Tobacco Use Types Packs/Day Years Used Date Smoking Tobacco: Never Assessed Sex and Gender Information Value Date Recorded Sex Assigned at Not on file 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 Findings: Comparison study 10/19/2007. Posterior decompression and fusion of C6- C7 without apparent hardware complication. Stable mild anterolisthesis of C6 over C7. Vertebral segments intact. Overall alignment of spine stable. Impression: Unchanged exam. - Dictated By: Sophia Zhao M.D. Electronically Signed By: Sophia Zhao M.D. Date Signed: 11/16/07 Procedure Note Sophia Zhao MD - 11/16/2007 Exam: Spine - Cervical Limited Date/Time of Exam: Nov 16, 2007 1:34:03 PM History: C 6--7. Findings: Comparison study 10/19/2007. Posterior decompression and fusionof C6-C7 without apparent hardware complication. Stable mild anterolisthesis of C6 over C7.Vertebral segments intact. Overall alignment of spine stable. Impression: Unchanged exam. - Dictated By: Sophia Zhao M.D. Electronically Signed By: Sophia Zhao M.D. Date Signed: 11/16/07 Fartun Baker MD DIAGNOSTIC IMAGING ORDERABLES Fi nal Result documented in this encounter Visit Diagnoses Diagnosis Headache(784.0) Headache documented in this encounter
--- OUTSIDE RECORDS SUMMARY | 2024-09-07 03:12 | XMS_ITS | Encounter Summary ---
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 Gender Identity Not on file Sexual Orientation Not on file documented as of this encounter Plan of Treatment Not on file documented as of this encounter Procedures Procedure Name Priority Date/Time Associated Diagnosis Comments XR ABDOMEN 1 VW Routine 09/29/2007 11:[address] CERVICAL SPINE WO CONTRAST Routine 09/26/2007 8:50 AM CDT MRI CERVICAL WO CONTRAST Routine 09/25/2007 8:22 PM CDT documented in this encounter Results * XR ABDOMEN 1 VW (09/29/2007 11:04 AM CDT) Anatomical Region Laterality Modality Abdomen Other 09/29/2007 11:0 4 AM CDT Narrative 09/29/2007 11:04 AM CDT Finalized by interface cleanup utility. No report expected. Procedure Note 03/11/2008 Finalized by interface cleanup utility. No report expected. Fartun Baker MD DIAGNOSTIC IMAGING ORDERABLES Fi nal Result * CT CERVICAL SPINE WO CONTRAST (09/26/2007 8:50 AM CDT) Anatomical Region Laterality Modality Spine Other 09/26/2007 8:50 AM CDT Narrative 09/26/2007 3:46 PM CDT Exam: CT Cervical Spine Date/Time of Exam: Sep 26, 2007 8:50:57 AM History: Neck pain. Technique: Axial data was obtained from the skull base to the cervicothoracic junction. From the axial data, axial bone and standard algorithm images were reconstructed. Sagittal and coronal reformats were also performed from the axial data. Comparison: Prior CT C spine date 09/07/2007. Prior MR. Findings: The transaxial images from the base of the skull down to the thoracic spine again demonstrate fracturing of the right C7 superior facet extending into the foramen transversarium with compression of the foramen transversarium. Canal dimensions are maintained normally. There is now approximately 1 to 2 mm of subluxation at C6-C7 on the sagittal reformats that was not present on the 09/06 study. The facet fracture shows bone resorption. No callus formation is as yet identified. There is some motion artifact present on today's study. The coronal images show the foraminal transversaria changes in the right C7 segment. The upper cervical interspaces are intact. Base of the odontoid and base of the skull are intact. Impression: Demineralization at right C7 facet and foramen transversarium fracture site. Slight 1 to 2 mm increase in subluxation at the interspace. - Dictated By: MD Dom Moreno Electronically Signed By: MD Dom MorenoMD Date Signed: 09/26/07 JAW Procedure Note Dom Moreno A - 09/26/2007 Exam: CT Cervical Spine Date/Time of Exam: Sep 26, 2007 8:50:57 AM History: Neck pain. Technique: Axial data was obtained from the skull base to thecervicothoracic junction. From the axial data, axial bone and standard algorithm images were reconstructed.Sagittal and coronal reformats were also performed from the axial data. Comparison: Prior CT C spine date 09/07/2007. Prior MR. Findings: The transaxial images from the base of the skull down to the thoracicspine again demonstrate fracturing of the right C7 superior facet extending into the foramen transversariumwith compression of the foramen transversarium. Canal dimensions are maintained normally. There is nowapproximately 1 to 2 mm of subluxation at C6-C7 on the sagittal reformats that was not present on the09/06 study. The facet fracture shows bone resorption. No callus formation is as yet identified. There issome motion artifact present on today's study. The coronal images show the foraminal transversariachanges in the right C7 segment. The upper cervical interspaces are intact. Base of the odontoid and baseof the skull are intact. Impression: Demineralization at right C7 facet and foramen transversariumfracture site. Slight 1 to 2 mm increase in subluxation at the interspace. - Dictated By: MD Dom Moreno Electronically Signed By: MD Dom MorenoMD Date Signed: 09/26/07 JAW us Fartun Baker MD CT ORDERABLES Final Result * MRI CERVICAL WO CONTRAST (09/25/2007 8:22 PM CDT) Anatomical Region Laterality Modality Spine Other 09/25/2007 8:22 PM CDT Narrative 09/26/2007 3:55 PM CDT MRI OF THE CERVICAL SPINE WITHOUT CONTRAST: REASON FOR EXAM: C7 facet fracture. TECHNIQUE: Sagittal T1, sagittal T2, sagittal IR sequences were performed. Axial T2 GI and sagittal hemo FLASH sequences were performed. No contrast was utilized. FINDINGS: The sagittal images show an annular tear in the posterior longitudinal ligament at C6-C7. Reparative changes in the interspinous ligament at C6-C7 is present. Reparative changes surrounding the C6-C7 facet fracture on the right. The other interspaces are intact. No signs of blood or blood byproduct is noted. The fracture and subluxation of the facet on the right at C6-C7 is present. The transaxial images show a normal base of the skull and C1-C2 level. The hemo FLASH sequence shows no abnormal signal from within the cord. The axial T2 sequence shows the signal change surrounding the right C6-C7 facet fracture. IMPRESSION: Multiple signal changes surrounding the C6-C7 facet fracture. There is a 2 mm subluxation of C6 on C7 with a torn posterior longitudinal ligament seen on the sagittal images. Prior CT is not currently available for correlation. sdm Dictated By: MD Dom Moreno Electronically Signed By: MD Armando Moreno Date Signed: 09/26/07 COURTNEY Procedure Note Dom Moreno A - 09/26/2007 MRI OF THE CERVICAL SPINE WITHOUT CONTRAST: REASON FOR EXAM: C7 facet fracture. TECHNIQUE: Sagittal T1, sagittal T2, sagittal IR sequences were performed.Axial T2 GI and sagittal hemo FLASH sequences were performed. No contrast was utilized. FINDINGS: The sagittal images show an annular tear in the posteriorlongitudinal ligament at C6-C7. Reparative changes in the interspinous ligament at C6-C7 is present.Reparative changes surrounding the C6-C7 facet fracture on the right. The other interspaces are intact. Nosigns of blood or blood byproduct is noted. The fracture and subluxation of the facet on theright at C6- C7 is present. The transaxial images show a normal base of the skull and C1-C2 level.The hemo FLASH sequence shows no abnormal signal from within the cord. The axial T2 sequence shows thesignal change surrounding the right C6-C7 facet fracture. IMPRESSION: Multiple signal changes surrounding the C6-C7 facet fracture. There is a2 mm subluxation of C6 on C7 with a torn posterior longitudinal ligament seen on the sagittal images.Prior CT is not currently available for correlation. courtney Dictated By: MD Dom Moreno Electronically Signed By: MD Dom MorenoMD Date Signed: 09/26/07 COURTNEY Fartun Baker MD MR ORDERABLES Final Result documented in this encounter Visit Diagnoses Not on filedocumented in this encounter
--- OUTSIDE RECORDS SUMMARY | 2024-09-07 03:12 | XMS_ITS | Encounter Summary ---
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
== END 2024-09-05 21:34 | disposition home or self-care (01) ==
PROVIDERS: Emergency Provider Physician Assistant
DX: Z76.0 Encounter for issue of repeat prescription (principal); I13.0 Hypertensive heart and chronic kidney disease with heart failure and stage 1 through stage 4 chronic kidney disease, or unspecified chronic kidney disease; N18.9 Chronic kidney disease, unspecified; I50.20 Unspecified systolic (congestive) heart failure; Z72.0 Tobacco use
CPT/HCPCS: 99283

== ENCOUNTER 2024-09-28 21:17 | Emergency (ER) | payer OTHER, MEDICAID, SELFPAY ==
[2024-09-28 21:22] VITALS: BP 132/90; PULSE 114; RESP 20; TEMP 36.6; O2SAT 100; BMI 20.9
--- NOTE | 2024-09-28 21:22 | ECG_ITS ---
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 Measurements Intervals [place] Rate: 112 P: 69 NV: 157 QRS: -57 QRSD: 102 T: 72 QT: 342 QTc: 467 Interpretive Statements SINUS TACHYCARDIA POSSIBLE RIGHT ATRIAL ENLARGEMENT [0.25mV P-WAVE] LEFT ATRIAL ENLARGEMENT [-0.15mV P-WAVE IN V1/V2] LEFT ANTERIOR FASCICULAR BLOCK [QRS AXIS <= -45, QR IN I, RS IN II] INFERIOR MYOCARDIAL INFARCTION , PROBABLY OLD [40+ ms Q WAVE AND/OR ST/T ABNORMALITY IN II/aVF] Compared to ECG 05/02/2024 10:21:48 Left anterior fascicular block now present Myocardial infarct finding now present Sinus rhythm no longer present ST (T wave) deviation no longer present Electronically Signed On 09-29-2024 08:40:17 CDT by Joe Byrnes M.D. [email or web address]
--- NOTE | 2024-09-28 21:22 | XRR_ITS ---
PROCEDURE INFORMATION: Exam: XR Chest Exam date and time: 09/28/2024 9:41 PM Age: 44 years old Clinical indication: Shortness of breath; C/O SOB. History of chf. TECHNIQUE: Imaging protocol: Radiologic exam of the chest. Views: 1 view. COMPARISON: CR XR chest 1V portable [id number] 05/02/2024 9:59 AM FINDINGS: Lungs: The lungs are clear. Incidental numerous calcified granulomas. Pleural spaces: Pleural effusions have resolved. Heart/Mediastinum: Chronic cardiomegaly. Bones/joints: Chronic cervical metallic fusion. XR/XR chest 1V portable [id number] IMPRESSION: No acute findings
--- OUTSIDE RECORDS SUMMARY | 2024-09-28 21:22 | XMS_ITS | Encounter Summary ---
Author Organization [facility] Address [address] [place] [address] Care Team Providers Care Tmd Teacher Name Role Phone Unavailable Primary Care Provider Unavailabl e Encounter Details Date Type Department Care Team (Latest Contact Info) Description 12/29/2007 Outpatient Historical [facility] [address] [place] [address] Nesha Hilario PA [address] [place] [address] Arthrodesis Status; Cervicalgia Social History Tobacco Use Types Packs/Day Years Used Date Smoking Tobacco: Never Assessed Sex and Gender Information Value Date Recorded Sex Assigned at Not on file Legal Sex Male 7:02 AM [employer] Gender Identity Not on file Sexual Orientation Not on file documented as of this encounter Plan of Treatment Not on file documented as of this encounter Procedures Procedure Name Priority Date/Time Associated Diagnosis Comments XR CERVICAL SPINE 2 OR 3 VIEWS Routine 01/01/2008 3:03 PM [employer] documented in this encounter Results * XR CERVICAL SPINE 2 OR 3 VW (01/01/2008 3:03 PM [employer]) Anatomical Region Laterality Modality Spine Other 01/01/2008 3:03 PM [employer] Narrative 01/02/2008 9:21 AM [employer] Two views of the cervical spine were [...]
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
--- OUTSIDE RECORDS SUMMARY | 2024-09-28 21:22 | XMS_ITS | Encounter Summary ---
Author Organization [facility] Address [address] [place] [address] Care Team Providers Care Disability Hearing Officer Name Role Phone Unavailable Primary Care Provider Unavailabl e Encounter Details Date Type Department Care Team (Late st Contact Info) Description 11/16/2007 Outpatient Historical 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
--- OUTSIDE RECORDS SUMMARY | 2024-09-28 21:22 | XMS_ITS | Clinical Summary ---
Author Organization [facility] Address [address] 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
--- OUTSIDE RECORDS SUMMARY | 2024-09-28 21:22 | XMS_ITS | Encounter Summary ---
Author Organization [facility] Address [address] [place] [address] Care Team Providers Care Brineyard Supervisor Name Role Phone Unavailable Primary Care Provider Unavailabl e Encounter Details Date Type Department Care Team (Late st Contact Info) Description 09/25/[address] 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
--- OUTSIDE RECORDS SUMMARY | 2024-09-28 21:22 | XMS_ITS | Encounter Summary ---
Author Organization [employer] 

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
--- OUTSIDE RECORDS SUMMARY | 2024-09-28 21:22 | XMS_ITS | Encounter Summary ---
Author Organization [employer] [facility] Address [address] [place] [address] Care Team Providers Care Millwright Helper Name Role Phone Unavailable Primary Care Provider Unavailabl e Encounter Details Date Type Department Care Team (Late st Contact Info) Description 01/01/2008 Outpatient Historical 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
--- OUTSIDE RECORDS SUMMARY | 2024-09-28 21:22 | XMS_ITS | Encounter Summary ---
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
--- OUTSIDE RECORDS SUMMARY | 2024-09-28 21:22 | XMS_ITS | Encounter Summary ---
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
--- OUTSIDE RECORDS SUMMARY | 2024-09-28 21:22 | XMS_ITS | Encounter Summary ---
Author Organization 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
--- OUTSIDE RECORDS SUMMARY | 2024-09-28 21:22 | XMS_ITS | Encounter Summary ---
Author Organization [facility] Address [address] [place] [address] Care Team Providers Care Semiautomatic Taper Operator Name Role Phone Unavailable Primary Care Provider Unavailabl e Encounter Details Date Type Department Care Team (Late st Contact Info) Description 09/21/2007 Outpatient Historical [facility] [address] [place] [address] Nesha Hilario PA [address] [place] [address] Fartun Baker MD [address] [place] [address] Social History Tobacco Use Types Packs/Day Years Used Date Smoking Tobacco: Never Assessed Sex and Gender Information Value Date Recorded Sex Assigned at Not on file 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
--- OUTSIDE RECORDS SUMMARY | 2024-09-28 21:22 | XMS_ITS | Encounter Summary ---
Author Organization [employer] [facility] Address [address] [place] [address] Care Team Providers Care Flat Folder Name Role Phone Unavailable Primary Care Provider Unavailabl e Encounter Details Date Type Department Care Team (Late st Contact Info) Description 10/19/2007 Outpatient Historical [facility] DEFAULT DEPARTMENT Fartun Baker MD [address] [phone] Social History Tobacco Use Types Packs/Day Years Used Date Smoking Tobacco: Never Assessed Sex and Gender Information Value Date Recorded Sex Assigned at Not on file 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
--- NOTE | 2024-09-28 22:20 | W.ED.WEAKNES ---
HPI - Weakness General: Chief complaint: Weakness Stated complaint: SOB, Needs different meds Time Seen by Provider: 09/28/24 21:43 History of Present Illness: Patient is a 44-year-old male with a history of heart failure for approximately 4 years who presents today with worsening symptoms. He reports feeling full of fluids with significant lower extremity edema. Patient complains of shortness of breath, stating it hurts to breathe, and reports persistent coughing and wheezing. He denies productive cough, stating he is not coughing up much sputum. Patient reports feeling extremely cold. He notes that his current medications are not effectively managing his symptoms. The etiology of his heart failure is unclear from the history provided. Related Data Home Medications ?Medication ?Instructions ?Recorded ?Confirmed pantoprazole 40 mg tablet,delayed 40 mg PO BID 05/02/24 05/02/24 release Previous Rx's ?Medication ?Instructions ?Recorded atorvastatin 40 mg tablet 40 mg PO DAILY #90 tabs 05/05/24 potassium chloride 10 mEq 10 meq PO DAILY #30 caps 05/05/24 capsule,extended release atorvastatin 40 mg tablet (Lipitor) 40 mg PO QPM #30 tabs 09/05/24 metoprolol succinate 25 mg 25 mg PO DAILY #30 tabs 09/05/24 tablet,extended release 24 hr potassium chloride 10 mEq 10 meq PO DAILY #30 caps 09/05/24 capsule,extended release bumetanide 2 mg tablet 2 mg PO BID #60 tabs 09/29/24 Allergies Allergy/AdvReac Type Severity Reaction Status Date / Time No Known Allergies Allergy Verified 09/05/24 20:26 [facility] ED PFSH: Medical History Amphetamine abuse Nicotine dependence, cigarettes, with other nicotine-induced disorders Chronic hepatitis C Chronic neck pain Chronic lumbar pain Systolic and diastolic CHF w/reduced LV function, NYHA class 4 Acute exacerbation of CHF (congestive heart failure) Partner relationship problem Chronic kidney disease Benign essential hypertension with target blood pressure below 140/90 CHF (congestive heart failure) Cardiomegaly Hepatitis C antibody positive in blood Alcohol intoxication Dyspnea Suicidal ideation Surgical History No pertinent past surgical history Social History Smoking and tobacco/nicotine status: current every day tobacco/nicotine user Alcohol intake: current Alcohol intake frequency: few times a week Substance/Drug Use: former Physical Exam Const: COMMON NORMALS: no acute distress GENERAL APPEARANCE: cooperative; not ill appearing and not frail appearing HENMT: COMMON NORMALS: normocephalic, atraumatic and Normal external nose present HEAD & SCALP: normocephalic and atraumatic FACE & SINUS: normal facial exam and face symmetric NOSE: Normal external nose present Eye: COMMON NORMALS: Equal, round and reactive pupils present and EOMs intact bilaterally PUPIL: Yes Equal, round and reactive pupils present Neck/C-Spine: GENERAL: Yes trachea midline Chest: CHEST: Yes Symmetrical chest wall rise Resp: COMMON NORMALS: normal respiratory effort, No retractions, No use of accessory muscles and clear to auscultation bilaterally AUSCULTATION: clear to auscultation bilaterally Cardio: COMMON NORMALS: regular rate and regular rhythm RATE: regular rate RHYTHM: regular rhythm GI: COMMON NORMALS: Normal to inspection, nondistended, normoactive bowel sounds present Extremity: GENERAL: Yes edema (1+) Neuro: RAYMOND COMA SCALE: document GCS findings Raymond coma scale eye opening: Spontaneous Wing coma scale verbal response: Orientated Wing coma scale motor response: Obey commands Wing coma scale total score: 15 SENSORY EXAM: Yes extremities (intact) Psych: COMMON NORMALS: speech normal SPEECH: Yes normal speech Skin: COMMON NORMALS: no rashes or lesions noted GENERAL SKIN EXAM: no rashes or lesions noted Course Vital Signs: Vital signs: Vital Signs Temperature 97.8 F 09/28/24 21:22 Pulse Rate 110 H 09/28/24 23:07 Respiratory Rate 14 09/28/24 23:04 Blood Pressure 114/97 09/28/24 22:41 Pulse Oximetry 97 09/28/24 23:04 Oxygen Delivery Me thod Room Air 09/28/24 23:04 MDM - Weakness Medical Decision Making 44-year-old male patient with swelling, some shortness of breath, chest discomfort. He has a history of systolic heart failure. His chest x-ray is nonacute. His creatinine is 1.2. His potassium is normal at 3.6. His BNP is 2800. He is given IV Bumex here, and has started to diurese. We will continue Bumex. Discontinue furosemide. We will continue his potassium. This patient has a history significant for medical noncompliance, which can make things difficult. He will be discharged. Outpatient follow-up. Lab Data 09/28/24 22:03 09/28/24 22:03 Radiology Impressions Chest X-Ray 09/28/24: IMPRESSION: No acute findings Laboratory Results WBC 9.19 10^3/uL (3.29-11.43) 09/28/24: RBC 4.27 10^6/uL (3.85-5.65) 09/28/24 22:03 Hgb 12.70 g/dL (11.27-16.99) 09/28/24: Hct 39.1 % (37-53) 09/28/24: MCV 91.6 fl (82-101) 09/28/24 22: MCH 29.7 pg (27-33) 09/28/24: MCHC 32.5 g/dL (30-55) 09/28/24: RDW 15.5 % (12.1-15.1) H 09/28/24 22:03 Plt Count 173 10^3/cmm (157-399) 09/28/24: MPV 11.2 fL (7.4-10.4) H 09/28/24 22: Neut % (Auto) 71.1 % 09/28/24: Lymph % (Auto) 20.1 % 09/28/24 22: [place] % (Auto) 7.4 % 09/28/24: Eos % (Auto) 1.0 % 09/28/24: Baso % (Auto) 0.2 % 09/28/24: Neut # (Auto) 6.53 10^3/uL (1.8-7.7) 09/28/24: Lymph # (Auto) 1.9 10^3/uL (0.8-4.8) 09/28/24: [place] # (Auto) 0.7 10^3/uL (0.2-0.9) 09/28/24 22: Eos # (Auto) 0.1 10^3/uL (0.0-0.8) 09/28/24 22:03 Baso # (Auto) 0.0 10^3/uL (0.0-0.1) 09/28/24 22:03 Nucleated RBC % (auto) 0 % 09/28/24 22:03 Nucleated RBCs # 0.0 /100WBC 09/28/24 22:03 Sodium 134 mmol/L (136-145) L 09/28/24 22:03 Potassium 3.6 mmol/L (3.5-5.1) 09/28/24 22:03 Chloride 98 mmol/L (98-107) 09/28/24 22:03 Carbon Dioxide 23 mmol/L (22-29) 09/28/24 22:03 Anion Gap 16.6 (5-19) 09/28/24 22:03 BUN 15 mg/dL (6-20) 09/28/24 22:03 Creatinine 1.2 mg/dL (0.7-1.2) 09/28/24 22:03 GFR Calculation 65.5 mL/min (90-130) L 09/28/24 22:03 Glucose 95 mg/dL (65-115) 09/28/24 22:03 Calculated Osmolality 279 mOsm/kg (285-295) L 09/28/24 22:03 Calcium 8.8 mg/dL (8.5-10.5) 09/28/24 22: Magnesium 1.8 mg/dL (1.7-2.3) 09/28/24 22:03 Total Bilirubin 0.9 mg/dL (0.15-1.2) 09/28/24 22:03 AST 48 U/L (0-40) H 09/28/24 22:03 ALT 40 U/L (0-41) 09/28/24 22:03 Alkaline Phosphatase 237 U/L (40-130) H 09/28/24 22:03 Troponin T Baseline 27 ng/L (0-15) H 09/28/24 22:03 NT-Pro-B Natriuret Pep 2780 pg/mL (0-125) H 09/28/24 22:03 Total Protein 6.4 g/dL (6.6-8.7) L 09/28/24 22:03 Albumin 3.6 g/dL (3.5-5.2) 09/28/24 22:03 Globulin 2.8 g/dL (1.3-4.6) 09/28/24 22:03 All radiology interpretation(s) finalized by discharge Discharge Plan Discharge Patient Disposition: Home Clinical Impression: HFrEF (heart failure with reduced ejection fraction) Condition: Stable Prescriptions: New bumetanide 2 mg tablet 2 mg PO BID Qty: 60 0RF Discontinued furosemide [Lasix] 40 mg tablet 40 mg PO QAM Qty: 30 0RF No Action potassium chloride 10 mEq capsule, extended release 10 meq PO DAILY Qty: 30 0RF atorvastatin [Lipitor] 40 mg tablet 40 mg PO QPM Qty: 30 0RF metoprolol succinate 25 mg tablet extended release 24 hr 25 mg PO DAILY Qty: 30 0RF pantoprazole 40 mg tablet,delayed release (DR/EC) 40 mg PO BID atorvastatin 40 mg tablet 40 mg PO DAILY Qty: 90 0RF potassium chloride 10 mEq capsule, extended release 10 meq PO DAILY Qty: 30 0RF Discharge Orders: Discharge ED (Routine); Ordered 09/29/24 Ordered By: Jim Ferguson Patient Instructions: Heart Failure (ED), Opioid Safety, Pain Management, Patient Portal & Stephany Instructions Activity Restrictions/Additional Instructions: Stop your furosemide. Use bumetanide prescribed tonight instead. This may help you shed some of the fluid. Call your doctor Tuesday. Follow-up is needed to check your potassium, etc. Return for problems. Print Language: Sinhala Coding Level of Care Code ED Replenishment Merchandising Associate for Susanna Yoder
[2024-09-28 22:41] VITALS: BP 114/97; PULSE 121; RESP 16; O2SAT 93
[2024-09-28 23:04] VITALS: PULSE 110; RESP 14; O2SAT 97
[2024-09-28 23:06] LABS: Hematocrit 39.1 % (37-53); Hemoglobin 12.70 g/dL (11.27-16.99); Mean Corpuscular HGB Conc 32.5 g/dL (30-55); Mean Corpuscular Hemoglobin 29.7 pg (27-33); Mean Corpuscular Volume 91.6 fl (82-101); Nucleated Red Blood Cells % 0 %; Platelet Count 173 10^3/cmm (157-399); Red Blood Count 4.27 10^6/uL (3.85-5.65); White Blood Count 9.19 10^3/uL (3.29-11.43)
[2024-09-28 23:07] VITALS: PULSE 110
[2024-09-28] MEDS: lidocaine 2% viscous 15 ML, aluminum-mag hydrox-simethicon 30 ML, sucralfate oral liq 1 GM PO (23:15)
[2024-09-28] MEDS: bumetanide 0.25 mg/mL SDV 10 mL 2 MG IVP (23:15)
[2024-09-28 23:17] LABS: Troponin(5th) Baseline 27 ng/L (0-15)
[2024-09-28 23:28] LABS: Alanine Aminotransferase 40 U/L (0-41); Albumin Level 3.6 g/dL (3.5-5.2); Alkaline Phosphatase 237 U/L (40-130); Anion Gap 16.6 (5-19); Aspartate Amino Transferase 48 U/L (0-40); Blood Urea Nitrogen 15 mg/dL (6-20); Calcium 8.8 mg/dL (8.5-10.5); Carbon Dioxide 23 mmol/L (22-29); Chloride 98 mmol/L (98-107); Creatinine Clr Calc Pharmacy 79.6016; Globulin 2.8 g/dL (1.3-4.6); Glucose 95 mg/dL (65-115); Magnesium 1.8 mg/dL (1.7-2.3); NT Pro B Type Natriuretic Pept 2780 pg/mL (0-125); Osmolality Calculated 279 mOsm/kg (285-295); Potassium 3.6 mmol/L (3.5-5.1); Sodium 134 mmol/L (136-145); Total Protein 6.4 g/dL (6.6-8.7)
--- NOTE | 2024-09-28 23:38 | ECG_ITS ---
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 Measurements Intervals [place] Rate: 113 P: 78 MI: 164 QRS: -57 QRSD: 97 T: 80 QT: 397 QTc: 545 Interpretive Statements SINUS TACHYCARDIA POSSIBLE RIGHT ATRIAL ENLARGEMENT [0.25mV P-WAVE] LEFT ATRIAL ENLARGEMENT [-0.15mV P-WAVE IN V1/V2] LEFT AXIS DEVIATION [QRS AXIS < -30] INCOMPLETE RIGHT BUNDLE BRANCH BLOCK [90+ ms QRS DURATION, TERMINAL R IN V1/V2, 40+ ms S IN I/aVL/V4/V5/V6] INFERIOR MYOCARDIAL INFARCTION , PROBABLY OLD [40+ ms Q WAVE AND/OR ST/T ABNORMALITY IN II/aVF] Compared to ECG 09/28/2024 21:42:18 Left-axis deviation now present Myocardial infarct finding still present Electronically Signed On 09-29-2024 09:38:23 CDT by Joe Byrnes M.D. [email or web address]
== END 2024-09-29 00:19 | disposition home or self-care (01) ==
PROVIDERS: Emergency Provider Emergency Medicine
DX: I13.0 Hypertensive heart and chronic kidney disease with heart failure and stage 1 through stage 4 chronic kidney disease, or unspecified chronic kidney disease (principal); I50.40 Unspecified combined systolic (congestive) and diastolic (congestive) heart failure; N18.9 Chronic kidney disease, unspecified; Z72.0 Tobacco use
CPT/HCPCS: 36415; 71045; 80053; 83735; 83880; 84484; 85025; 93005; 94640; 96374; 99285; J3490; J9999

== ENCOUNTER 2024-11-25 22:16 | Emergency (ER) | payer OTHER, SELFPAY ==
--- NOTE | 2024-11-25 22:19 | XRR_ITS ---
PROCEDURE INFORMATION: Exam: XR Chest Exam date and time: 11/25/2024 10:48 PM Age: 44 years old Clinical indication: Shortness of breath; Additional info: SOB TECHNIQUE: Imaging protocol: Radiologic exam of the chest. Views: 1 view. COMPARISON: CR XR chest 1V portable [id number] 09/28/2024 9:41 PM FINDINGS: Lungs: No consolidation. Numerous small calcified granulomas again seen bilaterally. Pleural spaces: Unremarkable. No pleural effusion. No pneumothorax. Heart/Mediastinum: Stable cardiomegaly. Bones/joints: Unremarkable. XR/XR chest 1V portable [id number] IMPRESSION: No acute findings.
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
--- OUTSIDE RECORDS SUMMARY | 2024-11-25 22:20 | XMS_ITS | Encounter Summary ---
Author Organization [facility] Address [address] [place] [address] Care Team Providers Care Captain Fishing Vessel Name Role Phone Unavailable Primary Care Provider Unavailabl e Encounter Details Date Type Department Care Team (Late st Contact Info) Description 09/25/2007 Outpatient Historical [facility] [address] [place] [address] [place] [address] Nesha Hilario PA [address] [place] [address] Social History Tobacco Use Types Packs/Day Years Used Date Smoking Tobacco: Never Assessed Sex and Gender Information Value Date Recorded Sex Assigned at Not on file Legal Sex Male 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
--- OUTSIDE RECORDS SUMMARY | 2024-11-25 22:20 | XMS_ITS | Encounter Summary ---
Author Organization [employer] [facility] Address [address] [place] [address] Care Team Providers Care Pattern Shop Supervisor Name Role Phone Unavailable Primary Care Provider Unavailabl e Encounter Details Date Type Department Care Team (Late st Contact Info) Description 11/16/2007 Outpatient Historical [facility] DEPART[facility] Fartun Baker MD [address] [phone] Social History Tobacco Use Types Packs/Day Years Used Date Smoking Tobacco: Never Assessed Sex and Gender Information Value Date Recorded Sex Assigned at Not on file Legal Sex Male 7:02 AM RESEARCH STATISTICIAN Gender Identity Not on file Sexual Orientation Not on file documented as of this encounter Plan of Treatment Not on file documented as of this encounter Visit Diagnoses Not on filedocumented in this encounter
--- OUTSIDE RECORDS SUMMARY | 2024-11-25 22:20 | XMS_ITS | Encounter Summary ---
Author Organization [employer] [facility] Address [address] [place] [address] Care Team Providers Care Textile Screen Maker Name Role Phone Unavailable Primary Care Provider Unavailabl e Encounter Details Date Type Department Care Team (Late st Contact Info) Description 10/19/2007 [facility] Fartun Baker MD [address] [phone] Social History Tobacco Use Types Packs/Day Years Used Date Smoking Tobacco: Never Assessed Sex and Gender Information Value Date Recorded Sex Assigned at Not on file 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
--- OUTSIDE RECORDS SUMMARY | 2024-11-25 22:20 | XMS_ITS | Clinical Summary ---
Author Organization [facility] Address [address] [place] [address] Care Team Providers Care Assembly Machine Tool Setter Name Role Phone Unavailable Primary Care Provider Unavailabl e Social History Tobacco Use Types Packs/Day Years Used Date Smoking Tobacco: Never Assessed Sex and Gender Information Value Date Recorded Sex Assigned at Not on file Legal Sex Male 7:02 AM AGENCY OWNER Gender Identity Not on file Sexual Orientation Not on file Plan of Treatment Health Maintenance Due Date Last Done Comments DTAP/TDAP/TD VACCINES (1 - Tdap) 1998 HEPATITIS B VACCINES (1 of 3 - 19+ 3-dose series) 02/07 HPV VACCINES (1 - 3-dose SCDM series) 2006 COLORECTAL SCREENING 02/21/2024 Colorectal Cancer Screening 02/21/2024 FIT-DNA Q 3 years 02/21/2024 FIT/FOBT Q 1 year 02/21/2024 Flex Sig/CT Colonography Q 5 years 02/21/2024 INFLUENZA VACCINE (#1) 2024
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
--- OUTSIDE RECORDS SUMMARY | 2024-11-25 22:20 | XMS_ITS | Encounter Summary ---
Author Organization [employer] [facility] Address [address] [place] [address] Care Team Providers Care Greenhouse Florist Name Role Phone Unavailable Primary Care Provider Unavailabl e Encounter Details Date Type Department Care Team (Late st Contact Info) Description 09/25/2007 Inpatient Historical [facility] IN BED Fartun Baker MD [address] [address] Social History Tobacco Use Types Packs/Day Years Used Date Smoking Tobacco: Never Assessed Sex and Gender Information Value Date Recorded Sex Assigned at Not on file Legal Sex Male 7:02 AM MANAGER PRESENTATION Gender Identity Not on file Sexual Orientation [...]
--- OUTSIDE RECORDS SUMMARY | 2024-11-25 22:20 | XMS_ITS | Encounter Summary ---
Author Organization [facility] Address [address] [place] [address] Care Team Providers Care Supervisor Locomotive Name Role Phone Unavailable Primary Care Provider Unavailabl e Encounter Details Date Type Department Care Team (Late st Contact Info) Description 09/21/2007 Outpatient Historical [facility] [address] [place] [address] [place] [address] Nesah Hilario PA [address] [place] [address] Fartun Baker MD [address] [place] [address] Social History Tobacco Use Types Packs/Day Years Used Date Smoking Tobacco: Never Assessed Sex and Gender Information Value Date Recorded Sex Assigned at Not on file Legal Sex Male 7:02 AM PLUG SHAPER HAND Gender Identity Not on file Sexual Orientation Not on file documented as of this encounter Plan of Treatment Not on file documented as of this encounter Visit Diagnoses Not on filedocumented in this encounter
--- OUTSIDE RECORDS SUMMARY | 2024-11-25 22:20 | XMS_ITS | Encounter Summary ---
Author Organization [employer] [facility] Address [address] [place] [address] Care Team Providers Care Meter And Service Line Inspector Name Role Phone Unavailable Primary Care Provider Unavailabl e Encounter Details Date Type Department Care Team (Late st Contact Info) Description 09/25/2007 [facility] Fartun Baker MD [address] [phone] Social History Tobacco Use Types Packs/Day Years Used Date Smoking Tobacco: Never Assessed Sex and Gender Information Value Date Recorded Sex Assigned at Not on file Legal Sex Male 7:02 AM SALESPERSON PARTS Gender Identity Not on file Sexual Orientation Not on file documented as of this encounter Plan of Treatment Not on file documented as of this encounter Visit Diagnoses Not on filedocumented in this encounter
--- OUTSIDE RECORDS SUMMARY | 2024-11-25 22:20 | XMS_ITS | Encounter Summary ---
Author Organization [employer] [facility] Address [address] [place] [address] Care Team Providers Care Financial Business Analyst Name Role Phone Unavailable Primary Care Provider Unavailabl e Encounter Details Date Type Department Care Team (Late st Contact Info) Description 01/01/2008 Out[facility] Fartun Baker MD [address] [phone] Social History Tobacco Use Types Packs/Day Years Used Date Smoking Tobacco: Never Assessed Sex and Gender Information Value Date Recorded Sex Assigned at Not on file Legal Sex Male 7:02 AM TUBE BUILDER Gender Identity Not on file Sexual Orientation Not on file documented as of this encounter Plan of Treatment Not on file documented as of this encounter Visit Diagnoses Not on filedocumented in this encounter
--- OUTSIDE RECORDS SUMMARY | 2024-11-25 22:20 | XMS_ITS | Encounter Summary ---
Author Organization [employer] Address [address] [facility] Attn: [place] [address] Care Team Providers Care Public Records Researcher Name Role Phone Unavailable Primary Care Provider Unavailabl e Encounter Details Date Type Department Care Team (Late st Contact Info) Description 12/29/2007 Outpatient Historical Nesha Hilario, PA [address] [phone] Social History Tobacco Use Types Packs/Day Years Used Date Smoking Tobacco: Never Assessed Sex and Gender Information Value Date Recorded Sex Assigned at Not on file Legal Sex Male 7:02 AM HIGH TENSION TESTER Gender Identity Not on file Sexual Orientation Not on file documented as of this encounter Plan of Treatment Not on file documented as of this encounter Visit Diagnoses Not on filedocumented in this encounter
--- OUTSIDE RECORDS SUMMARY | 2024-11-25 22:20 | XMS_ITS | Encounter Summary ---
Author Organization [facility] Address [address] [place] [address] Care Team Providers Care Dentofacial Orthopedics Dentist Name Role Phone Unavailable Primary Care Provider Unavailabl e Encounter Details Date Type Department Care Team (Late st Contact Info) Description 11/16/2007 Outpatient Historical [facility] [address] [place] [address] Fartun Baker MD [address] [place] [address] Headache Social History Tobacco Use Types Packs/Day Years Used Date Smoking Tobacco: Never Assessed Sex and Gender Information Value Date Recorded Sex Assigned at Not on file Legal Sex Male 7:02 AM TRAVEL SALES CONSULTANT Gender Identity Not on file Sexual Orientation [...]
--- NOTE | 2024-11-25 22:25 | ECG_ITS ---
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 Measurements Intervals [place] Rate: 118 P: 80 WA: 160 QRS: -47 QRSD: 104 T: 88 QT: 350 QTc: 491 Interpretive Statements SINUS TACHYCARDIA LEFT ATRIAL ENLARGEMENT [-0.15mV P-WAVE IN V1/V2] LEFT ANTERIOR FASCICULAR BLOCK [QRS AXIS <= -45, QR IN I, RS IN II] LEFT VENTRICULAR HYPERTROPHY AND ST-T CHANGE [VOLTAGE CRITERIA PLUS ST/T ABNORMALITY] Compared to ECG 09/28/2024 23:38:58 Left anterior fascicular block now present Left ventricular hypertrophy now present ST (T wave) deviation now present Left-axis deviation no longer present Incomplete right bundle-branch block no longer present Myocardial infarct finding no longer present Electronically Signed On 11-27-2024 19:25:04 CDT by Emelyn Mcbride M.D. [email or web address]
[2024-11-25 22:28] VITALS: BP 124/79; PULSE 114; RESP 28; TEMP 36.4; O2SAT 94
[2024-11-25 22:44] LABS: Hematocrit 41.1 % (37-53); Hemoglobin 13.70 g/dL (11.27-16.99); Mean Corpuscular HGB Conc 33.3 g/dL (30-55); Mean Corpuscular Hemoglobin 29.8 pg (27-33); Mean Corpuscular Volume 89.3 fl (82-101); Nucleated Red Blood Cells % 0.3 %; Platelet Count 215 10^3/cmm (157-399); Red Blood Count 4.60 10^6/uL (3.85-5.65); White Blood Count 7.68 10^3/uL (3.29-11.43)
--- NOTE | 2024-11-25 22:49 | W.ED.CHESTPA ---
HPI - Chest Pain General: Chief Complaint: Chest Pain Stated Complaint: CHF, SOB, Both legs swollen, chest pain Time Seen by Provider: 11/25/24 22:33 Source: patient Mode of arrival: ambulatory Limitations: no limitations History of Present Illness: 44-year-old male has a history of congestive heart failure states he has been out of his Bumex for over a week states that over the last few days been having some increasing swelling extremities and shortness of breath. Has had some mild chest pains over the last 2 days as well. He denies any cough or fever states his dyspnea is little worse with exertion Associated symptoms: Reports dyspnea Related Data Home Medications ?Medication ?Instructions ?Recorded ?Confirmed pantoprazole 40 mg tablet,delayed 40 mg PO BID 05/02/24 05/02/24 release Previous Rx's ?Medication ?Instructions ?Recorded atorvastatin 40 mg tablet 40 mg PO DAILY #90 tabs 05/05/24 potassium chloride 10 mEq 10 meq PO DAILY #30 caps 05/05/24 capsule,extended release atorvastatin 40 mg tablet (Lipitor) 40 mg PO QPM #30 tabs 11/26/24 bumetanide 2 mg tablet 2 mg PO BID #60 tabs 11/26/24 metoprolol succinate 25 mg 25 mg PO DAILY #30 tabs 11/26/24 tablet,extended release 24 hr potassium chloride 10 mEq 10 meq PO DAILY #30 caps 11/26/24 capsule,extended release Allergies Allergy/AdvReac Type Severity Reaction Status Date / Time No Known Allergies Allergy Verified 11/25/24 22:32 Review of Systems Resp: Reports: dyspnea [facility] ED PFSH: Medical History Amphetamine abuse Nicotine dependence, cigarettes, with other nicotine-induced disorders Chronic hepatitis C Chronic neck pain Chronic lumbar pain Systolic and diastolic CHF w/reduced LV function, NYHA class 4 Acute exacerbation of CHF (congestive heart failure) Partner relationship problem Chronic kidney disease Benign essential hypertension with target blood pressure below 140/90 CHF (congestive heart failure) Cardiomegaly Hepatitis C antibody positive in blood Alcohol intoxication Dyspnea Suicidal ideation Surgical History No pertinent past surgical history Social History Smoking and tobacco/nicotine status: current every day tobacco/nicotine user Alcohol intake: current Alcohol intake frequency: few times a week Substance/Drug Use: former Physical Exam Const: COMMON NORMALS: no acute distress, patient oriented x3 and healthy appearing HENMT: COMMON NORMALS: normocephalic and atraumatic HEAD & SCALP: normocephalic and atraumatic Eye: COMMON NORMALS: conjunctivae normal CONJUNCTIVA: Yes conjunctivae normal Neck/C-Spine: COMMON NORMALS: full ROM and supple Chest: COMMONS NORMALS: normal inspection of the chest and normal palpation of entire chest wall Resp: COMMON NORMALS: normal respiratory effort, No retractions, No use of accessory muscles and clear to auscultation bilaterally AUSCULTATION: clear to auscultation bilaterally Cardio: COMMON NORMALS: regular rate, regular rhythm and No murmurs present (Cardio) RATE: regular rate RHYTHM: regular rhythm GI: COMMON NORMALS: Normal to inspection, nondistended, normoactive bowel sounds present, Soft to palpation, non-tender and no masses PALPATION: Yes Soft to palpation Extremity: COMMON NORMALS: normal to inspection and full ROM Neuro: COMMON NORMALS: patient oriented x3, moves all extremities and no focal motor deficits Psych: COMMON NORMALS: mental status grossly normal, Normal thought process present and cooperative THOUGHT PROCESS: Normal thought process present Skin: COMMON NORMALS: no rashes or lesions noted and no wounds GENERAL SKIN EXAM: no rashes or lesions noted Course Vital Signs: Vital signs: Vital Signs Temperature 97.6 F 11/25/24 22:28 Pulse Rate 115 H 11/26/24 01:21 Respiratory Rate 15 11/26/24 01:21 Blood Pressure 132/97 11/26/24 01:21 Pulse Oximetry 99 11/26/24 01:21 Oxygen Delivery Me thod Room Air 11/26/24 00:00 MDM - Chest Pain Medical Decision Making Patient presents here with dyspnea history of congestive heart failure normal some mild chest pains. Differential included pulmonary embolism, ACS, pneumonia, CHF. Patient CT scan here showed no signs of pulm embolism does have a pleural effusion likely from his CHF he has been noncompliant with his meds has not taken them in weeks. Repeat troponin had a negative delta EKG shows no ST elevation. Patient feels improved here after Lasix did go over his findings he is stable for discharge we will refill his meds for him informed is very important that he is compliant he is follow-up his PCP in 2 to 4 days and return if worsening he understands agrees to plan Medical Records I reviewed the patient's medical records. Lab Data I reviewed the patient's lab results. 11/25/24 22:37 11/25/24 22:37 Radiology Impressions Chest X-Ray 11/25/24 22:19 IMPRESSION: No acute findings. Chest CTA 11/25/24 23:46 IMPRESSION: No acute or chronic pulmonary embolism present Findings of congestive heart failure as above described with right-sided moderate-sized pleural effusion. Findings of prior granulomatous exposure Slight increase in size of a subcutaneous well demarcated nodule superficial to the right rectus abdominis muscle in the right anterior chest wall, see above Laboratory Results WBC 7.68 10^3/uL (3.29-11.43) 11/25/24 22:37 RBC 4.60 10^6/uL (3.85-5.65) 11/25/24 22:37 Hgb 13.70 g/dL (11.27-16.99) 11/25/24 22:37 Hct 41.1 % (37-53) 11/25/24 22:37 MCV 89.3 fl (82-101) 11/25/24 22:37 MCH 29.8 pg (27-33) 11/25/24 22:37 MCHC 33.3 g/dL (30-55) 11/25/24 22:37 RDW 20.1 % (12.1-15.1) H 11/25/24 22:37 Plt Count 215 10^3/cmm (157-399) 11/25/24 22:37 MPV 10.4 fL (7.4-10.4) 11/25/24 22:37 Neut % (Auto) 67.9 % 11/25/24 22:37 Lymph % (Auto) 22.3 % 11/25/24 22:37 Dundy % (Auto) 7.2 % 11/25/24 22:37 Eos % (Auto) 2.0 % 11/25/24 22:37 Baso % (Auto) 0.3 % 11/25/24 22:37 Neut # (Auto) 5.23 10^3/uL (1.8-7.7) 11/25/24 22:37 Lymph # (Auto) 1.7 10^3/uL (0.8-4.8) 11/25/24 22:37 Dundy # (Auto) 0.6 10^3/uL (0.2-0.9) 11/25/24 22:37 Eos # (Auto) 0.2 10^3/uL (0.0-0.8) 11/25/24 22:37 Baso # (Auto) 0.0 10^3/uL (0.0-0.1) 11/25/24 22:37 Nucleated RBC % (auto) 0.3 % 11/25/24 22:37 Nucleated RBCs # 0.0 /100WBC 11/25/24 22:37 PT 14.50 SECONDS (12.1-14.9) 11/25/24 22:37 INR 1.06 (0.8-1.2) 11/25/24 22:37 D-Dimer 1.39 ug/mLFEU (0-0.59) H 11/25/24 22:37 Sodium 137 mmol/L (136-145) 11/25/24 22:37 Potassium 3.0 mmol/L (3.5-5.1) L 11/25/24 22:37 Chloride 91 mmol/L (98-107) L 11/25/24 22:37 Carbon Dioxide 32 mmol/L (22-29) H 11/25/24 22:37 Anion Gap 17.0 (5-19) 11/25/24 22:37 BUN 14 mg/dL (6-20) 11/25/24 22:37 Creatinine 1.3 mg/dL (0.7-1.2) H 11/25/24 22:37 GFR Calculation 59.7 mL/min (90-130) L 11/25/24 22:37 Glucose 128 mg/dL (65-115) H 11/25/24 22:37 Calculated Osmolality 286 mOsm/kg (285-295) 11/25/24 22:37 Calcium 9.7 mg/dL (8.5-10.5) 11/25/24 22:37 Total Bilirubin 0.9 mg/dL (0.15-1.2) 11/25/24 22:37 AST 25 U/L (0-40) 11/25/24 22:37 ALT 12 U/L (0-41) 11/25/24 22:37 Alkaline Phosphatase 138 U/L (40-130) H 11/25/24 22:37 Troponin T Baseline 37 ng/L (0-15) H 11/25/24 22:37 Troponin T 120 Minute 32.73 ng/L (0-15) H 11/26/24 00:21 Delta Troponin T -4.27 ABS# (0-10) L 11/26/24 00:21 NT-Pro-B Natriuret Pep 3964 pg/mL (0-125) H 11/25/24 22:37 Total Protein 7.2 g/dL (6.6-8.7) 11/25/24 22:37 Albumin 4.2 g/dL (3.5-5.2) 11/25/24 22:37 Globulin 3.0 g/dL (1.3-4.6) 11/25/24 22:37 All radiology interpretation(s) finalized by discharge EKG Data EKG 1: I personally reviewed and interpreted this EKG as follows: EKG interpretation date: 11/25/24 EKG interpretation time: 22:25 Interpretation: sinus tach hr [address] elevation qrs 104 qtc 420 Discharge Plan Discharge Patient Disposition: Home Clinical Impression: CHF (congestive heart failure), Pleural effusion Condition: Stable Prescriptions: Continued bumetanide 2 mg tablet 2 mg PO BID Qty: 60 0RF atorvastatin [Lipitor] 40 mg tablet 40 mg PO QPM Qty: 30 0RF potassium chloride 10 mEq capsule, extended release 10 meq PO DAILY Qty: 30 0RF metoprolol succinate 25 mg tablet extended release 24 hr 25 mg PO DAILY Qty: 30 0RF No Action pantoprazole 40 mg tablet,delayed release (DR/EC) 40 mg PO BID atorvastatin 40 mg tablet 40 mg PO DAILY Qty: 90 0RF potassium chloride 10 mEq capsule, extended release 10 meq PO DAILY Qty: 30 0RF Discharge Orders: Discharge ED (Routine); Ordered 11/26/24 Ordered By: Chel Berry Discharge Diet: Advance as tolerated Discharge Activity: Resume usual activity Patient Instructions: Heart Failure (ED) Print Language: Albanian Coding Level of Care Code ED Air Hole Driller for Chg Fwd Heart Score HEART Score Components History: Slightly Suspicous EKG: Normal Age: 45-64 yrs Risk Factors: 1 or 2 Risk Factors Troponin: Baseline Trop 16-45 ng/L HEART Score RESULT HEART Score: 3
[2024-11-25 22:57] LABS: INR 1.06 (0.8-1.2); Prothrombin Time 14.50 SECONDS (12.1-14.9)
[2024-11-25] MEDS: FUROsemide 10 mg/mL SDV 10mL 80 MG IVP (22:57)
[2024-11-25 22:58] VITALS: BP 133/95; PULSE 116; RESP 22; O2SAT 100
[2024-11-25 23:08] LABS: Troponin(5th) Baseline 37 ng/L (0-15)
[2024-11-25 23:17] LABS: Alanine Aminotransferase 12 U/L (0-41); Albumin Level 4.2 g/dL (3.5-5.2); Alkaline Phosphatase 138 U/L (40-130); Anion Gap 17.0 (5-19); Aspartate Amino Transferase 25 U/L (0-40); Blood Urea Nitrogen 14 mg/dL (6-20); Calcium 9.7 mg/dL (8.5-10.5); Carbon Dioxide 32 mmol/L (22-29); Chloride 91 mmol/L (98-107); Creatinine Clr Calc Pharmacy 74.3992; Globulin 3.0 g/dL (1.3-4.6); Glucose 128 mg/dL (65-115); NT Pro B Type Natriuretic Pept 3964 pg/mL (0-125); Osmolality Calculated 286 mOsm/kg (285-295); Potassium 3.0 mmol/L (3.5-5.1); Sodium 137 mmol/L (136-145); Total Protein 7.2 g/dL (6.6-8.7)
[2024-11-25 23:30] VITALS: PULSE 118; O2SAT 99
--- NOTE | 2024-11-25 23:46 | CTR_ITS ---
PROCEDURE INFORMATION: Exam: CTA Chest With Contrast Exam date and time: 11/25/2024 11:49 PM Age: 44 years old Clinical indication: Abnormal findings; Abnormal diagnostic tests; Elevated d-dimer; Shortness of breath; SOB with dimer of 1.39. History of chf. TECHNIQUE: Imaging protocol: Computed tomographic angiography of the chest with contrast. Exam focused on the arteries. 3D rendering (Not supervised by radiologist): MIP and/or 3D reconstructed images were created by the technologist. Radiation optimization: All CT scans at this facility use at least one of these dose optimization techniques: automated exposure control; mA and/or kV adjustment per patient size (includes targeted exams where dose is matched to clinical indication); or iterative reconstruction. Contrast material: OMNI 350; Contrast volume: 89 ml; Contrast route: INTRAVENOUS (IV); COMPARISON: CT angio chest PE protcl [id number] 04/11/2022 2:02 PM RADIATION DOSE METRICS: Total DLP (mGy-cm): 334.67 FINDINGS: Pulmonary arteries: There is no acute or chronic pulmonary embolism present. Aorta: Unremarkable. No aortic aneurysm. No aortic dissection. Lungs: There are findings of numerous calcified granulomas present throughout the lungs sequela of prior granulomatous exposure. There are findings of calcified subcarinal right hilar lymph nodes. Pleural spaces: There is presence of a moderate-sized right-sided pleural effusion Heart: Heart is enlarged. Coronary artery calcifications present. There is presence of secondary signs of right heart failure with a large ventricle right atrium as well as enlargement of the supra hepatic IVC and hepatic veins compatible with changes of tricuspid insufficiency Lymph nodes: See Lungs finding. Bones/joints: Unremarkable. No acute fracture. Soft tissues: There continues to be an nonspecific large subcutaneous nodule in the soft tissues of the right upper chest superficial to the right rectus abdominis muscle measuring 3.3 x 5.6 x 6.1 cm and further evaluation with this regard recommended the appearance is nonspecific although could represent sebaceous cyst warrants further assessment as some interval growth is demonstrated Other findings: There is no aneurysm. CT/CT angio chest PE protcl [id number] IMPRESSION: No acute or chronic pulmonary embolism present Findings of congestive heart failure as above described with right-sided moderate-sized pleural effusion. Findings of prior granulomatous exposure Slight increase in size of a subcutaneous well demarcated nodule superficial to the right rectus abdominis muscle in the right anterior chest wall, see above
[2024-11-25] MEDS: iohexol 350 mg/mL 500 mL Btl (per mL) IV (23:52)
[2024-11-26] VITALS: BP 157/97; PULSE 118; O2SAT 98
[2024-11-26 00:57] LABS: Troponin 5 2HR 32.73 ng/L (0-15)
[2024-11-26 01:00] LABS: Troponin 5 2HR Delta -4.27 ABS# (0-10)
[2024-11-26 01:21] VITALS: BP 132/97; PULSE 115; RESP 15; O2SAT 99
== END 2024-11-26 01:22 | disposition home or self-care (01) ==
PROVIDERS: Emergency Provider Emergency Medicine
DX: J90 Pleural effusion, not elsewhere classified (principal); I13.0 Hypertensive heart and chronic kidney disease with heart failure and stage 1 through stage 4 chronic kidney disease, or unspecified chronic kidney disease; N18.9 Chronic kidney disease, unspecified; I50.40 Unspecified combined systolic (congestive) and diastolic (congestive) heart failure; Z72.0 Tobacco use
CPT/HCPCS: 36415; 71045; 71275; 80053; 83880; 84484; 85025; 85378; 85610; 93005; 96374; 99285; J1938

== ENCOUNTER 2025-01-02 11:38 | Emergency (ER) | payer MEDICARE, SELFPAY ==
--- OUTSIDE RECORDS SUMMARY | 2025-01-02 11:48 | XMS_ITS | Encounter Summary ---
Author Organization [employer] [facility] Address [address] [place] [address] Care Team Providers Care Drawing Machine Operator Name Role Phone Unavailable Primary Care Provider Unavailabl e Encounter Details Date Type Department Care Team (Late st Contact Info) Description 09/25/2007 Outpatient Historical [facility] DEFAULT DEPARTMENT Fartun Baker MD [address] [phone] Social History Tobacco Use Types Packs/Day Years Used Date Smoking Tobacco: Never Assessed Sex and Gender Information Value Date Recorded Sex Assigned at Not on file 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
--- OUTSIDE RECORDS SUMMARY | 2025-01-02 11:48 | XMS_ITS | Encounter Summary ---
Author Organization [facility] Address [address] [place] [address] Care Team Providers Care Lumber Cutter Name Role Phone Unavailable Primary Care Provider Unavailabl e Encounter Details Date Type Department Care Team (Latest Contact Info) Description 12/29/2007 Outpatient Historical [facility] [address] [place] [address] Nesha Hilario PA [address] [place] [address] Arthrodesis Status; Cervicalgia Social History Tobacco Use Types Packs/Day Years Used Date Smoking Tobacco: Never Assessed Sex and Gender Information Value Date Recorded Sex Assigned at Not on file 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
--- OUTSIDE RECORDS SUMMARY | 2025-01-02 11:48 | XMS_ITS | Encounter Summary ---
Author Organization [facility] Address [address] [place] [address] Care Team Providers Care Dramatic Arts Historian Name Role Phone Unavailable Primary Care Provider Unavailabl e Encounter Details Date Type Department Care Team (Latest Contact Info) Description 10/19/2007 Outpatient Historical [facility] [address] [place] [address] Fartun Baker MD [address] [place] [address] Arthrodesis Status Social History Tobacco Use Types Packs/Day Years Used Date Smoking Tobacco: Never Assessed Sex and Gender Information Value Date Recorded Sex Assigned at Not on file 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
--- OUTSIDE RECORDS SUMMARY | 2025-01-02 11:48 | XMS_ITS | Encounter Summary ---
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
--- OUTSIDE RECORDS SUMMARY | 2025-01-02 11:48 | XMS_ITS | Encounter Summary ---
Author Organization [facility] Address [address] [place] [address] Care Team Providers Care Rn Tele Name Role Phone Unavailable Primary Care Provider Unavailabl e Encounter Details Date Type Department Care Team (Late st Contact Info) Description 09/21/2007 Outpatient Historical [facility] [address] [address] [place] [address] Nesha Hilario PA [address] [place] [address] Fartun Baker MD [address] [place] [address] Social History Tobacco Use Types Packs/Day Years Used Date Smoking Tobacco: Never Assessed Sex and Gender Information Value Date Recorded Sex Assigned at Not on file 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
--- OUTSIDE RECORDS SUMMARY | 2025-01-02 11:48 | XMS_ITS | Clinical Summary ---
Author Organization [facility] Address [address] 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
--- OUTSIDE RECORDS SUMMARY | 2025-01-02 11:48 | XMS_ITS | Encounter Summary ---
Author Organization [employer] [facility] Address [address] [place] [address] Care Team Providers Care Manager Endoscopy Name Role Phone Unavailable Primary Care Provider Unavailabl e Encounter Details Date Type Department Care Team (Late st Contact Info) Description 01/01/2008 Outpatient Historical [facility] DEFAULT DEPARTMENT Fartun Baker MD [address] [phone] Social History Tobacco Use Types Packs/Day Years Used Date Smoking Tobacco: Never Assessed Sex and Gender Information Value Date Recorded Sex Assigned at Not on file Legal Sex Male 7:02 AM LEGAL BILLING COORDINATOR Gender Identity Not on file Sexual Orientation Not on file documented as of this encounter Plan of Treatment Not on file documented as of this encounter Visit Diagnoses Not on filedocumented in this encounter
--- OUTSIDE RECORDS SUMMARY | 2025-01-02 11:48 | XMS_ITS | Encounter Summary ---
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
--- OUTSIDE RECORDS SUMMARY | 2025-01-02 11:48 | XMS_ITS | Encounter Summary ---
Author Organization [employer] Address [address] [facility] Attn: [place] [address] Care Team Providers Care Biofuels Technology Development Manager Name Role Phone Unavailable Primary Care Provider Unavailabl e Encounter Details Date Type Department Care Team (Late st Contact Info) Description 12/29/2007 Outpatient Historical Nesha Hilario, PA [address] [phone] Social History Tobacco Use Types Packs/Day Years Used Date Smoking Tobacco: Never Assessed Sex and Gender Information Value Date Recorded Sex Assigned at Not on file 

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
--- OUTSIDE RECORDS SUMMARY | 2025-01-02 11:48 | XMS_ITS | Encounter Summary ---
Author Organization [facility] Address [address] [place] [address] Care Team Providers Care [employer] Principal Name Role Phone Unavailable Primary Care Provider Unavailabl e Encounter Details Date Type Department Care Team (Late st Contact Info) Description 11/16/2007 Outpatient Historical 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
--- OUTSIDE RECORDS SUMMARY | 2025-01-02 11:48 | XMS_ITS | Encounter Summary ---
Author Organization [facility] Address [address] [place] [address] Care Team Providers Care Plant Maintenance Engineer Name Role Phone Unavailable Primary Care Provider Unavailabl e Encounter Details Date Type Department Care Team (Late st Contact Info) Description 09/25/2007 Outpatient Historical [facility] [address] [place] [address] Nesha Hilario PA [address] [place] [address] Social History Tobacco Use Types Packs/Day Years Used Date Smoking Tobacco: Never Assessed Sex and Gender Information Value Date Recorded Sex Assigned at Not on file 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
--- OUTSIDE RECORDS SUMMARY | 2025-01-02 11:48 | XMS_ITS | Encounter Summary ---
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 courtney Dictated By: MD oDm Moreno Electronically Signed By: MD Dom MorenoMD Date Signed: 09/26/07 COURTNEY Fartun Baker MD MR ORDERABLES Final Result documented in this encounter Visit Diagnoses Not on filedocumented in this encounter
[2025-01-02 11:52] VITALS: BP 143/91; PULSE 119; TEMP 36.7; O2SAT 99; BMI 20.9
--- NOTE | 2025-01-02 12:22 | W.ED.RECABL ---
HPI - Recheck/Abnormal Lab/Rx General: Chief Complaint: Recheck/Abnormal Lab/Rx Stated Complaint: need meds filled Time Seen by Provider: 01/02/25 12:07 Source: patient Mode of arrival: ambulatory Limitations: no limitations History of Present Illness: 44-year-old male states he is out of his meds and does not have an appoint with his PCP until January 09. Patient has no other complaints this time denies any pain anywhere has no medical complaints Related Data Home Medications ?Medication ?Instructions ?Recorded ?Confirmed pantoprazole 40 mg tablet,delayed 40 mg PO BID 05/02/24 05/02/24 release Previous Rx's ?Medication ?Instructions ?Recorded atorvastatin 40 mg tablet 40 mg PO DAILY #90 tabs 05/05/24 potassium chloride 10 mEq 10 meq PO DAILY #30 caps 05/05/24 capsule,extended release atorvastatin 40 mg tablet (Lipitor) 40 mg PO QPM #30 tabs 01/02/25 bumetanide 2 mg tablet 2 mg PO BID #60 tabs 01/02/25 metoprolol succinate 25 mg 25 mg PO DAILY #30 tabs 01/02/25 tablet,extended release 24 hr potassium chloride 10 mEq 10 meq PO DAILY #30 caps 01/02/25 capsule,extended release Allergies Allergy/AdvReac Type Severity Reaction Status Date / Time No Known Allergies Allergy Verified 01/02/25 11:56 [facility] ED PFSH: Medical History Amphetamine abuse Nicotine dependence, cigarettes, with other nicotine-induced disorders Chronic hepatitis C Chronic neck pain Chronic lumbar pain Systolic and diastolic CHF w/reduced LV function, NYHA class 4 Acute exacerbation of CHF (congestive heart failure) Partner relationship problem Chronic kidney disease Benign essential hypertension with target blood pressure below 140/90 CHF (congestive heart failure) Cardiomegaly Hepatitis C antibody positive in blood Alcohol intoxication Dyspnea Suicidal ideation Surgical History No pertinent past surgical history Social History Smoking and tobacco/nicotine status: current every day tobacco/nicotine user Alcohol intake: current Alcohol intake frequency: few times a week Substance/Drug Use: former Physical Exam Const: COMMON NORMALS: no acute distress, patient oriented x3 and healthy appearing HENMT: COMMON NORMALS: normocephalic and atraumatic HEAD & SCALP: normocephalic and atraumatic Chest: COMMONS NORMALS: normal inspection of the chest Resp: COMMON NORMALS: normal respiratory effort Cardio: COMMON NORMALS: regular rate RATE: regular rate Extremity: COMMON NORMALS: normal to inspection and full ROM Neuro: COMMON NORMALS: patient oriented x3, moves all extremities and no focal motor deficits Psych: COMMON NORMALS: mental status grossly normal, Normal thought process present and cooperative THOUGHT PROCESS: Normal thought process present Skin: COMMON NORMALS: no rashes or lesions noted and no wounds GENERAL SKIN EXAM: no rashes or lesions noted Course Vital Signs: Vital signs: Vital Signs Temperature 98.0 F 01/02/25 11:52 Pulse Rate 119 H 01/02/25 11:52 Blood Pressure 143/91 01/02/25 11:52 Pulse Oximetry 99 01/02/25 11:52 Oxygen Delivery Me thod Room Air 01/02/25 11:52 MDM - Recheck/Abnormal Lab/Rx Medical Decision Making Patient presents here requesting medical refill. Patient's well-appearing here with no medical complaints did refill his atorvastatin Bumex metoprolol and potassium. He is follow-up in a week return if worsening. Medical Records I reviewed the patient's medical records. No radiology studies performed this visit Discharge Plan Discharge Patient Disposition: Home Clinical Impression: Encounter for medication refill Condition: Stable Prescriptions: Continued atorvastatin [Lipitor] 40 mg tablet 40 mg PO QPM Qty: 30 0RF potassium chloride 10 mEq capsule, extended release 10 meq PO DAILY Qty: 30 0RF bumetanide 2 mg tablet 2 mg PO BID Qty: 60 0RF metoprolol succinate 25 mg tablet extended release 24 hr 25 mg PO DAILY Qty: 30 0RF No Action pantoprazole 40 mg tablet,delayed release (DR/EC) 40 mg PO BID atorvastatin 40 mg tablet 40 mg PO DAILY Qty: 90 0RF potassium chloride 10 mEq capsule, extended release 10 meq PO DAILY Qty: 30 0RF Discharge Orders: Discharge ED (Routine); Ordered 01/02/25 Ordered By: Chel Berry Discharge Diet: Advance as tolerated Discharge Activity: Resume usual activity Patient Instructions: Medicine Refill (ED) Print Language: Setswana Coding Level of Care Code ED Wet Sander for Susanna Yoder
[2025-01-02 12:32] VITALS: BP 151/85; PULSE 124; O2SAT 98
== END 2025-01-02 12:33 | disposition home or self-care (01) ==
PROVIDERS: Emergency Provider Emergency Medicine
DX: Z76.0 Encounter for issue of repeat prescription (principal); Z72.0 Tobacco use; N18.9 Chronic kidney disease, unspecified; I50.40 Unspecified combined systolic (congestive) and diastolic (congestive) heart failure
CPT/HCPCS: 99283

== ENCOUNTER 2025-01-17 03:05 | Observation (INO) | payer MEDICARE, SELFPAY ==
[2025-01-17] VITALS (8 sets, daily range): BP systolic 98–115; BP diastolic 66–79; PULSE 93–98; RESP 16–17; TEMP 36.4–36.6; O2SAT 96–100; BMI 20.9
--- OUTSIDE RECORDS SUMMARY | 2025-01-17 03:18 | XMS_ITS | Clinical Summary ---
Author Organization [facility] Address [address] 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
--- OUTSIDE RECORDS SUMMARY | 2025-01-17 03:18 | XMS_ITS | Encounter Summary ---
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
--- OUTSIDE RECORDS SUMMARY | 2025-01-17 03:18 | XMS_ITS | Encounter Summary ---
Author Organization [facility] Address [address] [place] [address] Care Team Providers Care Solar Sales Associate Name Role Phone Unavailable Primary Care Provider Unavailabl e Encounter Details Date Type Department Care Team (Latest Contact Info) Description 10/19/2007 Outpatient Historical [facility] [address] [place] [address] Fartun Baker MD [address] [place] [address] Arthrodesis Status Social History Tobacco Use Types Packs/Day Years Used Date Smoking Tobacco: Never Assessed Sex and Gender Information Value Date Recorded Sex Assigned at Not on file 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
--- OUTSIDE RECORDS SUMMARY | 2025-01-17 03:18 | XMS_ITS | Encounter Summary ---
Author Organization [facility] Address [address] [place] [address] Care Team Providers Care Customs And Border Protection Inspector Name Role Phone Unavailable Primary Care Provider Unavailabl e Encounter Details Date Type Department Care Team (Late st Contact Info) Description 11/16/2007 Outpatient Historical [facility] DEFAULT DEPARTMENT Fartun Baker MD [address] [phone] Social History Tobacco Use Types Packs/Day Years Used Date Smoking Tobacco: Never Assessed Sex and Gender Information Value Date Recorded Sex Assigned at Not on file 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
--- OUTSIDE RECORDS SUMMARY | 2025-01-17 03:18 | XMS_ITS | Encounter Summary ---
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
--- OUTSIDE RECORDS SUMMARY | 2025-01-17 03:18 | XMS_ITS | Encounter Summary ---
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
--- OUTSIDE RECORDS SUMMARY | 2025-01-17 03:18 | XMS_ITS | Encounter Summary ---
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
--- OUTSIDE RECORDS SUMMARY | 2025-01-17 03:18 | XMS_ITS | Encounter Summary ---
Author Organization [facility] Address [address] [place] [address] Care Team Providers Care Hand Winder Name Role Phone Unavailable Primary Care Provider Unavailabl e Encounter Details Date Type Department Care Team (Late st Contact Info) Description 09/25/2007 Outpatient Historical [facility] [address] [place] [address] [place] [address] Nesha Hilario PA [address] [place] [address] Social History Tobacco Use Types Packs/Day Years Used Date Smoking Tobacco: Never Assessed Sex and Gender Information Value Date Recorded Sex Assigned at Not on file 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
--- OUTSIDE RECORDS SUMMARY | 2025-01-17 03:18 | XMS_ITS | Encounter Summary ---
Author Organization [facility] Address [address] [place] [address] Care Team Providers Care Clerical Dentist Assistant Name Role Phone Unavailable Primary Care Provider Unavailabl e Encounter Details Date Type Department Care Team (Late st Contact Info) Description 09/21/2007 Outpatient Historical [facility] [address] [place] [address] [place] [address] Nesha Hilario PA [address] [place] [address] Fartun Baker MD 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
--- OUTSIDE RECORDS SUMMARY | 2025-01-17 03:18 | XMS_ITS | Encounter Summary ---
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
--- OUTSIDE RECORDS SUMMARY | 2025-01-17 03:18 | XMS_ITS | Data Portability ---
Author Organization [facility] Viki Vazquez, [facility] Address [address] [place] [address] Assessment Encounter Date Assessment Date Assessment LastModified by Organization Details LastModified Time 01/10/2025 01/10/2025 previous records requested. [email or web address] Not available 01/10/2025 14:18:28 Plan of Treatment Reminders Order Date Submit Date Provider Last Modified By Organization Details Last Modified Time Details Appointments OFFICE VISIT [place] 2024 12:45P Yvette Olmstead MD Not available Not available Not available Lab CBC w/ auto diff 2024 025 [facility], [address], [place], [address], 01/17/2025 04:07:13 CMP, serum or plasma 2024 025 [place] [facility], [address], [place], [address], 01/10/2025 17:10:49 BNP (B-type natriuret ic peptide), serum or plasma 2024 025 [facility], [address] [facility] [address] [place], [address], 01/17/2025 04:07:13 lipid panel, serum 2024 025 [facility], [address], [place], [address], 01/17/2025 04:07:13 Referral cardiolog ist referral 2024 [email or web address] [facility], [address] [facility], [place], [address], 01/16/2025 14:40:54 Procedures None recorded. Surgeries None recorded. Imaging None recorded. Medication Orders Entresto 49 mg-51 mg tablet 2024 [facility], [address] [place], [address], 01/11/2025 09:28:56 Entresto 49 mg-51 mg tablet 2024 [facility], [address] [place], [address], 01/10/2025 14:36:54 Patient TargetsNo targets recorded. Patient InstructionsNo instructions recorded. 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 Referral for Ch ronic systolic heart failure Referring Physician: Russell Olmstead, Family Medicine, Encounter Date: 01/10/2025 Results Created Date Observation Date Name Description Value Unit Range Abnormal Flag Note LastModifiedBy Organization Detail LastModifiedTime 01/11/2001/10/2025 CBC WBC 6.8 x10 4.5-10 .5 Not Available [facility] [address] [facility] [address], [place], [address], 01/10/2025 16:17:01 01/11/20 25 01/10/2025 CBC RBC 4.95 x10 4.30-5 .90 Not Available [facility] [address] [facility] [address], [place], [address], 01/10/2025 16:17:01 01/11/20 25 01/10/2025 CBC HGB 15.5 g/dL 13.5-1 8.0 Not Available [facility] [address] [facility], [place], [address], 01/10/2025 16:17:01 01/11/20 25 01/10/2025 CBC HCT 48.0 % 35.0-6 0.0 Not Available [facility] [address] [facility] [address], [place], [address], 01/10/2025 16:17:01 01/11/20 25 01/10/2025 CBC MCV 97.0 fL 80.0-9 9.9 Not Available [facility] [address] [facility] [address], [place], [address], 01/10/2025 16:17:01 01/11/2001/10/2025 CBC MCH 31.4 pg 27.0-3 2.0 Not Available [facility] [address] [facility] [facility] 1, [place], [address], 01/10/2025 16:17:01 01/11/20 25 01/10/2025 CBC MCHC 32.3 g/dL 32.0-3 6.0 Not Available [facility] [address] [facility] 1, [place], [address], 01/10/2025 16:17:01 01/11/20 25 01/10/2025 CBC RDW 18.8 % 11.5-1 4.5 high Not Available [facility] [address] [facility] [address], [place], [address], 01/10/2025 16:17:01 01/11/2001/10/2025 CBC plt 198.6 x10 150.0- 451.0 Not Available [facility] [address] [facility] 1, [place], [address], 01/10/2025 16:17:01 01/11/20 25 01/10/2025 CBC lymphocytes % 26.0 % 20.0-5 0.0 Not Available [facility] [address] [facility], [place], [address], 01/10/2025 16:17:01 01/11/2001/10/2025 CBC granulcytes % 64.4 % 30.0-7 0.0 Not Available [facility] [address] [facility] [facility], [place], [address], 01/10/2025 16:17:01 01/11/2001/10/2025 CBC monocytes % 8.6 % 2.0-16 .0 Not Available [facility] [address] [facility] [address] [facility] [address], [place], [address], 01/10/2025 16:17:01 01/11/2001/10/2025 CBC granulcytes# 4.4 x10 Not Johanna ilable [facility] [address] [facility], [place], [address], 01/10/2025 16:17:01 01/11/2001/10/2025 CBC lymphocytes # 1.8 x10 Not Available [facility] [address] [facility] [address] [facility] 1, [place], [address], 01/10/2025 16:17:01 01/11/2001/10/2025 CBC monocytes # 0.6 x10 Not Avai lable [facility] [address] [facility], [place], [address], 01/10/2025 16:17:01 01/11/2001/10/2025 CMP (MALE ) glucose 105.0 mg/dL 60.0-9 9.0 high Not Available [facility] [address] [facility] [facility] 1, [place], [address], 01/10/2025 17:10:49 01/11/2001/10/2025 CMP (MALE ) BUN (blood urea nitrogen) 13.0 mg/dL 10.0-2 6.0 Not Available [facility] [address] 1, [place], [address], 01/10/2025 17:10:49 01/11/20 25 01/10/2025 CMP (MALE ) creatinine (serum) 1.4 mg/dL 0.4-1. 5 Not Available [facility] [address] [facility], [place], [address], 01/10/2025 17:10:49 01/11/20 25 01/10/2025 CMP (MALE ) BUN/creatini ne ratio 9.29 ratio Not Available [facility] [address] [facility], [place], [address], 01/10/2025 17:10:49 01/11/20 25 01/10/2025 CMP (MALE ) eGFR calculated 58.2 Not Available [facility] [address] [facility], [place], [address], 01/10/2025 17:10:49 01/11/20 25 01/10/2025 CMP (MALE ) total protein 8.4 g/dL 6.0-8. 5 Not Available [facility] [address] [facility] [address], [place], [address], 01/10/2025 17:10:49 01/11/20 25 01/10/2025 CMP (MALE ) total bilirubin 1.4 mg/dL 0.2-1. 3 high Not Available [facility] [address] [facility], [place], [address], 01/10/2025 17:10:49 01/11/20 25 01/10/2025 CMP (MALE ) albumin 4.5 g/dL 3.5-5. 5 Not Available [facility] [address] [facility], [place], [address], 01/10/2025 17:10:49 01/11/20 25 01/10/2025 CMP (MALE ) globulin 3.9 calc Not Available [facility] [address] [facility] 1, [place], [address], 01/10/2025 17:10:49 01/11/20 25 01/10/2025 CMP (MALE ) AST (SGOT) 53.0 U/L 0.0-46 .0 high Not Available [facility] [address] [facility] 1, [place], [address], 01/10/2025 17:10:49 01/11/20 25 01/10/2025 CMP (MALE ) altv (SGPT) 23.0 U/L 13.0-6 9.0 normal Not Available [facility] [address] [facility], [place], [address], 01/10/2025 17:10:49 01/11/20 25 01/10/2025 CMP (MALE ) A/G ratio 1.2 ratio Not Available [facility] [address] [facility], [place], [address], 01/10/2025 17:10:49 01/11/20 25 01/10/2025 CMP (MALE ) ALP phos 171.0 U/L 30.0-1 40.0 abnormal Not Available [facility] [address] [facility] [address] [facility] 1, [place], [address], 01/10/2025 17:10:49 01/11/20 25 01/10/2025 CMP (MALE ) calcium 9.6 mg/dL 8.4-10 .5 Not Available [facility] [address] [facility] [address] [facility] 1, [place], [address], 01/10/2025 17:10:49 01/11/20 25 01/10/2025 CMP (MALE ) sodium 138.0 mmol/ L 136.0- 145.0 Not Available [facility] [address] [facility] [address] [facility], [place], [address], 01/10/2025 17:10:49 01/11/20 25 01/10/2025 CMP (MALE ) potassium 3.2 mmol/ L 3.5-5. 1 low Not Available [facility] [address] 1, [place], [address], 01/10/2025 17:10:49 01/11/20 25 01/10/2025 CMP (MALE ) chloride 91.0 mmol/ L 98.0-1 10.0 abnormal Not Available [facility] [address] 1, [place], [address], 01/10/2025 17:10:49 01/11/20 25 01/10/2025 CMP (MALE ) C02 36.0 mmol/ L 22.0-3 1.0 high Not Available [facility] [address], [place], [address], 01/10/2025 17:10:49 01/11/20 25 01/10/2025 CMP (MALE ) anion gap 11.0 calc Not Available [facility] [address], [place], [address], 01/10/2025 17:10:49 01/11/20 25 01/10/2025 CMP (MALE ) osmolality 285.6 calc Not Available [facility] [address] 1, [place], [address], 01/10/2025 17:10:49 01/11/20 25 01/10/2025 LIPID PROFI LE (MALE ) cholesterol 165.0 mg/dL 0.0-20 0.0 Not Available [facility] [address] 1, [place], [address], 01/10/2025 17:10:52 01/11/20 25 01/10/2025 LIPID PROFI LE (MALE ) trig 67.0 mg/dL 0.0-15 0.0 Not Available [facility] [address] [facility] [address], [place], [address], 01/10/2025 17:10:52 01/11/20 25 01/10/2025 LIPID PROFI LE (MALE ) HDL - direct 46.0 mg/dL >40.0 Not Available [facility] [address] [facility] [address], [place], [address], 01/10/2025 17:10:52 01/11/20 25 01/10/2025 LIPID PROFI LE (MALE ) VLDL - direct 13.4 mg/dL Not Available [facility] [address] [facility] [address], [place], [address], 01/10/2025 17:10:52 01/11/20 25 01/10/2025 LIPID PROFI LE (MALE ) LDL - direct 105.6 mg/dL 0.0-13 0.0 Not Available [facility] [address] [facility] [address], [place], [address], 01/10/2025 17:10:52 01/11/20 25 01/13/2025 B TYPE NATRI URETI C PEPTI DE (BNP) B type natriuretic peptide (BNP) 683 pg/mL <100 high BNP level s incre ase with age in the gener al popul ation with the highe st value s seen in indiv idual s great er than 75 years of age. Refer ence: J. Am. Kirill. Cardi ol. 2002; 40:97 6-982 . Not Available [facility] [address] [place], [address], 01/13/2025 18:33:59 Result Notes None recorded. Problems Name Problem SNOMED Code Status Onset Date Resolution Date Notes Provider Name and Address Organization Details Recorded Time Disorder of vision 14536412 Active 2010 VISION PROBLEM; left eye blindness [facility] LAZARO [facility], LCyrusLCyrusCCyrus 13:45:57 Closed fracture of cervical spine 773184956 Active 2010 BROKEN NECK, fell off of a keily [facility], LCyrusLLuis Eduardo 13:46:21 Congestive heart failure 64935034 Active 2024 KEREN LZAARO [facility], L.L.CCyrus 13:43:48 Problem Notes None recorded. Procedures Surgical History Date Name Laterality Status Provider Name and Address Organization Details Recorded Time cervical arthrodesis completed [facility], LCyrusL.CCyrus 01/10/2025 13:47:48 removal of scleral buckle completed [facility], LCyrusLCyrusCCyrus 01/10/2025 13:48:10 operative procedure on knee completed [facility], L.L.CCyrus 01/10/2025 13:48:52 Imaging Results None recorded. Procedure Notes None recorded. Medical Equipment None Reported. Allergies No known drug allergies Medications Name Sig Start Date Stop Date Status Note LastModified by Organization Details LastModified Time atorvastatin 40 mg tablet Take 1 tablet every day by oral route. active Not Available Not Available No t Available potassium chloride ER 10 mEq capsule,extend ed release Take 1 capsule every day by oral route. active Not Available Not Available No t Available bumetanide 2 mg tablet Take 1 tablet twice a day by oral route. active Not Available Not Available No t Available metoprolol succinate ER 25 mg tablet,extende d release 24 hr Take 1 tablet every day by oral route. active Not Available Not Available No t Available Entresto 49 mg-51 mg tablet Take 1 tablet twice a day by oral route for 30 days. 2024 active Not Available Not Available Not Avai lable Vitals Date Recorded Body height Body mass index (BMI) Body weight Body temperature Heart rate Oxygen saturation Systolic And Diastolic Provider Name and Address Organization Details Last Updated DateTime 173.99 cm 22.6 kg/m2 06123.4 5 g 97.6 [degF] 109 /min 99 % 138/80 mm[Hg] KEREN LAZARO [facility] 13:40:48 Social History Question Answer Notes LastModified by [employer] Details LastModified Time Tobacco Smoking Status Current Every Day Smoker KEREN LAZARO [facility] 01/10/2025 13:47:05 What Was The Date Of Your Most Recent Tobacco Screening? 01/10/2025 [email or web address] Information not available 01/10/2025 What Is Your Current Pack Years? [email or web address] Information not available 01/10/2025 How Much Tobacco Do You Smoke? 1 PPW [email or web address] Information not available 01/10/2025 Sex: Unknown Functional Status Question Answer Note LastModified by Organizat [employer] Details LastModified Time Do you or have you ever used any other forms of tobacco or nicotine? No [email or web address] Information not available 01/10/2025 What is your level of alcohol consumption? Occasional [email or web address] Information not available 01/10/2025 Do you or have you ever used any nicotine-free cigarettes, vape, or chewing tobacco? No [email or web address] Information not available 01/10/2025 Mental Status None recorded. Family History Relationship Description Onset Age of this Age Resolved Age Notes LastModified by Organization Details LastModified Time Brother Diabetes mellitus [email or web address] Not available 01/10 13:44:19 Father Myocardial infarction [email or web address] Not available 05/2024 13:44:30 Father Cerebrovascu lar accident [email or web address] Not available 13:44:37 Father Malignant neoplasm of lung [email or web address] Not available 01/10 13:44:51 Medical History No medical history recorded. Immunizations Vaccine Type Date Status Note Provider Nam e and Address Organization Details Recorded Time Hep A, adult 06/02/2018 completed Not Available [facility] 01/10/2025 13:27:44 Past Encounters Encounter ID Performer Location Encounter Start Date Encounter Closed Date Diagnosis/Indication Diagnosis SNOMED-CT Code Diagnosis ICD10 Code Diagnosis IMO Codes Diagnosis Note [id number] Russell Olmstead MD [facility] ([facility]) [address] [place] [address] 01/10/2025 13:26:32 01/11/2025 09:41:52 Chronic systolic heart failure 965711156 I50.22 486206 hospitaliz ation was 6 mo ago. will review. sounds like EF was very very low. Health Concerns Section Related Observation LastModified by Organization Detai ls LastModified Time None Recorded Concern Status LastModified by Organization Details LastModified Time None Recorded Advance Directives Directive None Recorded Payers Insurance Date Sequence Insurance Name Policy Number Policy Godoy Covered Member ID Godoy Member ID Guarantor Name 01/10/2025 1 [employer] (MEDICARE REPLACEMENT/A DVANTAGE - PPO) [id number] Edwin Cuevas [id number] Edwin Cuevas Notes Date Note Type Note Provider Name and Address Organization Details Recorded Time 01/10/2025 text/html Care Management - Congestive Heart Failure (CHF)Reported by PatientHPIFor severity, patient reportssymptoms are improving. For associated symptoms, patient reportsno chest pain,no shortness of breath,no limb swelling, andno abdominal swelling.Patient reports that he used to see cardiology, but they haven't had him come in for a while. Patient would just like to make sure that he continues to get his medication. Patient reports the last time he was hospitalized for his heart failure was 6 months ago. He had been without his medication and then got a lot of fluid on him and couldn't breathe. he is unsure the cause of his CHF.ROS as noted in the HPI Russell Olmstead MD [address] [place], [address], [facility] 01/10/2025 14:18:46
--- OUTSIDE RECORDS SUMMARY | 2025-01-17 03:18 | XMS_ITS | Encounter Summary ---
Author Organization [facility] Address [address] [place] [address] Care Team Providers Care Director Veterinary Name Role Phone Unavailable Primary Care Provider Unavailabl e Encounter Details Date Type Department Care Team (Late st Contact Info) Description 11/16/2007 Outpatient Historical [facility] [address] [place] [address] [place] [address] Fartun Baker MD [address] [place] [address] Headache Social History Tobacco Use Types Packs/Day Years Used Date Smoking Tobacco: Never Assessed Sex and Gender Information Value Date Recorded Sex Assigned at Not on file 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 Date Signed: 11/16/07 Procedure Note Sopiha Zhao MD - 11/16/2007 Exam: Spine - [...]
--- OUTSIDE RECORDS SUMMARY | 2025-01-17 03:19 | XMS_ITS | Encounter Summary ---
Author Organization [facility] Address [address] [place] [address] Care Team Providers Care Tree Inspector Name Role Phone Unavailable Primary Care Provider Unavailabl e Encounter Details Date Type Department Care Team (Latest Contact Info) Description 12/29/2007 Outpatient Historical [facility] [address] [place] [address] Nesha Hilario PA [address] [place] [address] Arthrodesis Status; Cervicalgia Social History Tobacco Use Types Packs/Day Years Used Date Smoking Tobacco: Never Assessed Sex and Gender Information Value Date Recorded Sex Assigned at Not on file 

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
--- NOTE | 2025-01-17 04:10 | XRR_ITS ---
PROCEDURE INFORMATION: Exam: XR Chest Exam date and time: 01/17/2025 4:25 AM Age: 44 years old Clinical indication: Pain; Other: Upper abd lower chest; Additional info: Upper abd pain TECHNIQUE: Imaging protocol: Radiologic exam of the chest. Views: 1 view. COMPARISON: CT angio chest PE protcl [id number] 11/25/2024 11:49 PM FINDINGS: Lungs: Unremarkable. No consolidation. Pleural spaces: Unremarkable. No pleural effusion. No pneumothorax. Heart/Mediastinum: Borderline cardiomegaly accentuated by the AP positioning. Bones/joints: Unremarkable. Other findings: Miliary calcified granulomata. XR/XR chest 1V portable [id number] IMPRESSION: No acute findings.
--- NOTE | 2025-01-17 04:11 | ECG_ITS ---
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 Measurements Intervals [place] Rate: 97 P: 55 ME: 148 QRS: -57 QRSD: 113 T: 101 QT: 404 QTc: 516 Interpretive Statements SINUS RHYTHM POSSIBLE LEFT ATRIAL ENLARGEMENT [-0.1mV P-WAVE IN V1/V2] LEFT ANTERIOR FASCICULAR BLOCK [QRS AXIS <= -45, QR IN I, RS IN II] LEFT VENTRICULAR HYPERTROPHY AND ST-T CHANGE [VOLTAGE CRITERIA PLUS ST/T ABNORMALITY] Compared to ECG 11/25/2024 22:25:16 Sinus tachycardia no longer present ST (T wave) deviation still present Electronically Signed On 01-17-2025 17:24:42 RESPITE WORKER by Emelyn Mcbirde M.D. [email or web address]
--- NOTE | 2025-01-17 04:25 | CTR_ITS ---
PROCEDURE INFORMATION: Exam: CT Abdomen And Pelvis With Contrast Exam date and time: 01/17/2025 4:42 AM Age: 44 years old Clinical indication: Abdominal pain; Epigastric; Additional info: Epigastric pain TECHNIQUE: Imaging protocol: Computed tomography of the abdomen and pelvis with contrast. Radiation optimization: All CT scans at this facility use at least one of these dose optimization techniques: automated exposure control; mA and/or kV adjustment per patient size (includes targeted exams where dose is matched to clinical indication); or iterative reconstruction. Contrast material: OMNI 350; Contrast volume: 100 ml; Contrast route: INTRAVENOUS (IV); COMPARISON: CT abdomen pelvis wo con [id number] 05/02/2024 10:48 AM RADIATION DOSE METRICS: Total DLP (mGy-cm): 391.47 FINDINGS: Lungs: Biliary calcifications in the lower lobes. Liver: Hepatic steatosis. Gallbladder and biliary ducts: Minimally thickened gallbladder wall suggesting adenomyomatosis. No stones are visible. Pancreas: Normal. No ductal dilation. Spleen: Normal. No splenomegaly. Adrenal glands: Normal. No mass. Kidneys and ureters: Normal. No hydronephrosis. Stomach and bowel: Unremarkable. No obstruction. No mucosal thickening. Appendix: No evidence of appendicitis. Intraperitoneal space: Unremarkable. No free air. No significant fluid collection. Vasculature: Unremarkable. No abdominal aortic aneurysm. Lymph nodes: Unremarkable. No enlarged lymph nodes. Urinary bladder: Unremarkable as visualized. Reproductive: Unremarkable as visualized. Bones/joints: Unremarkable. No acute fracture. Soft tissues: Unremarkable. CT/CT abdomen pelvis w con* [id number] IMPRESSION: No acute findings.
[2025-01-17 04:28] LABS: Hematocrit 45.5 % (37-53); Hemoglobin 14.70 g/dL (11.27-16.99); Mean Corpuscular HGB Conc 32.3 g/dL (30-55); Mean Corpuscular Hemoglobin 30.6 pg (27-33); Mean Corpuscular Volume 94.6 fl (82-101); Nucleated Red Blood Cells % 0 %; Platelet Count 180 10^3/cmm (157-399); Red Blood Count 4.81 10^6/uL (3.85-5.65); White Blood Count 6.15 10^3/uL (3.29-11.43)
[2025-01-17] MEDS: ondansetron 2 mg/ML SDV 2 mL 4 MG IVP (04:33)
[2025-01-17] MEDS: acetaminophen 1,000 MG/100 ML PIGGYBACK 400 MG IV (04:34)
[2025-01-17 04:46] LABS: Troponin(5th) Baseline 27 ng/L (0-15)
[2025-01-17 04:49] LABS: Alanine Aminotransferase 15 U/L (0-41); Albumin Level 3.8 g/dL (3.5-5.2); Alkaline Phosphatase 159 U/L (40-130); Anion Gap 13.2 (5-19); Aspartate Amino Transferase 37 U/L (0-40); Blood Urea Nitrogen 13 mg/dL (6-20); Calcium 9.3 mg/dL (8.5-10.5); Carbon Dioxide 33 mmol/L (22-29); Chloride 98 mmol/L (98-107); Globulin 2.9 g/dL (1.3-4.6); Glucose 107 mg/dL (65-115); Lipase 32 U/L (13-60); Osmolality Calculated 293 mOsm/kg (285-295); Potassium 3.2 mmol/L (3.5-5.1); Sodium 141 mmol/L (136-145); Total Protein 6.7 g/dL (6.6-8.7)
[2025-01-17] MEDS: iohexol 350 mg/mL 500 mL Btl (per mL) IV (04:55)
--- NOTE | 2025-01-17 05:03 | ECG_ITS ---
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 Measurements Intervals [place] Rate: 98 P: 27 CO: 124 QRS: -52 QRSD: 114 T: 102 QT: 403 QTc: 517 Interpretive Statements SINUS RHYTHM LEFT ANTERIOR FASCICULAR BLOCK [QRS AXIS <= -45, QR IN I, RS IN II] LEFT VENTRICULAR HYPERTROPHY AND ST-T CHANGE [VOLTAGE CRITERIA PLUS ST/T ABNORMALITY] INFERIOR MYOCARDIAL INFARCTION , PROBABLY OLD [40+ ms Q WAVE AND/OR ST/T ABNORMALITY IN II/aVF] Compared to ECG 01/17/2025 04:18:55 Myocardial infarct finding now present ST (T wave) deviation still present Electronically Signed On 01-17-2025 17:39:51 STUDENT EDUCATION SPECIALIST by Emelyn Mcbride M.D. [email or web address]
--- NOTE | 2025-01-17 05:09 | W.ED.GENADLT ---
HPI - General Adult General: Chief complaint: Abdominal Pain Stated complaint: abdomen pain Time Seen by Provider: 01/17/25 03:53 History of Present Illness: Patient is a 44-year-old male with a past medical history of CHF, cardiomegaly, CKD, hypertension, hepatitis C, alcohol abuse, amphetamine abuse, presents with a chief complaint of epigastric abdominal pain upon waking. Patient is quite somnolent on arrival but arouses to verbal and tactile stimulus. He denies fever. At this time, he states he is not experiencing chest pain does not feel short of breath. He denies cough or hemoptysis. He denies hematemesis. Patient reports epigastric abdominal pain that started in his sleep this evening. No nausea, vomiting, diarrhea, dysuria, blood in stool or urine. Patient states he drinks approximately 1 sixpack per day. Patient has not fallen or injured himself. He is not able to provide surgical history and falls asleep during examination. He has an odor of ETOH about him. Related Data Home Medications ?Medication ?Instructions ?Recorded ?Confirmed pantoprazole 40 mg tablet,delayed 40 mg PO BID 05/02/24 05/02/24 release Previous Rx's ?Medication ?Instructions ?Recorded atorvastatin 40 mg tablet 40 mg PO DAILY #90 tabs 05/05/24 potassium chloride 10 mEq 10 meq PO DAILY #30 caps 05/05/24 capsule,extended release atorvastatin 40 mg tablet (Lipitor) 40 mg PO QPM #30 tabs 01/02/25 bumetanide 2 mg tablet 2 mg PO BID #60 tabs 01/02/25 metoprolol succinate 25 mg 25 mg PO DAILY #30 tabs 01/02/25 tablet,extended release 24 hr potassium chloride 10 mEq 10 meq PO DAILY #30 caps 01/02/25 capsule,extended release Allergies Allergy/AdvReac Type Severity Reaction Status Date / Time No Known Allergies Allergy Verified 01/02/25 11:56 Review of Systems Narrative: Vitals were reviewed. On initial exam, patient is resting and does not appear to be in any acute distress. Patient is arousable to verbal and tactile stimuli but readily falls asleep, does not answer questions readily and smells of alcohol. EOMI. No obvious trauma to face or head. Patient has clear lung sounds bilaterally, normal heart sounds. Patient has a soft, nondistended abdomen with epigastric tenderness to palpation. No CVA tenderness with percussion of the flanks. Patient is noted to be moving all of his extremities. PFSH ED PFSH: Medical History (Updated 01/17/25 @ 06:03 by Carolyn Gil MD) Amphetamine abuse Nicotine dependence, cigarettes, with other nicotine-induced disorders Chronic hepatitis C Chronic neck pain Chronic lumbar pain Systolic and diastolic CHF w/reduced LV function, NYHA class 4 Acute exacerbation of CHF (congestive heart failure) Partner relationship problem Chronic kidney disease Benign essential hypertension with target blood pressure below 140/90 CHF (congestive heart failure) Cardiomegaly Hepatitis C antibody positive in blood Alcohol intoxication Dyspnea Suicidal ideation Surgical History No pertinent past surgical history Social History Smoking and tobacco/nicotine status: current every day tobacco/nicotine user Alcohol intake: current Alcohol intake frequency: few times a week Substance/Drug Use: former Course Vital Signs: Vital signs: Vital Signs Temperature 97.8 F 01/17/25 03:05 Pulse Rate 98 01/17/25 05:47 Respiratory Rate 17 01/17/25 03:05 Blood Pressure 108/76 01/17/25 05:47 Pulse Oximetry 100 01/17/25 05:47 Oxygen Delivery Me thod Room Air 01/17/25 05:47 [facility] - General Adult Medical Decision Making 44-year-old male with a complex medical h/o complicated by methamphetamine abuse, alcohol abuse, medical noncompliance presents with a chief complaint of epigastric abdominal pain. Differential diagnosis includes, but is not limited to, pancreatitis, cholecystitis, gastroenteritis, appendicitis, urinary tract infection, pyelonephritis, nephrolithiasis, SBO, pneumonia, ACS, pericarditis, myocarditis other. On initial exam, patient is hemodynamically stable. Patient was evaluated with CBC, CMP, lipase, beta hydroxybutyrate, VBG, troponin, UA and CT abd/pelvis. Patient has a normal white blood cell count, is not anemic. Patient has mildly elevated creatinine but normal anion gap, suspect this may be chronic worsening of CKD. Patient has mild hypokalemia, potassium was replaced orally. Baseline troponin is elevated, this has been the case previously, it is lower than usual and I would expect some degree of troponin elevation given CKD and CHF. EKG however does show some worsening T wave inversion/evolution in lead I, V5-V6. Discussed w/Dr. Woodson who does not feel that patient meets cathode ray tube assembler criteria at this time but needs to be ruled out for ACS. Given that patient may be intoxicated and is unable to provide more history regarding pain in his upper abd/chest, has multiple risk factors, he was admitted for observation and cardiac rule out. Lab Data 01/17/25 03:17 01/17/25 03:17 Radiology Impressions Chest X-Ray 01/17/25 04:10 IMPRESSION: No acute findings. Abdomen/Pelvis CT 01/17/25 04:25 IMPRESSION: No acute findings. Laboratory Results WBC 6.15 10^3/uL (3.29-11.43) 01/17/25 03:17 RBC 4.81 10^6/uL (3.85-5.65) 01/17/25 03:17 Hgb 14.70 g/dL (11.27-16.99) 01/17/25 03:17 Hct 45.5 % (37-53) 01/17/25 03:17 MCV 94.6 fl (82-101) 01/17/25 03:17 MCH 30.6 pg (27-33) 01/17/25 03:17 MCHC 32.3 g/dL (30-55) 01/17/25 03:17 RDW 18.7 % (12.1-15.1) H 01/17/25 03:17 Plt Count 180 10^3/cmm (157-399) 01/17/25 03:17 MPV 10.4 fL (7.4-10.4) 01/17/25 03:17 Neut % (Auto) 48.1 % 01/17/25 03:17 Lymph % (Auto) 38.7 % 01/17/25 03:17 Phillips % (Auto) 9.4 % 01/17/25 03:17 Eos % (Auto) 3.1 % 01/17/25 03:17 Baso % (Auto) 0.5 % 01/17/25 03:17 Neut # (Auto) 2.96 10^3/uL (1.8-7.7) 01/17/25 03:17 Lymph # (Auto) 2.4 10^3/uL (0.8-4.8) 01/17/25 03:17 Phillips # (Auto) 0.6 10^3/uL (0.2-0.9) 01/17/25 03:17 Eos # (Auto) 0.2 10^3/uL (0.0-0.8) 01/17/25 03:17 Baso # (Auto) 0.0 10^3/uL (0.0-0.1) 01/17/25 03:17 Nucleated RBC % (auto) 0 % 01/17/25 03:17 Nucleated RBCs # 0.0 /100WBC 01/17/25 03:17 Specimen Type Venous 01/17/25 05:46 Marcus Test N/a 01/17/25 05:46 VBG pH 7.36 (7.32-7.42) 01/17/25 05:46 VBG pCO2 58.4 mmHg (41-51) H 01/17/25 05:46 VBG pO2 41.1 mmHg (25-40) H 01/17/25 05:46 VBG HCO3 32.8 mmol/L (24-28) H 01/17/25 05:46 VBG Base Excess 5.5 mmol/L (-3.0-3.0) H 01/17/25 05:46 VBG Hematocrit 44.2 % (42-52) 01/17/25 05:46 Social Services Specialist ID [email or web address] 01/17/25 05:46 Sodium 141 mmol/L (136-145) 01/17/25 03:17 Potassium 3.2 mmol/L (3.5-5.1) L 01/17/25 03:17 Chloride 98 mmol/L (98-107) 01/17/25 03:17 Carbon Dioxide 33 mmol/L (22-29) H 01/17/25 03:17 Anion Gap 13.2 (5-19) 01/17/25 03:17 BUN 13 mg/dL (6-20) 01/17/25 03:17 Creatinine 1.6 mg/dL (0.7-1.2) H 01/17/25 03:17 GFR Calculation 47.0 mL/min (90-130) L 01/17/25 03:17 Glucose 107 mg/dL (65-115) 01/17/25 03:17 Calculated Osmolality 293 mOsm/kg (285-295) 01/17/25 03:17 Calcium 9.3 mg/dL (8.5-10.5) 01/17/25 03:17 Magnesium 1.8 mg/dL (1.7-2.3) 01/17/25 03:17 Total Bilirubin 0.4 mg/dL (0.15-1.2) 01/17/25 03:17 AST 37 U/L (0-40) 01/17/25 03:17 ALT 15 U/L (0-41) 01/17/25 03:17 Alkaline Phosphatase 159 U/L (40-130) H 01/17/25 03:17 Troponin T Baseline 27 ng/L (0-15) H 01/17/25 03:17 NT-Pro-B Natriuret Pep 1577 pg/mL (0-125) H 01/17/25 03:17 Total Protein 6.7 g/dL (6.6-8.7) 01/17/25 03:17 Albumin 3.8 g/dL (3.5-5.2) 01/17/25 03:17 Globulin 2.9 g/dL (1.3-4.6) 01/17/25 03:17 Lipase 32 U/L (13-60) 01/17/25 03:17 All radiology interpretation(s) finalized by discharge EKG Data EKG 1: Computer generated interpretation: Chest X-Ray 01/17/25 04:10 IMPRESSION: No acute findings. Abdomen/Pelvis CT 01/17/25 04:25 IMPRESSION: No acute findings. Initial EKG shows sinus rhythm with a heart rate of 97, left axis deviation, prolonged QRS, normal QT/QTc, no STEMI. Q waves are present in III but this is also noted on previous EKG, as T wave inversion in V6. EKG 2: Interpretation: Sinus rhythm with a heart rate of 98, left axis deviation, prolonged QRS, normal QT/QTc, no STEMI. It does appear that T waves in V5/V6 are somewhat worse. Computer generated interpretation: Chest X-Ray 01/17/25 04:10 IMPRESSION: No acute findings. Abdomen/Pelvis CT 01/17/25 04:25 IMPRESSION: No acute findings. 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
[2025-01-17] MEDS: ondansetron hcl ODT 4 mg Tab PO (05:41)
[2025-01-17 05:55] LABS: Magnesium 1.8 mg/dL (1.7-2.3); NT Pro B Type Natriuretic Pept 1577 pg/mL (0-125)
[2025-01-17 05:59] LABS: Base Excess VBG 5.5 mmol/L (-3.0-3.0); Blood Gas Sample Type Venous; HCO3 VBG 32.8 mmol/L (24-28); PCO2 VBG 58.4 mmHg (41-51); PO2 VBG 41.1 mmHg (25-40); Venous Blood Gas Hematocrit 44.2 % (42-52); pH VBG 7.36 (7.32-7.42)
--- NOTE | 2025-01-17 06:57 | PM.HP ---
Providers/Chief Complaint Admitting Physician: Alexey Zhao MD Primary Care Provider: Russell Olmstead MD Chief Complaint: abdomen pain History of Present Illness Edwin Cuevas is a 44 year old male with history of alcoholism lives alone states he was having epigastric pain when he awoke 09/16. He did not have nausea or vomiting diarrhea or constipation. Patient states he was fine when he went to sleep. He thinks he may be having reflux now but has not had that as a problem in the past. Patient states his alcohol use is heavy and was evasive regarding the amount states that he drinks it when he has it and stated this sort of circular discussion until finally he admits to 1/5 a day whiskey not vodka tequila or other +2 tall boys. Patient states he quit methamphetamines 6 months ago tobacco is 1 pack/day. Patient is on disability due to neck and back and knee injury and has had neck and back surgery. Patient denies history of appendectomy tonsillectomy or cholecystectomy. He has not had pancreatitis Review of Systems Narrative: General No fevers chills cardiovascular positive for epigastric pain he has had some ankle edema he denies heart racing he is not sure if he has had stroke or heart attack he says maybe a small 1 but he does not recall any physician telling him he had that Respiratory no cough or wheezing denies shortness of breath GI positive for epigastric pain he denies pain with eating or drinking food or water no dysuria hematuria Medications/Allergies Home Medications ?Medication ?Instructions ?Recorded ?Confirmed ?Last Taken ?Type pantoprazole 40 mg tablet,delayed 40 mg PO BID 05/02/24 05/02/24 05/02/24 History release atorvastatin 40 mg tablet 40 mg PO DAILY #90 tabs 05/05/24 05/02/24 05/01/24 Rx potassium chloride 10 mEq 10 meq PO DAILY #30 caps 05/05/24 05/02/24 05/02/24 Rx capsule,extended release atorvastatin 40 mg tablet (Lipitor) 40 mg PO QPM #30 tabs 01/02/25 Unknown Rx bumetanide 2 mg tablet 2 mg PO BID #60 tabs 01/02/25 Unknown Rx metoprolol succinate 25 mg 25 mg PO DAILY #30 tabs 01/02/25 Unknown Rx tablet,extended release 24 hr potassium chloride 10 mEq 10 meq PO DAILY #30 caps 01/02/25 Unknown Rx capsule,extended release Allergies Allergy/AdvReac Type Severity Reaction Status Date / Time No Known Allergies Allergy Verified 01/02/25 11:56 PFSH Acute PFSH: Medical History (Updated 01/17/25 @ 06:03 by Carolyn Gil MD) Amphetamine abuse Nicotine dependence, cigarettes, with other nicotine-induced disorders Chronic hepatitis C Chronic neck pain Chronic lumbar pain Systolic and diastolic CHF w/reduced LV function, NYHA class 4 Acute exacerbation of CHF (congestive heart failure) Partner relationship problem Chronic kidney disease Benign essential hypertension with target blood pressure below 140/90 CHF (congestive heart failure) Cardiomegaly Hepatitis C antibody positive in blood Alcohol intoxication Dyspnea Suicidal ideation Surgical History No pertinent past surgical history Social History (Updated 01/17/25 @ 07:01 by Alexey Zhao MD) Smoking and tobacco/nicotine status: current every day tobacco/nicotine user cigarettes Packs smoked per day: 1 Alcohol intake: current Alcohol intake frequency: few times a week Substance/Drug Use: former Date of last use: July 2024 Former substance use details: Methamphetamines Additional social history: Wants full code is discussed with Alexey Zhao MD on 01/17/2025 Current occupational status: disabled Vitals/I&O/Wt Last Vital Signs Temp 97.8 F 01/17/25 03:05 Pulse 94 01/17/25 06:21 Resp 17 01/17/25 03:05 BP 101/78 01/17/25 06:21 Pulse Ox 98 01/17/25 06:21 O2 Del Method Room Air 01/17/25 06:03 Weight last 48 hrs Weight 68.039 kg Physical Exam Narrative: General well-developed well-nourished thin male in no acute cardiopulmonary stress CV regular rate and rhythm Lungs clear to auscultation bilaterally Abdomen positive bowel tones soft mild epigastric tenderness no rebound tenderness Calves no tenderness cords pretibial edema Right anterior chest wall with the flattened racquetball sized lipoma like fatty mass it is round without irregular contours or hard knots Neuro patient is alert able to converse and answer questions. His hands demonstrate no tremors when held out in front of him Skin is warm and dry without diaphoresis Data 01/17/25 03:17 01/17/25 03:17 A&P Assessment and plan 1. Abdominal pain, acute, epigastric: This appears to be epigastric in nature and patient is reporting that he is uncertain if he is taking proton pump inhibitors. Will start pantoprazole p.o. twice daily, Carafate and start off with GI cocktail. Will be on cardiac diet. Anticipate discharge later today or in the morning 2. Alcohol abuse: Patient heavy drinker but drank yesterday. Alcohol level now. Anticipate discharge prior to withdrawal. 3. Abnormal ECG: EKG with sinus rhythm borderline tachycardia and left anterior fascicular block with anterolateral T wave inversion cannot exclude ischemia. This has been present off and on since 2020. His troponin was minimally elevated and is downtrending. His pain is epigastric and I do not think this represents acute coronary syndrome 4. HFrEF (heart failure with reduced ejection fraction): Last echo 05/02/2024 showed LVEF 15%. Patient states he stopped doing methamphetamine since then 5. Non-ischemic cardiomyopathy: As above does not appear to be acutely decompensated. Will briefly decrease his Bumex while he is hospitalized here because of elevated creatinine 6. Elevated troponin: Again this has been downtrending 7. Acute hypokalemia: Plan: GI cocktail and start proton pump inhibitor and Carafate. Potential discharge later today or early in the morning PDMP PDMP Reviewed: Not Reviewed Attestations Medical Necessity Statement*: Patient is admitted to observation and will be treated with GI cocktail. If this pain symptoms resolve he can be discharged later today Coding Level of Care Code 08483 Diagnoses Abdominal pain, acute, epigastric R10.13 Alcohol abuse F10.10 Abnormal ECG R94.31 HFrEF (heart failure with reduced ejection fraction) I50.20 Non-ischemic cardiomyopathy I42.8 Elevated troponin R79.89 Acute hypokalemia E87.6 Time Spent (min) 56
[2025-01-17] MEDS: lidocaine 2% viscous 15 ML, aluminum-mag hydrox-simethicon 30 ML, sucralfate oral liq 1 GM PO (07:46)
[2025-01-17] MEDS: metoprolol succinate ER (24 HR) 25 mg Tablet PO (07:47)
--- NOTE | 2025-01-17 09:54 | ECG_ITS ---
[facility] Date[facility] 2025-01[facility]17 Pat Name: Edwin Cuevas Department: Room: 277 Gender: Male Professional Development Director: : 1980 Requested By: Carolyn Gil Order Number: [id number] Carlene MD: Emelyn Mcbride M.D. Measurements Intervals [place] Rate: 102 P: 67 NE: 169 QRS: -53 QRSD: 107 T: 107 QT: 385 QTc: 503 Interpretive Statements SINUS TACHYCARDIA POSSIBLE LEFT ATRIAL ENLARGEMENT [-0.1mV P-WAVE IN V1/V2] LEFT ANTERIOR FASCICULAR BLOCK [QRS AXIS <= -45, QR IN I, RS IN II] MODERATE T-WAVE ABNORMALITY, CONSIDER LATERAL ISCHEMIA [-0.1+ mV T-WAVE IN I/aVL/V5/V6] Compared to ECG 01/17/2025 05:03:13 T-wave abnormality now present Possible ischemia now present Sinus rhythm no longer present Left ventricular hypertrophy no longer present ST (T wave) deviation no longer present Myocardial infarct finding no longer present Electronically Signed On 01-17-2025 17:36:42 [employer]IC HEALER by Emelyn Mcbride M.D. [email or web address]
[2025-01-17 10:25] LABS: Troponin 5 6HR 25.29 ng/L (0-15)
[2025-01-17 10:27] LABS: Troponin 5 6HR Delta -1.71 ng/L (0-12)
--- NOTE | 2025-01-17 10:30 | PM.DCS ---
Discharge Providers Date of Admission: 01/17/25 06:03 Date of Discharge: January 17, 2025 Attending Provider at Admission: Alexey Zhao MD Attending Provider at Discharge: Radha Saldivra NP Primary Care Provider: Russell Olmstead MD Diagnoses at Discharge Discharge Diagnosis 1. Abdominal pain, acute, epigastric: 2. Alcohol abuse: 3. Abnormal EC. HFrEF (heart failure with reduced ejection fraction): 5. Non-ischemic cardiomyopathy: 6. Elevated troponin: 7. Acute hypokalemia: Reason for Visit Reason for Visit: abdomen pain Brief History: Admission: Edwin Cuevas is a 44 year old male with history of alcoholism lives alone states he was having epigastric pain when he awoke 09/16. He did not have nausea or vomiting diarrhea or constipation. Patient states he was fine when he went to sleep. He thinks he may be having reflux now but has not had that as a problem in the past. Patient states his alcohol use is heavy and was evasive regarding the amount states that he drinks it when he has it and stated this sort of circular discussion until finally he admits to 1/5 a day whiskey not vodka tequila or other +2 tall boys. Patient states he quit methamphetamines 6 months ago tobacco is 1 pack/day. Patient is on disability due to neck and back and knee injury and has had neck and back surgery. Patient denies history of appendectomy tonsillectomy or cholecystectomy. He has not had pancreatitis. Hospital Course Hospital Course 1. Abdominal pain, acute, epigastric: This appears to be epigastric in nature and patient is reporting that he is uncertain if he is taking proton pump inhibitors. Will start pantoprazole p.o. twice daily, Carafate and start off with GI cocktail. Will be on cardiac diet. Anticipate discharge later today. 2. Alcohol abuse: Patient heavy drinker but drank yesterday. Alcohol level now. Anticipate discharge prior to withdrawal. Advised cessation of ETOH. 3. Abnormal ECG: EKG with sinus rhythm borderline tachycardia and left anterior fascicular block with anterolateral T wave inversion cannot exclude ischemia. This has been present off and on since 2020. His troponin was minimally elevated and is downtrending. His pain is epigastric and I do not think this represents acute coronary syndrome. 4. HFrEF (heart failure with reduced ejection fraction): Last echo 05/02/2024 showed LVEF 15%. Patient states he stopped doing methamphetamine since then 5. Non-ischemic cardiomyopathy: As above does not appear to be acutely decompensated. Will briefly decrease his Bumex while he is hospitalized here because of elevated creatinine and resume regular dosing at home. 6. Elevated troponin: Again this has been downtrending, no chest pain. Most likely related to chronic heart failure. 7. Acute hypokalemia: Plan: GI cocktail and start proton pump inhibitor and Carafate. Potential discharge later today or early in the morning Discharge: Patient discharges in stable condition in care of friends. Patient sitting up in bed stating that he has no more abdominal pain, denies chest pain or shortness of breath. Recommended that the patient stay overnight but he declined further interventions and further workup. Patient states that he has things to do today and he needed to get out of this hospital. Advised patient to be compliant with his home medications, prescribed Protonix and Carafate at discharge. Patient is advised complete and total cessation of tobacco products and any illicit substances. Patient is advised to follow-up with primary care in 1 to 2 days and to keep future cardiology appointments. Patient verbalized understanding all questions and concerns addressed with him prior to discharge. Physical Exam Narrative: General well-developed well-nourished thin male in no acute cardiopulmonary stress CV regular rate and rhythm Lungs clear to auscultation bilaterally Abdomen positive bowel tones soft mild epigastric tenderness no rebound tenderness Calves no tenderness cords pretibial edema Right anterior chest wall with the flattened racquetball sized lipoma like fatty mass it is round without irregular contours or hard knots Neuro patient is alert able to converse and answer questions. His hands demonstrate no tremors when held out in front of him Skin is warm and dry without diaphoresis Discharge Data Studies Completed and Pending Completed Studies During Hospitalization Category Date Time Status CT abdomen pelvis w con* [id number] Stat Cat Scan 01/17/25 04:25 Completed XR chest 1V portable [id number] Stat Exams 01/17/25 04:10 Completed Pending at discharge Category Date Time Status Alcohol Level Routine Lab 01/17/25 07:10 Ordered Beta-Hydroxybutyrate Routine Lab 01/17/25 03:17 Received CBC Auto Diff [Complete Blood Count w/Auto] AM LABS Lab 01/18/25 04:00 Ordered Comprehensive Metabolic Panel AM LABS Lab 01/18/25 04:00 Ordered Magnesium AM LABS Lab 01/18/25 04:00 Ordered UA Drug Screen [Drug Screen, Urine (OZH)] Routine Lab 01/17/25 07:10 Uncollected UA w/Reflex to Microscope [Urinalysis] Stat Lab 01/17/25 04:10 Uncollected VBG [Venous Blood Gas] Stat Lab 01/17/25 05:46 Results Radiology Impressions Chest X-Ray 01/17/25 04:10 IMPRESSION: No acute findings. Abdomen/Pelvis CT 01/17/25 04:25 IMPRESSION: No acute findings. Laboratory Results WBC 6.15 10^3/uL (3.29-11.43) 01/17/25 03:17 RBC 4.81 10^6/uL (3.85-5.65) 01/17/25 03:17 Hgb 14.70 g/dL (11.27-16.99) 01/17/25 03:17 Hct 45.5 % (37-53) 01/17/25 03:17 MCV 94.6 fl (82-101) 01/17/25 03:17 MCH 30.6 pg (27-33) 01/17/25 03:17 MCHC 32.3 g/dL (30-55) 01/17/25 03:17 RDW 18.7 % (12.1-15.1) H 01/17/25 03:17 Plt Count 180 10^3/cmm (157-399) 01/17/25 03:17 MPV 10.4 fL (7.4-10.4) 01/17/25 03:17 Neut % (Auto) 48.1 % 01/17/25 03:17 Lymph % (Auto) 38.7 % 01/17/25 03:17 [place] % (Auto) 9.4 % 01/17/25 03:17 Eos % (Auto) 3.1 % 01/17/25 03:17 Baso % (Auto) 0.5 % 01/17/25 03:17 Neut # (Auto) 2.96 10^3/uL (1.8-7.7) 01/17/25 03:17 Lymph # (Auto) 2.4 10^3/uL (0.8-4.8) 01/17/25 03:17 [place] # (Auto) 0.6 10^3/uL (0.2-0.9) 01/17/25 03:17 Eos # (Auto) 0.2 10^3/uL (0.0-0.8) 01/17/25 03:17 Baso # (Auto) 0.0 10^3/uL (0.0-0.1) 01/17/25 03:17 Nucleated RBC % (auto) 0 % 01/17/25 03:17 Nucleated RBCs # 0.0 /100WBC 01/17/25 03:17 Specimen Type Venous 01/17/25 05:46 Marcus Test N/a 01/17/25 05:46 VBG pH 7.36 (7.32-7.42) 01/17/25 05:46 VBG pCO2 58.4 mmHg (41-51) H 01/17/25 05:46 VBG pO2 41.1 mmHg (25-40) H 01/17/25 05:46 VBG HCO3 32.8 mmol/L (24-28) H 01/17/25 05:46 VBG Base Excess 5.5 mmol/L (-3.0-3.0) H 01/17/25 05:46 VBG Hematocrit 44.2 % (42-52) 01/17/25 05:46 [employer] Process Server Developer ID [email or web address] 01/17/25 05:46 Sodium 141 mmol/L (136-145) 01/17/25 03:17 Potassium 3.2 mmol/L (3.5-5.1) L 01/17/25 03:17 Chloride 98 mmol/L (98-107) 01/17/25 03:17 Carbon Dioxide 33 mmol/L (22-29) H 01/17/25 03:17 Anion Gap 13.2 (5-19) 01/17/25 03:17 BUN 13 mg/dL (6-20) 01/17/25 03:17 Creatinine 1.6 mg/dL (0.7-1.2) H 01/17/25 03:17 GFR Calculation 47.0 mL/min (90-130) L 01/17/25 03:17 Glucose 107 mg/dL (65-115) 01/17/25 03:17 Calculated Osmolality 293 mOsm/kg (285-295) 01/17/25 03:17 Calcium 9.3 mg/dL (8.5-10.5) 01/17/25 03:17 Phosphorus 3.8 mg/dL (2.5-4.5) 01/17/25 03:17 Magnesium 1.8 mg/dL (1.7-2.3) 01/17/25 03:17 Total Bilirubin 0.4 mg/dL (0.15-1.2) 01/17/25 03:17 AST 37 U/L (0-40) 01/17/25 03:17 ALT 15 U/L (0-41) 01/17/25 03:17 Alkaline Phosphatase 159 U/L (40-130) H 01/17/25 03:17 Troponin T Baseline 27 ng/L (0-15) H 01/17/25 03:17 Troponin T 60 Minute 22.95 ng/L (0-15) H 01/17/25 05:46 Delta Troponin T -4.05 ABS# (0-10) L 01/17/25 05:46 Troponin T Hi Sens 6Hr 25.29 ng/L (0-15) H 01/17/25 09:35 Troponin T Hi Sens 6Hr Delta -1.71 ng/L (0-12) L 01/17/25 09:35 NT-Pro-B Natriuret Pep 1577 pg/mL (0-125) H 01/17/25 03:17 Total Protein 6.7 g/dL (6.6-8.7) 01/17/25 03:17 Albumin 3.8 g/dL (3.5-5.2) 01/17/25 03:17 Globulin 2.9 g/dL (1.3-4.6) 01/17/25 03:17 Lipase 32 U/L (13-60) 01/17/25 03:17 Vitals Last Vital Signs Temp 97.6 F 01/17/25 07:28 Pulse 97 01/17/25 07:28 Resp 16 01/17/25 07:28 BP 115/78 01/17/25 07:28 Pulse Ox 96 01/17/25 08:56 O2 Del Method Room Air 01/17/25 08:56 Discharge Plan Discharge Patient Disposition: Home Condition: Stable Prescriptions: New pantoprazole 40 mg Tablet,Delayed Release (Dr/Ec) 40 mg PO BID 30 Days Qty: 60 0RF sucralfate 1 gram Tablet 1 g PO AC&BEDTIME 30 Days Qty: 120 0RF Continued atorvastatin [Lipitor] 40 mg tablet 40 mg PO QPM Qty: 30 0RF potassium chloride 10 mEq capsule, extended release 10 meq PO DAILY Qty: 30 0RF bumetanide 2 mg tablet 2 mg PO BID Qty: 60 0RF metoprolol succinate 25 mg tablet extended release 24 hr 25 mg PO DAILY Qty: 30 0RF sacubitril-valsartan [Entresto] 49-51 mg tablet 1 tab PO BID Discontinued pantoprazole 40 mg tablet,delayed release (DR/EC) 40 mg PO BID PRN (Reason: Acid Reflux) atorvastatin 40 mg tablet 40 mg PO DAILY Qty: 90 0RF Discharge Order = DC NOW: Discharge Order (Routine); Ordered 01/17/25 Ordered By: Radha Saldivar Referrals: Russell Olmstead MD [Primary Care Provider, [facility]] Discharge Diet: GI Soft Discharge Activity: Resume usual activity Patient Instructions: Abdominal Pain (ED), Opioid Safety, Patient Portal & Stephany Instructions, How to Stop Smoking (DC) Discharge Attestations Time Spent in Discharge Care*: greater than 30 min Status at Discharge: Cognitive status at discharge: cognitively intact, Behavioral status at discharge: cooperative, Quality Metrics Clinical Quality Measures [ No reported AMI, CVA or VTE this stay] Coding Level of Care Code 00050 Diagnoses Abdominal pain, acute, epigastric R10.13 Alcohol abuse F10.10 Abnormal ECG R94.31 HFrEF (heart failure with reduced ejection fraction) I50.20 Non-ischemic cardiomyopathy I42.8 Elevated troponin R79.89 Acute hypokalemia E87.6
[2025-01-17 11:27] LABS: Alcohol Level 198 mg/dL (0-10)
== END 2025-01-17 11:57 | disposition home or self-care (01) ==
LOC: ER 06:03 → MEDSURG 09:39
PROVIDERS: Admitting Provider Internal Medicine; Emergency Provider Emergency Medicine; PCP Family Medicine; Visit Provider Registered Nurse
DX: R10.13 Epigastric pain (principal); F10.10 Alcohol abuse, uncomplicated; R94.31 Abnormal electrocardiogram [ECG] [EKG]; I42.8 Other cardiomyopathies; R79.89 Other specified abnormal findings of blood chemistry; E78.6 Lipoprotein deficiency; K21.9 Gastro-esophageal reflux disease without esophagitis; I13.0 Hypertensive heart and chronic kidney disease with heart failure and stage 1 through stage 4 chronic kidney disease, or unspecified chronic kidney disease; N18.9 Chronic kidney disease, unspecified; I50.9 Heart failure, unspecified; F17.210 Nicotine dependence, cigarettes, uncomplicated
CPT/HCPCS: 36415; 71045; 74177; 80053; 80307; 82010; 82803; 83690; 83735; 83880; 84100; 84484; 85025; 93005; 94664; 96372; 96374; 96375; 99285; G0378; J0131; J1650; J2405; J7030; J9999; Q0162